=== PATIENT | female | born 1935 | race Caucasian/White ===

== ENCOUNTER 2018-07-30 12:47 | Emergency (ER) | payer MEDICARE, SELFPAY ==
[2018-07-30 13:08] VITALS: BP 184/105; PULSE 93; RESP 18; TEMP 36.9; O2SAT 96; BMI 24.9
--- NOTE | 2018-07-30 13:24 | ED_ITS ---
HPI - Dizziness General Chief Complaint: Dizziness Stated Complaint: HEAD ABARCA UPON STANDING, FELL DOWN, LIGHT HEADED Time Seen by Provider: 07/30/18 13:23 Source: patient Mode of arrival: ambulatory Limitations: no limitations History of Present Illness HPI Narrative: Patient is an 83-year-old female here for evaluation of an episode that occurred earlier today. She stated that she was at her baseline state health when she was walking on the hallway at the facility where she is living. She states she bent over to slide a piece of paper under someone's door him when she stood up she became very lightheaded. She denies any other associated symptoms at that time to include chest pain, vertigo, shortness of breath, ringing in her ears. She stated that she did fall and hit her right knee. She states that her knee does not hurt. She was ambulatory afterwards however did take her little while to get up. She did not hit her head. Does not on anticoagulation. She states that she has had vertigo in the past but did not feel like that this was vertigo. Has had an irregular heartbeat in the past and is on propranolol for this however she did not feel like she was having any palpitations or rapid heart rate at the time. Patient has never had a stroke before. She did ambulate here into the emergency department. She states that she has been becoming more ?dizzy ?over the past couple weeks. This is not a vertigo sensation but a lightheadedness sensation. She states she does have weakness in her lower extremities with the right greater than left however this is not new. She states she does have a history of neuropathy. Patient did ambulate into the emergency department. Related Data Home Medications Medication Instructions Recorded Confirmed cyclobenzaprine 5 mg PO #0 06/27/17 06/04/18 budesonide-formoterol [Symbicort] 1 inh INH BID #102 12/10/17 06/04/18 Previous Rx's Medication Instructions Recorded propranolol 40 mg PO BID #180 tab 08/07/17 albuterol sulfate [Proventil HFA] 1 - 2 puff INH SEE INSTRUCTIONS #1 08/13/17 inh metformin [Glucophage] 500 mg PO BID #180 tab 09/25/17 omeprazole 20 mg PO QDAY #90 cap 12/25/17 alprazolam 0.25 mg tablet 0.25 mg PO PRN #20 tab 02/04/18 Disabled Parking Permit See Label Instructions 05/06/18 [id number] .COMPLEX #1 [id number] albuterol sulfate HFA 90 2 puff INHALATION Q4-6H PRN #8 gram 07/08/18 mcg/actuation aerosol inhaler Allergies Allergy/AdvReac Type Severity Reaction Status Date / Time No Known Drug Allergies Allergy Verified 07/30/18 13:08 Review of Systems Constitutional Denies fatigue, Denies fever(s), Denies frequent falls, Denies headache(s), Denies lethargy and Denies malaise Eyes Denies blurry vision and Denies diplopia ENT Ears, Nose, Mouth, and Throat: Denies vertigo, Reports dizziness, Denies headache(s) and Reports disequilibrium Cardiovascular Denies chest pain, Denies syncope, Denies irregular heart rhythm, Denies palpitations, Denies dyspnea and Denies slow heart rate Respiratory Denies cough and Denies dyspnea Gastrointestinal Gastrointestinal: Denies abdominal pain, Denies nausea and Denies vomiting Genitourinary Denies dysuria Musculoskeletal Denies myalgias, Denies deformity, Reports arthralgias (Right knee), Denies joint swelling, Denies limited range of motion, Denies numbness and Denies tingling Integumentary/Breasts Denies lesions and Denies rash Neurologic Denies behavioral changes, Denies confusion, Denies vertigo, Reports dizziness, Denies syncope, Denies frequent falls, Denies headache(s), Denies focal weakness , Denies numbness, Denies radicular pain, Denies sensory deficit, Denies tingling, Denies paresthesias and Reports disequilibrium Psychiatric Denies anxiety, Denies behavioral changes and Denies confusion Endocrine Denies fatigue and Denies palpitations Hematologic/Lymphatic Denies easy bleeding and Denies easy bruising Allergic/Immunologic Denies urticaria PFSH Medical History Breast cancer (Chronic ~1981) COPD (chronic obstructive pulmonary disease) (Chronic) Cataract (Chronic) Chronic back pain (Chronic) Diabetes (Chronic) Diverticular disease (Chronic) GERD (gastroesophageal reflux disease) (Chronic) Hay fever (Chronic) Hyperglycemia (Chronic) Hyperlipidemia (Chronic) Hypertension (Chronic) Lumbar back pain (Chronic) Skin cancer (Chronic ~2011) Chicken pox (Resolved) Measles (Resolved) Mumps (Resolved) Surgical History Anesthesia (Resolved) History of mastectomy (Resolved ~09/1981) Status post hysterectomy Family History Mother Brain aneurysm Sister Age: 79 Cancer of breast Lung cancer Daughter Cancer of breast Father No problems noted. Social History Smoking Status: Never smoker Exam Initial Vital Signs Initial Vital Signs: Vital Signs Temperature 98.5 F 07/30/18 13:08 Pulse Rate 93 H 07/30/18 13:08 Respiratory Rate 18 07/30/18 13:08 Blood Pressure 184/105 H 07/30/18 13:08 Pulse Oximetry 96 07/30/18 13:08 Const General: cooperative, healthy appearing, comfortable, well developed, well groomed and No acute distress Orientation: alert, awake and oriented x3 HENMT Head: normal to inspection and normocephalic Resp Effort & Inspection: normal respiratory effort Auscultation: clear to auscultation bilaterally Cardio Rate: regular rate Rhythm: regular rhythm GI Inspection: non-distended Skin Lesions: no lesions Rashes: no rashes Neuro General: alert, awake and oriented x3 Cranial Nerves: CN's II-XI intact bilaterally Cognition: normal cognition Speech: speech normal Gait: normal gait Motor: muscle tone normal throughout Sensory Exam: no sensory deficits noted Extrem General: normal to inspection and capillary refill normal Other: Patient with a small bruise on the right anterior knee however full range of motion. Not tender to palpation. Psych Appearance: grossly normal and well kempt Course Orders Ordered: ED Orders 07/30/18 13:18 EKG-12 Lead Stat Vital Signs - 8 hr 07/30/18 13:08 Temperature 98.5 F Pulse Rate 93 H Respiratory Rate 18 Blood Pressure 184/105 H Pulse Oximetry 96 MDM - Dizziness ECG Data Attestation: I personally reviewed and interpreted this ECG as follows: Prior ECG tracings: available for review Interpretation: Sinus rhythm Ventricular rate 83 LVH Normal QRS sign normal QTC Nonspecific ST T wave changes Comparison EKG dated 12/31/2016 Sinus rhythm Occasional PVCs Rate is [address] T wave changes MDM Narrative Medical decision making narrative: Patient's symptoms today were caused after she stood up from a position where she was bent over placing something under the door. She is not on anticoagulation in did not hit her head. She was able to ambulate afterwards. Patient does state that she gets ?dizzy? when she changes position at home and has to sit on the edge of the bed at night prior to standing up going to the restroom. She is not on blood pressure medications. She is on propanolol for a ?irregular heartbeat? her symptoms today did not seem to be associated with this. I feel CVA is unlikely. Will hold on head CT. EKG is unchanged from prior EKG. Doubt ACS. Patient has never had a GI bleed before his no change in her bowel so I feel that this is unlikely an anemia issue. Doubt electrolyte issue. Informed the patient that I recommended she contact her primary care doctor to discuss further workup to include a possible echocardiogram and carotid Dopplers for further evaluation. She was given return precautions. She expressed understanding and agreement with plan. Discharge Plan Departure Patient Disposition: Home Clinical Impression: Lightheadedness Instructions: DI for Dizziness-Nonvertigo Activity Restrictions/Additional Instructions: Recommend you continue all of your medications. I would also recommend you contact her primary care doctor to discuss the indications for a echocardiogram and carotid Dopplers to further evaluate her heart. I would also recommend that you take care when you change positions to include going from laying to sitting or sitting to standing or bending over. Return to the emergency department for any new or worsening symptoms Prescriptions: No Action cyclobenzaprine 5 MG tablet 5 mg PO Qty: 0 RF: 0 propranolol 40 MG tablet 40 mg PO BID Qty: 180 RF: 4 albuterol sulfate [Proventil HFA] 90 MCG/PUFF HFA aerosol inhaler 1 - 2 puff INH SEE INSTRUCTIONS Qty: 1 RF: 11 metformin [Glucophage] 500 MG tablet 500 mg PO BID Qty: 180 RF: 3 budesonide-formoterol [Symbicort] 160 MCG/4.5 MCG HFA aerosol inhaler 1 inh INH BID Qty: 102 RF: 0 omeprazole 20 MG capsule,delayed release(DR/EC) 20 mg PO QDAY Qty: 90 RF: 3 alprazolam 0.25 mg tablet 0.25 mg PO PRN Qty: 20 RF: 1 Disabled Parking Permit See Label Instructions [id number] .COMPLEX Qty: 1 RF: 0 albuterol sulfate [Ventolin HFA] 90 mcg/actuation HFA aerosol inhaler 2 puff INHALATION Q4-6H PRN (Reason: shortness of breath or wheezing) Qty: 8 RF: 3
== END 2018-07-30 14:25 | disposition home or self-care (01) ==
PROVIDERS: Emergency Provider Emergency Medicine; Family Provider Family Medicine; PCP Family Medicine
DX: R42 Dizziness and giddiness (principal)
CPT/HCPCS: 93005; 99282; 99283

== ENCOUNTER → 2018-08-01 09:41 | Outpatient (CLI) | payer MEDICARE, SELFPAY ==
[2018-08-01 09:57] LABS: Add Manual Diff / Slide Review NO; Basophils Percent Auto 0.8 % (0-2); Eosinophils Percent Auto 2.5 % (2-4); Hematocrit 41.8 % (36-46); Hemoglobin 13.5 g/dL (12.0-16.0); Lymphocytes Percent Auto 25.6 % (25-40); Mean Corpuscular HGB Conc 32.4 % (30-36); Mean Corpuscular Hemoglobin 27.7 PG (26-34); Mean Corpuscular Volume 85.6 fL (80-100); Monocytes Percent Auto 7.8 % (3-14); Neutrophils Absolute Auto 5700 /uL (3000-5900); Neutrophils Percent Auto 63.3 % (50-75); Platelet Count 342 X10^3/uL (150-400); Red Blood Cell Count 4.88 X10^6/uL (4.0-5.2); Red Cell Distribution Width 16.3 % (11.6-14.8)
[2018-08-01 10:21] LABS: BUN Creatinine Ratio 21.4 (6-22); Blood Urea Nitrogen 15 mg/dL (7-17); Calcium 10.1 mg/dL (8.4-10.2); Carbon Dioxide 28 mmol/L (22-32); Chloride 100 mmol/L (98-107); Estimated Glomerular Filt Rate > 60.0 mL/min (>60); Glucose 152 mg/dL (80-110); HEMOLYSIS < 15 (0-50); Magnesium 1.5 mg/dL (1.6-2.3); Potassium 4.3 mmol/L (3.4-5.1); Sodium 142 mmol/L (137-145)
[2018-08-01 11:31] LABS: Thyroid Stimulating Hormone 2.42 uIU/mL (0.47-4.68)
== END ==
PROVIDERS: PCP Family Medicine; Visit Provider Family Medicine
DX: I10 Essential (primary) hypertension (principal); R42 Dizziness and giddiness
CPT/HCPCS: 36415; 80048; 83735; 84443; 85025

== ENCOUNTER → 2018-08-13 14:38 | Outpatient (CLI) | payer MEDICARE, SELFPAY ==
--- NOTE | 2018-08-13 14:42 | DI.US.S_ITS ---
PROCEDURE: US CAROTID DOPPLER BI INDICATIONS: lightheaded. GLF, ER f/u TECHNIQUE: Color and pulse Doppler interrogation was performed of both carotid systems, with image documentation and velocity measurements. COMPARISON: None. FINDINGS: Stenosis calculations are based on SRU (Society of Radiologists in Ultrasound) criteria. The flow velocities and the arterial waveforms are normal within both carotid arterial systems. Atherosclerotic plaque is seen on both sides. The estimated degree of internal carotid artery stenosis is less than 50%. Antegrade flow is confirmed within both vertebral arteries. IMPRESSION: No hemodynamically significant stenosis is seen. Atherosclerotic plaque is noted bilaterally. Dictated by: Darian Doyle M.D. on 08/13/2018 at 14:47 Approved by: Darian Doyle M.D. on 08/13/2018 at 14:48
== END ==
PROVIDERS: Family Provider Family Medicine; PCP Family Medicine; Visit Provider Family Medicine
DX: I65.23 Occlusion and stenosis of bilateral carotid arteries (principal); R42 Dizziness and giddiness
CPT/HCPCS: 93880

== ENCOUNTER → 2018-08-15 14:58 | Outpatient (CLI) | payer MEDICARE, SELFPAY ==
--- NOTE | 2018-08-15 14:59 | DI.ECHO.S_ITS ---
[facility]---------+ [facility] +---------+ : : [address] : : : : [id number] : : : : Phone: [phone] Echocardiogram Report + + :Name: INDER ASH Study Date: 08/15/2018 Height: 65 in : :[facility] Exam Location: [facility] Weight: 145 lb : : Gender: Female BSA: 1.7 m2 : :: 1935 Age: 83 yrs BP: 190/96 mmHg: :Reason For Study: LIGHTHEADED : : Performed By: Alexys Hanks : :Referring: HERBERT THURMAN : + + Interpretation Summary The left ventricle is normal in size. Left ventricular systolic function is mildly reduced. Left ventricular ejection fraction is estimated to be 45%. There is mild global hypokinesis of the left ventricle. Diastolic parameters suggest a relaxation abnormality of the left ventricle, consistent with probable normal filling pressures. The right ventricle is normal in size and function. Pulmonary artery pressures cannot be estimated because of the lack of a measurable TR jet velocity. The left atrium is severely dilated. Right atrial size is normal. The interatrial septum bows toward right atrium consistent with elevated left atrial pressure. The atrial septum is aneurysmal. There is no significant valvular heart disease. The aortic root is normal size. Incidental finding of a liver cyst measuring approximately 4.8 cm x 2.2 cm is noted. Procedure: A two-dimensional transthoracic echocardiogram with color flow and Doppler was performed. The study quality was technically adequate. There is no prior echocardiogram noted for this patient. The patient was in normal sinus rhythm during the exam. Left Ventricle: The left ventricle is normal in size. There is normal left ventricular wall thickness. Left ventricular systolic function is mildly reduced. Left ventricular ejection fraction is estimated to be 45%. Septal motion is consistent with conduction abnormality. There is mild global hypokinesis of the left ventricle. Diastolic parameters suggest a relaxation abnormality of the left ventricle, consistent with probable normal filling pressures. Right Ventricle: The right ventricle is normal in size and function. Atria: The left atrium is severely dilated. Right atrial size is normal. The interatrial septum bows toward right atrium consistent with elevated left atrial pressure. The atrial septum is aneurysmal. There is no Doppler evidence for an atrial septal defect. Mitral Valve: The mitral valve is normal in structure and function. There is trace mitral regurgitation. Aortic Valve: The aortic valve is trileaflet. The aortic valve opens well. No aortic regurgitation is present. Tricuspid Valve: The tricuspid valve is normal in structure and function. There is trace tricuspid regurgitation. Pulmonary artery pressures cannot be estimated because of the lack of a measurable TR jet velocity. Pulmonic Valve: The pulmonic valve is normal in structure and function. There is trace pulmonic regurgitation. There is no significant valvular heart disease. Great Vessels: The aortic root is normal size. The dimensions of the ascending aorta are normal. The pulmonary artery is normal size. The IVC is of normal diameter and collapses greater than 50% with a sniff. This suggests a low right atrial pressure of 3 mm Hg. Pericardium/ Pleura There is no pericardial effusion. There is no pleural effusion. Incidental finding of a liver cyst measuring approximately 4.8 cm x 2.2 cm is noted. MMode/2D Measurements & Calculations LVIDd: 5.5 cm Ao root diam: 3.0 cm LVIDs: 4.2 cm Aortic Jxn: 2.4 cm FS: 24.5 % asc Aorta Diam: 3.3 cm EPSS: 1.6 cm IVSd: 0.92 cm LVPWd: 1.0 cm LV gordillo. diameter/BSA (cm/m^2): 3.2 LV sys. diameter/BSA (cm/m^2): 2.4 LA dimension: 4.5 cm RA long axis: 4.8 cm LA A2 area: 22.3 cm2 RA area: 13.1 cm2 LA A4 area: 24.7 cm2 RA vol: 30.6 ml LA length (vol): 5.1 cm RA : 17.7 ml/m2 LA vol: 91.0 ml IVC diam: 1.0 cm LA vol index: 52.7 ml/m2 Doppler Measurements & Calculations Ao V2 max: 131.4 cm/sec LVOT Max Job: 62.1 cm/sec Ao V2 mean: 84.4 cm/sec LV V1 max P.5 mmHg Ao max P.9 mmHg LV V1 VTI: 13.7 cm Ao mean P.2 mmHg sev ratio: 0.60 Ao V2 VTI: 22.9 cm MV E max job: 37.5 cm/sec PA V2 max: 75.4 cm/sec MV A max job: 81.6 cm/sec PA V2 mean: 51.9 cm/sec MV E/A: 0.46 PA mean P.2 mmHg Med Peak E' Job: 3.0 cm/sec PA pr(Accel): 36.6 mmHg E/E' med: 12.5 PA Accel Time: 0.09 sec Lat Peak E' Job: 3.9 cm/sec E/E' lat: 9.6 E/e' average: 11.1 MV dec time: 0.16 sec Pulm Samson Nice Job: 26.7 cm/sec Reading Physician:BLANE
== END ==
PROVIDERS: Family Provider Family Medicine; PCP Family Medicine; Visit Provider Family Medicine
DX: R42 Dizziness and giddiness (principal); I10 Essential (primary) hypertension; K76.89 Other specified diseases of liver
CPT/HCPCS: 93306

== ENCOUNTER → 2018-09-16 11:57 | Outpatient (CLI) | payer MEDICARE, SELFPAY ==
[2018-09-16 12:52] LABS: Alanine Aminotransferase 22 IU/L (9-52); Albumin 4.3 g/dL (3.5-5.0); Albumin Globulin Ratio 1.7 (1.0-2.8); Alkaline Phosphatase 58 U/L (38-126); Aspartate Aminotransferase 15 IU/L (14-36); Bilirubin Total 0.5 mg/dL (0.2-1.3); Bilirubin Unconjugated 0.3 mg/dL (0.0-1.1); Globulin 2.6 g/dL (1.7-4.1); HEMOLYSIS < 15 (0-50); Total Protein 6.9 g/dL (6.3-8.2)
== END ==
PROVIDERS: Family Provider Family Medicine; PCP Family Medicine; Visit Provider Family Medicine
DX: E11.9 Type 2 diabetes mellitus without complications (principal)
CPT/HCPCS: 36415; 80076

== ENCOUNTER → 2018-11-19 15:17 | Outpatient (CLI) | payer MEDICARE, SELFPAY ==
--- NOTE | 2018-11-19 15:22 | DI.RAD.S_ITS ---
PROCEDURE: XR CHEST 2V INDICATIONS: Suspected pneumonia TECHNIQUE: 2 views of the chest were acquired. COMPARISON: [facility], , CHEST 1 VIEW, 12/15/2017, 20:39. FINDINGS: Surgical changes and devices: None. Lungs and pleura: No acute consolidation. Scattered subsegmental atelectasis and/or scarring. No pleural effusions or pneumothorax. Mediastinum: Mediastinal contours are normal. Heart size is normal. Hiatal hernia is noted. Bones and chest wall: No suspicious bony abnormalities. Right shoulder degeneration and loose body as before. Soft tissues appear unremarkable. IMPRESSION: No definite focal consolidation. If there is persistent clinical diagnostic uncertainty, continued surveillance with short interval chest radiographs after treatment is recommended. Dictated by: Tim Rodriguez M.D. on 11/19/2018 at 15:53 Approved by: Tim Rodriguez M.D. on 11/19/2018 at 15:59
== END ==
PROVIDERS: PCP Family Medicine; Visit Provider Family Medicine
DX: R06.02 Shortness of breath (principal); R05 Cough
CPT/HCPCS: 71046

== ENCOUNTER → 2018-12-02 11:58 | Outpatient (CLI) | payer MEDICARE, SELFPAY ==
--- NOTE | 2018-12-02 12:01 | DI.RAD.S_ITS ---
PROCEDURE: XR CHEST 2V INDICATIONS: cough TECHNIQUE: 2 views of the chest were acquired. COMPARISON: [facility], CR, XR CHEST 2V, 11/19/2018, 15:25. FINDINGS: Surgical changes and devices: None. Lungs and pleura: Chronic right midlung scarring. Diffusely coarse interstitial markings, slightly increased compared to the prior study. No pleural effusions or pneumothorax. Mediastinum: Mediastinal contours are normal. Heart size is normal. There is small hiatal hernia. Bones and chest wall: No suspicious bony abnormalities. Soft tissues appear unremarkable. IMPRESSION: 1. No evidence of focal pneumonia. 2. Slight increase in interstitial markings compared to prior study. This is nonspecific and can be seen in a viral or interstitial pneumonitis or emphysematous change. Dictated by: Lila Nobles M.D. on 12/02/2018 at 13:20 Approved by: Lila Nobles M.D. on 12/02/2018 at 13:22
== END ==
PROVIDERS: Family Provider Family Medicine; PCP Family Medicine; Visit Provider Physician Assistant
DX: R05 Cough (principal); K44.9 Diaphragmatic hernia without obstruction or gangrene
CPT/HCPCS: 71046

== ENCOUNTER → 2018-12-17 08:04 | Outpatient (CLI) | payer MEDICARE, SELFPAY ==
--- NOTE | 2018-12-17 | DI.MG.S_ITS ---
UNILATERAL LEFT DIGITAL SCREENING MAMMOGRAM 3D/2D WITH CAD POST LUMPECTOMY POST MASTECTOMY: 12/17/2018 CLINICAL: Routine screening. Personal history of bilateral breast cancer. Family history of breast cancer. Comparison is made to exams dated: 12/06/2017 mammogram, 07/02/2017 mammogram, and 01/03/2017 mammogram - [facility]. The tissue of left breast is heterogeneously dense. This may lower the sensitivity of mammography. Current study was also evaluated with a Computer Aided Detection (CAD) system. There are benign post operative findings in the left breast. There also are benign calcifications in the left breast. No significant masses, calcifications, or other findings are seen in the breast. There has been no significant interval change. IMPRESSION: There is no mammographic evidence of malignancy. A 1 year screening mammogram is recommended. This exam was interpreted at Station ID: [id number]. NOTE: For mammograms, a report in lay terms will be sent to the patient. Approximately 15% of breast malignancies will not be visualized mammographically. In the management of a palpable breast mass, a negative mammogram must not discourage biopsy of a clinically suspicious lesion. Electronically Signed By: Yumi renteria/denisa:12/17/2018 16:25:02 copy to: Pancho Cadena letter sent: Normal Exam ACR BI-RADS Category 2: Benign Finding(s) 3342F
[2018-12-17 09:53] LABS: Add Manual Diff / Slide Review NO; Basophils Absolute Auto 100 /uL (0-100); Basophils Percent Auto 0.8 % (0-2); Eosinophils Absolute Auto 100 /uL (0-450); Eosinophils Percent Auto 1.2 % (2-4); Hematocrit 40.6 % (36-46); Hemoglobin 13.1 g/dL (12.0-16.0); Lymphocytes Absolute Auto 1600 /uL (1100-4500); Lymphocytes Percent Auto 21.8 % (25-40); Mean Corpuscular HGB Conc 32.2 % (30-36); Mean Corpuscular Hemoglobin 27.8 PG (26-34); Mean Corpuscular Volume 86.3 fL (80-100); Monocytes Absolute Auto 600 /uL (0-900); Monocytes Percent Auto 7.7 % (3-14); Neutrophils Absolute Auto 5100 /uL (1500-7000); Neutrophils Percent Auto 68.5 % (50-75); Platelet Count 289 X10^3/uL (150-400); Red Blood Cell Count 4.71 X10^6/uL (4.0-5.2); Red Cell Distribution Width 16.8 % (11.6-14.8); White Blood Cell Count 7.4 X10^3/uL (4.5-11.0)
[2018-12-17 10:12] LABS: Hemoglobin A1C% w Est Avg Glu 6.2 % (4.0-6.0)
[2018-12-17 10:13] LABS: Alanine Aminotransferase 18 IU/L (9-52); Albumin 4.1 g/dL (3.5-5.0); Albumin Globulin Ratio 1.5 (1.0-2.8); Alkaline Phosphatase 53 U/L (38-126); Aspartate Aminotransferase 14 IU/L (14-36); BUN Creatinine Ratio 18.6 (6-22); Bilirubin Total 0.4 mg/dL (0.2-1.3); Blood Urea Nitrogen 13 mg/dL (7-17); Calcium 10.3 mg/dL (8.4-10.2); Carbon Dioxide 27 mmol/L (22-32); Chloride 103 mmol/L (98-107); Cholesterol 231 mg/dL (140-199); Estimated Glomerular Filt Rate > 60.0 mL/min (>60); Globulin 2.8 g/dL (1.7-4.1); Glucose 142 mg/dL (80-110); HDL Cholesterol 65 mg/dL (40-60); HEMOLYSIS < 15 (0-50); LDL Cholesterol Calculated 114 mg/dL (<100); Potassium 4.5 mmol/L (3.4-5.1); Sodium 139 mmol/L (137-145); Total Protein 6.9 g/dL (6.3-8.2); Triglycerides 262 mg/dL (35-150)
[2018-12-17 10:53] LABS: Microalbumi Creatinin Ratio Ur 33.4 ug/mg CR (<30); Microalbumin Urine Random 9.7 mg/dL (0-1.6)
[2018-12-17 11:03] LABS: Vitamin D 25 Hydroxy (D3) 26.4 ng/mL (30.0-100.0)
[2018-12-17 11:18] LABS: Thyroid Stimulating Hormone 2.37 uIU/mL (0.47-4.68)
== END ==
PROVIDERS: PCP Family Medicine; Visit Provider Family Medicine
DX: Z12.31 Encounter for screening mammogram for malignant neoplasm of breast (principal); Z85.3 Personal history of malignant neoplasm of breast; Z80.3 Family history of malignant neoplasm of breast; J44.9 Chronic obstructive pulmonary disease, unspecified; I10 Essential (primary) hypertension; E11.9 Type 2 diabetes mellitus without complications; M81.0 Age-related osteoporosis without current pathological fracture
CPT/HCPCS: 36415; 77063; 77067; 80053; 80061; 82043; 82306; 82570; 83036; 84443; 85025

== ENCOUNTER → 2019-03-25 11:41 | Outpatient (CLI) | payer MEDICARE, SELFPAY ==
[2019-03-25 12:38] LABS: Hemoglobin A1C% w Est Avg Glu 6.2 % (4.0-6.0)
[2019-03-25 12:42] LABS: BUN Creatinine Ratio 18.6 (6-22); Blood Urea Nitrogen 13 mg/dL (7-17); Calcium 10.3 mg/dL (8.4-10.2); Carbon Dioxide 28 mmol/L (22-32); Chloride 104 mmol/L (98-107); Estimated Glomerular Filt Rate > 60.0 mL/min (>60); Glucose 178 mg/dL (80-110); HEMOLYSIS < 15 (0-50); Potassium 4.2 mmol/L (3.4-5.1); Sodium 142 mmol/L (137-145)
== END ==
PROVIDERS: PCP Family Medicine; Visit Provider Family Medicine
DX: E11.9 Type 2 diabetes mellitus without complications (principal)
CPT/HCPCS: 36415; 80048; 83036

== ENCOUNTER → 2019-03-27 18:02 | Outpatient (CLI) | payer MEDICARE, SELFPAY ==
--- NOTE | 2019-03-27 18:04 | DI.MRI.S_ITS ---
PROCEDURE: MR LUMBAR SPINE WO CON INDICATIONS: Pain TECHNIQUE: Noncontrast sagittal T1 spin echo and T2 fast echo, sagittal STIR, axial T1 and T2 fast spin echo through the lumbar spine. In cases with scoliosis, additional coronal T2 fast spin echo may be performed. COMPARISON: [facility], , L-SPINE WITHOUT CONTRAST, 07/02/2017, 13:13. FINDINGS: Image quality: Excellent. Alignment and Curvature: Again noted is grade 1 anterolisthesis of L3 on L4 and L4 and L5, unchanged from previous study. Bone Marrow: Marrow is of normal overall signal. No acute vertebral body compression fractures. Spinal Cord: Conus medullaris terminates at the L1 level. Visualized cord demonstrates normal signal and size. Paraspinous Soft Tissues: No paravertebral masses. L1-L2: Bilateral facet arthrosis is seen. No significant canal stenosis or neuroforaminal narrowing. L2-L3: Decrease in intervertebral disc space and degenerative endplate changes are seen. Broad-based disc bulge and bilateral facet arthrosis is seen with hypertrophy of ligamentum flavum. There is mild central canal stenosis, no significant neuroforaminal narrowing. L3-L4: Decreased intervertebral disc space and degenerative endplate changes are again seen. A broad-based disc bulge and bilateral facet arthrosis is seen with hypertrophy of ligamentum flavum. Moderate central canal stenosis and mild to moderate bilateral neural foramina narrowing is seen. Bulging disc likely contacting bilateral exiting L3 nerve roots. L4-L5: Broad-based disc bulge and bilateral facet arthrosis is seen with hypertrophy of ligamentum flavum. There is moderate to severe central canal stenosis and moderate bilateral neural foramina narrowing. There is compression of bilateral L4 and L5 nerve roots. L5-S1: Decreased intervertebral disc space and degenerative endplate changes are seen. Broad-based disc bulge and bilateral facet arthrosis is noted causing mild to moderate central canal stenosis and right worse than left bilateral neuroforaminal narrowing. There is likely compression of right L5 and S1 nerve roots. IMPRESSION: 1. Grade 1 anterolisthesis of L3 on L4 and L4 on L5 not significantly changed from previous study. No marrow edema. No acute compression fracture. 2. Degenerative disc bulge and bilateral facet arthrosis throughout lumbar spine causing [id number] central canal stenosis and bilateral neuroforaminal narrowing more prominent at L3-4 and L4-5 levels as described above. Finding is progressed since 2017 study. Dictated by: Harjit Lombardi M.D. on 03/30/2019 at 10:39 Approved by: Harjit Lombardi M.D. on 03/30/2019 at 10:44
== END ==
PROVIDERS: PCP Family Medicine; Visit Provider Family Medicine
DX: M47.26 Other spondylosis with radiculopathy, lumbar region (principal); M51.26 Other intervertebral disc displacement, lumbar region
CPT/HCPCS: 72148

== ENCOUNTER → 2019-05-07 08:31 | Outpatient (CLI) | payer MEDICARE, SELFPAY ==
[2019-05-07 09:29] LABS: Add Manual Diff / Slide Review NO; Basophils Absolute Auto 100 /uL (0-100); Basophils Percent Auto 0.7 % (0-2); Eosinophils Absolute Auto 200 /uL (0-450); Eosinophils Percent Auto 2.2 % (2-4); Hematocrit 40.2 % (36-46); Hemoglobin 12.8 g/dL (12.0-16.0); Lymphocytes Absolute Auto 2600 /uL (1100-4500); Lymphocytes Percent Auto 28.9 % (25-40); Mean Corpuscular HGB Conc 31.9 % (30-36); Mean Corpuscular Hemoglobin 27.1 PG (26-34); Monocytes Absolute Auto 700 /uL (0-900); Neutrophils Absolute Auto 5300 /uL (1500-7000); Neutrophils Percent Auto 60.2 % (50-75); Platelet Count 306 X10^3/uL (150-400); Red Blood Cell Count 4.73 X10^6/uL (4.0-5.2); Red Cell Distribution Width 15.6 % (11.6-14.8); White Blood Cell Count 8.8 X10^3/uL (4.5-11.0)
[2019-05-07 09:49] LABS: Hemoglobin A1C% w Est Avg Glu 6.1 % (4.0-6.0)
[2019-05-07 10:00] LABS: Blood Urea Nitrogen 21 mg/dL (7-17); Calcium 10.6 mg/dL (8.4-10.2); Carbon Dioxide 28 mmol/L (22-32); Chloride 104 mmol/L (98-107); Estimated Glomerular Filt Rate > 60.0 mL/min (>60); Glucose 118 mg/dL (80-110); HEMOLYSIS < 15 (0-50); Potassium 4.1 mmol/L (3.4-5.1); Sodium 140 mmol/L (137-145)
== END ==
PROVIDERS: PCP Family Medicine; Visit Provider Family Medicine
DX: Z01.818 Encounter for other preprocedural examination (principal); R73.9 Hyperglycemia, unspecified
CPT/HCPCS: 36415; 80048; 83036; 85025

== ENCOUNTER → 2019-05-07 10:58 | Outpatient (CLI) | payer MEDICARE, SELFPAY | PROVIDERS: PCP Family Medicine; Visit Provider Hospitalist | DX: Z01.818 Encounter for other preprocedural examination (principal); R73.9 Hyperglycemia, unspecified | CPT/HCPCS: 36415; 80048; 83036; 85025; 93005 ==

== ENCOUNTER 2019-06-17 06:06 | Inpatient (IN) | payer MEDICARE, SELFPAY ==
[2019-06-12 10:50] VITALS: BMI 24.5
[2019-06-17] VITALS (25 sets, daily range): BP systolic 119–192; BP diastolic 65–110; PULSE 76–90; RESP 9–18; TEMP 36–36.9; O2SAT 94–100; BMI 23.1
--- NOTE | 2019-06-17 | DI.RAD.S_ITS ---
PROCEDURE: XR LUMBAR SPINE 2-3V INDICATIONS: L3-4 L4-5 --TLIF TECHNIQUE: 2 views of the lumbar spine were acquired. COMPARISON: None. FINDINGS: Bones: 5 [id number] vertebrae are present. Postsurgical changes compatible with L3-L4 and L4-L5 TLIF. Orthopedic hardware is intact and properly positioned. No vertebral body compression fractures. No suspicious bony lesions. Soft tissues: Overlying bowel gas pattern is normal. No suspicious soft tissue calcifications. IMPRESSION: Expected postsurgical change for L3-L4 and L4-L5 TLIF. Dictated by: Kaley Anders MD, PhD on 06/17/2019 at 10:52 Approved by: Kaley Anders MD, PhD on 06/17/2019 at 10:53
[2019-06-17] MEDS: LACTATED RINGERS 1,000 ML 42 ML IV ×2 (07:29→09:51)
--- NOTE | 2019-06-17 07:46 | PM.PREOP ---
Pre-operative Note Interval Note History & Physical reviewed/Exam performed by Physician: Yes Changes to H&P: No
[2019-06-17] MEDS: CEFAZOLIN 2 GM/100 ML FROZ.PIGGY IV ×3 (07:54→23:22)
--- NOTE | 2019-06-17 08:28 | SUR.OPER ---
Prone on spine table, head in foam head support, padded chest and pelvic supports, gel pad at knees, lower legs supported by pillows; nipples, genitalia and toes free of pressure, arms secured on foam padded arm boards at <90 degrees abduction. Tape over blanket at thigh secured to table.
[2019-06-17] MEDS: BUPIVACAINE 0.25% W/ EPI 30 ML VIAL INJ (08:40)
[2019-06-17] MEDS: BUPIVACAINE LIPOSOME 266 MG/20 ML VIAL INJ (08:40)
--- NOTE | 2019-06-17 11:16 | PM.OP.1 ---
Operative Date/Time/Diagnoses Date of procedure: 06/17/19 Time of procedure: 08:16 Pre-op diagnosis: 1. L3-4, L4-5 spondylolisthesis 2. L3-4, L4-5 spinal stenosis 3. L3-4, L4-5 spondylosis with radiculopathy Post-op diagnosis: same Procedure & Clinicians Procedure: 1. L3-4, L4-5 Postero-lateral and posterior interbody fusion 2. L3-4, L4-5 interbody cage placement. 3. L3-4, L4-5 decompressive laminectomy with bilateral facetecomies 4. L3-4, L4-5 Posterior segmental instrumentation 5. Utilization of microsurgical technique and operating microscope Same procedure as scheduled: Yes Indications: Patient has been having chronic back pain and worsening lumbar radiculopathy. Patient failed multiple conservative management with worsening pain weakness and numbness in her lower extremity. Patient has been having difficulty performing activity of daily living. After discussing risks benefits of treatment options, patient elected proceed with surgery. Surgeon: Crissy Holt Typewriter Mechanic: Bee Mckeon Click Yes if Unassisted: No Anesthesia Type: General Operative Notes Closure Type: primary Specimen(s): none sent Prosthetic devices, grafts, tissues, transplants, or devices: Globus revolve screws, Rise cages Applied: catheter Estimated Blood Loss (mL): 75 Blood products transfused: none Procedure in detail: Patient was seen in the preoperative area. Risks and benefits of the surgery was discussed with the patient. Informed consent was obtained from the patient and placed in the chart. Surgical site was marked. Patient was taken to the operative room. General anesthesia was administered. Prophylactic antibiotic was given to the patient less than 30 min before the incision was made. Patient was placed into a prone position on the Noah table. Patient's back was then prepped and draped in the sterile fashion. Time-out was performed at this time. Using AP and lateral C-arm imaging the interval between L3-4, L4-5 was identified and marked on patient's back. A 2 inch incision 2 in from midline was made on the right side first. The fascia was incised in line with skin incision. Globus MARS retractors was placed inside the incision and docked onto the L3 and L4 lamina. Using microsurgical technique and operating microscope, a L3 and L4 laminectomy and L3-4, L4-5 facetectomy was performed using a Kerrison rongeur. The disc space at L3-4, L4-5 was identified. And a total diskectomy was performed at L3-4, L4-5 level. The endplates were decorticated using a rasp and shaver. The patient was found have severe central and neuroforaminal stenosis at both levels. The stenosis was fully decompressed after the laminectomy and facetectomy was completed. The total diskectomy and decortication was performed at L3-4, L4-5 level in order to to accomplish a L3-4, L4-5 fusion. The local bone from the laminectomy and facetectomy was saved for local bone grafting. After the total diskectomy and decortication was completed, Bio4 bone graft material was combined with local bone that was harvested earlier. The bone grafting material was placed into the L3-4, L4-5 interbody space along with two cages, one expandable cage at each level. The cages were expanded to their maximum height using the torque limiting screwdriver. At this time a mirror image incision was made on the left side. The fascia was incised in line with the skin incision. Globus MARS retractor was inserted and docked onto the L3-4, L4-5 posterolateral gutter. Using the power drill, posterior-lateral decortication was performed at L3-4, L4-5 level until bleeding cortical bone was identified. The remaining bone grafting material was placed into the L3-4, L4-5 posterior lateral gutter he order to accomplish posterolateral fusion at the L3-4, L4-5 levels. Using the double C-arm technique, pedicle screws were placed into the L3, L4, L5 pedicles bilaterally. This was done by placing the Jamshidi needle into the pedicles, then placing the guidewires over the Jamshidi needle, and finally placing the cannulated screws over the guidewires bilaterally. After the pedicle screws were placed, 2 titanium rods was locked into the heads of the pedicle screws using locking caps and torque limiting screwdriver. Total 6 pedicles screws were placed. After all the hardware was placed, and confirmed with AP and lateral C-arm imaging, the wound was then irrigated with sterile normal saline and packed with Ray-Navi gauze for 3 min to accomplish hemostasis. After the gauze was removed the deep fascia was closed with #1 Vicryl suture. The subcutaneous layer was closed with 2-0 Vicryl. The skin was closed with skin maxine. Patient tolerated the procedure well. There were no complications. Complications: none Post-operative Condition: stable Disposition: PACU [facility]care[facility]
[2019-06-17] MEDS: HYDROMORPHONE 2 MG INJ 0.5 MG IV ×3 (11:52→12:38)
--- NOTE | 2019-06-17 12:51 | SUR.PHASEI ---
Patient arrived in PACU somnolent, but arouses to voice. Dressing CDI. STACK's x 4. Medicated for c/o 5/10 pain.
--- NOTE | 2019-06-17 12:53 | SUR.PHASEI ---
Report Given to SIVAN Eddy.
[2019-06-17] MEDS: SODIUM CHLORIDE 0.9% 1,000 ML 100 ML IV (14:50)
[2019-06-17] MEDS: ALPRAZolam 0.25 MG TABLET PO (14:52)
[2019-06-17] MEDS: OXYCODONE IR 5 MG TABLET 10 MG PO (16:47)
--- NOTE | 2019-06-17 17:35 | PC.NURSE ---
Assumed care of pt at 1500. Pt sleeping in bed during bedside hand-off. Dsg c/d/i. 2L NC sats 92-94%. I.S. at bedside, enc to use 10x/hr while awake. CMS+. Reports baseline neuropathy; can wiggles toes, denies additional numbness. Feet cool to touch, pt reports my feet are always cool. Foot scd's on. IVF infusing per orders. Student nurse participating in pt care including assessments and medication administration, all care completed by student nurse has been under the supervision of this RN.
[2019-06-17] MEDS: PROPRANOLOL 40 MG TABLET PO (21:03)
[2019-06-17] MEDS: METFORMIN HCL 500 MG TABLET PO (21:03)
[2019-06-17] MEDS: DOCUSATE 100 MG CAPSULE PO (21:03)
[2019-06-17] MEDS: BUDESONIDE FORMOTEROL 2 EACH PO (21:04)
[2019-06-17] MEDS: SENNOSIDES 8.6 MG TABLET 17.2 MG PO (21:04)
[2019-06-18] VITALS (10 sets, daily range): BP systolic 105–146; BP diastolic 57–76; PULSE 74–92; RESP 16–20; TEMP 35.6–37.3; O2SAT 90–99
[2019-06-18] MEDS: SODIUM CHLORIDE 0.9% 1,000 ML 100 ML IV (01:00)
[2019-06-18 05:56] LABS: Hematocrit 32.9 % (36-46); Hemoglobin 10.5 g/dL (12.0-16.0)
[2019-06-18] MEDS: OXYCODONE IR 5 MG TABLET 10 MG PO ×2 (06:24→09:37)
--- NOTE | 2019-06-18 09:05 | PT.IIE ---
Current Diagnoses Spondylolisthesis, lumbar region (06/17/19) Spinal stenosis, lumbar region with neurogenic claudication (06/17/19) Surgery Performed Operation Date: 06/17/19 07:45 Actual Procedures p L3-4 , L4-5 TLIF w/ posterior instrumentation - Crissy Holt MD Surgical History (Last Updated 03/03/18 @ 21:46 by Cherelle Barbosa) Anesthesia (Resolved) History of mastectomy (Resolved ~09/1981) Status post hysterectomy Medical History (Last Updated 06/12/19 @ 11:29 by Loren Baker RN) Breast cancer (Chronic ~1981) Cataract (Chronic) Chicken pox (Resolved) Chronic back pain (Chronic) COPD (chronic obstructive pulmonary disease) (Chronic) Diabetes (Chronic) Diastolic dysfunction (Acute) Diverticular disease (Chronic) Edema (Acute) GERD (gastroesophageal reflux disease) (Chronic) Hay fever (Chronic) Hyperglycemia (Chronic) Hyperlipidemia (Chronic) Hypertension (Chronic) Lumbar back pain (Chronic) Measles (Resolved) Mumps (Resolved) Neuropathy (Acute) Skin cancer (Chronic ~2011) Physical Therapy Inpatient Evaluation/Re-Eval M1 PT/OT-IP Prior Functional Status Start: 06/18/19 11:30 Freq: NEEDED Status: Active Protocol: Document 06/18/19 09:05 AB (Rec: 06/18/19 11:44 AB [id number]) Medical Review Prior Functional Status Medical History Reviewed Yes Communication able to make needs known Mobility and Gait pt stated that she is independent with all mobilities and ambulation without AD Social History Household Members none Living Arrangements Apartment/Condo Number of Floors (Floors) One Floor Number of Stairs To Enter/Railing? pt lives on the 2nd floor apartment but has access to an elevator Home Environment High Toilet,Tub/Shower, Elevator Home Equipment Four Wheel Walker,Grab Bars In Shower Employment Status Retired Additional Social History Comment stated that she has a day bed and uses side bed frame to assist her to get up M2 PT-IP Current Condition Start: 06/18/19 11:30 Freq: NEEDED Status: Active Protocol: Document 06/18/19 09:05 AB (Rec: 06/18/19 11:44 AB [email or web address]) Physical Therapy Current Condition Current Condition Evaluation Date 06/18/19 Treatment Diagnosis L3-4, L4-5 fusion/lami; difficulty in walking Onset Date 06/17/19 Precautions Lumbar Precautions Log Roll,No Twisting,Limit Bending,Lifting Restriction of 10 lbs,Gait Belt above Incisional Area M3 PT-IP Subjective Start: 06/18/19 11:30 Freq: NEEDED Status: Active Protocol: Document 06/18/19 09:05 AB (Rec: 06/18/19 11:44 AB [email or web address]) Subjective Physical Therapy Visit Type Type Initial Evaluation Visit Start Time 09:05 Visit Stop Time 09:50 Total Visit Minutes 45 Number of HOSPITAL CNA Visits 0 Physical Therapy Visit Comments Patient Comments pt agreeable to do PT Therapy Pain Assessment Pain When Pain Assessed At Rest Pain Present Pain Present Pain Reported Location Bilateral Back Intensity 5 Scale Used increases to 9/10 with movement Pain Management Techniques Re-positioning,Timing of Activity with Medications M4 PT-IP Mobility and Gait Start: 06/18/19 11:30 Freq: NEEDED Status: Active Protocol: Document 06/18/19 09:05 AB (Rec: 06/18/19 11:44 AB [email or web address]) PT-Bed Mobility Assessment Rolling Type of Rolling Log Rolling Level of Assist Maximal Assistance,1 Person Assistance Supine to Sit Supine to Sit Maximum Assistance,1 Person Assistance,2 Person Assistance ,Bedrails Scooting Scooting to Edge of Bed Dependent PT-Transfer Assessment Sit to and From Stand Sit to and from Stand Maximum Assistance,2 Person Assistance,Use of Upper Extremities Equipment Transfer Assistive Device Gait Belt,Front Wheeled Walker Orthotic/Prosthetic Devices or Brace: No Transfers Transfer Destination Chair Transfer Technique Stand Step Pivot Transfer Ability Level of Assist Maximum Assistance,2 Person Assistance,Use of Upper Extremities Comments Mobility Comments pt completed supine to sit max A x 1-2 and max cues. pt stated that she has side of bed frame to assist her to get up but pt was trying to pull self up and not doing a log roll and pt educated on importance of back precautions . pt required increase time to complete all tasks and c/o increase back pain. pt was able to sit on EOB min A and cues. required total A to scoot to EOB. Completed sit to stand from EOB max A x 2 and max cues for quads activation. pt completed step pivot transfer max Ax 2 and max cues. required max A for controlled descent to the chair. positioned pt on the chair and set up for breakfast . call light within reach. Left pt with student nurse in room. Gait Assessment Comments Gait Comments unable at this time PT-Balance Assessment Sitting Balance and Reactions Static Sitting Balance Ability Fair Dynamic Sitting Balance Ability Fair Standing Balance and Reactions Static Standing Balance Ability Poor Dynamic Standing Balance Ability Poor Device Used FWW M5 PT-IP Objective Assessments Start: 06/18/19 11:30 Freq: NEEDED Status: Active Protocol: Document 06/18/19 09:05 AB (Rec: 06/18/19 11:44 AB [email or web address]) Orientation Orientation/Cognition Level of Alertness Alert Orientation Name,Place,Situation Language Function Ability Hard of Hearing Safety Awareness Decreased Safety Awareness Gross Range of Motion Lower Extremity ROM Assessment Within Functional Limits Strength Lower Extremity Strength Assessment Bilaterally Impaired Hip 3-/5 Knee 3/5 Sensation Assessment Sensation Gross Sensation WNL Muscle Tone Muscle Tone WNL Yes M6 PT-IP Treatment Start: 06/18/19 11:30 Freq: NEEDED Status: Active Protocol: Document 06/18/19 09:05 AB (Rec: 06/18/19 11:44 AB [email or web address]) Physical Therapy Treatment Exercises Exercises Heel Slides Education Education Provided Precautions,Weight Bearing Status,Post-Op Packet,Safety M7 PT-IP Assessment and Plan Start: 06/18/19 11:30 Freq: NEEDED Status: Active Protocol: Document 06/18/19 09:05 AB (Rec: 06/18/19 11:44 AB [email or web address]) PT Summary Assessment and Plan Potential Rehabilitation Potential Good Status of Condition at Evaluation Evolving Summary Impairments Pain,ROM,Strength,Balance, Coordination,Sensation,Tone, Cognition,Bed Mobility, Transfers,Gait,Activity Tolerance Assessment Summary pt requiring max A x 2 with mobility and unable to tolerate much activity with c/ o increase pain with movement. pt lives alone and will need 24/7 assist at this time. pt will require SNF rehab to improve strength and mobiltiy. Goals Bed Mobility Goal Standby Assistance Transfer Goal Standby Assistance,Front Wheeled Walker Gait Goal Standby Assistance,Front Wheel Walker Gait Distance 150 Days to Meet Goals 10 Frequency of Treatment Frequency Of Treatment Twice a Day Treatment Plan Physical Therapy Treatment Plan Bed Mobility Training,Transfer Training,Gait Training, Therapeutic Exercise,Balance Retraining,Post Op Education, Discharge Planning,Hot or Cold Pack,Neuromuscular Re-ed, Coordination Retraining,Manual Therapy Recommendations To Nursing Amount of Assist Needed 2 Person Assist Discharge Recommendations PT Discharge Recommendations SNF Rehab Equipment Needed for Home Before FWW if pt goes home Discharge
--- NOTE | 2019-06-18 09:15 | PM.PNPO.1 ---
Subjective Subjective Date Patient Seen: 06/18/19 Time Patient Seen: 09:15 Interval history: Hospital day 2, postop day 1 following L3-4, L4-5 laminectomy, TLIF, cage, posterior screw fixation by Dr. Holt. Patient has remained stable postoperatively. She has not been out of bed yet. No PT yet. She does have Lynn in place. Taking oxycodone 10 mg for pain. States she still has decreased sensation to her left leg. Patient does live alone but has 2 daughters locally will help her. She is anticipating going home post hospitalization. Exam Vital Signs (past 8 hours): - 06/18/19 06:10 06/18/19 08:00 06/18/19 08:20 Temperature 98.0 F 98.2 F Pulse Rate 75 77 77 Respiratory Rate 16 18 Blood Pressure 141/72 H 127/67 Pulse Oximetry 98 90 L 92 Fraction of Inspired Oxygen 21 Oxygen Delivery Method Room Air Oxygen Flow Rate 0 Narrative Exam Narrative: Patient is alert and responsive in no acute distress lying in bed. Back. Dressing to lumbar area is dry without drainage or inflammation. Legs. No calf pain or swelling. Pulses symmetrical. Good sensation to touch to right leg but decreased sensation left leg. Good strength on foot dorsiflexion plantar flexion bilateral. Objective Labs Result Diagrams: 06/18/19 05:27 Labs: Laboratory Results - last 24 hr 06/18/19 05:27 Hgb 10.5 L Hct 32.9 L Assessment & Plan Post-op Postoperative Procedures: Procedures Operation Date: 06/17/19 07:45 Actual Procedures Side Surgeon p L3-4 , L4-5 TLIF w/ posterior instrumentation Crissy Holt MD Plan: Patient will work with PT today. Will try to DC Lnyn catheter today if she is up and around more. Anticipate discharge home when she is stable and cleared by PT. Anticipate 1-2 days more in Hospital.
--- NOTE | 2019-06-18 09:21 | CM.DANOTE ---
Addendum entered by Rayne Medellin LPN 06/18/19 11:16: Nilsa: [facility]: accepts pt for admission when stable for same. Will update pt now. PASRR: needed prior to d/c. Addendum entered by Rayne Medellin LPN 06/18/19 10:19: Met with pt as planned and introduced self and role. Pt is found sitting up in front of breakfast tray, tremors in hands noted as she eats and she says I don't know why I am shaking, I never do this. I don't do well with pain medicine. Pt says her plan is now for snf rehab. The therapist told me this morning that I will need it. She clarifies that her one daughter Mago was going to check on her at home but that she works multimedia assistant and also was not going to be there at night. Her other daughter Daiana is currently on crutches. SNF choice list: discussed: decision: [facility]: referral: to Nilsa/is reviewing. Pt says she has never had a snf stay but she has visited people who were in [facility]. Pt will likely be ready for SNF level care by Wednesday 06/20. INPT admission status: confirmed by UR SIVAN Hartman: 06/17 Thus far no therapy notes are available in EMR.. Will check in tomorrow and follow prn. Will provide [facility] brochure to pt once February has given final acceptance. Original Note: Discharge Planning/Care Management DCP: assessment: case received, EMR reviewed. Pt is an 84 year old female who admitted yesterday for a planned spinal surgery. Payer: Medicare [facility] PCP: Dr. Traylor Surgeon: Dr. Holt Pt has identified her plan post hospital, at time of the pre-op assessment: see below: as home setting with her daughter to stay with her. PT and OT will see her for first time today. P: Discuss in Team Rounds and then check in with pt and follow for d/c issues and options. CM Discharge Assessment Start: 06/18/19 09:19 Freq: Status: Active Protocol: Document 06/18/19 09:19 ITV (Rec: 06/18/19 09:20 ITV [id number]) Discharge Planning Assessment Advance Directives? Yes Advance Directives on File No History Provided By Medical Record Prior Living Arrangements Apartment/Condo Household Members none Review Status In Process Pre-Anesthesia Assessment Start: 06/12/19 10:50 Freq: Status: Complete Protocol: Document 06/12/19 10:50 CAB (Rec: 06/12/19 11:32 CAB [id number]) Pre-Anesthesia Assessment Patient Information Reviewed Via Phone Assessment Assessment Completed With Patient Diagnostic Results BMP/CMP,CBC,EKG Comment Labs/EKG @ 05/07/19 Primary Care Provider Raphael Traylor Medical Clearance Received Yes Seen Specialist in Last 12 Months Yes Specialist Seen Orthopedist Comment PCP pre-op clearance Primary Language Dutch Clinical Practice Consultant Required No Height 163.83 cm Weight 65.771 kg Body Mass Index (BMI) 24.5 Hearing Ability Normal Visual Assist Glasses Dentition Type Teeth, Natural Present Barriers to Learning None Hx Anesthesia Reactions No Hx Family Anesthesia Reaction No Hx Malignant Hyperthermia No Hx Blood Transfusions Yes: s/p diverticulitis approx 2002 Hx Blood Transfusion Reaction No Anesthesia Review Requested No alcohol intake former Alcohol Intake Frequency Other: Last drink over 13 years ago for health reasons Smoking Status Former smoker how long ago did patient quit smoking Quit 35 years ago Substance Use Type does not use Pain Present Pain Reported Musculoskeletal Symptoms Abnormal Gait,Back Pain, Difficulty Walking,Muscle Weakness,Numbness,Radiating Pain into Limb History of Falling (Recent or History of Yes ) Patient is completely paralyzed or No completely immobile Mental Status Oriented to own ability Is patient on oxygen? No Does patient have BRIGGS/SOB Yes: Hx COPD Hx Sleep Apnea No Comment Hx COPD Currently Taking a Beta [place] Yes: Propranolol Can You Climb a Flight of Stairs Without No SOB Hx Chest Pain No Hx SOB Yes Hx Syncope or Dizziness No Anti-Coagulant Therapy No Has a Occupational Therapy Specialist No Cardiac Testing Yes: Echo @ 08/15/18 EF 45% , Carotid US 08/13/18-negative Hx Pacemaker/ICD No Pacemaker Rep Required? No Cardiac Clearance Received Not Applicable Diet Type At Home Regular dysphagia No Urinary Catheter Present No Hx Urinary Self Catheterization No Diabetes Yes: Pt does not check blood sugars at home HgbA1C 6.1 Date 05/07/19 Patient No Lactating No Hx Drug Resistant Organism No Presence of External or Internal Medical No Devices Have you traveled outside the [facility] in the last 30 days? Marital Status Lives With none Prior Living Arrangements Apartment/Condo Support System Child/Children Does the Patient Have Assistance After Yes Surgery Patient Discharge Plan Description Return Home Comment Pt advised 1-3 day length of stay per surgeon, daughter will stay w/pt @ dc Feels Safe in Current Environment Yes Been Physically Hurt or Threatened By a No Person in Current Environment Do you have thoughts of harming yourself None or others? Are you currently considering suicide? No Do you have a plan to hurt yourself or No Plan others? Do You Have Any Spiritual Beliefs That No May Affect Your HC Choices? Do You Have Any Cultural Practices That No May Affect Your HC Choices? Comment Muslim Who Can We Speak to About Patient's Care Family, friends Identifying Code for Release of Patient Declines to issue Information Health Care Proxy/Next of Kin Mago (daughter) Daiana ( daughter) Health Care Proxy Phone Number Mago: [phone] Daiana: [phone] Emergency Contact Name Mago (daughter) Daiana ( daughter) Emergency Contact Phone Number Mago: [phone] Daiana: [phone] Advance Directives? Yes Advance Directives on File No Requested Patient Bring Advanced Yes Directives DOS PAC Instructions Durable medical equipment, Medications to take/avoid, Nasal antibiotic,No ETOH/ petroleum product on skin DOS, NPO,Post-op transportation,Pre -surgical wash,Sensory aids, Sturdy shoes/comfortable clothes,Do not bring valuables and remove jewelry
[2019-06-18] MEDS: DOCUSATE 100 MG CAPSULE PO ×2 (09:37→21:40)
[2019-06-18] MEDS: PROPRANOLOL 40 MG TABLET PO ×2 (09:37→22:05)
[2019-06-18] MEDS: METFORMIN HCL 500 MG TABLET PO ×2 (09:37→21:40)
[2019-06-18] MEDS: PANTOPRAZOLE 20 MG TABLET PO (09:37)
[2019-06-18] MEDS: ACETAMINOPHEN 325 MG TABLET 650 MG PO ×2 (09:37→23:59)
[2019-06-18] MEDS: BUDESONIDE FORMOTEROL 2 EACH PO (09:38)
--- NOTE | 2019-06-18 09:43 | PC.NURSE ---
Day shift: Pt OOB FWW with PT and RN student to chair in room. Very slow moving and painful for Pt. Will give pain meds at this time. Pt did not eat any breakfast. Leaving IV fluid running due to low urine output overnight. BO Ramirez made aware. BO Ramirez also made aware that Pt slow moving and having pain. Will continue to monitor. Call light in reach. Chair alarm in place.
--- NOTE | 2019-06-18 10:39 | OT.IP.EVAL ---
Current Diagnoses Spondylolisthesis, lumbar region (06/17/19) Spinal stenosis, lumbar region with neurogenic claudication (06/17/19) Surgery Performed Operation Date: 06/17/19 07:45 Actual Procedures p L3-4 , L4-5 TLIF w/ posterior instrumentation - Crissy Holt MD Past Medical History (Last Updated 06/12/19 @ 11:29 by Loren Baker RN) Breast cancer (Chronic ~1981) Cataract (Chronic) Chicken pox (Resolved) Chronic back pain (Chronic) COPD (chronic obstructive pulmonary disease) (Chronic) Diabetes (Chronic) Diastolic dysfunction (Acute) Diverticular disease (Chronic) Edema (Acute) GERD (gastroesophageal reflux disease) (Chronic) Hay fever (Chronic) Hyperglycemia (Chronic) Hyperlipidemia (Chronic) Hypertension (Chronic) Lumbar back pain (Chronic) Measles (Resolved) Mumps (Resolved) Neuropathy (Acute) Skin cancer (Chronic ~2011) Surgical History (Last Updated 03/03/18 @ 21:46 by Cherelle Barbosa) Anesthesia (Resolved) History of mastectomy (Resolved ~09/1981) Status post hysterectomy Occupational Therapy Inpatient Evaluation/Re-Eval to assist her to get up M1 PT/OT-IP Prior Functional Status Start: 06/18/19 12:16 Freq: NEEDED Status: Active Protocol: Document 06/18/19 10:39 [facility]3] (Rec: 06/18/19 12:36 [facility]3] [id number]) Medical Review Prior Functional Status Medical History Reviewed Yes Communication able to make needs known Mobility and Gait pt stated that she is independent with all mobilities and ambulation without AD Activities of Daily Living and IADL's Pt completely independent with ADl's, IADL's , paid her bills, took her own medications, and drove. Social History Household Members none Living Arrangements Apartment/Condo Number of Floors (Floors) One Floor Number of Stairs To Enter/Railing? pt lives on the 2nd floor apartment but has access to an elevator Home Environment High Toilet,Tub/Shower, Elevator Home Equipment Four Wheel Walker,Lift Recliner,Grab Bars In Shower Employment Status Retired Additional Social History Comment stated that she has a day bed and uses side bed frame to assist her to get up M2 OT-IP Current Condition Start: 06/18/19 12:16 Freq: Status: Active Protocol: Document 06/18/19 10:39 [facility]3] (Rec: 06/18/19 12:36 [facility]3] [id number]) Occupational Therapy Current Condition Current Condition Evaluation Date 06/18/19 Treatment Diagnosis L3-4, L4-5 laminectomy TLIF Diagnosis Onset Date 06/17/19 Post Operative Precautions Abdominal Surgery Precautions Log Roll,Lifting Restrictions, Gait Belt above Incisional Area Weight Bearing Status Weight Bearing Status Weight Bear as Tolerated M3 OT- IP Subjective and Pain Start: 06/18/19 12:16 Freq: Status: Active Protocol: Document 06/18/19 10:39 [facility]3] (Rec: 06/18/19 12:36 [facility]3] [id number]) OT- Subjective Occupational Therapy Visit Type Type Initial Evaluation Visit Start Time 10:39 Visit Stop Time 11:13 Total Visit Minutes 34 Occupational Therapy Visit Comments Patient Comments Pt realizes not feeling well or thinking well due to pain medication. Pt states, I do not want to take the Oxycodone anymore, I am even sensitive to coffee. Nursing aware. Patient/Caregiver Goals Pt wants to go home , but realizes will have to go to skilled rehab prior to going home. OT Pain Assessment Pain When Pain Assessed At Rest Pain Present Pain Present Denied Pain M4 OT- IP ADL's Start: 06/18/19 12:16 Freq: Status: Active Protocol: Document 06/18/19 10:39 [facility]3] (Rec: 06/18/19 12:36 [facility]3] [id number]) OT [id number] Comments OT Self-Feeding Comments Not at meal time. OT ADL-Grooming General Evaluation Grooming Ability Standby Assistance Areas Needing Assistance Retrieving/Set-up of Grooming Items Comments OT Grooming Comments Set-up for grooming needs. Pt needing cues to find her bag which was on her lap. Pt educated best to sip into a cup from tooth brushing needs. Pt states usually heavily lean onto the counter while brushing her teeth. OT ADL-Dressing General Eval Lower Body Dressing Ability Maximum Assistance Areas Needing Assistance Socks Comments OT Dressing Comments Educated pt on use of aeronautics teacher and sock aid to help increase independence for dressing needs. OT ADL-Toileting Comments OT Toileting Comments Lynn in. Educated pt on may have to stand to wipe to best follow precautions for hygiene needs. M5 OT- IP IADL's Start: 06/18/19 12:16 Freq: Status: Active Protocol: Document 06/18/19 10:39 [facility]3] (Rec: 06/18/19 12:36 [facility]3] [id number]) OT-Instrumental Activities of Daily Living Home Safety Awareness Home Safety Comments At this time, pt is not thinking or remembering well due to having Oxycodone. Prior pt was independent with all Adl and IADL needs. M6 OT- IP Functional Cognition Start: 06/18/19 12:16 Freq: Status: Active Protocol: Document 06/18/19 10:39 [facility]3] (Rec: 06/18/19 12:36 [facility]3] [id number]) Cognitive Factors Limiting Selfcare Function Cognitive Ability Level of Alertness Alert,Confusional State Patient Orientation Name,Place,Situation Attention Span Ability Capable of Focused Attention, Capable of Sustained Attention Ability to Follow Commands Able to Follow One Step Commands with Increased Time, Able to Follow One Step Commands with Repetition Memory Description Immediate Impaired,Short Term Impaired Safety Awareness Decreased Recall of Precautions,Decreased Ability to Apply Precautions, Underestimates Need for Assistance Problem Solving Ability Unable to Identify Errors, Needs Assist to Identify Solutions Cognitive Comments Cognitive Assessment Comments Pt not able to think well due to affects of pain medication, not able to recall any back precautions and even after multiple repetition, feeling groogy, and states, I just can not think well today. OT- Vision and Hearing OT- Hearing Assessment OT- Hearing Assessment WFL OT- Vision Assessment Visual Acuity Glasses All The Time M7 OT- IP Mobility and Balance Start: 06/18/19 12:16 Freq: Status: Active Protocol: Document 06/18/19 10:39 [facility]3] (Rec: 06/18/19 12:36 [facility]3] [id number]) OT-Transfer Assessment Sit to and From Stand Sit to and from Stand Total Assistance Comments Mobility Comments At this time unable to stand pt with one person assist. Per PT eval pt required MAX A X 2 to stand and for stand pivot transfer only at this time. OT- Balance Assessment Sitting Balance and Reactions Static Sitting Balance Ability Normal Dynamic Sitting Balance Ability Good Standing Balance and Reactions Static Standing Balance Ability Poor M8 OT- IP Objective Assessments Start: 06/18/19 12:16 Freq: Status: Active Protocol: Document 06/18/19 10:39 [facility]3] (Rec: 06/18/19 12:36 [facility]3] [id number]) OT Gross Range of Motion Upper Extremity Range of Motion ROM Impairments GRossly WFL for ADl needs. 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 M9 OT- IP Assessment and Plan Start: 06/18/19 12:16 Freq: Status: Active Protocol: Document 06/18/19 10:39 [facility]3] (Rec: 06/18/19 12:36 [facility]3] [id number]) OT Summary Assessment and Plan Potential Rehabilitation Potential Good Analytic Complexity at Evaluation Low Summary OT Impairments Pain,Strength,Balance, Functional Cognition, Functional Mobility,Grooming, Dressing,Toileting,Bathing, Toilet Transfers,Shower Transfers Progress Towards Goals Slow Progress due to Pain,Slow Progress due to Cognition Assessment Summary Pt low complexity and main barrier is now needing two person assist to stand and transfer per PT eval , and will need extensive assist for al ADl needs. Pt lives alone and would benefit from skilled rehab prior to going home. Goals Grooming Goal Standby Assistance Dressing Goal Minimal Assistance Toileting Goal Minimal Assistance Bathing Goal Moderate Assistance Toilet Transfer Goal Minimal Assistance Shower Transfer Goal Moderate Assistance Patient/Caregiver Education Goal Demonstrate Post-Op Precautions Days to Meet Goals 10 Frequency of Treatment Frequency Of Treatment Once a Day Treatment Plan OT Treatment Plan ADL Training,Functional Cognition Training,Functional Mobility,Patient/Family Education,Discharge Planning Other Treatment Recommendations and Next Back precaution education. Treatment Focus Transfer to [facility] x2. Discharge Recommendations OT Discharge Recommendations SNF Rehab Home Equipment Needs defer to skilled rehab
--- NOTE | 2019-06-18 11:06 | PC.NURSE ---
Day shift: Pt reports that she feels funny after taking the 10mg of oxycodone. Encouraged I.S. use 10x per hour and well as deep breaths and cough. Pt OOB to chair with PT and tolerating well. This typewriter ribbon winder suggested that next pain med time she take 5mg of the oxycodone. She may agreeable to this. Next pain meds can be given at approx 1230 today. Will continue to monitor. Call light in reach and chair alarm is on.
--- NOTE | 2019-06-18 13:28 | PC.NURSE ---
Day shift: Pt back in bed after being in chair for lunch. Tolerated the move well. Pt was asked if she would want her Zanax and she said no. Pt in bed on 1L NC sleeping. Call light in reach and bed alarm is on.
--- NOTE | 2019-06-18 14:20 | PT.IPTN ---
Current Diagnoses Spondylolisthesis, lumbar region (06/17/19) Spinal stenosis, lumbar region with neurogenic claudication (06/17/19) Surgery Performed Operation Date: 06/17/19 07:45 Actual Procedures p L3-4 , L4-5 TLIF w/ posterior instrumentation - Crissy Holt MD Physical Therapy Treatment Note M2 PT-IP Current Condition Start: 06/18/19 11:30 Freq: NEEDED Status: Active Protocol: Document 06/18/19 09:05 AB (Rec: 06/18/19 11:44 AB [id number]) Physical Therapy Current Condition Current Condition Evaluation Date 06/18/19 Treatment Diagnosis L3-4, L4-5 fusion/lami; difficulty in walking Onset Date 06/17/19 Precautions Lumbar Precautions Log Roll,No Twisting,Limit Bending,Lifting Restriction of 10 lbs,Gait Belt above Incisional Area M3 PT-IP Subjective Start: 06/18/19 11:30 Freq: NEEDED Status: Active Protocol: Document 06/18/19 14:20 AB (Rec: 06/18/19 14:52 AB [id number]) Subjective Physical Therapy Visit Type Type Treatment Note Visit Start Time 14:20 Visit Stop Time 14:41 Total Visit Minutes 21 Number of PAINT LABORATORY TECHNICIAN Visits 0 Physical Therapy Visit Comments Patient Comments pt agreeable to do PT Therapy Pain Assessment Pain When Pain Assessed During Mobility Location Bilateral Back Scale Used pain scale not stated Pain Behaviors Guarding Pain Management Techniques Re-positioning,Timing of Activity with Medications M4 PT-IP Mobility and Gait Start: 06/18/19 11:30 Freq: NEEDED Status: Active Protocol: Document 06/18/19 14:20 AB (Rec: 06/18/19 14:52 AB [id number]) PT-Bed Mobility Assessment Supine to Sit Supine to Sit Maximum Assistance,1 Person Assistance,2 Person Assistance Scooting Scooting to Edge of Bed Maximum Assistance PT-Transfer Assessment Sit to and From Stand Sit to and from Stand Maximum Assistance,2 Person Assistance,Use of Upper Extremities Equipment Transfer Assistive Device Gait Belt,Front Wheeled Walker Orthotic/Prosthetic Devices or Brace: No Transfers Transfer Destination Chair Transfer Technique Stand Step Pivot Transfer Ability Level of Assist Maximum Assistance,2 Person Assistance,Use of Upper Extremities Comments Mobility Comments pt required max A x 2 for sit to stand and max A to maintain standing balance using FWW for support. cues provided to activated quad muscles Gait Assessment Gait Gait Assistance Required: Maximum Assistance,1 Person Assist,2 Person Assist Distance (Feet) 5 Able to Maintain Weight Bearing Status Yes During Gait Assistive Devices Assistive Device Gait Belt,Front Wheeled Walker Orthotic/Prosthetic Devices or Brace: No Gait Deviations General Gait Pattern Antalgic,Decreased Stride Length,Decreased Feet Clearance Factors Limiting Gait Function Factors Limiting Gait Function Decreased Activity Tolerance, Decreased Strength,Limited Range of Motion,Pain,Poor Balance,Poor Safety Awareness Comments Gait Comments ambulated using FWW max A x 1- 2 , cues and with chair follow . pt presents with unsteady gait, slow wagner M5 PT-IP Objective Assessments Start: 06/18/19 11:30 Freq: NEEDED Status: Active Protocol: Document 06/18/19 09:05 AB (Rec: 06/18/19 11:44 AB [id number]) Orientation Orientation/Cognition Level of Alertness Alert Orientation Name,Place,Situation Language Function Ability Hard of Hearing Safety Awareness Decreased Safety Awareness Gross Range of Motion Lower Extremity ROM Assessment Within Functional Limits Strength Lower Extremity Strength Assessment Bilaterally Impaired Hip 3-/5 Knee 3/5 Sensation Assessment Sensation Gross Sensation WNL Muscle Tone Muscle Tone WNL Yes M6 PT-IP Treatment Start: 06/18/19 11:30 Freq: NEEDED Status: Active Protocol: Document 06/18/19 14:20 AB (Rec: 06/18/19 14:52 AB [id number]) Physical Therapy Treatment Education Education Provided Precautions,Safety M7 PT-IP Assessment and Plan Start: 06/18/19 11:30 Freq: NEEDED Status: Active Protocol: Document 06/18/19 14:20 AB (Rec: 06/18/19 14:52 [id number]) PT Summary Assessment and Plan Potential Rehabilitation Potential Good Summary Impairments Pain,ROM,Strength,Balance, Coordination,Sensation,Tone, Cognition,Bed Mobility, Transfers,Gait,Activity Tolerance Progress Towards Goals Slow Progress due to Pain,Slow Progress due to Activity Tolerance Assessment Summary pt continues to require 2 person max A with mobility and max cues provided. pt progressing slowly and was able to ambulate ~ 5 ft using FWW max A x 1-2 and cues. pt will require SNF rehab to improve strength and mobility. Goals Bed Mobility Goal Standby Assistance Transfer Goal Standby Assistance,Front Wheeled Walker Gait Goal Standby Assistance,Front Wheel Walker Gait Distance 150 Days to Meet Goals 10 Frequency of Treatment Frequency Of Treatment Twice a Day Treatment Plan Physical Therapy Treatment Plan Bed Mobility Training,Transfer Training,Gait Training, Therapeutic Exercise,Balance Retraining,Post Op Education, Discharge Planning,Hot or Cold Pack,Neuromuscular Re-ed, Coordination Retraining,Manual Therapy Recommendations To Nursing Amount of Assist Needed 2 Person Assist Discharge Recommendations PT Discharge Recommendations SNF Rehab Equipment Needed for Home Before FWW if pt goes home Discharge
--- NOTE | 2019-06-18 14:58 | OT.IP.TRT ---
Current Diagnoses Spondylolisthesis, lumbar region (06/17/19) Spinal stenosis, lumbar region with neurogenic claudication (06/17/19) Surgery Performed Operation Date: 06/17/19 07:45 Actual Procedures p L3-4 , L4-5 TLIF w/ posterior instrumentation - Crissy Holt MD Occupational Therapy Treatment Note M2 OT-IP Current Condition Start: 06/18/19 12:16 Freq: Status: Active Protocol: Document 06/18/19 10:39 [facility] (Rec: 06/18/19 12:36 [facility] [id number]) Occupational Therapy Current Condition Current Condition Evaluation Date 06/18/19 Treatment Diagnosis L3-4, L4-5 laminectomy TLIF Diagnosis Onset Date 06/17/19 Post Operative Precautions Abdominal Surgery Precautions Log Roll,Lifting Restrictions, Gait Belt above Incisional Area Weight Bearing Status Weight Bearing Status Weight Bear as Tolerated M3 OT- IP Subjective and Pain Start: 06/18/19 12:16 Freq: Status: Active Protocol: Document 06/18/19 14:45 [facility] (Rec: 06/18/19 14:58 [facility] [id number]) OT- Subjective Occupational Therapy Visit Type Type Treatment Note Visit Start Time 14:23 Visit Stop Time 14:40 Total Visit Minutes 17 Occupational Therapy Visit Comments Patient Comments Pt agreeable to get up. Pt seen for second time with PT to assess mobility as unable to do on OT eval. OT Pain Assessment Pain When Pain Assessed At Rest Pain Present Pain Present Denied Pain M4 OT- IP ADL's Start: 06/18/19 12:16 Freq: Status: Active Protocol: Document 06/18/19 10:39 [facility] (Rec: 06/18/19 12:36 [facility] [id number]) OT [id number] Comments OT Self-Feeding Comments Not at meal time. OT ADL-Grooming General Evaluation Grooming Ability Standby Assistance Areas Needing Assistance Retrieving/Set-up of Grooming Items Comments OT Grooming Comments Set-up for grooming needs. Pt needing cues to find her bag which was on her lap. OT ADL-Dressing General Eval Lower Body Dressing Ability Maximum Assistance Areas Needing Assistance Socks Comments OT Dressing Comments Educated pt on use of court interpreter and sock aid to help increase independence for dressing needs. OT ADL-Toileting Comments OT Toileting Comments Lynn in. M5 OT- IP IADL's Start: 06/18/19 12:16 Freq: Status: Active Protocol: Document 06/18/19 10:39 [facility] (Rec: 06/18/19 12:36 [facility] [id number]) OT-Instrumental Activities of Daily Living Home Safety Awareness Home Safety Comments At this time, pt is not thinking well due to having Oxycodone. Prior pt was independent with all Adl and IADL needs. M6 OT- IP Functional Cognition Start: 06/18/19 12:16 Freq: Status: Active Protocol: Document 06/18/19 14:45 [facility] (Rec: 06/18/19 14:58 [facility] [id number]) Cognitive Factors Limiting Selfcare Function Cognitive Ability Level of Alertness Alert,Confusional State Patient Orientation Name,Place,Situation Attention Span Ability Capable of Focused Attention, Capable of Sustained Attention Ability to Follow Commands Able to Follow One Step Commands with Increased Time, Able to Follow One Step Commands with Repetition Memory Description Immediate Impaired,Short Term Impaired Safety Awareness Decreased Recall of Precautions,Decreased Ability to Apply Precautions, Underestimates Need for Assistance Problem Solving Ability Unable to Identify Errors, Needs Assist to Identify Solutions Cognitive Comments Cognitive Assessment Comments Pt still not able to incorporate back precautions. Pt trying to lift her trunk upright as she would if at home even after education from therapist that she needs to be doing log rolling now. Pt is impulsive and decreased safety awareness as having poor transitions from sit to stand. M7 OT- IP Mobility and Balance Start: 06/18/19 12:16 Freq: Status: Active Protocol: Document 06/18/19 14:45 [facility] (Rec: 06/18/19 14:58 [facility] [id number]) OT- Bed Mobility Assessment Rolling Type of Rolling Roll to Right Supine to Sit Supine to Sit Assist Maximum Assistance,1 Person Assistance,2 Person Assistance Scooting Scooting to Edge of Bed Maximum Assistance,1 Person Assistance OT-Transfer Assessment Sit to and From Stand Sit to and from Stand Maximum Assistance,2 Person Assistance Transfers Transfer Ability Maximum Assistance,2 Person Assistance Technique Transfer Destination Bed,Chair Transfer Technique Stand Step Pivot Devices Transfer Assistive Devices Gait Belt,Front Wheeled Walker Comments Mobility Comments Pt needing step by step instructions for log rolling and assist to help get hips over to the left by means of bed pad and [place] assist to cue pt to reach over with her left arm to the bed rail and MAX A 1-2 to get upright. Sit to stand MAXA x 2, pt not able to coordinate or has the strength to straighten her legs and needing MAX A X2. M8 OT- IP Objective Assessments Start: 06/18/19 12:16 Freq: Status: Active Protocol: Document 06/18/19 10:39 [facility] (Rec: 06/18/19 12:36 [facility] [id number]) OT Gross Range of Motion Upper Extremity Range of Motion ROM Impairments GRossly WFL for ADl needs. 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 M9 OT- IP Assessment and Plan Start: 06/18/19 12:16 Freq: Status: Active Protocol: Document 06/18/19 14:45 [facility] (Rec: 06/18/19 14:58 [facility] [id number]) OT Summary Assessment and Plan Potential Rehabilitation Potential Good Analytic Complexity at Evaluation Low Summary OT Impairments Pain,Strength,Balance, Functional Cognition, Functional Mobility,Grooming, Dressing,Toileting,Bathing, Toilet Transfers,Shower Transfers Progress Towards Goals Slow Progress due to Pain,Slow Progress due to Cognition Assessment Summary Pt needing extensive assist for all ADL and functional mobility needs and would benefit from skilled rehab prior to going home. Pt seen a second time today to assess mobility needs with PT, otherwise OT to see pt once/ day. Goals Grooming Goal Standby Assistance Dressing Goal Minimal Assistance Toileting Goal Minimal Assistance Bathing Goal Moderate Assistance Toilet Transfer Goal Minimal Assistance Shower Transfer Goal Moderate Assistance Patient/Caregiver Education Goal Demonstrate Post-Op Precautions Days to Meet Goals 9 Frequency of Treatment Frequency Of Treatment Twice a Day Treatment Plan OT Treatment Plan ADL Training,Functional Cognition Training,Functional Mobility,Patient/Family Education,Discharge Planning Discharge Recommendations OT Discharge Recommendations SNF Rehab Home Equipment Needs defer to skilled rehab
[2019-06-18] MEDS: SENNOSIDES 8.6 MG TABLET 17.2 MG PO (21:40)
[2019-06-19 03:50] VITALS: BP 122/56; PULSE 76; RESP 19; TEMP 36.6; O2SAT 94
[2019-06-19 07:30] VITALS: BP 149/81; PULSE 84; RESP 16; TEMP 36.3; O2SAT 94
[2019-06-19] MEDS: ACETAMINOPHEN 325 MG TABLET 650 MG PO ×3 (08:14→20:58)
[2019-06-19] MEDS: METFORMIN HCL 500 MG TABLET PO ×2 (08:14→20:58)
[2019-06-19] MEDS: PANTOPRAZOLE 20 MG TABLET PO (08:14)
[2019-06-19] MEDS: DOCUSATE 100 MG CAPSULE PO ×2 (08:14→20:58)
--- NOTE | 2019-06-19 08:26 | PM.PNPO.1 ---
Subjective Subjective Date Patient Seen: 06/19/19 Time Patient Seen: 08:27 Interval history: POD 2 s/p L3-[address] Holt. Patient has been very slow to mobilize requiring 2 person max assist. She still has catheter in place. Pain controlled with Acetaminophen. She notes she was very weak prior to surgery. Exam Vital Signs (past 8 hours): - 06/19/19 03:50 Temperature 97.9 F Pulse Rate 76 Respiratory Rate 19 Blood Pressure 122/56 L Pulse Oximetry 94 Fraction of Inspired Oxygen 21 Oxygen Delivery Method Room Air Oxygen Flow Rate 0 Narrative Exam Narrative: Patient sitting in bedside chair in no acute distress. She is alert oriented x3. Calves are soft, compressible dressing at [facility]. Pulses are symmetrical. She is able to actively dorsiflex and plantar flex. Objective Labs Result Diagrams: 06/18/19 05:27 Assessment & Plan Post-op Postoperative Procedures: Procedures Operation Date: 06/17/19 07:45 Actual Procedures Side Surgeon p L3-4 , L4-5 TLIF w/ posterior instrumentation Crissy Holt MD Patient will continue to mobilize with physical therapy today. No excessive bending, lifting, or twisting. If patient mobilizing in hallway we are able to remove Lynn catheter. Continue current pain control. Patient may require custodial facility if she is not able to mobilize with 1 assist.
[2019-06-19] MEDS: PROPRANOLOL 40 MG TABLET PO ×2 (09:09→20:57)
[2019-06-19] MEDS: BUDESONIDE FORMOTEROL 2 EACH PO ×2 (09:10→20:58)
--- NOTE | 2019-06-19 09:28 | PT.IPTN ---
Current Diagnoses Spondylolisthesis, lumbar region (06/17/19) Spinal stenosis, lumbar region with neurogenic claudication (06/17/19) Surgery Performed Operation Date: 06/17/19 07:45 Actual Procedures p L3-4 , L4-5 TLIF w/ posterior instrumentation - Crissy Holt MD Physical Therapy Treatment Note M2 PT-IP Current Condition Start: 06/18/19 11:30 Freq: NEEDED Status: Active Protocol: Document 06/18/19 09:05 AB (Rec: 06/18/19 11:44 AB [email or web address]) Physical Therapy Current Condition Current Condition Evaluation Date 06/18/19 Treatment Diagnosis L3-4, L4-5 fusion/lami; difficulty in walking Onset Date 06/17/19 Precautions Lumbar Precautions Log Roll,No Twisting,Limit Bending,Lifting Restriction of 10 lbs,Gait Belt above Incisional Area M3 PT-IP Subjective Start: 06/18/19 11:30 Freq: NEEDED Status: Active Protocol: Document 06/19/19 09:28 AB (Rec: 06/19/19 10:44 AB [id number]) Subjective Physical Therapy Visit Type Type Treatment Note Visit Start Time 09:28 Visit Stop Time 09:52 Total Visit Minutes 24 Number of CAN RUNNER Visits 0 Physical Therapy Visit Comments Patient Comments pt agreeable to do PT Therapy Pain Assessment Pain When Pain Assessed At Rest Pain Present Pain Present Pain Reported Location Bilateral Back Scale Used pain scale not stated; stated not too bad of a pain but c/o weakness Pain Management Techniques Re-positioning,Timing of Activity with Medications M4 PT-IP Mobility and Gait Start: 06/18/19 11:30 Freq: NEEDED Status: Active Protocol: Document 06/19/19 09:28 AB (Rec: 06/19/19 10:44 AB [id number]) PT-Transfer Assessment Sit to and From Stand Sit to and from Stand Maximum Assistance,2 Person Assistance,Use of Upper Extremities Equipment Transfer Assistive Device Gait Belt,Front Wheeled Walker Orthotic/Prosthetic Devices or Brace: No Comments Mobility Comments pt required 3 attempts with sit to stand requiring max A x 2 and max cues. Gait Assessment Gait Gait Assistance Required: Maximum Assistance,1 Person Assist Distance (Feet) 10 Able to Maintain Weight Bearing Status Yes During Gait Assistive Devices Assistive Device Gait Belt,Front Wheeled Walker Orthotic/Prosthetic Devices or Brace: No Gait Deviations General Gait Pattern Antalgic,Decreased Stride Length,Decreased Feet Clearance,Step-to Gait Factors Limiting Gait Function Factors Limiting Gait Function Decreased Activity Tolerance, Decreased Sensation,Decreased Strength,Difficulty Following Directions,Limited Range of Motion,Pain,Poor Balance,Poor Safety Awareness Comments Gait Comments pt requires assist to stabilize R knee with slight buckling noted and max cues to activate quads. M5 PT-IP Objective Assessments Start: 06/18/19 11:30 Freq: NEEDED Status: Active Protocol: Document 06/18/19 09:05 AB (Rec: 06/18/19 11:44 [email or web address]) Orientation Orientation/Cognition Level of Alertness Alert Orientation Name,Place,Situation Language Function Ability Hard of Hearing Safety Awareness Decreased Safety Awareness Gross Range of Motion Lower Extremity ROM Assessment Within Functional Limits Strength Lower Extremity Strength Assessment Bilaterally Impaired Hip 3-/5 Knee 3/5 Sensation Assessment Sensation Gross Sensation WNL Muscle Tone Muscle Tone WNL Yes M6 PT-IP Treatment Start: 06/18/19 11:30 Freq: NEEDED Status: Active Protocol: Document 06/19/19 09:28 AB (Rec: 06/19/19 10:44 [id number]) Physical Therapy Treatment Exercises Exercises Gluteal Sets,Quad Sets Education Education Provided Precautions,Safety Other Treatments Other Treatment Performed also completed seated hip flexion M7 PT-IP Assessment and Plan Start: 06/18/19 11:30 Freq: NEEDED Status: Active Protocol: Document 06/19/19 09:28 AB (Rec: 06/19/19 10:44 [id number]) PT Summary Assessment and Plan Potential Rehabilitation Potential Good Summary Impairments Pain,ROM,Strength,Balance, Coordination,Sensation,Tone, Cognition,Bed Mobility, Transfers,Gait,Activity Tolerance Progress Towards Goals Slow Progress due to Activity Tolerance Assessment Summary pt continues to require max A x 2 for sit to stand and max A for ambulation. pt unable to tolerate much activity and c/ o weakness on BLE as well as numbness. pt will require SNF rehab to improve strength and mobility. Goals Bed Mobility Goal Standby Assistance Transfer Goal Standby Assistance,Front Wheeled Walker Gait Goal Standby Assistance,Front Wheel Walker Gait Distance 150 Days to Meet Goals 10 Frequency of Treatment Frequency Of Treatment Twice a Day Treatment Plan Physical Therapy Treatment Plan Bed Mobility Training,Transfer Training,Gait Training, Therapeutic Exercise,Balance Retraining,Post Op Education, Discharge Planning,Hot or Cold Pack,Neuromuscular Re-ed, Coordination Retraining,Manual Therapy Recommendations To Nursing Amount of Assist Needed 2 Person Assist Discharge Recommendations PT Discharge Recommendations SNF Rehab Equipment Needed for Home Before FWW if pt goes home Discharge
[2019-06-19 12:10] VITALS: BP 129/63; PULSE 77; RESP 16; TEMP 36.7; O2SAT 95
[2019-06-19] MEDS: ALPRAZolam 0.25 MG TABLET PO (13:02)
--- NOTE | 2019-06-19 13:08 | PC.NURSE ---
Assumed care of Pt, 1230, Pt up to chair for meal. Reports that pain is getting a bit out of hand but incredibly reluctant to have anything above APAP. Discussed multitude of alternatives, as Oxycodone was Too much when taken overnight.
--- NOTE | 2019-06-19 16:00 | PT.IPTN ---
Current Diagnoses Spondylolisthesis, lumbar region (06/17/19) Spinal stenosis, lumbar region with neurogenic claudication (06/17/19) Surgery Performed Operation Date: 06/17/19 07:45 Actual Procedures p L3-4 , L4-5 TLIF w/ posterior instrumentation - Crissy Holt MD Physical Therapy Treatment Note M2 PT-IP Current Condition Start: 06/18/19 11:30 Freq: NEEDED Status: Active Protocol: Document 06/18/19 09:05 AB (Rec: 06/18/19 11:44 AB [id number]) Physical Therapy Current Condition Current Condition Evaluation Date 06/18/19 Treatment Diagnosis L3-4, L4-5 fusion/lami; difficulty in walking Onset Date 06/17/19 Precautions Lumbar Precautions Log Roll,No Twisting,Limit Bending,Lifting Restriction of 10 lbs,Gait Belt above Incisional Area M3 PT-IP Subjective Start: 06/18/19 11:30 Freq: NEEDED Status: Active Protocol: Document 06/19/19 16:00 AB (Rec: 06/19/19 16:33 AB [id number]) Subjective Physical Therapy Visit Type Type Treatment Note Visit Start Time 16:00 Visit Stop Time 16:21 Total Visit Minutes 21 Number of MEDICAL CLAIMS REPRESENTATIVE Visits 0 Physical Therapy Visit Comments Patient Comments I am so tired Therapy Pain Assessment Pain When Pain Assessed During Mobility Pain Present Pain Present Pain Reported Location Left Posterior Back Intensity 4 Scale Used Numeric (1 - 10) Pain Management Techniques Timing of Activity with Medications M4 PT-IP Mobility and Gait Start: 06/18/19 11:30 Freq: NEEDED Status: Active Protocol: Document 06/19/19 16:00 AB (Rec: 06/19/19 16:33 AB [id number]) PT-Bed Mobility Assessment Rolling Type of Rolling Log Rolling Level of Assist Maximal Assistance,1 Person Assistance Supine to Sit Supine to Sit Maximum Assistance,1 Person Assistance,2 Person Assistance ,Bedrails Scooting Scooting to Edge of Bed Maximum Assistance PT-Transfer Assessment Sit to and From Stand Sit to and from Stand Maximum Assistance,2 Person Assistance,Use of Upper Extremities Equipment Transfer Assistive Device Gait Belt,Front Wheeled Walker Orthotic/Prosthetic Devices or Brace: No Transfers Transfer Destination Chair Transfer Technique Stand Step Pivot Transfer Ability Level of Assist Maximum Assistance,2 Person Assistance,Use of Upper Extremities Comments Mobility Comments pt completed supine to sit log roll max A x 1-2 and max cues . pt used bed rails to assist . pt completed sit <>stand x 2 reps and cues requiring max A x 2. pt transferred to chair using FWW stand step transfer requiring max A x 2 and max cues. pt required assist to stabilize R knee. pt completed sit to stand from chair max A x 2 and max cues. unable to ambulate this afternoon and requested to sit back down after a few seconds of standing. positioned pt on the chair. pt agreed to do LE exercises and completed. left pt with OT. M5 PT-IP Objective Assessments Start: 06/18/19 11:30 Freq: NEEDED Status: Active Protocol: Document 06/18/19 09:05 AB (Rec: 06/18/19 11:44 AB [id number]) Orientation Orientation/Cognition Level of Alertness Alert Orientation Name,Place,Situation Language Function Ability Hard of Hearing Safety Awareness Decreased Safety Awareness Gross Range of Motion Lower Extremity ROM Assessment Within Functional Limits Strength Lower Extremity Strength Assessment Bilaterally Impaired Hip 3-/5 Knee 3/5 Sensation Assessment Sensation Gross Sensation WNL Muscle Tone Muscle Tone WNL Yes M6 PT-IP Treatment Start: 06/18/19 11:30 Freq: NEEDED Status: Active Protocol: Document 06/19/19 16:00 AB (Rec: 06/19/19 16:33 AB [id number]) Physical Therapy Treatment Exercises Exercises Ankle Pumps,Gluteal Sets, Seated Knee Flexion/Extension Education Education Provided Precautions,Safety Other Treatments Other Treatment Performed completed seated knee flexion with 5 sec hold M7 PT-IP Assessment and Plan Start: 06/18/19 11:30 Freq: NEEDED Status: Active Protocol: Document 06/19/19 16:00 AB (Rec: 06/19/19 16:33 AB [id number]) PT Summary Assessment and Plan Potential Rehabilitation Potential Good Summary Impairments Pain,ROM,Strength,Balance, Coordination,Sensation,Tone, Cognition,Bed Mobility, Transfers,Gait,Activity Tolerance Progress Towards Goals Slow Progress due to Pain,Slow Progress due to Medical Issues,Slow Progress due to Activity Tolerance Assessment Summary pt continues to require max a x 2 and max cues with sit to stand. pt unable to tolerate much activity and was not able to ambulate this afternoon. pt will benefit from SNF rehab . Goals Bed Mobility Goal Standby Assistance Transfer Goal Standby Assistance,Front Wheeled Walker Gait Goal Standby Assistance,Front Wheel Walker Gait Distance 150 Days to Meet Goals 10 Frequency of Treatment Frequency Of Treatment Twice a Day Treatment Plan Physical Therapy Treatment Plan Bed Mobility Training,Transfer Training,Gait Training, Therapeutic Exercise,Balance Retraining,Post Op Education, Discharge Planning,Hot or Cold Pack,Neuromuscular Re-ed, Coordination Retraining,Manual Therapy Recommendations To Nursing Amount of Assist Needed 2 Person Assist Discharge Recommendations PT Discharge Recommendations SNF Rehab
[2019-06-19 16:51] VITALS: BP 134/66; PULSE 79; RESP 18; TEMP 36.7; O2SAT 95
--- NOTE | 2019-06-19 17:08 | OT.IP.TRT ---
Current Diagnoses Spondylolisthesis, lumbar region (06/17/19) Spinal stenosis, lumbar region with neurogenic claudication (06/17/19) Surgery Performed Operation Date: 06/17/19 07:45 Actual Procedures p L3-4 , L4-5 TLIF w/ posterior instrumentation - Crissy Holt MD Occupational Therapy Treatment Note M2 OT-IP Current Condition Start: 06/18/19 12:16 Freq: Status: Active Protocol: Document 06/18/19 10:39 [facility] (Rec: 06/18/19 12:36 [facility] [email or web address]) Occupational Therapy Current Condition Current Condition Evaluation Date 06/18/19 Treatment Diagnosis L3-4, L4-5 laminectomy TLIF Diagnosis Onset Date 06/17/19 Post Operative Precautions Abdominal Surgery Precautions Log Roll,Lifting Restrictions, Gait Belt above Incisional Area Weight Bearing Status Weight Bearing Status Weight Bear as Tolerated M3 OT- IP Subjective and Pain Start: 06/18/19 12:16 Freq: Status: Active Protocol: Document 06/19/19 16:51 [facility] (Rec: 06/19/19 17:08 [facility] [email or web address]) OT- Subjective Occupational Therapy Visit Type Type Treatment Note Visit Start Time 15:10 Visit Stop Time 15:25 Total Visit Minutes 15 Occupational Therapy Visit Comments Patient Comments Attempted to see pt an hour earlier however pt asleep and not wanting to get up. Attempted to see pt again, encouraged her to get up, and agreed to get to recliner. OT Pain Assessment Pain When Pain Assessed At Rest Pain Present Pain Present Denied Pain M4 OT- IP ADL's Start: 06/18/19 12:16 Freq: Status: Active Protocol: Document 06/19/19 16:51 [facility] (Rec: 06/19/19 17:08 [facility] [id number]) OT ADL-Grooming General Evaluation Grooming Ability Standby Assistance Areas Needing Assistance Retrieving/Set-up of Grooming Items M5 OT- IP IADL's Start: 06/18/19 12:16 Freq: Status: Active Protocol: Document 06/18/19 10:39 [facility] (Rec: 06/18/19 12:36 [facility] [email or web address]) OT-Instrumental Activities of Daily Living Home Safety Awareness Home Safety Comments At this time, pt is not thinking well due to having Oxycodone. Prior pt was independent with all Adl and IADL needs. M6 OT- IP Functional Cognition Start: 06/18/19 12:16 Freq: Status: Active Protocol: Document 06/19/19 16:51 [facility] (Rec: 06/19/19 17:08 [facility] [email or web address]) Cognitive Factors Limiting Selfcare Function Cognitive Ability Level of Alertness Alert,Drowsy Patient Orientation Name,Place,Situation Attention Span Ability Capable of Focused Attention, Capable of Sustained Attention Ability to Follow Commands Able to Follow One Step Commands Memory Description Short Term Impaired Safety Awareness Decreased Ability to Apply Precautions,Underestimates Need for Assistance Problem Solving Ability Unable to Identify Errors, Needs Assist to Identify Solutions Cognitive Comments Cognitive Assessment Comments Pt not able to recall any back precautions. Pt very tired and sleepy. M7 OT- IP Mobility and Balance Start: 06/18/19 12:16 Freq: Status: Active Protocol: Document 06/19/19 16:51 [facility] (Rec: 06/19/19 17:08 [facility] [email or web address]) OT- Bed Mobility Assessment Rolling Type of Rolling Roll to Right Supine to Sit Supine to Sit Assist Maximum Assistance,1 Person Assistance OT-Transfer Assessment Sit to and From Stand Sit to and from Stand Maximum Assistance,2 Person Assistance Transfers Transfer Ability Maximum Assistance,2 Person Assistance Technique Transfer Destination Bed,Chair Transfer Technique Stand Step Pivot Devices Transfer Assistive Devices Gait Belt,Front Wheeled Walker Comments Mobility Comments Pt continued to need multiple cues for log rolling and how to get up. M8 OT- IP Objective Assessments Start: 06/18/19 12:16 Freq: Status: Active Protocol: Document 06/18/19 10:39 [facility] (Rec: 06/18/19 12:36 [facility] [email or web address]) OT Gross Range of Motion Upper Extremity Range of Motion ROM Impairments GRossly WFL for ADl needs. 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 M9 OT- IP Assessment and Plan Start: 06/18/19 12:16 Freq: Status: Active Protocol: Document 06/19/19 16:51 [facility] (Rec: 06/19/19 17:08 [facility] [email or web address]) OT Summary Assessment and Plan Potential Rehabilitation Potential Good Analytic Complexity at Evaluation Low Summary OT Impairments Pain,Strength,Balance, Functional Cognition, Functional Mobility,Grooming, Dressing,Toileting,Bathing, Toilet Transfers,Shower Transfers Progress Towards Goals Slow Progress due to Activity Tolerance,Slow Progress due to Cognition Assessment Summary Pt cooperative however decreased activity tolerance, strength, and memory for back precautions and will need skilled rehab prior to going home. Goals Grooming Goal Standby Assistance Dressing Goal Minimal Assistance Toileting Goal Minimal Assistance Bathing Goal Moderate Assistance Toilet Transfer Goal Minimal Assistance Shower Transfer Goal Moderate Assistance Patient/Caregiver Education Goal Demonstrate Post-Op Precautions Days to Meet Goals 8 Frequency of Treatment Frequency Of Treatment Once a Day Treatment Plan OT Treatment Plan ADL Training,Functional Cognition Training,Functional Mobility,Patient/Family Education,Discharge Planning Discharge Recommendations OT Discharge Recommendations SNF Rehab Home Equipment Needs defer to skilled rehab
[2019-06-19 20:06] VITALS: BP 148/77; PULSE 84; RESP 18; TEMP 37.6; O2SAT 96
[2019-06-19] MEDS: SENNOSIDES 8.6 MG TABLET 17.2 MG PO (20:57)
[2019-06-19] MEDS: CYCLOBENZAPRINE 5 MG TABLET PO (20:57)
[2019-06-20 00:13] VITALS: BP 131/67; PULSE 89; RESP 18; TEMP 37; O2SAT 93
[2019-06-20 03:28] VITALS: BP 156/74; PULSE 84; RESP 18; TEMP 36.7; O2SAT 95
[2019-06-20] MEDS: ACETAMINOPHEN 325 MG TABLET 650 MG PO ×2 (05:02→09:00)
[2019-06-20] MEDS: HYDROCODONE/ACET 5/325 TABLET 1 TAB PO ×2 (07:48→13:15)
[2019-06-20 08:00] VITALS: BP 149/78; PULSE 89; RESP 19; TEMP 36.6; O2SAT 95
[2019-06-20] MEDS: DOCUSATE 100 MG CAPSULE PO (08:49)
[2019-06-20] MEDS: METFORMIN HCL 500 MG TABLET PO (08:51)
[2019-06-20] MEDS: PANTOPRAZOLE 20 MG TABLET PO (08:51)
[2019-06-20] MEDS: PROPRANOLOL 40 MG TABLET PO (08:52)
--- NOTE | 2019-06-20 09:24 | CM.DPC ---
DCP Cont: Called [facility], and spoke to Nikolai, who is admissions this weekend. Clarified that they can accept patient when she is ready for discharge. Will attempt to meet with patient later today regarding plan. P: DCP to continue to follow. Patient can go to [facility] when stable. Will consult with physical therapy team during rounds, regarding plan. Harriett Pritchett RN/Manager Employment
--- NOTE | 2019-06-20 10:29 | P.DS_ITS ---
History of Present Illness History of Present Illness Date Patient Seen: 06/20/19 Time Patient Seen: 10:29 Chief complaint: [id number] Narrative: Patient has been having chronic back pain and worsening lumbar radiculopathy. Patient failed multiple conservative management with worsening pain weakness and numbness in her lower extremity. Patient has been having difficulty performing activity of daily living. After discussing risks benefits of treatment options, patient elected proceed with surgery. post op day 3 s/p L3-[address] Holt. No events overnight. Patient's pain is well controlled with tylenol and norco. Patient is mobilizing with PT with 2 assist. Urinary catheter discontinued. Patient has no complaints. Pt denies fever, chills, nausea, vomiting, chest pain, shortness of breath, calf pain. Discharge Providers Provider Date of admission: 06/17/19 06:06 Discharge Date: 06/20/19 Primary care physician: Raphael Traylor MD Consults: 06/17/19 13:30 Consult to Occupational Therapy Evaluate & Treat Comment: Physician Instructions: Evaluate and treat Consult to Physical Therapy Evaluate & Treat Comment: Physician Instructions: Evaluate and Treat Discharge provider: Shaun Torres PA-C Summary Hospital Course Discharge Diagnosis: s/p L3-5 TLIF DCIS of breast COPD Osteopenia Osteoporsis Axiety Essential hypertension Type 2 diabetes mellitus without complication lumbar spinal stenosis Hospital Course: Patient was admitted for a L3-[address] Holt. Hospital course was unremarkable. Patient had trouble progressing with PT secondary to pain and was a 2 assist. Post op day 3 patient was ready for discharge to SNF ([facility]). Patient given prescription of norco. Patient eating without difficulty or assistance prior to discharge. Patient ambulating with 2 assist prior to discharge. Patient has outpatient PT scheduled. Dressing was CDI. Exam Vital Signs (past 8 hours): - 06/20/19 03:28 06/20/19 08:00 Temperature 98.0 F 97.8 F Pulse Rate 84 89 Respiratory Rate 18 19 Blood Pressure 156/74 H 149/78 H Pulse Oximetry 95 95 Fraction of Inspired Oxygen 21 Oxygen Delivery Method Room Air Oxygen Flow Rate 0 Narrative Exam Narrative: 84 year old female sitting comfortably in bed, in no apparent distress. A&Ox3. Dressing CDI. Patient able to actively plantar flex/dorsiflex. Sensation grossly intact to light touch in lower extremities bilaterally. Dorsalis pedis 2+ bilaterally. Capillary refill <2 seconds LE b/l. Objective Labs Result Diagrams: 06/18/19 05:27 Discharge Plan Discharge Plan Patient Disposition: SNF Transfer to: [facility] Consult as needed: Dental, Hearing, Mental health, Podiatry and Vision Discharge Med Rec/Prescriptions Prescriptions: New hydrocodone-acetaminophen [[place]] 5-325 mg tablet 1 tab PO Q4H PRN (Reason: pain) Qty: 40 RF: 0 Continued cyclobenzaprine 5 MG tablet 5 mg PO DAILY PRN (Reason: Muscle Spasm) Qty: 0 RF: 0 Disabled Parking Permit See Rx Instructions .Route .COMPLEX Qty: 1 RF: 0 albuterol sulfate [Ventolin HFA] 90 mcg/actuation HFA aerosol inhaler 2 puff INHALATION Q4-6H PRN (Reason: shortness of breath or wheezing) Qty: 8 RF: 3 metformin [Glucophage] 500 mg tablet 500 mg PO BID Qty: 180 RF: 3 omeprazole 20 mg capsule,delayed release(DR/EC) 20 mg PO DAILY Qty: 90 RF: 2 propranolol 40 mg tablet 40 mg PO BID Qty: 180 RF: 4 alprazolam 0.25 mg tablet 0.25 mg PO PRN Qty: 20 RF: 1 budesonide-formoterol [Symbicort] 160-4.5 mcg/actuation HFA aerosol inhaler See Rx Instructions .ROUTE .COMPLEX Qty: 10.2 RF: 3 Follow up/Referrals: Raphael Traylor MD [Primary Care Provider] - Crissy Holt MD [Physician] - Discharge Health Status Brief summary of current health status: Hx of Lumbar spinal stenosis, DMII, COPD, HTN. Post op day 3 TLIF. Pain well controlled with hydrocodone. Mobilizing with PT. Needs 1 assist. Provider Discharge Instructions Diet: Carb-consistent/Diabetic Activity: No excessive bending, lifting, or twisting Cold/Heat Therapy: cold/heat therapy as needed Skin/Wound/Dressing Care Report to your healthcare provider any signs of infection, such as:: chills, fever and increased pain Dressing: Coversite dressing prior to discharge [facility] Reason for rehabilitation: Post-operative therapy Rehab type: Physical therapy and Occupational therapy Visit Report/Discharge Packet Instructions: DI for Transforaminal Lumbar Interbody Fusion Discharge Data Primary Care Provider: Raphael Traylor Discharges patient from system. Discharge Date/Time: 06/20/19 13:44
--- NOTE | 2019-06-20 11:04 | CM.DPC ---
Addendum entered by Harriett Pritchett R.N. 06/20/19 11:17: Daughter, Mago, called back, and she was updated on plan. She is here now visiting her mother. Original Note: DCP Cont: Already confirmed with Nikolai at [facility] that they could accept patient today. Spoke to orthopedic PA, Martha. Let him know that they could accept her today. He went ahead and did discharge orders. Confirmed this with patient, and she signed IMM. Printed out med list, and had them signed, PASSR completed. Called Nikolai at [facility] and confirmed pick up attendant time of 1:30. Left message for daughter, Mago, to call. Patient stated that she would text her daughter with update. Faxed all information to [facility]. Updated nurse Rosie of pick up attendant time, and she is aware, as well as patient. P: Patient will be discharged to [facility] today. Harriett Pritchett RN/Game Master
[2019-06-20 12:00] VITALS: BP 146/76; PULSE 85; RESP 17; TEMP 36.4; O2SAT 96
--- NOTE | 2019-06-20 12:21 | PT.IPTN ---
Current Diagnoses Spondylolisthesis, lumbar region (06/17/19) Spinal stenosis, lumbar region with neurogenic claudication (06/17/19) Surgery Performed Operation Date: 06/17/19 07:45 Actual Procedures p L3-4 , L4-5 TLIF w/ posterior instrumentation - Crissy Holt MD Physical Therapy Treatment Note M2 PT-IP Current Condition Start: 06/18/19 11:30 Freq: NEEDED Status: Active Protocol: Document 06/18/19 09:05 AB (Rec: 06/18/19 11:44 AB [id number]) Physical Therapy Current Condition Current Condition Evaluation Date 06/18/19 Treatment Diagnosis L3-4, L4-5 fusion/lami; difficulty in walking Onset Date 06/17/19 Precautions Lumbar Precautions Log Roll,No Twisting,Limit Bending,Lifting Restriction of 10 lbs,Gait Belt above Incisional Area M3 PT-IP Subjective Start: 06/18/19 11:30 Freq: NEEDED Status: Active Protocol: Document 06/20/19 12:10 AW (Rec: 06/20/19 12:21 AW [id number]) Subjective Physical Therapy Visit Type Type Treatment Note Visit Start Time 11:33 Visit Stop Time 11:52 Total Visit Minutes 19 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 Physical Therapy Visit Comments Patient Comments Pt motivated to move with PT Therapy Pain Assessment Pain When Pain Assessed During Mobility Pain Present Pain Present Pain Reported Location right triceps Description Pulling,With Movement Pain Behaviors Facial Grimacing,Wincing Pain Management Techniques Modification of Treatment,Re- positioning,Timing of Activity with Medications M4 PT-IP Mobility and Gait Start: 06/18/19 11:30 Freq: NEEDED Status: Active Protocol: Document 06/20/19 12:10 AW (Rec: 06/20/19 12:21 AW [id number]) PT-Transfer Assessment Sit to and From Stand Sit to and from Stand Moderate Assistance,1 Person Assistance,Use of Upper Extremities Equipment Transfer Assistive Device Gait Belt,Front Wheeled Walker Orthotic/Prosthetic Devices or Brace: No Transfers Transfer Destination Chair Transfer Technique pt ambulated with FWW Transfer Ability Level of Assist Moderate Assistance,1 Person Assistance,Use of Upper Extremities Comments Mobility Comments Pt was found sitting up in chair. Sit to stand transfer required mod A x 1 to complete . Stand to sit required min A for improved control of descent. Gait Assessment Gait Gait Assistance Required: Contact Guard Assist,Minimum Assistance,1 Person Assist Distance (Feet) 40 Able to Maintain Weight Bearing Status Yes During Gait Assistive Devices Assistive Device Gait Belt,Front Wheeled Walker Orthotic/Prosthetic Devices or Brace: No Gait Deviations General Gait Pattern Antalgic,Decreased Stride Length,Decreased Feet Clearance Factors Limiting Gait Function Factors Limiting Gait Function Decreased Activity Tolerance, Decreased Strength,Difficulty Following Directions,Poor Balance,Poor Safety Awareness Comments Gait Comments Pt reported no buckling of knees today. She stated she felt more confident on her feet. She remembered to straighten her knees when she came to standing without need for verbal cues M5 PT-IP Objective Assessments Start: 06/18/19 11:30 Freq: NEEDED Status: Active Protocol: Document 06/18/19 09:05 AB (Rec: 06/18/19 11:44 AB [id number]) Orientation Orientation/Cognition Level of Alertness Alert Orientation Name,Place,Situation Language Function Ability Hard of Hearing Safety Awareness Decreased Safety Awareness Gross Range of Motion Lower Extremity ROM Assessment Within Functional Limits Strength Lower Extremity Strength Assessment Bilaterally Impaired Hip 3-/5 Knee 3/5 Sensation Assessment Sensation Gross Sensation WNL Muscle Tone Muscle Tone WNL Yes M6 PT-IP Treatment Start: 06/18/19 11:30 Freq: NEEDED Status: Active Protocol: Document 06/20/19 12:10 AW (Rec: 06/20/19 12:21 AW [id number]) Physical Therapy Treatment Exercises Exercises Ankle Pumps,Heel Slides,Seated Knee Flexion/Extension Education Education Provided Precautions,Safety Other Treatments Other Treatment Performed + seated hip flexion M7 PT-IP Assessment and Plan Start: 06/18/19 11:30 Freq: NEEDED Status: Active Protocol: Document 06/20/19 12:10 AW (Rec: 06/20/19 12:21 AW [id number]) PT Summary Assessment and Plan Potential Rehabilitation Potential Good Summary Impairments Pain,ROM,Strength,Balance, Coordination,Sensation,Tone, Cognition,Bed Mobility, Transfers,Gait,Activity Tolerance Progress Towards Goals Slow Progress due to Pain,Slow Progress due to Activity Tolerance Assessment Summary Pt presents today with decreased need for assist and improved attention to spinal precautions. Transfers mod A x 1. Gait min A x 1 using FWW. She continues to be an excellent candidate for SNF rehab to improve independence with mobility before return to home. Goals Bed Mobility Goal Standby Assistance Transfer Goal Standby Assistance,Front Wheeled Walker Gait Goal Standby Assistance,Front Wheel Walker Gait Distance 150 Days to Meet Goals 9 Frequency of Treatment Frequency Of Treatment Twice a Day Treatment Plan Physical Therapy Treatment Plan Bed Mobility Training,Transfer Training,Gait Training, Therapeutic Exercise,Balance Retraining,Post Op Education, Discharge Planning,Hot or Cold Pack,Neuromuscular Re-ed, Coordination Retraining,Manual Therapy Recommendations To Nursing Amount of Assist Needed 1 Person Assist,2 Person Assist Discharge Recommendations PT Discharge Recommendations SNF Rehab Equipment Needed for Home Before FWW if pt goes home Discharge
--- NOTE | 2019-06-20 15:17 | OT.IP.TRT ---
Current Diagnoses Spondylolisthesis, lumbar region (06/17/19) Spinal stenosis, lumbar region with neurogenic claudication (06/17/19) Surgery Performed Operation Date: 06/17/19 07:45 Actual Procedures p L3-4 , L4-5 TLIF w/ posterior instrumentation - Crissy Holt MD Occupational Therapy Treatment Note M2 OT-IP Current Condition Start: 06/18/19 12:16 Freq: Status: Active Protocol: Document 06/18/19 10:39 CCC (Rec: 06/18/19 12:36 [facility] [id number]) Occupational Therapy Current Condition Current Condition Evaluation Date 06/18/19 Treatment Diagnosis L3-4, L4-5 laminectomy TLIF Diagnosis Onset Date 06/17/19 Post Operative Precautions Abdominal Surgery Precautions Log Roll,Lifting Restrictions, Gait Belt above Incisional Area Weight Bearing Status Weight Bearing Status Weight Bear as Tolerated M3 OT- IP Subjective and Pain Start: 06/18/19 12:16 Freq: Status: Active Protocol: Document 06/20/19 15:09 CGR (Rec: 06/20/19 15:16 CGR [id number]) OT- Subjective Occupational Therapy Visit Type Type Treatment Note Visit Start Time 10:47 Visit Stop Time 11:03 Total Visit Minutes 16 OT Pain Assessment Pain When Pain Assessed At Rest Pain Present Pain Present Denied Pain M4 OT- IP ADL's Start: 06/18/19 12:16 Freq: Status: Active Protocol: Document 06/20/19 15:09 CGR (Rec: 06/20/19 15:16 CGR [id number]) OT [id number] Comments OT Self-Feeding Comments Not meal time OT ADL-Grooming General Evaluation Grooming Ability Standby Assistance Areas Needing Assistance Face Washing Comments OT Grooming Comments standing at sink OT ADL-Oral Care General Eval Oral Care Ability Standby Assistance Comments Oral Care Comments standing at sink OT ADL-Dressing Comments OT Dressing Comments Not performed OT ADL-Toileting General Evaluation Toileting Ability Standby Assistance Comments OT Toileting Comments Pt needs cueing for pericare without bending. M5 OT- IP IADL's Start: 06/18/19 12:16 Freq: Status: Active Protocol: Document 06/18/19 10:39 CCC (Rec: 06/18/19 12:36 [facility] [id number]) OT-Instrumental Activities of Daily Living Home Safety Awareness Home Safety Comments At this time, pt is not thinkng well due to having Oxycodone. Prior pt was independent with all Adl and IADL needs. M6 OT- IP Functional Cognition Start: 06/18/19 12:16 Freq: Status: Active Protocol: Document 06/19/19 16:51 [facility] (Rec: 06/19/19 17:08 [facility] [id number]) Cognitive Factors Limiting Selfcare Function Cognitive Ability Level of Alertness Alert,Drowsy Patient Orientation Name,Place,Situation Attention Span Ability Capable of Focused Attention, Capable of Sustained Attention Ability to Follow Commands Able to Follow One Step Commands Memory Description Short Term Impaired Safety Awareness Decreased Ability to Apply Precautions,Underestimates Need for Assistance Problem Solving Ability Unable to Identify Errors, Needs Assist to Identify Solutions Cognitive Comments Cognitive Assessment Comments Pt not able to recall any back precautions. Pt very tired and sleepy. M7 OT- IP Mobility and Balance Start: 06/18/19 12:16 Freq: Status: Active Protocol: Document 06/20/19 15:09 CGR (Rec: 06/20/19 15:16 CGR [id number]) OT-Transfer Assessment Sit to and From Stand Sit to and from Stand Contact Guard Assistance Transfers Transfer Ability Contact Guard Assistance Technique Transfer Destination Chair,Toilet Transfer Technique Stand Step Pivot Devices Transfer Assistive Devices Gait Belt,Front Wheeled Walker Comments Mobility Comments Pt with noted increase in abilities on this date from last therapy session. OT- Gait Assessment Gait Gait Assistance Required: Contact Guard Assist Assistive Devices Assistive Device Gait Belt,Front Wheeled Walker OT- Balance Assessment Sitting Balance and Reactions Static Sitting Balance Ability Good Dynamic Sitting Balance Ability Fair Standing Balance and Reactions Static Standing Balance Ability Good Dynamic Standing Balance Ability Fair M8 OT- IP Objective Assessments Start: 06/18/19 12:16 Freq: Status: Active Protocol: Document 06/18/19 10:39 [facility] (Rec: 06/18/19 12:36 [facility] [id number]) OT Gross Range of Motion Upper Extremity Range of Motion ROM Impairments GRossly WFL for ADl needs. 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 M9 OT- IP Assessment and Plan Start: 06/18/19 12:16 Freq: Status: Active Protocol: Document 06/20/19 15:09 CGR (Rec: 06/20/19 15:16 CGR [id number]) OT Summary Assessment and Plan Potential Rehabilitation Potential Good Analytic Complexity at Evaluation Low Summary OT Impairments Pain,Strength,Balance, Functional Cognition, Functional Mobility,Grooming, Dressing,Toileting,Bathing, Toilet Transfers,Shower Transfers Progress Towards Goals Slow Progress due to Activity Tolerance,Slow Progress due to Cognition Assessment Summary Pt with noted increase in mobility on this date. Pt will still benefit from OT services to address back precautions and safety. Recommendation is still SNF for discharge. Goals Grooming Goal Standby Assistance Dressing Goal Minimal Assistance Toileting Goal Minimal Assistance Bathing Goal Moderate Assistance Toilet Transfer Goal Minimal Assistance Shower Transfer Goal Moderate Assistance Patient/Caregiver Education Goal Demonstrate Post-Op Precautions Days to Meet Goals 8 Frequency of Treatment Frequency Of Treatment Once a Day Treatment Plan OT Treatment Plan ADL Training,Functional Cognition Training,Functional Mobility,Patient/Family Education,Discharge Planning Other Treatment Recommendations and Next Back precaution education. LB Treatment Focus dressing Discharge Recommendations OT Discharge Recommendations SNF Rehab Home Equipment Needs defer to skilled rehab
== END 2019-06-20 13:44 | DRG 455 ==
PROVIDERS: Admitting Provider Orthopaedic Surgery Orthopaedic Surgery of the Spine; PCP Family Medicine; Visit Provider Orthopaedic Surgery Orthopaedic Surgery of the Spine
PROC: 0SG10AJ Fusion of 2 or more Lumbar Vertebral Joints with Interbody Fusion Device, Posterior Approach, Anterior Column, Open Approach (ICD-10-PCS; principal; 2019-06-17 07:45)
DX: M48.062 Spinal stenosis, lumbar region with neurogenic claudication (principal); M70.72 Other bursitis of hip, left hip; G57.02 Lesion of sciatic nerve, left lower limb; M47.26 Other spondylosis with radiculopathy, lumbar region; M43.16 Spondylolisthesis, lumbar region; J44.9 Chronic obstructive pulmonary disease, unspecified; E11.9 Type 2 diabetes mellitus without complications; M53.3 Sacrococcygeal disorders, not elsewhere classified; Z87.891 Personal history of nicotine dependence; Z79.84 Long term (current) use of oral hypoglycemic drugs
CPT/HCPCS: 36415; 72100; 76000; 82962; 85014; 85018; 94760; 94762; 97110; 97116; 97162; 97165; 97530; 97535; C1776; C9290; J0330; J0690; J1170; J2405; J2704; J3010

== ENCOUNTER → 2019-08-03 07:23 | Outpatient (CLI) | payer MEDICARE, SELFPAY ==
[2019-06-17 13:33] VITALS: BMI 23.1
[2019-08-03 08:46] LABS: BUN Creatinine Ratio 18.6 (6-22); Blood Urea Nitrogen 13 mg/dL (7-17); Calcium 10.1 mg/dL (8.4-10.2); Carbon Dioxide 30 mmol/L (22-32); Chloride 105 mmol/L (98-107); Estimated Glomerular Filt Rate > 60.0 mL/min (>60); Glucose 132 mg/dL (80-110); HEMOLYSIS < 15 (0-50); Potassium 3.7 mmol/L (3.4-5.1); Sodium 143 mmol/L (137-145)
== END ==
PROVIDERS: PCP Family Medicine; Visit Provider Family Medicine
DX: E11.9 Type 2 diabetes mellitus without complications (principal)
CPT/HCPCS: 36415; 80048; 83036

== ENCOUNTER → 2019-10-06 08:48 | Outpatient (CLI) | payer MEDICARE, SELFPAY ==
[2019-06-17 13:33] VITALS: BMI 23.1
[2019-10-06 10:24] LABS: Hemoglobin A1C% w Est Avg Glu 6.4 % (4.0-6.0)
[2019-10-06 11:17] LABS: Blood Urea Nitrogen 14 mg/dL (7-17); Calcium 10.7 mg/dL (8.4-10.2); Carbon Dioxide 28 mmol/L (22-32); Chloride 103 mmol/L (98-107); Cholesterol 228 mg/dL (140-199); Estimated Glomerular Filt Rate > 60.0 mL/min (>60); Glucose 122 mg/dL (80-110); HDL Cholesterol 62 mg/dL (40-60); HEMOLYSIS < 15 (0-50); LDL Cholesterol Calculated 119 mg/dL (<100); Potassium 4.9 mmol/L (3.4-5.1); Sodium 140 mmol/L (137-145); Triglycerides 234 mg/dL (35-150)
== END ==
PROVIDERS: PCP Family Medicine; Visit Provider Family Medicine
DX: E11.9 Type 2 diabetes mellitus without complications (principal); I10 Essential (primary) hypertension
CPT/HCPCS: 36415; 80048; 80061; 83036

== ENCOUNTER → 2019-10-07 12:34 | Outpatient (CLI) | payer MEDICARE, SELFPAY ==
[2019-06-17 13:33] VITALS: BMI 23.1
--- NOTE | 2019-10-07 | DI.CT.S_ITS ---
PROCEDURE: CT LUMBAR SPINE WO CON INDICATIONS: Spinal stenosis lumbar region TECHNIQUE: Noncontrast 3 mm thick sections acquired from the T12 level to the sacrum. Sagittal and coronal reformats were constructed. For radiation dose reduction, the following was used: automated exposure control. COMPARISON: [facility], MR, MR LUMBAR SPINE WO CON, 03/27/2019, 18:24. FINDINGS: Image quality: Excellent. Bones: Interval since the prior exam, there has been posterior fusion from L3-L5. It is noted that the left pedicular screw at the level of L3 courses along the superior endplate of the vertebral body. There is trace anterolisthesis of L3 on L4, L4 on L5. There are no visualized acute fractures or dislocations. No osseous lesions. L1-L2: No disc bulge, spinal stenosis or foraminal narrowing. No interval change. L2-3: Mild disc bulge with mild spinal stenosis. No foraminal narrowing. No interval change. L3-4: Postsurgical changes are present with significant artifact at this level. Previous spinal stenosis has improved. Foramina are partially obscured secondary to artifact. However, there is felt to be mild to moderate bilateral foraminal narrowing, right greater than left relatively unchanged. L4-5: Postsurgical changes are present. There is been marked improvement of previous spinal stenosis. Foramina are obscured secondary to metallic streak artifact. However, there is felt to be at least mild to moderate bilateral foraminal narrowing. Facet hypertrophy is present. L5-S1. Mild disc bulge without spinal stenosis. Mild bilateral foraminal narrowing with facet hypertrophy. Soft tissues: Hepatic cysts are present. Nonobstructing renal calcifications are present. Large hiatal hernia is present. Visualized aorta is normal in caliber. IMPRESSION: 1. Posterior fusion from L3-L5 as above. 2. Interval improvement of previous multilevel spinal stenosis. 3. Multilevel foraminal narrowing appearing relatively stable compared to prior exam secondary to facet arthropathy. Dictated by: Mihaela Mckinnon M.D. on 10/07/2019 at 17:52 Approved by: Mihaela Mckinnon M.D. on 10/07/2019 at 17:57
== END ==
PROVIDERS: PCP Family Medicine; Visit Provider Orthopaedic Surgery Orthopaedic Surgery of the Spine
DX: M48.062 Spinal stenosis, lumbar region with neurogenic claudication (principal); M47.816 Spondylosis without myelopathy or radiculopathy, lumbar region; M47.817 Spondylosis without myelopathy or radiculopathy, lumbosacral region; K44.9 Diaphragmatic hernia without obstruction or gangrene; K76.89 Other specified diseases of liver; N20.0 Calculus of kidney; Z98.1 Arthrodesis status
CPT/HCPCS: 72131

== ENCOUNTER → 2020-02-03 12:57 | Outpatient (CLI) | payer MEDICARE, SELFPAY ==
[2019-06-17 13:33] VITALS: BMI 23.1
[2020-02-03 15:06] LABS: Hemoglobin A1C% w Est Avg Glu 6.6 % (4.0-6.0)
[2020-02-03 15:09] LABS: BUN Creatinine Ratio 24.3 (6-22); Blood Urea Nitrogen 17 mg/dL (7-17); Calcium 10.3 mg/dL (8.4-10.2); Carbon Dioxide 27 mmol/L (22-32); Chloride 105 mmol/L (98-107); Estimated Glomerular Filt Rate > 60.0 mL/min (>60); Glucose 103 mg/dL (80-110); HEMOLYSIS < 15 (0-50); Potassium 3.8 mmol/L (3.4-5.1); Sodium 141 mmol/L (137-145)
== END ==
PROVIDERS: PCP Family Medicine; Referring Provider Family Medicine; Visit Provider Family Medicine
DX: E11.9 Type 2 diabetes mellitus without complications (principal)
CPT/HCPCS: 36415; 80048; 83036

== ENCOUNTER 2020-02-11 15:03 | Emergency (ER) | payer MEDICARE, SELFPAY ==
[2019-06-17 13:33] VITALS: BMI 23.1
[2020-02-11 15:10] VITALS: BP 196/91; PULSE 92; RESP 16; TEMP 36.9; O2SAT 97; BMI 23.5
--- NOTE | 2020-02-11 15:28 | DI.CT.S_ITS ---
PROCEDURE: CT HEAD/BRAIN WO CON INDICATIONS: FAll, R sided head injury TECHNIQUE: Noncontrast 4.5 mm thick angled axial sections acquired from the foramen magnum to the vertex, with coronal and sagittal reformats. For radiation dose reduction, the following was used: automated exposure control, adjustment of mA and/or kV according to patient size. COMPARISON: [facility], CT, HEAD WITHOUT CONTRAST, 11/01/2016, 15:56. FINDINGS: Image quality: Excellent. CSF spaces: Basal cisterns are patent. No extra-axial fluid collections. The ventricles are symmetric in size and shape. Brain: No intracranial bleeds or masses. There is cerebral volume loss for age, with resultant ventricular and sulcal prominence. There are moderate periventricular and deep white matter chronic small vessel ischemic changes. There is intracranial internal carotid artery atherosclerosis. Skull and face: Calvarium and visualized facial bones appear intact, without suspicious lesions. Sinuses: Visualized sinuses and mastoids are clear. IMPRESSION: 1. Age related volume loss and moderate small vessel ischemic change. 2. No evidence acute stroke, hemorrhage, or mass. 3. No evidence of significant intracranial sequelae of acute trauma. Dictated by: Yvon Deleon M.D. on 02/11/2020 at 16:37 Approved by: Yvon Deleon M.D. on 02/11/2020 at 16:38
--- NOTE | 2020-02-11 15:28 | DI.RAD.S_ITS ---
PROCEDURE: XR HIP W PEL IF DONE RT 2V INDICATIONS: R hip pain post fall TECHNIQUE: AP pelvis with lateral view(s) of the right hip(s). COMPARISON: None. FINDINGS: Bones: No fractures or dislocations. Pelvic ring appears intact. No suspicious bony lesions. Soft tissues: The visualized bowel gas pattern is normal. No suspicious soft tissue calcifications. IMPRESSION: Lumbosacral spine fixation devices are better seen but a dedicated lumbosacral spine plain film study from today. 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 Dictated by: Minor Stroud M.D. on 02/11/2020 at 17:02 Approved by: Minor Stroud M.D. on 02/11/2020 at 17:03
--- NOTE | 2020-02-11 15:30 | ED.LOWEXIN ---
HPI - Extremity Injury (Lower) <Aziza SoniSTEF - Last Filed: 02/11/20 19:03> General Chief Complaint: Extremity Injury, Lower Stated Complaint: GLF, Right side pain multiple complaints Time Seen by Provider: 02/11/20 15:05 Source: patient Mode of arrival: Ambulatory History of Present Illness HPI Narrative: 84yo female with history of hypertension in lumbar back surgery, presents emergency department after a ground level fall. She states she is often dizzy upon initially standing up and usually holds on to a piece of furniture for a few seconds while she studies her gait. She states she stood up today and grabbed onto a chair that was unstable and fell. Patient reports she fell into her right hip and hit the right side of her head on the ground, she experienced a small cut on the right side of her head from her glasses. She was able to get up from the fall on her own and was able to ambulate after the fall. Patient reports right-sided hip and lower back pain that is a dull aching 2/10 and is slightly worse with walking. Patient does report that she has baseline bilateral leg numbness with walking post surgery and this is her norm, she denies any worsening of this or new symptoms such as loss of bowel or bladder control or saddle paresthesias. She denies any loss of consciousness, vomiting, head pain, vision changes, neck pain, shoulder pain, forearm pain, shortness of breath, chest pain, nausea, vomiting, diarrhea, wrist pain, hand pain, knee pain, ankle pain, or foot pain. Daughter is at bedside and states that patient is asking if he more questions which may be related to difficulty hearing people due to the all people wearing masks. Patient confirms it is very difficult to hear due to everyone wearing masks. Patient later reported that she is supposed to use a walker when ambulating however, she does not use a walker in her house and just holds on to the furniture to steady her balance. Related Data Home Medications Medication Instructions Recorded Confirmed albuterol sulfate 90 mcg/actuation 1 inhalation INHALATION ONCE 02/05/20 02/05/20 aerosol inhaler Previous Rx's Medication Instructions Recorded Disabled Parking Permit See Rx Instructions .ROUTE 05/06/18 .COMPLEX #1 unit alprazolam 0.25 mg tablet 0.25 mg PO ONCE PRN #20 tab 10/07/19 budesonide-formoterol HFA 160 2 puff INHALATION BID #10.2 gram 10/07/19 mcg-4.5 mcg/actuation aerosol inhaler metformin 500 mg tablet 500 mg PO BID #180 tab 10/07/19 omeprazole 20 mg capsule,delayed 20 mg PO DAILY #90 cap 10/07/19 release propranolol 40 mg tablet 40 mg PO BID #180 tab 10/07/19 hydrochlorothiazide 25 mg tablet 12.5 mg PO QAM #60 tab 02/05/20 Allergies Allergy/AdvReac Type Severity Reaction Status Date / Time No Known Drug Allergies Allergy Verified 02/05/20 11:34 Review of Systems <STEF Freed - Last Filed: 02/11/20 19:03> Review of Systems Narrative: REVIEW OF SYSTEMS: GENERAL: Denies fever or chills. HENT: Reports laceration to right side of head, see HPI. EYES: No double vision or vision loss. CARDIOVASCULAR: No chest pain or syncope. RESPIRATORY: No shortness of breath or cough. GASTROINTESTINAL: No nausea, vomiting, diarrhea, or constipation. GENITOURINARY: No flank pain or dysuria. MUSCULOSKELETAL: Complains of right hip pain, see HPI. INTEGUMENTARY: No rash, lesions, or pruritus. NEURO: No numbness, tingling. PSYCH: No behavior or mood changes. Patient History <STEF Freed - Last Filed: 02/11/20 19:03> Medical History Breast cancer (Chronic ~1981) Cataract (Chronic) Chicken pox (Resolved) Chronic back pain (Chronic) COPD (chronic obstructive pulmonary disease) (Chronic) Diabetes (Chronic) Diastolic dysfunction (Acute) Diverticular disease (Chronic) Edema (Acute) GERD (gastroesophageal reflux disease) (Chronic) Hay fever (Chronic) Hyperglycemia (Chronic) Hyperlipidemia (Chronic) Hypertension (Chronic) Lumbar back pain (Chronic) Measles (Resolved) Mumps (Resolved) Neuropathy (Acute) Skin cancer (Chronic ~2011) Surgical History Anesthesia (Resolved) History of mastectomy (Resolved ~09/1981) Status post hysterectomy Family History Mother Brain aneurysm Sister Age: 81 Cancer of breast Lung cancer Daughter Cancer of breast Father No problems noted. Social History household members: none Smoking Status: Former smoker alcohol intake: former Smoking Status: Former smoker Substance Use Type: does not use Exam <STEF Freed - Last Filed: 02/11/20 19:03> Initial Vital Signs Initial Vital Signs: Vital Signs Temperature 98.4 F 02/11/20 15:10 Pulse Rate 92 H 02/11/20 15:10 Respiratory Rate 16 02/11/20 15:10 Blood Pressure 196/91 H 02/11/20 15:10 Pulse Oximetry 97 02/11/20 15:10 PHYSICAL EXAMINATION: GENERAL: Well groomed, alert, and cooperative. Answers questions promptly and appropriately. Vital signs noted. HENT: Normocephalic, very superficial laceration noted to lateral aspect of right eyebrow. Facial features symmetrical, no tenderness to palpation of face or head. EYES: PERRLA, EOMIs, symmetrical, sclera white, no periorbital swelling. NECK: No midline tender, full range of motion without pain. CARDIOVASCULAR: S1 and S2 sounds normal. Regular rate and rhythm, no murmurs, clicks, or bruits. No pedal edema. RESPIRATORY: Normal respiratory rate, trachea midline, airway patent. No stridor, nasal flaring or accessory muscle use. Lungs are clear in all lynn. MUSCULOSKELETAL: Tenderness to right posterior hip/towards lumbar. Patient able to raise right and left leg off the bed without pain or difficulty. Normal gait and coordination. Equal tone and mass bilaterally. No spinal tenderness or deformities. EXTREMITIES: CMS intact. 2+ nonpitting edema which patient reports is her norm. SKIN: Warm, dry, soft, appropriate color for ethnicity. No rashes. No other wounds other than noted above to visualized skin. NEURO: Alert and Oriented X 3. No sensory deficits. PSYCH: Appropriate affect and mood. <Wesley Candelaria DO - Last Filed: 02/12/20 07:06> Initial Vital Signs Initial Vital Signs: Vital Signs Temperature 98.4 F 02/11/20 15:10 Pulse Rate 92 H 02/11/20 15:10 Respiratory Rate 16 02/11/20 15:10 Blood Pressure 196/91 H 02/11/20 15:10 Pulse Oximetry 97 02/11/20 15:10 Scores <STEF Freed - Last Filed: 02/11/20 19:03> GCS Penn coma scale eye opening: Spontaneous [place] coma scale verbal response: Orientated [place] coma scale motor response: Obey commands [place] coma scale total score: 15 Course <STEF Freed - Last Filed: 02/11/20 19:03> Course Course Narrative: Patient continues to deny pain while sitting in the room. Reports pain is present with certain position changes. Orders Ordered: ED Orders 02/11/20 15:28 CT head/brain wo con Stat XR hip w pel if done RT 2V Stat EKG-12 Lead Stat 02/11/20 15:31 XR lumbar spine 2-3V Stat 02/11/20 15:37 Complete Blood Count AUTO DIFF Stat Comprehensive Metabolic Panel Stat Troponin & CK Cardiac Panel Stat Vital Signs Vital signs: Vital Signs - 8 hr 02/11/20 15:10 02/11/20 16:45 02/11/20 17:41 Temperature 98.4 F Pulse Rate 92 H 88 78 Respiratory Rate 16 16 18 Blood Pressure 196/91 H Blood Pressure [Left Arm] 185/84 H 175/84 H Pulse Oximetry 97 98 96 <Wesley Candelaria DO - Last Filed: 02/12/20 07:06> Orders Ordered: ED Orders 02/11/20 15:28 CT head/brain wo con Stat XR hip w pel if done RT 2V Stat EKG-12 Lead Stat 02/11/20 15:31 XR lumbar spine 2-3V Stat 02/11/20 15:37 Complete Blood Count AUTO DIFF Stat Comprehensive Metabolic Panel Stat Troponin & CK Cardiac Panel Stat Vital Signs Vital signs: Vital Signs - 8 hr 02/11/20 15:10 02/11/20 16:45 02/11/20 17:41 Temperature 98.4 F Pulse Rate 92 H 88 78 Respiratory Rate 16 16 18 Blood Pressure 196/91 H Blood Pressure [Left Arm] 185/84 H 175/84 H Pulse Oximetry 97 98 96 MDM - Extremity Injury (Lower) <STEF Freed - Last Filed: 02/11/20 19:03> Medical Records Attestation: I reviewed the patient's medical records. Lab Data Attestation: I reviewed the patient's lab results. Result diagrams: 02/11/20 15:37 02/11/20 15:37 Labs: Lab Results 02/11/20 02/11/20 Range/Units 15:37 15:37 WBC 8.2 (4.5-11.0) X10^3/uL RBC 4.57 (4.0-5.2) X10^6/uL Hgb 11.6 L (12.0-16.0) g/dL Hct 35.6 L (36-46) % MCV 77.9 L (80-100) fL MCH 25.4 L (26-34) PG MCHC 32.6 (30-36) % RDW 16.6 H (11.6-14.8) % Plt Count 310 (150-400) X10^3/uL Neut % (Auto) 70.5 (50-75) % Lymph % (Auto) 19.7 L (25-40) % [place] % (Auto) 8.0 (3-14) % Eos % (Auto) 1.2 L (2-4) % Baso % (Auto) 0.6 (0-2) % Neut # (Auto) 5800 (8630-1581) /uL Lymph # (Auto) 1600 (1465-5865) /uL [place] # (Auto) 700 (0-900) /uL Eos # (Auto) 100 (0-450) /uL Baso # (Auto) 0 (0-100) /uL Sodium 137 (137-145) mmol/L Potassium 3.6 (3.4-5.1) mmol/L Chloride 101 (98-107) mmol/L Carbon Dioxide 24 (22-32) mmol/L BUN 21 H (7-17) mg/dL Creatinine 0.79 (0.52-1.04) mg/dL Estimated GFR > 60.0 (>60) mL/min BUN/Creatinine Ratio 26.6 H (6-22) Glucose 165 H (80-110) mg/dL Calcium 10.3 H (8.4-10.2) mg/dL Total Bilirubin 0.5 (0.2-1.3) mg/dL AST 20 (14-36) IU/L ALT 13 (<35) IU/L Alkaline Phosphatase 66 (38-126) U/L Total Creatine Kinase 66 (30-135) U/L CK-MB (CK-2) TNP CK-MB (CK-2) Rel Index TNP Troponin I < 0.012 (0.01-0.034) ng/mL Total Protein 7.6 (6.3-8.2) g/dL Albumin 4.3 (3.5-5.0) g/dL Globulin 3.3 (1.7-4.1) g/dL Albumin/Globulin Ratio 1.3 (1.0-2.8) Imaging Data Lumbar X-ray: Radiologist's Impression: [address] [address] XRay Report Signed Patient: Jessica Harmon TMR#: [id number] : 1935cct:[id number] Age/Sex: 84 / FDate of Service: 02/11/20 Loc: ED Accession Number: [id number] Procedure: XR lumbar spine 2-3V Ordering Provider: Aziza Soni PROCEDURE: XR LUMBAR SPINE 2-3V INDICATIONS: R low back pain post fall TECHNIQUE: 3 views of the lumbar spine were acquired. COMPARISON: [facility], , XR LUMBAR SPINE 2-3V, 06/17/2019, 8:23. FINDINGS: Bones: 5 [id number] vertebrae are present. There is normal bony alignment maintained by a transverse pedicle screws and vertical fixation rods crossing from L3-L5, with interbody cage disc prostheses devices previously placed centrally within the disc space, without malalignment. No vertebral body compression fractures. No suspicious bony lesions. Soft tissues: Overlying bowel gas pattern is normal. No suspicious soft tissue calcifications. IMPRESSION: Maintenance of postoperative changes, no compression fracture found. No evidence of device loosening or disruption. Dictated by: Minor Stroud M.D. on 02/11/2020 at 17:01 Approved by: Minor Stroud M.D. on 02/11/2020 at 17:02 Hip Xray: Radiologist's Impression: [address] [address] XRay Report Signed Patient: Jessica Harmon TMR#: [id number] : 7Acct:[id number] Age/Sex: 84 / FDate of Service: 02/11/20 Loc: ED Accession Number: [id number] Procedure: XR hip w pel if done RT 2V Ordering Provider: Aziza Soni PROCEDURE: XR HIP W PEL IF DONE RT 2V INDICATIONS: R hip pain post fall TECHNIQUE: AP pelvis with lateral view(s) of the right hip(s). COMPARISON: None. FINDINGS: Bones: No fractures or dislocations. Pelvic ring appears intact. No suspicious bony lesions. Soft tissues: The visualized bowel gas pattern is normal. No suspicious soft tissue calcifications. IMPRESSION: Lumbosacral spine fixation devices are better seen but a dedicated lumbosacral spine plain film study from today. 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 Dictated by: Minor Stroud M.D. on 02/11/2020 at 17:02 Approved by: Minor Stroud M.D. on 02/11/2020 at 17:[address]: Radiologist's Impression: [place] [address] CT Scan Report Signed Patient: Jessica Harmon TMR#: [id number] : 7Acct:[id number] Age/Sex: 84 / FDate of Service: 02/11/20 Loc: ED Accession Number: [id number] Procedure: CT head/brain wo con Ordering Provider: Aziza Soni PROCEDURE: CT HEAD/BRAIN WO CON INDICATIONS: FAll, R sided head injury TECHNIQUE: Noncontrast 4.5 mm thick angled axial sections acquired from the foramen magnum to the vertex, with coronal and sagittal reformats. For radiation dose reduction, the following was used: automated exposure control, adjustment of mA and/or kV according to patient size. COMPARISON: [facility], CT, HEAD WITHOUT CONTRAST, 11/01/2016, 15:56. FINDINGS: Image quality: Excellent. CSF spaces: Basal cisterns are patent. No extra-axial fluid collections. The ventricles are symmetric in size and shape. Brain: No intracranial bleeds or masses. There is cerebral volume loss for age, with resultant ventricular and sulcal prominence. There are moderate periventricular and deep white matter chronic small vessel ischemic changes. There is intracranial internal carotid artery atherosclerosis. Skull and face: Calvarium and visualized facial bones appear intact, without suspicious lesions. Sinuses: Visualized sinuses and mastoids are clear. IMPRESSION: 1. Age related volume loss and moderate small vessel ischemic change. 2. No evidence acute stroke, hemorrhage, or mass. 3. No evidence of significant intracranial sequelae of acute trauma. Dictated by: Yvon Deleon M.D. on 02/11/2020 at 16:37 Approved by: Yvon Deleon M.D. on 02/11/2020 at 16:38 ECG Data Interpretation: Sinus rhythm, rate 77, OR interval 195, QTC 376. No ST elevation or ST depression. T-wave inversion noted in V6 which is consistent with past EKG from 2019. No ectopy. EKG viewed by Dr. Candelaria per protocol. MDM Narrative Medical decision making narrative: 84-year-old female presents emergency department for a ground level fall with right hip/back pain. I suspect patient's pain is most likely caused by a muscle strain given location of the pain, pain is worse with certain movements and better with sitting. Lumbar and have x-rays are negative and patient was able to bear weight on leg immediately after injury. Like internal external rotation or shortening of leg no excessive bruising. Initially, patient stated that she felt dizzy and grabbed onto a chair for she follow. She explains that this has been ongoing for years, dizziness today was not in particularly worse or different than previous times. She is supposed to use her walker when ambulating but has not been using it around her house and has been grabbing onto furniture. Patient states this feeling usually happens when she stands up immediately and then resolves. When she stood up and grab that she did that she was stable and tipped which caused her to fall. I suspect her dizziness is most likely related to positional changes as well as patient stated she was given a water pill over the last few weeks for lower leg edema which may contribute to fluid volume shift as well. No concerns for ACS as there are no acute changes on EKG, troponin negative, no other concerning symptoms such as chest pain. No concerns for infection as white is within normal limits, non tachycardia, afebrile and no complains of other symptoms such as dysuria. There was a small amount of bacteria noted in urine so a urine was sent for culture. Patient is asymptomatic says she could not treated at this time, opted to wait for culture after discussion with patient. Patient was agreeable to this plan as well. Return precautions given for new or worsening symptoms. Patient agreed to plan of care verbalized understanding. She was encouraged to follow up with primary care provider. <Wesley Bari, DO - Last Filed: 02/12/20 07:06> Lab Data Labs: Lab Results 02/11/20 02/11/20 Range/Units 15:37 15:37 WBC 8.2 (4.5-11.0) X10^3/uL RBC 4.57 (4.0-5.2) X10^6/uL Hgb 11.6 L (12.0-16.0) g/dL Hct 35.6 L (36-46) % MCV 77.9 L (80-100) fL MCH 25.4 L (26-34) PG MCHC 32.6 (30-36) % RDW 16.6 H (11.6-14.8) % Plt Count 310 (150-400) X10^3/uL Neut % (Auto) 70.5 (50-75) % Lymph % (Auto) 19.7 L (25-40) % [place] % (Auto) 8.0 (3-14) % Eos % (Auto) 1.2 L (2-4) % Baso % (Auto) 0.6 (0-2) % Neut # (Auto) 5800 (6680-9878) /uL Lymph # (Auto) 1600 (4925-4089) /uL [place] # (Auto) 700 (0-900) /uL Eos # (Auto) 100 (0-450) /uL Baso # (Auto) 0 (0-100) /uL Sodium 137 (137-145) mmol/L Potassium 3.6 (3.4-5.1) mmol/L Chloride 101 (98-107) mmol/L Carbon Dioxide 24 (22-32) mmol/L BUN 21 H (7-17) mg/dL Creatinine 0.79 (0.52-1.04) mg/dL Estimated GFR > 60.0 (>60) mL/min BUN/Creatinine Ratio 26.6 H (6-22) Glucose 165 H (80-110) mg/dL Calcium 10.3 H (8.4-10.2) mg/dL Total Bilirubin 0.5 (0.2-1.3) mg/dL AST 20 (14-36) IU/L ALT 13 (<35) IU/L Alkaline Phosphatase 66 (38-126) U/L Total Creatine Kinase 66 (30-135) U/L CK-MB (CK-2) TNP CK-MB (CK-2) Rel Index TNP Troponin I < 0.012 (0.01-0.034) ng/mL Total Protein 7.6 (6.3-8.2) g/dL Albumin 4.3 (3.5-5.0) g/dL Globulin 3.3 (1.7-4.1) g/dL Albumin/Globulin Ratio 1.3 (1.0-2.8) Discharge Plan Departure Patient Disposition: Home Clinical Impression: Hip strain Qualifiers: Encounter type: initial encounter Laterality: right Qualified Code(s): S76.011A - Strain of muscle, fascia and tendon of right hip, initial encounter Discharge Date/Time: 02/11/20 17:47 Instructions: DI for Low Back Pain, DI for Hip Pain Activity Restrictions/Additional Instructions: Thank you for entrusting me with your care today. As discussed, your images are negative for any fractures. Your x-ray did show a small amount of hip joint arthritis. Your laboratory work and EKG is non-remarkable. There was a small amount of bacteria noted in your urine but since you are not having any symptoms, we will culture your urine and call you in 2 days if there is any significant bacterial growth. I suspect her symptoms are most likely caused by a muscle strain. Rest, use massage, heat, ice, and Tylenol as needed for pain. Please change positions from lying to sitting and sitting to standing slowly unusual walker to steady year gait. Follow-up with your primary care provider in 1-2 weeks for further evaluation. Return emergency department for any new or worsening symptoms such as chest pain, shortness of breath, dizziness, syncope, or any other concerns. Prescriptions: No Action Disabled Parking Permit See Rx Instructions .Route .COMPLEX Qty: 1 RF: 0 budesonide-formoterol 160-4.5 mcg/actuation HFA aerosol inhaler 2 puff INHALATION BID Qty: 10.2 RF: 5 albuterol sulfate [Ventolin HFA] 90 mcg/actuation HFA aerosol inhaler 1 inhalation INHALATION ONCE RF: 0 hydrochlorothiazide 25 mg tablet 12.5 mg PO QAM Qty: 60 RF: 5 alprazolam 0.25 mg tablet 0.25 mg PO ONCE PRN (Reason: anxiety) Qty: 20 RF: 1 metformin [Glucophage] 500 mg tablet 500 mg PO BID Qty: 180 RF: 3 omeprazole 20 mg capsule,delayed release(DR/EC) 20 mg PO DAILY Qty: 90 RF: 3 propranolol 40 mg tablet 40 mg PO BID Qty: 180 RF: 4 Referrals: Raphael Traylor MD [Primary Care Provider] - <Wesley Candelaria DO - Last Filed: 02/12/20 07:06> Cosign ED Attending [facility] Attestation: Dr Candelaria Co-Sign Statement: I was available for consultation during this patient's emergency department visit. This chart is signed by myself for administrative purposes only. I did not have direct contact with this patient during this visit. They were seen independently by the APC.
[2020-02-11 15:44] LABS: Add Manual Diff / Slide Review NO; Basophils Absolute Auto 0 /uL (0-100); Basophils Percent Auto 0.6 % (0-2); Eosinophils Absolute Auto 100 /uL (0-450); Eosinophils Percent Auto 1.2 % (2-4); Hematocrit 35.6 % (36-46); Hemoglobin 11.6 g/dL (12.0-16.0); Lymphocytes Absolute Auto 1600 /uL (1100-4500); Lymphocytes Percent Auto 19.7 % (25-40); Mean Corpuscular HGB Conc 32.6 % (30-36); Mean Corpuscular Hemoglobin 25.4 PG (26-34); Mean Corpuscular Volume 77.9 fL (80-100); Monocytes Absolute Auto 700 /uL (0-900); Neutrophils Absolute Auto 5800 /uL (1500-7000); Neutrophils Percent Auto 70.5 % (50-75); Platelet Count 310 X10^3/uL (150-400); Red Blood Cell Count 4.57 X10^6/uL (4.0-5.2); Red Cell Distribution Width 16.6 % (11.6-14.8); White Blood Cell Count 8.2 X10^3/uL (4.5-11.0)
[2020-02-11 16:00] LABS: Alanine Aminotransferase 13 IU/L (<35); Albumin 4.3 g/dL (3.5-5.0); Albumin Globulin Ratio 1.3 (1.0-2.8); Alkaline Phosphatase 66 U/L (38-126); Aspartate Aminotransferase 20 IU/L (14-36); BUN Creatinine Ratio 26.6 (6-22); Bilirubin Total 0.5 mg/dL (0.2-1.3); Blood Urea Nitrogen 21 mg/dL (7-17); Calcium 10.3 mg/dL (8.4-10.2); Carbon Dioxide 24 mmol/L (22-32); Chloride 101 mmol/L (98-107); Creatine Kinase 66 U/L (30-135); Estimated Glomerular Filt Rate > 60.0 mL/min (>60); Globulin 3.3 g/dL (1.7-4.1); Glucose 165 mg/dL (80-110); HEMOLYSIS < 15 (0-50); Potassium 3.6 mmol/L (3.4-5.1); Sodium 137 mmol/L (137-145); Total Protein 7.6 g/dL (6.3-8.2)
[2020-02-11 16:24] LABS: Troponin I < 0.012 ng/mL (0.01-0.034)
[2020-02-11 16:45] VITALS: BP 185/84; PULSE 88; RESP 16; O2SAT 98
[2020-02-11 17:41] VITALS: BP 175/84; PULSE 78; RESP 18; O2SAT 96
== END 2020-02-11 17:47 | disposition home or self-care (01) ==
PROVIDERS: Emergency Provider Nurse Practitioner; PCP Family Medicine
DX: S76.011A Strain of muscle, fascia and tendon of right hip, initial encounter (principal); M54.5 Low back pain; S01.81XA Laceration without foreign body of other part of head, initial encounter; I10 Essential (primary) hypertension; W18.30XA Fall on same level, unspecified, initial encounter
CPT/HCPCS: 36415; 70450; 72100; 73502; 80053; 82550; 84484; 85025; 93005; 93010; 99284

== ENCOUNTER → 2020-06-04 10:29 | Outpatient (CLI) | payer MEDICARE, SELFPAY ==
[2019-06-17 13:33] VITALS: BMI 23.1
[2020-06-04 12:19] LABS: Hemoglobin A1C% w Est Avg Glu 6.6 % (4.0-6.0)
[2020-06-04 12:28] LABS: BUN Creatinine Ratio 23.5 (6-22); Blood Urea Nitrogen 16 mg/dL (7-17); Calcium 9.9 mg/dL (8.4-10.2); Carbon Dioxide 29 mmol/L (22-32); Chloride 104 mmol/L (98-107); Estimated Glomerular Filt Rate > 60.0 mL/min (>60); Glucose 116 mg/dL (80-110); HEMOLYSIS < 15 (0-50); Potassium 3.8 mmol/L (3.4-5.1); Sodium 140 mmol/L (137-145)
== END ==
PROVIDERS: PCP Family Medicine; Referring Provider Family Medicine; Visit Provider Family Medicine
DX: E11.9 Type 2 diabetes mellitus without complications (principal)
CPT/HCPCS: 36415; 80048; 83036

== ENCOUNTER → 2020-07-26 10:04 | Outpatient (CLI) | payer MEDICARE, SELFPAY ==
[2019-06-17 13:33] VITALS: BMI 23.1
--- NOTE | 2020-07-26 10:08 | DI.MG.S_ITS ---
UNILATERAL LEFT DIGITAL SCREENING MAMMOGRAM 3D/2D WITH CAD POST MASTECTOMY: 07/26/2020 CLINICAL: Breast cancer. Family history of breast cancer. Comparison is made to exams dated: 12/17/2018 mammogram, 12/06/2017 mammogram, and 07/02/2017 mammogram - [facility]. There are scattered fibroglandular elements in left breast. Current study was also evaluated with a Computer Aided Detection (CAD) system. There are benign calcifications in the left breast. There also are benign vascular calcifications in the left breast. Additionally, there are benign post operative findings in the left breast. There are mole markers on the left breast. No significant masses, calcifications, or other findings are seen in the breast. There has been no significant interval change. IMPRESSION: BENIGN There is no mammographic evidence of malignancy. A 1 year screening mammogram is recommended. This exam was interpreted at Station ID: [id number]. NOTE: For mammograms, a report in lay terms will be sent to the patient. Approximately 15% of breast malignancies will not be visualized mammographically. In the management of a palpable breast mass, a negative mammogram must not discourage biopsy of a clinically suspicious lesion. Electronically Signed By: Arnaldo galvan/denisa:07/26/2020 11:55:31 copy to: Pancho Cadena letter sent: Normal Exam ACR BI-RADS Category 2: Benign Finding(s) 3342F
== END ==
PROVIDERS: PCP Family Medicine; Referring Provider Family Medicine; Visit Provider Family Medicine
DX: Z12.31 Encounter for screening mammogram for malignant neoplasm of breast (principal); Z80.3 Family history of malignant neoplasm of breast
CPT/HCPCS: 77063; 77067

== ENCOUNTER → 2020-10-17 09:11 | Outpatient (CLI) | payer MEDICARE, SELFPAY ==
[2019-06-17 13:33] VITALS: BMI 23.1
[2020-10-17 10:19] LABS: Add Manual Diff / Slide Review NO; Basophils Absolute Auto 100 /uL (0-100); Basophils Percent Auto 0.8 % (0-2); Eosinophils Absolute Auto 100 /uL (0-450); Eosinophils Percent Auto 0.8 % (2-4); Hematocrit 35.7 % (36-46); Hemoglobin 11.3 g/dL (12.0-16.0); Lymphocytes Absolute Auto 1600 /uL (1100-4500); Lymphocytes Percent Auto 17.9 % (25-40); Mean Corpuscular HGB Conc 31.7 % (30-36); Mean Corpuscular Hemoglobin 24.7 PG (26-34); Mean Corpuscular Volume 78.1 fL (80-100); Monocytes Absolute Auto 600 /uL (0-900); Monocytes Percent Auto 6.7 % (3-14); Neutrophils Absolute Auto 6600 /uL (1500-7000); Neutrophils Percent Auto 73.8 % (50-75); Platelet Count 301 X10^3/uL (150-400); Red Blood Cell Count 4.58 X10^6/uL (4.0-5.2); Red Cell Distribution Width 16.7 % (11.6-14.8)
[2020-10-17 10:41] LABS: Alanine Aminotransferase 11 IU/L (<35); Albumin 4.1 g/dL (3.5-5.0); Albumin Globulin Ratio 1.4 (1.0-2.8); Alkaline Phosphatase 63 U/L (38-126); Aspartate Aminotransferase 19 IU/L (14-36); BUN Creatinine Ratio 22.7 (6-22); Bilirubin Total 0.4 mg/dL (0.2-1.3); Blood Urea Nitrogen 17 mg/dL (7-17); Calcium 9.9 mg/dL (8.4-10.2); Carbon Dioxide 29 mmol/L (22-32); Chloride 106 mmol/L (98-107); Cholesterol 228 mg/dL (140-199); Estimated Glomerular Filt Rate > 60.0 mL/min (>60); Globulin 2.9 g/dL (1.7-4.1); Glucose 136 mg/dL (80-110); HDL Cholesterol 75 mg/dL (40-60); HEMOLYSIS < 15 (0-50); LDL Cholesterol Calculated 118 mg/dL (<100); Potassium 4.2 mmol/L (3.4-5.1); Sodium 139 mmol/L (137-145); Triglycerides 175 mg/dL (35-150)
[2020-10-17 10:49] LABS: Hemoglobin A1C% w Est Avg Glu 6.5 % (4.0-6.0)
[2020-10-17 11:19] LABS: Thyroid Stimulating Hormone 2.48 uIU/mL (0.47-4.68)
== END ==
PROVIDERS: PCP Family Medicine; Referring Provider Family Medicine; Visit Provider Family Medicine
DX: E78.5 Hyperlipidemia, unspecified (principal); E11.9 Type 2 diabetes mellitus without complications; I10 Essential (primary) hypertension; D64.9 Anemia, unspecified
CPT/HCPCS: 36415; 80053; 80061; 83036; 84443; 85025

== ENCOUNTER → 2021-02-20 09:08 | Outpatient (CLI) | payer MEDICARE, SELFPAY ==
[2019-06-17 13:33] VITALS: BMI 23.1
[2021-02-20 10:06] LABS: Hemoglobin A1C% w Est Avg Glu 6.3 % (4.0-6.0)
[2021-02-20 10:48] LABS: Creatinine Urine Random 98.2 mg/dL
[2021-02-20 10:50] LABS: Cholesterol 225 mg/dL (140-199); HDL Cholesterol 68 mg/dL (40-60); LDL Cholesterol Calculated 113 mg/dL (<100); Triglycerides 220 mg/dL (35-150)
[2021-02-20 10:51] LABS: Microalbumi Creatinin Ratio Ur 122.1 ug/mg CR (<30)
== END ==
PROVIDERS: PCP Family Medicine; Referring Provider Family Medicine; Visit Provider Family Medicine
DX: E11.9 Type 2 diabetes mellitus without complications (principal); E78.5 Hyperlipidemia, unspecified; I10 Essential (primary) hypertension
CPT/HCPCS: 36415; 80061; 82043; 82570; 83036

== ENCOUNTER → 2021-03-17 13:21 | Outpatient (CLI) | payer MEDICARE, SELFPAY ==
[2019-06-17 13:33] VITALS: BMI 23.1
== END ==
PROVIDERS: PCP Family Medicine; Visit Provider Physician Assistant
DX: R30.0 Dysuria (principal)
CPT/HCPCS: 87077; 87086; 87186

== ENCOUNTER → 2021-03-29 11:16 | Outpatient (CLI) | payer MEDICARE, SELFPAY ==
[2019-06-17 13:33] VITALS: BMI 23.1
== END ==
PROVIDERS: PCP Family Medicine; Referring Provider Physician Assistant; Visit Provider Physician Assistant
DX: N39.0 Urinary tract infection, site not specified (principal)
CPT/HCPCS: 87077; 87086; 87186

== ENCOUNTER → 2021-06-19 09:14 | Outpatient (CLI) | payer MEDICARE, SELFPAY ==
[2019-06-17 13:33] VITALS: BMI 23.1
[2021-06-19 09:55] LABS: Add Manual Diff / Slide Review NO; Basophils Absolute Auto 100 /uL (0-100); Basophils Percent Auto 0.8 % (0-2); Eosinophils Absolute Auto 100 /uL (0-450); Eosinophils Percent Auto 1.3 % (2-4); Hematocrit 39.1 % (36-46); Hemoglobin 12.7 g/dL (12.0-16.0); Lymphocytes Absolute Auto 2100 /uL (1100-4500); Lymphocytes Percent Auto 25.5 % (25-40); Mean Corpuscular HGB Conc 32.6 % (30-36); Mean Corpuscular Hemoglobin 28.7 PG (26-34); Mean Corpuscular Volume 87.9 fL (80-100); Monocytes Absolute Auto 500 /uL (0-900); Monocytes Percent Auto 6.6 % (3-14); Neutrophils Absolute Auto 5300 /uL (1500-7000); Neutrophils Percent Auto 65.8 % (50-75); Platelet Count 323 X10^3/uL (150-400); Red Blood Cell Count 4.44 X10^6/uL (4.0-5.2); Red Cell Distribution Width 15.6 % (11.6-14.8); White Blood Cell Count 8.1 X10^3/uL (4.5-11.0)
[2021-06-19 10:01] LABS: Hemoglobin A1C% w Est Avg Glu 6.4 % (4.0-6.0)
[2021-06-19 10:22] LABS: Alanine Aminotransferase 13 IU/L (<35); Albumin Globulin Ratio 1.5 (1.0-2.8); Alkaline Phosphatase 64 U/L (38-126); Aspartate Aminotransferase 17 IU/L (14-36); Bilirubin Total 0.3 mg/dL (0.2-1.3); Blood Urea Nitrogen 20 mg/dL (7-17); Calcium 10.6 mg/dL (8.4-10.2); Carbon Dioxide 29 mmol/L (22-32); Chloride 104 mmol/L (98-107); Estimated Glomerular Filt Rate > 60.0 mL/min (>60); Globulin 2.6 g/dL (1.7-4.1); Glucose 129 mg/dL (80-110); HEMOLYSIS < 15 (0-50); Potassium 3.9 mmol/L (3.4-5.1); Sodium 141 mmol/L (137-145); Total Protein 6.6 g/dL (6.3-8.2)
[2021-06-19 11:19] LABS: Microalbumin Urine Random 3.1 mg/dL (0-1.6)
[2021-06-19 11:20] LABS: Creatinine Urine Random 183.3 mg/dL; Microalbumi Creatinin Ratio Ur 16.9 ug/mg CR (<30)
== END ==
PROVIDERS: PCP Family Medicine; Referring Provider Family Medicine; Visit Provider Family Medicine
DX: E11.9 Type 2 diabetes mellitus without complications (principal); I10 Essential (primary) hypertension; R73.9 Hyperglycemia, unspecified
CPT/HCPCS: 36415; 80053; 82043; 82570; 83036; 85025

== ENCOUNTER → 2021-08-29 11:28 | Outpatient (CLI) | payer MEDICARE, SELFPAY ==
[2019-06-17 13:33] VITALS: BMI 23.1
[2021-08-29 12:34] LABS: Bilirubin Urine UA NEGATIVE (NEGATIVE); Color Urine UA YELLOW; Glucose Urine UA NEGATIVE (Negative); Ketones Urine UA TRACE (NEGATIVE); Leukocyte Esterase Urine UA 1+ (NEGATIVE); Nitrite Urine UA NEGATIVE (Negative); Occult Blood Urine UA 2+ (Negative); Protein Urine UA TRACE (Negative); Specific Gravity Urine UA 1.025 (1.000-1.035); Urobilinogen Urine UA 0.2 E.U./dL (0.2)
[2021-08-29 12:38] LABS: Appearance Urine UA Slightly Cloudy
[2021-08-29 12:43] LABS: RBC Urine 1-5/HPF (0-5/HPF); Squamous Epithelial Cell Urine 1-5 /HPF (0-5/HPF); WBC Urine 30-100/HPF (0-5/HPF)
[2021-08-29 12:44] LABS: Bacteria Urine Occasional (0-1); Culture Indicated Urine Specimen Cultured; Mucus Urine 1+ (Negative)
== END ==
PROVIDERS: PCP Family Medicine; Referring Provider Family Medicine; Visit Provider Family Medicine
DX: R30.0 Dysuria (principal)
CPT/HCPCS: 81001; 87077; 87086; 87186

== ENCOUNTER → 2021-08-30 10:19 | Outpatient (CLI) | payer MEDICARE, SELFPAY ==
[2019-06-17 13:33] VITALS: BMI 23.1
--- NOTE | 2021-08-30 | DI.MG.S_ITS ---
UNILATERAL LEFT DIGITAL SCREENING MAMMOGRAM 3D/2D WITH CAD: 08/30/2021 CLINICAL: Routine screening. Personal history of right breast cancer. Family history of breast cancer. Comparison is made to exams dated: 07/26/2020 mammogram, 12/17/2018 mammogram, and 12/06/2017 mammogram - [facility]. There are scattered fibroglandular elements in left breast. Current study was also evaluated with a Computer Aided Detection (CAD) system. There are benign calcifications in the left breast. There also are benign vascular calcifications in the left breast. Additionally, there are benign post operative findings in the left breast. There are mole markers on the left breast. No significant masses, calcifications, or other findings are seen in the breast. There has been no significant interval change. IMPRESSION: BENIGN There is no mammographic evidence of malignancy. A 1 year screening mammogram is recommended. This exam was interpreted at Station ID: [id number]. NOTE: For mammograms, a report in lay terms will be sent to the patient. Approximately 15% of breast malignancies will not be visualized mammographically. In the management of a palpable breast mass, a negative mammogram must not discourage biopsy of a clinically suspicious lesion. Electronically Signed By: Jarret Ceballos M.D., jr/denisa:08/30/2021 12:46:52 copy to: WALLY ACHARYA letter sent: Normal Exam ACR BI-RADS Category 2: Benign Finding(s) 3342F
== END ==
PROVIDERS: PCP Family Medicine; Referring Provider Family Medicine; Visit Provider Family Medicine
DX: Z12.31 Encounter for screening mammogram for malignant neoplasm of breast (principal); Z85.3 Personal history of malignant neoplasm of breast; Z80.3 Family history of malignant neoplasm of breast
CPT/HCPCS: 77063; 77067

== ENCOUNTER 2021-08-31 17:35 | Emergency (ER) | payer MEDICARE, SELFPAY ==
[2019-06-17 13:33] VITALS: BMI 23.1
[2021-08-31 17:39] VITALS: BP 174/81; PULSE 94; RESP 17; TEMP 38.1; O2SAT 100; BMI 22.6
--- NOTE | 2021-08-31 17:47 | DI.RAD.S_ITS ---
PROCEDURE: XR CHEST 1V INDICATIONS: SOB TECHNIQUE: One view of the chest was acquired. COMPARISON: None. FINDINGS: Surgical changes and devices: None. Lungs and pleura: Small airspace opacity overlying the left hemidiaphragm may be atelectasis versus small focus of consolidation. Otherwise clear lungs. No pleural effusions or pneumothorax. Mediastinum: Mediastinal contours appear normal. Heart size is normal. Bones and chest wall: No suspicious bony lesions. Overlying soft tissues appear unremarkable. IMPRESSION: Small airspace opacity overlying the left hemidiaphragm may represent atelectasis or consolidation. Correlate for any evidence of infection. Dictated by: Jarret Ceballos M.D. on 08/31/2021 at 18:25 Approved by: Jarret Ceballos M.D. on 08/31/2021 at 18:28
[2021-08-31] MEDS: diphenhydrAMINE 50 MG/ML VIAL 25 MG IV (17:53)
[2021-08-31] MEDS: FAMOTIDINE 20 MG/2 ML VIAL IV (17:53)
[2021-08-31] MEDS: methylPREDNISolone 125 MG/2 ML VIAL IV (17:53)
[2021-08-31 17:56] LABS: Add Manual Diff / Slide Review NO; Basophils Absolute Auto 0 /uL (0-100); Basophils Percent Auto 0.4 % (0-2); Eosinophils Absolute Auto 400 /uL (0-450); Eosinophils Percent Auto 4.7 % (2-4); Hematocrit 38.7 % (36-46); Hemoglobin 12.9 g/dL (12.0-16.0); Lymphocytes Absolute Auto 800 /uL (1100-4500); Mean Corpuscular HGB Conc 33.3 % (30-36); Mean Corpuscular Hemoglobin 29.3 PG (26-34); Mean Corpuscular Volume 87.9 fL (80-100); Monocytes Absolute Auto 1000 /uL (0-900); Monocytes Percent Auto 13.2 % (3-14); Neutrophils Absolute Auto 5500 /uL (1500-7000); Neutrophils Percent Auto 71.7 % (50-75); Platelet Count 248 X10^3/uL (150-400); Red Cell Distribution Width 15.3 % (11.6-14.8); White Blood Cell Count 7.6 X10^3/uL (4.5-11.0)
[2021-08-31 18:00] VITALS: BP 125/70; PULSE 89; RESP 18; O2SAT 95
[2021-08-31 18:01] LABS: Alanine Aminotransferase 14 IU/L (<35); Albumin 4.3 g/dL (3.5-5.0); Albumin Globulin Ratio 1.4 (1.0-2.8); Alkaline Phosphatase 56 U/L (38-126); Aspartate Aminotransferase 19 IU/L (14-36); BUN Creatinine Ratio 19.2 (6-22); Bilirubin Total 0.5 mg/dL (0.2-1.3); Blood Urea Nitrogen 25 mg/dL (7-17); Calcium 11.2 mg/dL (8.4-10.2); Carbon Dioxide 29 mmol/L (22-32); Chloride 101 mmol/L (98-107); Glucose 93 mg/dL (80-110); HEMOLYSIS < 15 (0-50); Potassium 4.3 mmol/L (3.4-5.1); Sodium 135 mmol/L (137-145); Total Protein 7.3 g/dL (6.3-8.2)
[2021-08-31 18:30] VITALS: BP 138/67; PULSE 84; RESP 16; O2SAT 95
--- NOTE | 2021-08-31 18:40 | ED_ITS ---
HPI - Allergic Reaction General Chief complaint: Allergic Reaction Stated complaint: Allergic reaction Time Seen by Provider: 08/31/21 17:44 Source: patient Mode of arrival: EMS History of Present Illness HPI narrative: Patient is an 86-year-old female who is here for evaluation of a potential allergic reaction. She recently started Bactrim as an antibiotic for treatment of a urinary tract infection. She has taken this medication for just over 1 day. Last evening started noticing a rash. No urticaria. She noticed it last evening. This morning woke up and the rash continued. She took a Benadryl. Has been sleepy all day. This afternoon started having some shortness of breath so she contacted EMS. Since arrival here she thinks that the shortness of breath has improved. Denies any chest pain. No nausea vomiting. No problems swallowing. No other new exposures except for the antibiotic. Related Data Home Medications Medication Instructions Recorded Confirmed Lacto.acidophilus-Bif.animalis PO 06/21/21 06/21/21 [Daily Probiotic] multivitamin with [id number]-RC-[id number] tab PO 06/21/21 06/21/21 400 mcg-120 mg tablet (One Daily Women 50 Plus) Previous Rx's Medication Instructions Recorded Disabled Parking Permit See Rx Instructions .ROUTE 05/06/18 .COMPLEX #1 unit cholecalciferol (vitamin D3) 25 25 mcg PO DAILY #90 cap 03/08/20 mcg (1,000 unit) capsule (Vitamin D3) alprazolam 0.25 mg tablet 0.25 mg PO ONCE PRN #20 tab 07/27/20 propranolol 40 mg tablet 40 mg PO BID #180 tab 11/08/20 albuterol sulfate 90 mcg/actuation 2 puff INHALATION Q4-6H PRN #8 gram 06/21/21 aerosol inhaler (Ventolin HFA) budesonide-formoterol HFA 160 2 puff INHALATION BID #10.2 gram 06/21/21 mcg-4.5 mcg/actuation aerosol inhaler metformin 500 mg tablet 500 mg PO BID #180 tab 06/27/21 omeprazole 20 mg capsule,delayed 20 mg PO DAILY #90 cap 06/27/21 release lisinopril 20 1 tab PO DAILY #90 tab 07/18/21 mg-hydrochlorothiazide 25 mg tablet nitrofurantoin 100 mg PO Q12H 5 Days #10 cap 08/31/21 monohydrate/macrocrystals 100 mg capsule (Macrobid) Allergies Allergy/AdvReac Type Severity Reaction Status Date / Time sulfamethoxazole Allergy Severe Hives, Verified 08/31/21 16:54 [From Bactrim] shortness of breath trimethoprim [From Bactrim] Allergy Severe Hives, Verified 08/31/21 16:54 shortness of breath Review of Systems ENT Ears, Nose, Mouth, and Throat: Denies lip swelling and Denies throat swelling Respiratory Respiratory: Denies wheezing Gastrointestinal Gastrointestinal: Reports as per HPI, Reports system reviewed and no additional complaints, except as documented, Denies nausea and Denies vomiting Genitourinary Genitourinary: Reports system reviewed and no additional complaints, except as documented Musculoskeletal Musculoskeletal: Reports system reviewed and no additional complaints, except as documented Integumentary/Breasts Skin/Breast: Reports rash Neurologic Neurologic: Reports system reviewed and no additional complaints, except as documented Hematologic/Lymphatic On Anticoagulants: No Allergic/Immunologic Allergic/Immunologic: Reports as per HPI, Reports urticaria, Denies lip swelling, Denies throat swelling and Denies wheezing Patient History Medical History Breast cancer (~1981) Cataract Chicken pox Chronic back pain COPD (chronic obstructive pulmonary disease) Diabetes Diastolic dysfunction Diverticular disease Edema GERD (gastroesophageal reflux disease) Hay fever Hyperglycemia Hyperlipidemia Hypertension Lumbar back pain Measles Mumps Neuropathy Skin cancer (~2011) Surgical History Anesthesia History of mastectomy (~09/1981) Status post hysterectomy Family History Mother Brain aneurysm Sister Age: 82 Cancer of breast Lung cancer Daughter Cancer of breast Father No problems noted. Social History household members: none Smoking Status: Former smoker alcohol intake: former Smoking Status: Former smoker Substance Use Type: does not use Exam Initial Vital Signs Initial Vital Signs: Vital Signs Temperature 100.5 F H 08/31/21 17:39 Pulse Rate 94 H 08/31/21 17:39 Respiratory Rate 17 08/31/21 17:39 Blood Pressure 174/81 H 08/31/21 17:39 Pulse Oximetry 100 08/31/21 17:39 Const General: cooperative, comfortable and well developed [facility] Head: normal to inspection Mouth: oropharynx normal and moist mucous membranes Throat: posterior oropharynx normal Eyes General: appearance normal, both eyes and all related structures Resp Effort & Inspection: normal respiratory effort, not labored, no respiratory distress and not tachypneic Auscultation: clear to auscultation bilaterally Cardio Rate: regular rate Rhythm: regular rhythm GI Inspection: normal to inspection Skin Rashes: rashes noted Neuro General: patient alert, patient awake, patient oriented x3 and moves all extremities Speech: speech normal Extrem General: normal to inspection and capillary refill normal Psych Appearance: grossly normal and well kempt Course Orders Ordered: ED Orders 08/31/21 17:40 Complete Blood Count AUTO DIFF Stat Comprehensive Metabolic Panel Stat 08/31/21 17:47 Chest [XR chest 1V] Stat Discontinued Medications Diphenhydramine HCl (Diphenhydramine 50 Mg/Ml Vial) 25 mg IV NOW ONE Stop: 08/31/21 17:48 Last Admin: 08/31/21 17:53 Dose: 25 mg Documented by: BETH Famotidine (Famotidine 20 Mg/2 Ml Vial) 20 mg IV NOW ARIANA Last Admin: 08/31/21 17:53 Dose: 20 mg Documented by: BETH Methylprednisolone (Methylprednisolone 125 Mg/2 Ml Vial) 125 mg IV NOW ONE Stop: 08/31/21 17:47 Last Admin: 08/31/21 17:53 Dose: 125 mg Documented by: BETH Nitrofurantoin Macrocrystals (Nitrofurantoin Er 100 Mg Capsule) 100 mg PO NOW ONE Stop: 08/31/21 19:30 Last Admin: 08/31/21 19:33 Dose: 100 mg Documented by: OLMAN Vital Signs Vital signs: Vital Signs - 8 hr 08/31/21 17:39 08/31/21 18:00 08/31/21 18:30 Temperature 100.5 F H Pulse Rate 94 H 89 84 Respiratory Rate 17 18 16 Blood Pressure 174/81 H 125/70 138/67 Pulse Oximetry 100 95 95 08/31/21 19:00 08/31/21 19:30 Temperature Pulse Rate 79 79 Respiratory Rate 20 16 Blood Pressure 126/60 182/70 H Pulse Oximetry 97 98 MDM - Allergic Reaction Lab Data Attestation: I reviewed the patient's lab results. Result diagrams: 08/31/21 17:40 08/31/21 17:40 Labs: Lab Results 08/31/21 08/31/21 Range/Units 17:40 17:40 WBC 7.6 (4.5-11.0) X10^3/uL RBC 4.40 (4.0-5.2) X10^6/uL Hgb 12.9 (12.0-16.0) g/dL Hct 38.7 (36-46) % MCV 87.9 (80-100) fL MCH 29.3 (26-34) PG MCHC 33.3 (30-36) % RDW 15.3 H (11.6-14.8) % Plt Count 248 (150-400) X10^3/uL Neut % (Auto) 71.7 (50-75) % Lymph % (Auto) 10.0 L (25-40) % Pitkin % (Auto) 13.2 (3-14) % Eos % (Auto) 4.7 H (2-4) % Baso % (Auto) 0.4 (0-2) % Neut # (Auto) 5500 (2157-2925) /uL Lymph # (Auto) 800 L (5367-9146) /uL Pitkin # (Auto) 1000 H (0-900) /uL Eos # (Auto) 400 (0-450) /uL Baso # (Auto) 0 (0-100) /uL Sodium 135 L (137-145) mmol/L Potassium 4.3 (3.4-5.1) mmol/L Chloride 101 (98-107) mmol/L Carbon Dioxide 29 (22-32) mmol/L BUN 25 H (7-17) mg/dL Creatinine 1.30 H (0.52-1.04) mg/dL Estimated GFR 39.0 L (>60) mL/min BUN/Creatinine Ratio 19.2 (6-22) Glucose 93 (80-110) mg/dL Calcium 11.2 H (8.4-10.2) mg/dL Total Bilirubin 0.5 (0.2-1.3) mg/dL AST 19 (14-36) IU/L ALT 14 (<35) IU/L Alkaline Phosphatase 56 (38-126) U/L Total Protein 7.3 (6.3-8.2) g/dL Albumin 4.3 (3.5-5.0) g/dL Globulin 3.0 (1.7-4.1) g/dL Albumin/Globulin Ratio 1.4 (1.0-2.8) Imaging Data Chest x-ray: Radiologist's Impression: [address] [address] XRay Report Signed Patient: Jessica Harmon MR#: [id number] : 1935 Acct:[id number] Age/Sex: 86 / F Date of Service: 08/31/21 Loc: ED Accession Number: [id number] ?? Procedure: XR chest 1V Ordering Provider: Quinton Hopper D.O. PROCEDURE:? XR CHEST 1V ? INDICATIONS:? SOB ? TECHNIQUE:? One view of the chest was acquired.? ? COMPARISON:? None. ? FINDINGS:? ? Surgical changes and devices:? None.? ? Lungs and pleura:? Small airspace opacity overlying the left hemidiaphragm may be atelectasis versus small focus of consolidation.? Otherwise clear lungs.? No pleural effusions or pneumothorax.? ? Mediastinum:? Mediastinal contours appear normal.? Heart size is normal.? ? Bones and chest wall:? No suspicious bony lesions.? Overlying soft tissues appear unremarkable.? ? IMPRESSION:? Small airspace opacity overlying the left hemidiaphragm may represent atelectasis or consolidation.? Correlate for any evidence of infection. ? ? Dictated by: Jarret Ceballos M.D. on 08/31/2021 at 18:25 ? ? Approved by: Jarret Ceballos M.D. on 08/31/2021 at 18:28? MDM Narrative Medical decision making narrative: Patient has no respiratory distress. Was given Solu-Medrol and Benadryl prior to my evaluation. Had minimal if any improvement of the rash. The reaction most likely caused by the new antibiotic. Review of the patient's medical record shows that she has a [id number] colony-forming unit growth of Klebsiella. It is pansensitive. Patient stated that she thought that a new antibiotic was called in to [facility] however when she called them they stated that it was not ready yet. I contacted [facility] and they have no new antibiotic for her. We will start her on Macrobid. She was given care instructions and return precautions. She was instructed to stop taking the old antibiotic. She expressed understanding and agreement. Discharge Plan Departure Patient Disposition: Home Clinical Impression: Allergic reaction caused by a drug Instructions: DI for Adverse Drug Reaction -- Allergic Activity Restrictions/Additional Instructions: To the antibiotic that you seem to be having a reaction to is called Bactrim. The other potential name for this is trimethoprim/sulfa or TMP/SMX. I do recommend that you stop taking this medication. We will start you on a new medicine called Macrobid. A prescription for this was transmitted to [facility]. 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 You can continue to take the Benadryl especially if you are having itching. Benadryl can make you very drowsy. Another option is to take a medicine called Zyrtec. You can purchase this [id number]. Contact your primary doctor for a follow-up. Return to the emergency department for any new or worsening symptoms. Prescriptions: New nitrofurantoin monohyd/m-cryst [Macrobid] 100 mg capsule 100 mg PO Q12H 5 Days Qty: 10 0RF Rx Instructions: must administer with a meal/food No Action Disabled Parking Permit See Rx Instructions .Route .COMPLEX Qty: 1 0RF Rx Instructions: I find this patient to be medically disabled and qualify for disabled parking as indicated and signed on the accompanying disabled parking application for individuals. alprazolam 0.25 mg tablet 0.25 mg PO ONCE PRN (Reason: anxiety) Qty: 20 1RF propranolol 40 mg tablet 40 mg PO BID Qty: 180 3RF omeprazole 20 mg capsule,delayed release(DR/EC) 20 mg PO DAILY Qty: 90 1RF metformin 500 mg tablet 500 mg PO BID Qty: 180 1RF lisinopril-hydrochlorothiazide 20-25 mg tablet 1 tab PO DAILY Qty: 90 1RF cholecalciferol (vitamin D3) [Vitamin D3] 25 mcg (1,000 unit) capsule 25 mcg PO DAILY Qty: 90 3RF One Daily Women 50 Plus 400-120 mcg-mg tablet PO 0RF Lacto.acidophilus-Bif.animalis [Daily Probiotic] PO 0RF albuterol sulfate [Ventolin HFA] 90 mcg/actuation HFA aerosol inhaler 2 puff INHALATION Q4-6H PRN (Reason: shortness of breath or wheezing) Qty: 8 5RF budesonide-formoterol 160-4.5 mcg/actuation HFA aerosol inhaler 2 puff INHALATION BID Qty: 10.2 2RF Referrals: Spencer Orantes, [Primary Care Provider] -
[2021-08-31 19:00] VITALS: BP 126/60; PULSE 79; RESP 20; O2SAT 97
[2021-08-31 19:30] VITALS: BP 182/70; PULSE 79; RESP 16; O2SAT 98
[2021-08-31] MEDS: NITROFURANTOIN ER 100 MG CAPSULE PO (19:33)
== END 2021-08-31 19:51 | disposition home or self-care (01) ==
PROVIDERS: Emergency Medicine; Emergency Provider Emergency Medicine; PCP Family Medicine
DX: R21 Rash and other nonspecific skin eruption (principal); R06.02 Shortness of breath; T36.8X5A Adverse effect of other systemic antibiotics, initial encounter
CPT/HCPCS: 36415; 71045; 80053; 85025; 96374; 96375; 99284; J1200; J2930

== ENCOUNTER → 2021-09-11 14:47 | Outpatient (CLI) | payer MEDICARE, SELFPAY ==
[2019-06-17 13:33] VITALS: BMI 23.1
[2021-09-11 15:43] LABS: Appearance Urine UA CLOUDY; Bilirubin Urine UA NEGATIVE (NEGATIVE); Color Urine UA YELLOW; Glucose Urine UA TRACE g/dL (Negative); Ketones Urine UA TRACE (NEGATIVE); Leukocyte Esterase Urine UA 1+ (NEGATIVE); Nitrite Urine UA NEGATIVE (Negative); Occult Blood Urine UA 3+ (Negative); Protein Urine UA 2+ (Negative); Specific Gravity Urine UA >=1.030 (1.000-1.035); Urobilinogen Urine UA 0.2 E.U./dL (0.2)
[2021-09-11 16:00] LABS: RBC Urine 1-5/HPF (0-5/HPF); WBC Urine 5-10/HPF (0-5/HPF)
[2021-09-11 16:01] LABS: Amorphous Sediment Urine 1+; Bacteria Urine Few (2-10)
== END ==
PROVIDERS: PCP Family Medicine; Referring Provider Family Medicine; Visit Provider Family Medicine
DX: N30.01 Acute cystitis with hematuria (principal)
CPT/HCPCS: 81001; 87077; 87086; 87186

== ENCOUNTER → 2021-10-04 11:47 | Outpatient (CLI) | payer MEDICARE, SELFPAY ==
[2019-06-17 13:33] VITALS: BMI 23.1
[2021-10-04 13:14] LABS: Appearance Urine UA CLEAR; Bilirubin Urine UA NEGATIVE (NEGATIVE); Color Urine UA YELLOW; Glucose Urine UA NEGATIVE (Negative); Ketones Urine UA TRACE (NEGATIVE); Leukocyte Esterase Urine UA NEGATIVE (NEGATIVE); Nitrite Urine UA NEGATIVE (Negative); Occult Blood Urine UA NEGATIVE (Negative); Protein Urine UA NEGATIVE (Negative); Specific Gravity Urine UA 1.025 (1.000-1.035); Urobilinogen Urine UA 0.2 E.U./dL (0.2)
[2021-10-04 13:34] LABS: Bacteria Urine None Seen; Culture Indicated Urine Cult Not Indicated; RBC Urine None Seen (0-5/HPF); Squamous Epithelial Cell Urine 1-5 /HPF (0-5/HPF); WBC Urine None Seen (0-5/HPF)
== END ==
PROVIDERS: PCP Family Medicine; Referring Provider Family Medicine; Visit Provider Family Medicine
DX: N30.01 Acute cystitis with hematuria (principal)
CPT/HCPCS: 81001

== ENCOUNTER → 2021-10-12 11:32 | Outpatient (CLI) | payer MEDICARE, SELFPAY ==
[2019-06-17 13:33] VITALS: BMI 23.1
[2021-10-12 13:27] LABS: Add Manual Diff / Slide Review NO; Basophils Absolute Auto 100 /uL (0-100); Basophils Percent Auto 0.9 % (0-2); Eosinophils Absolute Auto 200 /uL (0-450); Eosinophils Percent Auto 2.3 % (2-4); Hematocrit 39.5 % (36-46); Hemoglobin 12.9 g/dL (12.0-16.0); Lymphocytes Absolute Auto 1900 /uL (1100-4500); Lymphocytes Percent Auto 27.8 % (25-40); Mean Corpuscular HGB Conc 32.7 % (30-36); Mean Corpuscular Hemoglobin 29.1 PG (26-34); Monocytes Absolute Auto 600 /uL (0-900); Monocytes Percent Auto 8.9 % (3-14); Neutrophils Absolute Auto 4100 /uL (1500-7000); Neutrophils Percent Auto 60.1 % (50-75); Platelet Count 300 X10^3/uL (150-400); Red Blood Cell Count 4.43 X10^6/uL (4.0-5.2); Red Cell Distribution Width 14.6 % (11.6-14.8); White Blood Cell Count 6.8 X10^3/uL (4.5-11.0)
[2021-10-12 13:34] LABS: Hemoglobin A1C% w Est Avg Glu 6.5 % (4.0-6.0)
[2021-10-12 14:10] LABS: Alanine Aminotransferase 12 IU/L (<35); Albumin 4.2 g/dL (3.5-5.0); Albumin Globulin Ratio 1.4 (1.0-2.8); Alkaline Phosphatase 58 U/L (38-126); Aspartate Aminotransferase 19 IU/L (14-36); BUN Creatinine Ratio 25.6 (6-22); Bilirubin Total 0.6 mg/dL (0.2-1.3); Blood Urea Nitrogen 21 mg/dL (7-17); Calcium 10.9 mg/dL (8.4-10.2); Carbon Dioxide 34 mmol/L (22-32); Chloride 100 mmol/L (98-107); Cholesterol 260 mg/dL (140-199); Estimated Glomerular Filt Rate > 60.0 mL/min (>60); Globulin 2.9 g/dL (1.7-4.1); Glucose 127 mg/dL (80-110); HDL Cholesterol 62 mg/dL (40-60); HEMOLYSIS < 15 (0-50); LDL Cholesterol Calculated 140 mg/dL (<100); Sodium 141 mmol/L (137-145); Total Protein 7.1 g/dL (6.3-8.2); Triglycerides 288 mg/dL (35-150)
== END ==
PROVIDERS: PCP Family Medicine; Referring Provider Family Medicine; Visit Provider Family Medicine
DX: E11.9 Type 2 diabetes mellitus without complications (principal); E78.5 Hyperlipidemia, unspecified; I10 Essential (primary) hypertension
CPT/HCPCS: 36415; 80053; 80061; 83036; 85025

== ENCOUNTER → 2022-01-23 08:01 | Outpatient (CLI) | payer MEDICARE, SELFPAY ==
[2019-06-17 13:33] VITALS: BMI 23.1
[2022-01-23 09:47] LABS: Hemoglobin A1C% w Est Avg Glu 6.5 % (4.0-6.0)
[2022-01-23 10:46] LABS: Alanine Aminotransferase 13 IU/L (<35); Albumin 4.2 g/dL (3.5-5.0); Albumin Globulin Ratio 1.4 (1.0-2.8); Alkaline Phosphatase 49 U/L (38-126); Aspartate Aminotransferase 22 IU/L (14-36); BUN Creatinine Ratio 27.6 (6-22); Bilirubin Total 0.5 mg/dL (0.2-1.3); Blood Urea Nitrogen 24 mg/dL (7-17); Calcium 10.2 mg/dL (8.4-10.2); Carbon Dioxide 29 mmol/L (22-32); Chloride 102 mmol/L (98-107); Cholesterol 253 mg/dL (140-199); Estimated Glomerular Filt Rate > 60 mL/min (>60); Globulin 3.1 g/dL (1.7-4.1); Glucose 123 mg/dL (80-110); HDL Cholesterol 59 mg/dL (40-60); HEMOLYSIS < 15 (0-50); LDL Cholesterol Calculated 126 mg/dL (<100); Potassium 3.8 mmol/L (3.4-5.1); Sodium 140 mmol/L (137-145); Total Protein 7.3 g/dL (6.3-8.2); Triglycerides 341 mg/dL (35-150)
== END ==
PROVIDERS: PCP Family Medicine; Referring Provider Family Medicine; Visit Provider Family Medicine
DX: E11.9 Type 2 diabetes mellitus without complications (principal); F41.9 Anxiety disorder, unspecified; I10 Essential (primary) hypertension; N39.0 Urinary tract infection, site not specified
CPT/HCPCS: 36415; 80053; 80061; 83036

== ENCOUNTER → 2022-06-19 10:33 | Outpatient (CLI) | payer MEDICARE, SELFPAY ==
[2019-06-17 13:33] VITALS: BMI 23.1
[2022-06-19 11:48] LABS: Hemoglobin A1C% w Est Avg Glu 6.2 % (4.0-6.0)
[2022-06-19 12:02] LABS: Alanine Aminotransferase 11 IU/L (<35); Albumin Globulin Ratio 1.3 (1.0-2.8); Alkaline Phosphatase 53 U/L (38-126); Aspartate Aminotransferase 19 IU/L (14-36); BUN Creatinine Ratio 19.6 (6-22); Bilirubin Total 0.5 mg/dL (0.2-1.3); Blood Urea Nitrogen 18 mg/dL (7-17); Calcium 10.1 mg/dL (8.4-10.2); Carbon Dioxide 30 mmol/L (22-32); Chloride 100 mmol/L (98-107); Estimated Glomerular Filt Rate > 60 mL/min (>60); Globulin 3.2 g/dL (1.7-4.1); Glucose 123 mg/dL (80-110); HEMOLYSIS < 15 (0-50); Potassium 3.8 mmol/L (3.4-5.1); Sodium 139 mmol/L (137-145); Total Protein 7.2 g/dL (6.3-8.2)
== END ==
PROVIDERS: PCP Family Medicine; Referring Provider Family Medicine; Visit Provider Family Medicine
DX: E11.9 Type 2 diabetes mellitus without complications (principal); F41.9 Anxiety disorder, unspecified; I10 Essential (primary) hypertension; K21.9 Gastro-esophageal reflux disease without esophagitis
CPT/HCPCS: 36415; 80053; 83036

== ENCOUNTER → 2022-09-13 13:53 | Outpatient (CLI) | payer MEDICARE, SELFPAY ==
[2019-06-17 13:33] VITALS: BMI 23.1
--- NOTE | 2022-09-13 13:55 | DI.MG.S_ITS ---
UNILATERAL LEFT DIGITAL SCREENING MAMMOGRAM 3D/2D WITH CAD: 09/13/2022 CLINICAL: Routine screening. Personal history of right breast cancer. Family history of breast cancer. Comparison is made to exams dated: 08/30/2021 mammogram, 07/26/2020 mammogram, and 12/17/2018 mammogram - [facility]. There are scattered areas of fibroglandular density in the left breast (category b / 25%-50% glandular tissue). Current study was also evaluated with a Computer Aided Detection (CAD) system. There are benign calcifications in the left breast. There also are benign vascular calcifications in the left breast. Additionally, there are benign post operative findings in the left breast. There are mole markers on the left breast. No significant masses, calcifications, or other findings are seen in the breast. There has been no significant interval change. IMPRESSION: BENIGN There is no mammographic evidence of malignancy. A 1 year screening mammogram is recommended. This exam was interpreted at Station ID: [id number]. NOTE: For mammograms, a report in lay terms will be sent to the patient. Approximately 15% of breast malignancies will not be visualized mammographically. In the management of a palpable breast mass, a negative mammogram must not discourage biopsy of a clinically suspicious lesion. Electronically Signed By: Jarret Ceballos M.D., jr/denisa:09/13/2022 14:47:33 copy to: WALLY ACHARYA letter sent: Normal Exam ACR BI-RADS Category 2: Benign Finding(s) [id number]
== END ==
PROVIDERS: PCP Family Medicine; Referring Provider Family Medicine; Visit Provider Family Medicine
DX: Z12.31 Encounter for screening mammogram for malignant neoplasm of breast (principal); Z85.3 Personal history of malignant neoplasm of breast; Z80.3 Family history of malignant neoplasm of breast
CPT/HCPCS: 77063; 77067

== ENCOUNTER → 2022-11-13 09:09 | Outpatient (CLI) | payer MEDICARE, SELFPAY ==
[2019-06-17 13:33] VITALS: BMI 23.1
[2022-11-13 10:18] LABS: Add Manual Diff / Slide Review NO; Basophils Absolute Auto 100 /uL (0-100); Basophils Percent Auto 0.7 % (0-2); Eosinophils Absolute Auto 200 /uL (0-450); Eosinophils Percent Auto 2.1 % (2-4); Hematocrit 38.5 % (36-46); Hemoglobin 12.5 g/dL (12.0-16.0); Lymphocytes Absolute Auto 2200 /uL (1100-4500); Lymphocytes Percent Auto 26.5 % (25-40); Mean Corpuscular HGB Conc 32.4 % (30-36); Mean Corpuscular Hemoglobin 29.4 PG (26-34); Mean Corpuscular Volume 90.8 fL (80-100); Monocytes Absolute Auto 600 /uL (0-900); Monocytes Percent Auto 7.4 % (3-14); Neutrophils Absolute Auto 5300 /uL (1500-7000); Neutrophils Percent Auto 63.3 % (50-75); Platelet Count 308 X10^3/uL (150-400); Red Blood Cell Count 4.24 X10^6/uL (4.0-5.2); White Blood Cell Count 8.4 X10^3/uL (4.5-11.0)
[2022-11-13 10:24] LABS: Hemoglobin A1C% w Est Avg Glu 6.3 % (4.0-6.0)
[2022-11-13 10:30] LABS: Alanine Aminotransferase 17 IU/L (<35); Albumin 4.1 g/dL (3.5-5.0); Albumin Globulin Ratio 1.3 (1.0-2.8); Alkaline Phosphatase 61 U/L (38-126); Aspartate Aminotransferase 20 IU/L (14-36); BUN Creatinine Ratio 26.1 (6-22); Bilirubin Total 0.5 mg/dL (0.2-1.3); Blood Urea Nitrogen 24 mg/dL (7-17); Calcium 10.1 mg/dL (8.4-10.2); Carbon Dioxide 32 mmol/L (22-32); Chloride 100 mmol/L (98-107); Cholesterol 237 mg/dL (140-199); Estimated Glomerular Filt Rate > 60 mL/min (>60); Globulin 3.2 g/dL (1.7-4.1); Glucose 120 mg/dL (80-110); HDL Cholesterol 56 mg/dL (40-60); HEMOLYSIS < 15 (0-50); LDL Cholesterol Calculated 102 mg/dL (<100); Potassium 4.2 mmol/L (3.4-5.1); Sodium 139 mmol/L (137-145); Total Protein 7.3 g/dL (6.3-8.2); Triglycerides 394 mg/dL (35-150)
[2022-11-13 10:57] LABS: Free T4, Direct Thyroxine 1.31 ng/dL (0.78-2.19)
[2022-11-13 11:11] LABS: Thyroid Stimulating Hormone 2.16 uIU/mL (0.47-4.68)
== END ==
PROVIDERS: PCP Family Medicine; Referring Provider Family Medicine; Visit Provider Family Medicine
DX: E11.9 Type 2 diabetes mellitus without complications (principal); I10 Essential (primary) hypertension; Z13.9 Encounter for screening, unspecified
CPT/HCPCS: 36415; 80053; 80061; 83036; 84439; 84443; 85025

== ENCOUNTER 2023-01-01 18:49 | Inpatient (IN) | payer MEDICARE, SELFPAY ==
[2019-06-17 13:33] VITALS: BMI 23.1
[2023-01-01] VITALS (14 sets, daily range): BP systolic 144–214; BP diastolic 71–102; PULSE 81–109; RESP 17–31; TEMP 36.4–36.6; O2SAT 92–97; BMI 22.3
--- NOTE | 2023-01-01 19:08 | DI.RAD.S_ITS ---
PROCEDURE: XR CHEST 1V INDICATIONS: suspected sepsis TECHNIQUE: One view of the chest was acquired. COMPARISON: [facility], CR, XR CHEST 1V, 08/31/2021, 17:47. FINDINGS: Surgical changes and devices: None. Lungs and pleura: There lower lobe infiltrates. Possible small left pleural effusion. Mild pleural thickening along the right minor fissure. No pleural effusions or pneumothorax. Mediastinum: Mediastinal contours appear normal. Heart size is normal. Bones and chest wall: Question right humeral head fracture. Calcific densities are seen in right shoulder, possibly intra-articular bodies. Suspect left rotator cuff tendinopathy. No suspicious bony lesions. Overlying soft tissues appear unremarkable. IMPRESSION: 1. Bilateral lower lobe infiltrate suspicious for pneumonia. Dictated by: Ryan Long M.D. on 01/01/2023 at 20:10 Approved by: Ryan Long M.D. on 01/01/2023 at 20:13
[2023-01-01 19:34] LABS: Add Manual Diff / Slide Review NO; Basophils Absolute Auto 100 /uL (0-100); Basophils Percent Auto 1.1 % (0-2); Eosinophils Absolute Auto 0 /uL (0-450); Eosinophils Percent Auto 0.6 % (2-4); Hematocrit 36.9 % (36-46); Hemoglobin 12.3 g/dL (12.0-16.0); Lymphocytes Absolute Auto 1100 /uL (1100-4500); Lymphocytes Percent Auto 13.5 % (25-40); Mean Corpuscular HGB Conc 33.4 % (30-36); Mean Corpuscular Hemoglobin 29.6 PG (26-34); Mean Corpuscular Volume 88.6 fL (80-100); Monocytes Absolute Auto 1100 /uL (0-900); Monocytes Percent Auto 13.5 % (3-14); Neutrophils Absolute Auto 5700 /uL (1500-7000); Neutrophils Percent Auto 71.3 % (50-75); Platelet Count 307 X10^3/uL (150-400); Red Blood Cell Count 4.17 X10^6/uL (4.0-5.2); Red Cell Distribution Width 14.3 % (11.6-14.8)
[2023-01-01] MEDS: ALBUTEROL/IPRATROPIUM 3 ML AMPUL INH ×3 (19:35→23:29)
[2023-01-01 19:38] LABS: Prothrombin Time 11.9 SECONDS (10.1-12.7)
[2023-01-01] MEDS: SODIUM CHLORIDE 0.9% 1,000 ML 1000 ML IV (19:38)
[2023-01-01 19:41] LABS: PTT Partial Thromboplastin Tim 29 SECONDS (26-36)
[2023-01-01 19:42] LABS: Creatine Kinase 84 U/L (30-135)
[2023-01-01 19:43] LABS: Alanine Aminotransferase 19 IU/L (<35); Albumin 4.2 g/dL (3.5-5.0); Albumin Globulin Ratio 1.2 (1.0-2.8); Alkaline Phosphatase 71 U/L (38-126); Aspartate Aminotransferase 25 IU/L (14-36); BUN Creatinine Ratio 25.8 (6-22); Bilirubin Total 0.7 mg/dL (0.2-1.3); Blood Urea Nitrogen 23 mg/dL (7-17); Calcium 9.9 mg/dL (8.4-10.2); Carbon Dioxide 27 mmol/L (22-32); Chloride 97 mmol/L (98-107); Estimated Glomerular Filt Rate > 60 mL/min (>60); Globulin 3.5 g/dL (1.7-4.1); Glucose 209 mg/dL (80-110); HEMOLYSIS 16 (0-50); Lipase 81 U/L (23-300); Potassium 3.6 mmol/L (3.4-5.1); Sodium 134 mmol/L (137-145); Total Protein 7.7 g/dL (6.3-8.2)
--- NOTE | 2023-01-01 19:49 | ED_ITS ---
HPI - General Adult General Chief complaint: Shortness of Breath/Dyspnea Stated complaint: SOB/cold symtoms, worsening Time Seen by Provider: 01/01/23 19:45 Source: patient Mode of arrival: Wheelchair Limitations: no limitations History of Present Illness HPI narrative: Patient is an 87-year-old female. History of COPD. Not on home oxygen who is here for evaluation of a couple days of a nonproductive cough, shortness of breath, wheezing, feeling cold. She denies chest pain. No lower extremity swelling. No abdominal pain. She did receive a nebulizer treatment in the ER prior to my evaluation. Related Data Home Medications Medication Instructions Recorded Confirmed multivitamin with [id number] See Rx Instructions .Route .COMPLEX 06/21/21 01/02/23 400 mcg-120 mg tablet (One Daily Women 50 Plus) fluticasone 250 mcg-salmeterol 50 0.5 inh inhalation BID 01/02/23 01/02/23 mcg/dose blistr powdr for inhalation Previous Rx's Medication Instructions Recorded Disabled Parking Permit See Rx Instructions .Route 05/06/18 .COMPLEX #1 unit albuterol sulfate 90 mcg/actuation 2 puff inhalation Q4-6H PRN 06/21/22 aerosol inhaler (Ventolin HFA) shortness of breath or wheezing #8 grams alprazolam 0.25 mg tablet 0.25 mg PO ONCE PRN anxiety #20 06/21/22 tabs metformin 500 mg tablet 500 mg PO BID #180 tabs 06/21/22 lisinopril 20 See Rx Instructions .Route 07/09/22 mg-hydrochlorothiazide 25 mg tablet .COMPLEX #90 tabs propranolol 40 mg tablet 40 mg PO BID #180 tabs 11/08/22 omeprazole 20 mg capsule,delayed See Rx Instructions .Route 12/17/22 release .COMPLEX #90 caps Allergies Allergy/AdvReac Type Severity Reaction Status Date / Time sulfamethoxazole Allergy Severe Hives, Verified 01/01/23 18:53 [From Bactrim] shortness of breath trimethoprim [From Bactrim] Allergy Severe Hives, Verified 01/01/23 18:53 shortness of breath Review of Systems Constitutional Constitutional: Reports system reviewed and no additional complaints, except as documented Cardiovascular Cardiovascular: Reports system reviewed and no additional complaints, except as documented Respiratory Respiratory: Reports system reviewed and no additional complaints, except as documented Gastrointestinal Gastrointestinal: Reports system reviewed and no additional complaints, except as documented Integumentary/Breasts Skin/Breast: Reports system reviewed and no additional complaints, except as documented Neurologic Neurologic: Reports system reviewed and no additional complaints, except as documented Hematologic/Lymphatic On Anticoagulants: No Patient History Medical History Breast cancer (~1981) Cataract Chicken pox Chronic back pain COPD (chronic obstructive pulmonary disease) Diabetes Diastolic dysfunction Diverticular disease Edema GERD (gastroesophageal reflux disease) Hay fever High blood triglycerides Hyperglycemia Hyperglyceridemia Hyperlipidemia Hypertension Lumbar back pain Measles Mumps Neuropathy Skin cancer (~2011) Surgical History Anesthesia History of mastectomy (~09/1981) Status post hysterectomy Family History Mother Brain aneurysm Sister Age: 84 Cancer of breast Lung cancer Daughter Cancer of breast Father No problems noted. Social History household members: none Smoking Status: Former smoker alcohol intake: former Smoking Status: Former smoker Substance Use Type: does not use Exam Initial Vital Signs Initial Vital Signs: Vital Signs Temperature 97.6 F 01/01/23 18:54 Pulse Rate 103 H 01/01/23 18:54 Respiratory Rate 26 H 01/01/23 18:54 Blood Pressure 189/94 H 01/01/23 18:54 Pulse Oximetry 94 01/01/23 18:54 Oxygen Delivery Method Room Air 01/01/23 18:54 Const General: cooperative, comfortable and No ill appearing [facility] Head: normal to inspection and normocephalic Resp Effort & Inspection: normal respiratory effort, not labored, no respiratory distress and tachypneic Auscultation: wheezes Cardio Rate: regular rate Skin General: no rashes or lesions noted Neuro General: patient alert, patient awake, patient oriented x3 and moves all extremities Extrem General: No edema Psych Appearance: grossly normal and well kempt Course Orders Ordered: ED Orders 01/01/23 19:08 XR chest 1V Stat EKG-12 Lead Stat RT Consult Eval and Treat NOW 01/01/23 19:20 Complete Blood Count AUTO DIFF Stat Comprehensive Metabolic Panel Stat Lactate (Lactic Acid) Stat Lipase Stat NT-proBNP (BNP-Adult 18+) Stat PTT Partial Thromboplastin Ye Stat Procalcitonin Stat Prothrombin Time INR Stat Troponin & CK Cardiac Panel Stat 01/01/23 19:30 Respiratory Panel (Film Array) Stat 01/01/23 20:05 Blood Culture Stat Acetaminophen (Acetaminophen 325 Mg Tablet) 650 mg PO Q6H PRN PRN Reason: Fever/Mild Pain (1-3) Albuterol (Albuterol 2.5 Mg/3 Ml Neb (Adult)) 2.5 mg INH [id number] PRN PRN Reason: Shortness Of Breath Albuterol/Ipratropium (Albuterol/Ipratropium 3 Ml Ampul) 3 ml INH [id number] ARIANA Last Admin: 01/01/23 23:29 Dose: 3 ml Documented By: BOYD Budesonide (Budesonide 0.5 Mg/2 Ml Neb) 0.5 mg INH RTBID ARIANA Dextrose (Dextrose 50 % In Water 25 Gm/50 Ml Syringe) 25 gm IV PRN PRN PRN Reason: Hypoglycemia Enoxaparin Sodium (Enoxaparin 40 Mg/0.4 Ml Syringe) 40 mg SUBCUT DAILY [facility] Ceftriaxone Sodium 1,000 mg/ (Sodium Chloride) 100 mls @ 200 mls/hr IV Q24H ARIANA Azithromycin 500 mg/ Dextrose 250 mls @ 250 mls/hr IV Q24H [facility] Insulin Human Lispro (Insulin Lispro 100 Unit/Ml 3ml Vial) 0 unit SUBCUT ACHS ARIANA; Protocol Methylprednisolone (Methylprednisolone 125 Mg/2 Ml Vial) 60 mg IV Q12H ARIANA Naloxone HCl (Naloxone 0.4 Mg/Ml Vial) 0.2 mg IV Q2MIN PRN PRN Reason: Opiate Reversal Ondansetron HCl (Ondansetron 4 Mg/2 Ml Inj) 4 mg IV Q8HR PRN PRN Reason: Nausea And Vomiting Discontinued Medications Albuterol (Albuterol 2.5 Mg/3 Ml Neb (Adult)) 2.5 mg INH [id number] ARIANA Albuterol/Ipratropium (Albuterol/Ipratropium 3 Ml Ampul) 3 ml INH NOW ONE Stop: 01/01/23 19:29 Last Admin: 01/01/23 19:35 Dose: 3 ml Documented By: BOYD Albuterol/Ipratropium (Albuterol/Ipratropium 3 Ml Ampul) 3 ml INH NOW ONE Stop: 01/01/23 21:18 Last Admin: 01/01/23 21:21 Dose: 3 ml Documented By: BOYD Sodium Chloride (Normal Saline 0.9%) 1,000 mls @ 1,000 mls/hr IV BOLUS ONE Stop: 01/01/23 20:07 Last Infusion: 01/01/23 21:20 Dose: 0 mls/hr Documented By: Admin: 01/01/23 19:38 Dose: 1,000 mls/hr Documented By: AT Ceftriaxone Sodium 1,000 mg/ (Sodium Chloride) 100 mls @ 200 mls/hr IV NOW ONE Stop: 01/01/23 19:46 Last Infusion: 01/01/23 20:40 Dose: 0 mls/hr Documented By: Admin: 01/01/23 20:23 Dose: 200 mls/hr Documented By: JOSÉ Azithromycin 500 mg/ Dextrose 250 mls @ 250 mls/hr IV NOW ONE Stop: 01/01/23 19:49 Last Infusion: 01/01/23 22:31 Dose: 0 mls/hr Documented By: Admin: 01/01/23 21:13 Dose: 250 mls/hr Documented By: JOSÉ Methylprednisolone (Methylprednisolone 125 Mg/2 Ml Vial) 125 mg IV NOW ONE Stop: 01/01/23 20:46 Last Admin: 01/01/23 21:01 Dose: 125 mg Documented By: JOSÉ Ondansetron HCl (Ondansetron 4 Mg Odt) 4 mg SL NOW PRN PRN Reason: Nausea And Vomiting Ondansetron HCl (Ondansetron 4 Mg/2 Ml Inj) 4 mg IV NOW PRN PRN Reason: Nausea And Vomiting Vital Signs Vital signs: Vital Signs - 8 hr 01/01/23 18:54 01/01/23 19:22 01/01/23 19:35 Temperature 97.6 F Pulse Rate 103 H 93 H 91 H Respiratory Rate 26 H 28 H 18 Blood Pressure 189/94 H 183/87 H Pulse Oximetry 94 94 94 Oxygen Delivery Method Room Air Room Air Room Air Oxygen Flow Rate 0 Fraction of Inspired Oxygen 21 01/01/23 19:30 01/01/23 19:30 01/01/23 20:00 Temperature Pulse Rate 87 Respiratory Rate 24 Blood Pressure 171/82 H 177/80 H Pulse Oximetry 94 Oxygen Delivery Method Oxygen Flow Rate Fraction of Inspired Oxygen 01/01/23 20:00 01/01/23 20:30 01/01/23 20:30 Temperature Pulse Rate 81 83 Respiratory Rate 21 24 Blood Pressure 182/81 H Pulse Oximetry 94 96 Oxygen Delivery Method Room Air Oxygen Flow Rate Fraction of Inspired Oxygen Medical Decision Making Lab Data Lab results reviewed: Yes I reviewed the patient's lab results. 01/01/23 19:20 01/01/23 19:20 Labs: Lab Results 01/01/23 01/01/23 01/01/23 Range/Units 19:20 19:20 19:20 WBC 8.0 (4.5-11.0) X10^3/uL RBC 4.17 (4.0-5.2) X10^6/uL Hgb 12.3 (12.0-16.0) g/dL Hct 36.9 (36-46) % MCV 88.6 (80-100) fL MCH 29.6 (26-34) PG MCHC 33.4 (30-36) % RDW 14.3 (11.6-14.8) % Plt Count 307 (150-400) X10^3/uL Neut % (Auto) 71.3 (50-75) % Lymph % (Auto) 13.5 L (25-40) % Carson % (Auto) 13.5 (3-14) % Eos % (Auto) 0.6 L (2-4) % Baso % (Auto) 1.1 (0-2) % Neut # (Auto) 5700 (1482-0472) /uL Lymph # (Auto) 1100 (9111-7411) /uL Carson # (Auto) 1100 H (0-900) /uL Eos # (Auto) 0 (0-450) /uL Baso # (Auto) 100 (0-100) /uL PT 11.9 (10.1-12.7) SECONDS INR 1.0 (0.9-1.3) APTT 29 (26-36) SECONDS Sodium 134 L (137-145) mmol/L Potassium 3.6 (3.4-5.1) mmol/L Chloride 97 L (98-107) mmol/L Carbon Dioxide 27 (22-32) mmol/L BUN 23 H (7-17) mg/dL Creatinine 0.89 (0.52-1.04) mg/dL Estimated GFR > 60 (>60) mL/min BUN/Creatinine Ratio 25.8 H (6-22) Glucose 209 H (80-110) mg/dL Lactate (0.7-2.1) mmol/L Calcium 9.9 (8.4-10.2) mg/dL Total Bilirubin 0.7 (0.2-1.3) mg/dL AST 25 (14-36) IU/L ALT 19 (<35) IU/L Alkaline Phosphatase 71 (38-126) U/L Total Creatine Kinase (30-135) U/L CK-MB (CK-2) CK-MB (CK-2) Rel Index Troponin I (0.01-0.034) ng/mL NT-Pro-B Natriuret Pep (<450) pg/mL Total Protein 7.7 (6.3-8.2) g/dL Albumin 4.2 (3.5-5.0) g/dL Globulin 3.5 (1.7-4.1) g/dL Albumin/Globulin Ratio 1.2 (1.0-2.8) Lipase 81 (23-300) U/L Procalcitonin 0.09 (<0.5) ng/mL Chlamy pneumoniae PCR (Not Detect) Adenovirus (PCR) (Not Detect) B. pertussis DNA (PCR) (Not Detecte) B.parapertussis DNA PCR (Not Detecte) Coronavirus OC43 (PCR) (Not Detect) Coronavirus HKU1 (PCR) (Not Detect) Coronavirus 229E (PCR) (Not Detect) SARS-CoV-2 (PCR) (Not Detecte) Coronavirus NL63 (PCR) (Not Detect) Human Metapneumovir PCR (Not Detect) Influenza Type A (PCR) (Not Detect) Influenza Type B (PCR) (Not Detect) M. pneumoniae (PCR) (Not Detect) Parainfluenza 1 (PCR) (Not Detect) Parainfluenza 2 (PCR) (Not Detect) Parainfluenza 3 (PCR) (Not Detect) Parainfluenza 4 (PCR) (Not Detect) RSV (PCR) (Not Detect) Entero/Rhino (PCR) (Not Detect) 01/01/23 01/01/23 01/01/23 Range/Units 19:20 19:20 19:30 WBC (4.5-11.0) X10^3/uL RBC (4.0-5.2) X10^6/uL Hgb (12.0-16.0) g/dL Hct (36-46) % MCV (80-100) fL MCH (26-34) PG MCHC (30-36) % RDW (11.6-14.8) % Plt Count (150-400) X10^3/uL Neut % (Auto) (50-75) % Lymph % (Auto) (25-40) % Carson % (Auto) (3-14) % Eos % (Auto) (2-4) % Baso % (Auto) (0-2) % Neut # (Auto) (5979-6629) /uL Lymph # (Auto) (4987-4501) /uL Carson # (Auto) (0-900) /uL Eos # (Auto) (0-450) /uL Baso # (Auto) (0-100) /uL PT (10.1-12.7) SECONDS INR (0.9-1.3) APTT (26-36) SECONDS Sodium (137-145) mmol/L Potassium (3.4-5.1) mmol/L Chloride (98-107) mmol/L Carbon Dioxide (22-32) mmol/L BUN (7-17) mg/dL Creatinine (0.52-1.04) mg/dL Estimated GFR (>60) mL/min BUN/Creatinine Ratio (6-22) Glucose (80-110) mg/dL Lactate 3.0 H (0.7-2.1) mmol/L Calcium (8.4-10.2) mg/dL Total Bilirubin (0.2-1.3) mg/dL AST (14-36) IU/L ALT (<35) IU/L Alkaline Phosphatase (38-126) U/L Total Creatine Kinase 84 (30-135) U/L CK-MB (CK-2) TNP CK-MB (CK-2) Rel Index TNP Troponin I 0.013 (0.01-0.034) ng/mL NT-Pro-B Natriuret Pep 1790 H (<450) pg/mL Total Protein (6.3-8.2) g/dL Albumin (3.5-5.0) g/dL Globulin (1.7-4.1) g/dL Albumin/Globulin Ratio (1.0-2.8) Lipase (23-300) U/L Procalcitonin (<0.5) ng/mL Chlamy pneumoniae PCR Not detected (Not Detect) Adenovirus (PCR) Not detected (Not Detect) B. pertussis DNA (PCR) Not detected (Not Detecte) B.parapertussis DNA PCR Not detected (Not Detecte) Coronavirus OC43 (PCR) Not detected (Not Detect) Coronavirus HKU1 (PCR) Not detected (Not Detect) Coronavirus 229E (PCR) Not detected (Not Detect) SARS-CoV-2 (PCR) Not detected (Not Detecte) Coronavirus NL63 (PCR) Not detected (Not Detect) Human Metapneumovir PCR Not detected (Not Detect) Influenza Type A (PCR) Not detected (Not Detect) Influenza Type B (PCR) Not detected (Not Detect) M. pneumoniae (PCR) Not detected (Not Detect) Parainfluenza 1 (PCR) Not detected (Not Detect) Parainfluenza 2 (PCR) Not detected (Not Detect) Parainfluenza 3 (PCR) Detected H (Not Detect) Parainfluenza 4 (PCR) Not detected (Not Detect) RSV (PCR) Not detected (Not Detect) Entero/Rhino (PCR) Not detected (Not Detect) Imaging Data Chest x-ray: Radiologist's Impression: PROCEDURE:? XR CHEST 1V ? INDICATIONS:? suspected sepsis ? TECHNIQUE:? One view of the chest was acquired.? ? COMPARISON:? [facility], , XR CHEST 1V, 08/31/2021, 17:47. ? FINDINGS:? ? Surgical changes and devices:? None.? ? Lungs and pleura:? There lower lobe infiltrates.? Possible small left pleural effusion.? Mild pleural thickening along the right minor fissure.? No pleural effusions or pneumothorax.? ? Mediastinum:? Mediastinal contours appear normal.? Heart size is normal.? ? Bones and chest wall:? Question right humeral head fracture.? Calcific densities are seen in right shoulder, possibly intra-articular bodies.? Suspect left rotator cuff tendinopathy.? No suspicious bony lesions.? Overlying soft tissues appear unremarkable.? ? IMPRESSION:? ? 1. Bilateral lower lobe infiltrate suspicious for pneumonia. ECG Data Attestation: I personally reviewed and interpreted this ECG as follows: Interpretation: Sinus rhythm Ventricular rate 82 Normal axis Normal QRS Normal QTC No ST T wave changes MDM Narrative Medical decision making narrative: Patient did receive a nebulizer treatment prior to my evaluation. She was still wheezing but she states that she does feel somewhat better. She is no lower extremity swelling. No chest pain. Has a of a nonproductive cough. Her lactate was elevated. Normal white blood cell count. Not hypotensive. Chest x-ray shows bilateral lower lobe pneumonia. She was given antibiotics. Her viral panel then was positive for parainfluenza virus. This potentially could be causing her findings on the chest x-ray however given her underlying lung comorbidities we will continue with the antibiotics. She was also given steroids. Discussed the case with Dr. Barajas. Given her presentation and comorbidities and labs patient does require admission to the hospital for further evaluation and treatment. Patient expressed understanding and agreement. Dr. Barajas will admit. Discharge Plan Departure Patient Disposition: Admitted As Inpatient Clinical Impression: COPD exacerbation, Bilateral pneumonia, Infection due to parainfluenza virus 3 Admit Date/Time: 01/01/23 20:52 Admit Provider: Alonso Barajas
[2023-01-01 20:01] LABS: Procalcitonin 0.09 ng/mL (<0.5)
[2023-01-01 20:15] LABS: NT-proBNP (BNP-Adult 18+) 1790 pg/mL (<450); Troponin I 0.013 ng/mL (0.01-0.034)
[2023-01-01] MEDS: cefTRIAXone 1,000 MG in SODIUM CHLORIDE 0.9% 100 ML 200 MG IV (20:23)
[2023-01-01] MEDS: methylPREDNISolone 125 MG/2 ML VIAL IV (21:01)
[2023-01-01 21:07] LABS: Adenovirus Not Detected (Not Detect); B. parapertussis Not Detected (Not Detecte); Bordetella pertussis Not Detected (Not Detecte); Chlamydophila pneumoniae Not Detected (Not Detect); Coronavirus 229E Not Detected (Not Detect); Coronavirus HKU1 Not Detected (Not Detect); Coronavirus NL 63 Not Detected (Not Detect); Coronavirus OC43 Not Detected (Not Detect); Human Metapneumovirus Not Detected (Not Detect); Human Rhinovirus/Enterovirus Not Detected (Not Detect); Influenza A Not Detected (Not Detect); Influenza B Not Detected (Not Detect); Mycoplasma pneumoniae Not Detected (Not Detect); Parainfluenza Virus 1 Not Detected (Not Detect); Parainfluenza Virus 2 Not Detected (Not Detect); Parainfluenza Virus 3 Detected (Not Detect); Parainfluenza Virus 4 Not Detected (Not Detect); Respiratory Syncytial Virus Not Detected (Not Detect); SARS- CoV-2 Not Detected (Not Detecte)
[2023-01-01] MEDS: AZITHROMYCIN 500 MG in DEXTROSE 5% IN WATER 250 ML 250 MG IV (21:13)
[2023-01-01 21:27] LABS: Reflexed Lactate in 2 Hours Y
[2023-01-01 22:02] LABS: Appearance Urine UA CLEAR; Bilirubin Urine UA NEGATIVE (NEGATIVE); Color Urine UA YELLOW; Glucose Urine UA NEGATIVE (Negative); Ketones Urine UA NEGATIVE (NEGATIVE); Leukocyte Esterase Urine UA 1+ (NEGATIVE); Nitrite Urine UA NEGATIVE (Negative); Occult Blood Urine UA NEGATIVE (Negative); Protein Urine UA NEGATIVE (Negative); Specific Gravity Urine UA 1.025 (1.000-1.035); Urobilinogen Urine UA 0.2 E.U./dL (0.2)
[2023-01-01 22:05] LABS: pH Urine UA 5.5 (4.5-8.0)
[2023-01-01 22:05] LABS: Lactate 2HR (Lactic Acid Rflx) 4.3 mmol/L (0.7-2.1)
[2023-01-01 22:39] LABS: Bacteria Urine Few (2-10); RBC Urine None Seen (0-5/HPF); Squamous Epithelial Cell Urine 1-5 /HPF (0-5/HPF); WBC Urine 1-5/HPF (0-5/HPF)
[2023-01-01 22:41] LABS: Culture Indicated Urine Specimen Cultured
[2023-01-02] VITALS (10 sets, daily range): BP systolic 134–158; BP diastolic 70–84; PULSE 76–94; RESP 16–19; TEMP 36.2–36.5; O2SAT 92–96
[2023-01-02 02:32] LABS: Blood Urea Nitrogen 20 mg/dL (7-17); Calcium 9.2 mg/dL (8.4-10.2); Carbon Dioxide 26 mmol/L (22-32); Chloride 99 mmol/L (98-107); Estimated Glomerular Filt Rate > 60 mL/min (>60); Glucose 184 mg/dL (80-110); HEMOLYSIS < 15 (0-50); Potassium 3.8 mmol/L (3.4-5.1); Sodium 134 mmol/L (137-145)
[2023-01-02 02:33] LABS: Lactate (Lactic Acid) 2.3 mmol/L (0.7-2.1)
[2023-01-02] MEDS: methylPREDNISolone 125 MG/2 ML VIAL 60 MG IV ×2 (02:41→12:39)
[2023-01-02 02:57] LABS: Add Manual Diff / Slide Review NO; Basophils Absolute Auto 0 /uL (0-100); Basophils Percent Auto 0.5 % (0-2); Eosinophils Absolute Auto 0 /uL (0-450); Hematocrit 33.6 % (36-46); Hemoglobin 11.4 g/dL (12.0-16.0); Lymphocytes Absolute Auto 800 /uL (1100-4500); Lymphocytes Percent Auto 11.8 % (25-40); Mean Corpuscular HGB Conc 33.9 % (30-36); Mean Corpuscular Hemoglobin 29.9 PG (26-34); Monocytes Absolute Auto 100 /uL (0-900); Monocytes Percent Auto 1.7 % (3-14); Neutrophils Absolute Auto 5700 /uL (1500-7000); Platelet Count 293 X10^3/uL (150-400); Red Blood Cell Count 3.82 X10^6/uL (4.0-5.2); Red Cell Distribution Width 14.4 % (11.6-14.8); White Blood Cell Count 6.6 X10^3/uL (4.5-11.0)
[2023-01-02 04:18] LABS: Reflexed Lactate in 2 Hours Y
[2023-01-02 04:41] LABS: Lactate 2HR (Lactic Acid Rflx) 1.6 mmol/L (0.7-2.1)
--- NOTE | 2023-01-02 05:59 | PM.HP.1 ---
History of Present Illness History of Present Illness Date Patient Seen: 01/01/23 Time Patient Seen: 22:00 Chief complaint: SOB/cold symtoms, worsening Narrative: Ms. Harmon is a 87W with PMH COPD not on oxygen, DM, HTN, anxiety who presents to the hospital with shortness of breath. She has noted that for a few days she has noted a cough with minimal sputum production, shortness of breath, and feeling wheezing. She is using her albuterol inhalers. She has no known sick contacts. No fevers/chills. No chest pain. In the ED workup was done, vitals notable for afebrile, heart rate 100s, respiratory rate 20s, blood pressure 180s/90s. Sats 92-94% on room air. Labs reviewed by me and notable for WBC 8.0, hgb 12.3, plts 307. INR 1.0. Creatinine 0.89. Procal 0.09. Lactate 3.0->4.3->2.3->1.8. BNP 1790. Respiratory panel positive for parainfluenza. Chest xray reviewed by me and notable for bilateral consolidation. She was ordered for steroids, nebs, and antibiotics and admitted for further treatment. [facility] Medical History Breast cancer (~1981) Cataract Chicken pox Chronic back pain COPD (chronic obstructive pulmonary disease) Diabetes Diastolic dysfunction Diverticular disease Edema GERD (gastroesophageal reflux disease) Hay fever High blood triglycerides Hyperglycemia Hyperglyceridemia Hyperlipidemia Hypertension Lumbar back pain Measles Mumps Neuropathy Skin cancer (~2011) Surgical History Anesthesia History of mastectomy (~09/1981) Status post hysterectomy Family History Mother Brain aneurysm Sister Age: 84 Cancer of breast Lung cancer Daughter Cancer of breast Father No problems noted. Social History household members: none Smoking Status: Former smoker alcohol intake: former Meds Home Medications and Allergies Home Medications Medication Instructions Recorded Confirmed Type Disabled Parking Permit See Rx Instructions .Route 05/06/18 01/02/23 Rx .COMPLEX #1 unit multivitamin with [id number] See Rx Instructions .Route .COMPLEX 06/21/21 01/02/23 History 400 mcg-120 mg tablet (One Daily Women 50 Plus) albuterol sulfate 90 mcg/actuation 2 puff inhalation Q4-6H PRN 06/21/22 01/02/23 Rx aerosol inhaler (Ventolin HFA) shortness of breath or wheezing #8 grams alprazolam 0.25 mg tablet 0.25 mg PO ONCE PRN anxiety #20 06/21/22 01/02/23 Rx tabs metformin 500 mg tablet 500 mg PO BID #180 tabs 06/21/22 01/02/23 Rx lisinopril 20 See Rx Instructions .Route 07/09/22 01/02/23 Rx mg-hydrochlorothiazide 25 mg tablet .COMPLEX #90 tabs propranolol 40 mg tablet 40 mg PO BID #180 tabs 11/08/22 01/02/23 Rx omeprazole 20 mg capsule,delayed See Rx Instructions .Route 12/17/22 01/02/23 Rx release .COMPLEX #90 caps fluticasone 250 mcg-salmeterol 50 0.5 inh inhalation BID 01/02/23 01/02/23 History mcg/dose blistr powdr for inhalation Allergies Allergy/AdvReac Type Severity Reaction Status Date / Time sulfamethoxazole Allergy Severe Hives, Verified 01/01/23 18:53 [From Bactrim] shortness of breath trimethoprim [From Bactrim] Allergy Severe Hives, Verified 01/01/23 18:53 shortness of breath Review of Systems Review of Systems Narrative: 14 systems reviewed and negative aside from what is noted in HPI Exam Vital Signs (past 8 hours): - 01/01/23 22:00 01/01/23 22:00 01/01/23 22:20 Temperature 97.9 F Pulse Rate 91 H 87 Respiratory Rate 21 17 Blood Pressure 155/76 H 144/78 H Pulse Oximetry 93 97 Oxygen Delivery Method Room Air Oxygen Flow Rate 0 Fraction of Inspired Oxygen 01/01/23 22:42 01/01/23 23:29 01/02/23 02:37 Temperature Pulse Rate 91 H 76 Respiratory Rate 18 18 Blood Pressure 134/74 Pulse Oximetry 96 92 Oxygen Delivery Method Room Air Room Air Oxygen Flow Rate 0 0 Fraction of Inspired Oxygen 01/02/23 04:31 Temperature 97.2 F L Pulse Rate 94 H Respiratory Rate 19 Blood Pressure 152/76 H Pulse Oximetry 93 Oxygen Delivery Method Oxygen Flow Rate 0 Fraction of Inspired Oxygen Fraction of Inspired Oxygen 21 SaO2/FiO2 Ratio 457 Oxygen Delivery Method Room Air Oxygen Flow Rate 0 Narrative Exam Narrative: GEN: in mild respiratory distress HEENT: moist mucous membranes, PERRL NECK: trachea midline, no jVD PULM: wheezes bilaterally, poor air movement, increased work of breathing CV: regular rate and rhythm, no murmurs ABD: soft, nontender, nondistended, no organomegaly EXT: warm and well perfused with no edema NEURO: awake, alert, oriented, with no focal deficits Objective Labs 01/02/23 02:14 01/02/23 02:14 Labs: Laboratory Results - last 24 hr 01/01/23 01/01/23 01/01/23 19:20 19:20 19:20 WBC 8.0 RBC 4.17 Hgb 12.3 Hct 36.9 MCV 88.6 MCH 29.6 MCHC 33.4 RDW 14.3 Plt Count 307 Neut % (Auto) 71.3 Lymph % (Auto) 13.5 L [place] % (Auto) 13.5 Eos % (Auto) 0.6 L Baso % (Auto) 1.1 Neut # (Auto) 5700 Lymph # (Auto) 1100 [place] # (Auto) 1100 H Eos # (Auto) 0 Baso # (Auto) 100 PT 11.9 INR 1.0 APTT 29 Sodium 134 L Potassium 3.6 Chloride 97 L Carbon Dioxide 27 BUN 23 H Creatinine 0.89 Estimated GFR > 60 BUN/Creatinine Ratio 25.8 H Glucose 209 H Lactate Calcium 9.9 Total Bilirubin 0.7 AST 25 ALT 19 Alkaline Phosphatase 71 Total Creatine Kinase CK-MB (CK-2) CK-MB (CK-2) Rel Index Troponin I NT-Pro-B Natriuret Pep Total Protein 7.7 Albumin 4.2 Globulin 3.5 Albumin/Globulin Ratio 1.2 Lipase 81 Procalcitonin 0.09 Urine Color Urine Appearance Urine pH Ur Specific [place] Urine Protein Urine Glucose (UA) Urine Ketones Urine Occult Blood Urine Nitrate Urine Bilirubin Urine Urobilinogen Ur Leukocyte Esterase Urine RBC Urine WBC Ur Squamous Epith Cells Urine Bacteria Urine Yeast Ur Culture Indicated? Chlamy pneumoniae PCR Adenovirus (PCR) B. pertussis DNA (PCR) B.parapertussis DNA PCR Coronavirus OC43 (PCR) Coronavirus HKU1 (PCR) Coronavirus 229E (PCR) SARS-CoV-2 (PCR) Coronavirus NL63 (PCR) Human Metapneumovir PCR Influenza Type A (PCR) Influenza Type B (PCR) M. pneumoniae (PCR) Parainfluenza 1 (PCR) Parainfluenza 2 (PCR) Parainfluenza 3 (PCR) Parainfluenza 4 (PCR) RSV (PCR) Entero/Rhino (PCR) 01/01/23 01/01/23 01/01/23 19:20 19:20 19:30 WBC RBC Hgb Hct MCV MCH MCHC RDW Plt Count Neut % (Auto) Lymph % (Auto) [place] % (Auto) Eos % (Auto) Baso % (Auto) Neut # (Auto) Lymph # (Auto) [place] # (Auto) Eos # (Auto) Baso # (Auto) PT INR APTT Sodium Potassium Chloride Carbon Dioxide BUN Creatinine Estimated GFR BUN/Creatinine Ratio Glucose Lactate 3.0 H Calcium Total Bilirubin AST ALT Alkaline Phosphatase Total Creatine Kinase 84 CK-MB (CK-2) TNP CK-MB (CK-2) Rel Index TNP Troponin I 0.013 NT-Pro-B Natriuret Pep 1790 H Total Protein Albumin Globulin Albumin/Globulin Ratio Lipase Procalcitonin Urine Color Urine Appearance Urine pH Ur Specific [place] Urine Protein Urine Glucose (UA) Urine Ketones Urine Occult Blood Urine Nitrate Urine Bilirubin Urine Urobilinogen Ur Leukocyte Esterase Urine RBC Urine WBC Ur Squamous Epith Cells Urine Bacteria Urine Yeast Ur Culture Indicated? Chlamy pneumoniae PCR Not detected Adenovirus (PCR) Not detected B. pertussis DNA (PCR) Not detected B.parapertussis DNA PCR Not detected Coronavirus OC43 (PCR) Not detected Coronavirus HKU1 (PCR) Not detected Coronavirus 229E (PCR) Not detected SARS-CoV-2 (PCR) Not detected Coronavirus NL63 (PCR) Not detected Human Metapneumovir PCR Not detected Influenza Type A (PCR) Not detected Influenza Type B (PCR) Not detected M. pneumoniae (PCR) Not detected Parainfluenza 1 (PCR) Not detected Parainfluenza 2 (PCR) Not detected Parainfluenza 3 (PCR) Detected H Parainfluenza 4 (PCR) Not detected RSV (PCR) Not detected Entero/Rhino (PCR) Not detected 01/01/23 01/01/23 01/02/23 21:00 21:45 02:14 WBC 6.6 RBC 3.82 L Hgb 11.4 L Hct 33.6 L MCV 88.0 MCH 29.9 MCHC 33.9 RDW 14.4 Plt Count 293 Neut % (Auto) 86.0 H Lymph % (Auto) 11.8 L [place] % (Auto) 1.7 L Eos % (Auto) 0.0 L Baso % (Auto) 0.5 Neut # (Auto) 5700 Lymph # (Auto) 800 L [place] # (Auto) 100 Eos # (Auto) 0 Baso # (Auto) 0 PT INR APTT Sodium Potassium Chloride Carbon Dioxide BUN Creatinine Estimated GFR BUN/Creatinine Ratio Glucose Lactate 4.3 H* Calcium Total Bilirubin AST ALT Alkaline Phosphatase Total Creatine Kinase CK-MB (CK-2) CK-MB (CK-2) Rel Index Troponin I NT-Pro-B Natriuret Pep Total Protein Albumin Globulin Albumin/Globulin Ratio Lipase Procalcitonin Urine Color Yellow Urine Appearance Clear Urine pH 5.5 Ur Specific [place] 1.025 Urine Protein Negative Urine Glucose (UA) Negative Urine Ketones Negative Urine Occult Blood Negative Urine Nitrate Negative Urine Bilirubin Negative Urine Urobilinogen 0.2 Ur Leukocyte Esterase 1+ H Urine RBC None seen Urine WBC 1-5/hpf Ur Squamous Epith Cells 1-5 /hpf Urine Bacteria Few (2-10) H Urine Yeast 10-30/hpf H Ur Culture Indicated? Specimen cultured Chlamy pneumoniae PCR Adenovirus (PCR) B. pertussis DNA (PCR) B.parapertussis DNA PCR Coronavirus OC43 (PCR) Coronavirus HKU1 (PCR) Coronavirus 229E (PCR) SARS-CoV-2 (PCR) Coronavirus NL63 (PCR) Human Metapneumovir PCR Influenza Type A (PCR) Influenza Type B (PCR) M. pneumoniae (PCR) Parainfluenza 1 (PCR) Parainfluenza 2 (PCR) Parainfluenza 3 (PCR) Parainfluenza 4 (PCR) RSV (PCR) Entero/Rhino (PCR) 01/02/23 01/02/23 01/02/23 02:14 02:14 04:26 WBC RBC Hgb Hct MCV MCH MCHC RDW Plt Count Neut % (Auto) Lymph % (Auto) [place] % (Auto) Eos % (Auto) Baso % (Auto) Neut # (Auto) Lymph # (Auto) [place] # (Auto) Eos # (Auto) Baso # (Auto) PT INR APTT Sodium 134 L Potassium 3.8 Chloride 99 Carbon Dioxide 26 BUN 20 H Creatinine 0.77 Estimated GFR > 60 BUN/Creatinine Ratio 26.0 H Glucose 184 H Lactate 2.3 H 1.6 Calcium 9.2 Total Bilirubin AST ALT Alkaline Phosphatase Total Creatine Kinase CK-MB (CK-2) CK-MB (CK-2) Rel Index Troponin I NT-Pro-B Natriuret Pep Total Protein Albumin Globulin Albumin/Globulin Ratio Lipase Procalcitonin Urine Color Urine Appearance Urine pH Ur Specific [place] Urine Protein Urine Glucose (UA) Urine Ketones Urine Occult Blood Urine Nitrate Urine Bilirubin Urine Urobilinogen Ur Leukocyte Esterase Urine RBC Urine WBC Ur Squamous Epith Cells Urine Bacteria Urine Yeast Ur Culture Indicated? Chlamy pneumoniae PCR Adenovirus (PCR) B. pertussis DNA (PCR) B.parapertussis DNA PCR Coronavirus OC43 (PCR) Coronavirus HKU1 (PCR) Coronavirus 229E (PCR) SARS-CoV-2 (PCR) Coronavirus NL63 (PCR) Human Metapneumovir PCR Influenza Type A (PCR) Influenza Type B (PCR) M. pneumoniae (PCR) Parainfluenza 1 (PCR) Parainfluenza 2 (PCR) Parainfluenza 3 (PCR) Parainfluenza 4 (PCR) RSV (PCR) Entero/Rhino (PCR) Assessment & Plan Assessment & Plan narrative: 1. Acute COPD exacerbation from viral pneumonia and possible superimposed bacterial pneumonia -she presents with respiratory distress, with wheezing consistent with COPD exacerbation -chest xray consistent with pneumonia given infiltrates -may be viral as has parainfluenza positive, but given severity of presentation will cover with antibiotics for bacterial pneumonia -procal of 0.09 indicates against bacterial infection, if she improves may be able to stop antibiotics and treat for viral pneumonia with COPD -for now continue with steroids, nebs, ceftriaxone and azithromycin -follow up cultures 2. Type 2 Diabetes -not on insulin -hold oral medications -placed on insulin sliding scale 3. Hypertension -hold blood pressure medications for now -likely can restart within 24 hours if respiratory and infectious symptoms improved 4. Anxiety -hold benzos for now given respiratory distress I have discussed plan and obtained history from patient and her daughter. I have discussed plan of care with ED physician and bedside nurse. I have reviewed labs, chest xray, and previous medical notes. CODE: Full Proxy: Mago Bai, daughter [facility] Meds 'Current medications' to include all prescriptions, [id number] products, herbals, cannabis/cannabidiol products, and vitamin/mineral/dietary (nutritional) supplements. I have utilized all available resources to obtain, update, or review the patient?s current medications. [If Yes, STOP here]: Yes
--- NOTE | 2023-01-02 06:10 | PC.WOUNDPHOT ---
approx 0.25 x 0.25 cm tender, reddened indentation on the interior aspect of the R 4th toe. Small amount of serosanguinous exudate present. Pt states that this wound developed about 1 month ago, after surgery on the 3rd toe something has been rubbing Pt's PCP is aware and monitoring.
[2023-01-02] MEDS: ALBUTEROL/IPRATROPIUM 3 ML AMPUL INH ×5 (07:47→22:56)
[2023-01-02] MEDS: BUDESONIDE 0.5 MG/2 ML NEB INH ×2 (07:47→19:22)
[2023-01-02] MEDS: ENOXAPARIN 40 MG/0.4 ML SYRINGE SUBCUT (08:54)
[2023-01-02] MEDS: SODIUM CHLORIDE 0.9% 1,000 ML 100 ML IV (08:55)
[2023-01-02] MEDS: INSULIN LISPRO 100 UNIT/ML 3ML VIAL SUBCUT ×4 (08:56→21:52)
--- NOTE | 2023-01-02 10:57 | CM.DANOTE ---
DCP: Case received, EMR reviewed and met with patient. Introduced self and role. Was able to obtain information regarding patient's baseline activity status prior to hospitalization, as well as her current living situation. DCP assessment completed with information currently available. Patient is an 87 year old female who admitted yesterday evening to the care of the hospitalist team. PCP: Dr. Orantes. Payer: confirmed: Medicare/[employer]. Patient came to the hospital via private vehicle secondary to a non-productive cough, and some shortness of breath. Patient had received a neb treatment in the ER. Patient was diagnosed with bilaeral pneumonia secondary to parainfluenza virus. Patient has history of COPD, is not on oxygen atbaseline. Met with patient in her room. She is pleasant, alert and oriented, and resides in [place] alone. At her baseline, she is independent, drives, uses a cane as needed. Has a daughter, Mago, in the area, and other family members in [place]. P: DCP to continue to follow. Patient should be able to go home when medically stable. Harriett Pritchett RN/Delivery Rep Discharge Planning/Care Management Advanced directive, confirm from FAMILY Start: 01/01/23 22:59 Freq: Q24H Status: Active Protocol: Document 01/01/23 22:42 CT (Rec: 01/02/23 00:21 CT [id number]) Advance Directive, confirm on record Time 23:30 Person contacted Patient Copy received No CM Discharge Assessment Start: 01/02/23 10:56 Freq: Status: Active Protocol: Document 01/02/23 10:56 (Rec: 01/02/23 10:57 [id number]) Discharge Planning Assessment Assigned Primary Care Provider Harriett Pritchett RN/Delivery Rep Advance Directives? Yes Advance Directives on File No History Provided By Patient,Family Member,Medical Record Prior Living Arrangements Apartment/Condo Household Members none Type of transporation used prior to Drives own vehicle admit Independent with ADL's Yes Is patient alert and oriented? Yes Caregiver for Another No DME Already Rented / Owned Cane Barriers to Discharge No Discharge Plan Home Transportation Arrangement Family Referrals Initiated None needed Whiteboard Updated in Patient Room with Yes name and ext. # of Primary Care Provider Review Status In Process Next Review Type Continued Stay Review
--- NOTE | 2023-01-02 15:31 | P.PN_ITS ---
Subjective Subjective Interval history: Patient feeling better but still SOB with exertion. Exam Vital Signs (past 8 hours): - 01/02/23 07:59 01/02/23 08:00 01/02/23 12:00 Temperature 97.7 F Pulse Rate 88 83 Respiratory Rate 18 16 Blood Pressure 158/84 H 143/70 H Pulse Oximetry 94 93 96 Oxygen Delivery Method Room Air Oxygen Flow Rate 0 0 Fraction of Inspired Oxygen 21 SaO2/FiO2 Ratio 457 Oxygen Delivery Method Room Air Oxygen Flow Rate 0 Narrative Exam Narrative: GEN: NAD HEENT: moist mucous membranes, PERRL NECK: trachea midline, no jVD PULM: improved wheezes bilaterally, poor air movement CV: regular rate and rhythm, no murmurs ABD: soft, nontender, nondistended, no organomegaly EXT: warm and well perfused with no edema NEURO: awake, alert, oriented, with no focal deficits Objective Labs 01/02/23 02:14 01/02/23 02:14 Labs: Laboratory Results - last 24 hr 01/01/23 01/01/23 01/01/23 19:20 19:20 19:20 WBC 8.0 RBC 4.17 Hgb 12.3 Hct 36.9 MCV 88.6 MCH 29.6 MCHC 33.4 RDW 14.3 Plt Count 307 Neut % (Auto) 71.3 Lymph % (Auto) 13.5 L [place] % (Auto) 13.5 Eos % (Auto) 0.6 L Baso % (Auto) 1.1 Neut # (Auto) 5700 Lymph # (Auto) 1100 [place] # (Auto) 1100 H Eos # (Auto) 0 Baso # (Auto) 100 PT 11.9 INR 1.0 APTT 29 Sodium 134 L Potassium 3.6 Chloride 97 L Carbon Dioxide 27 BUN 23 H Creatinine 0.89 Estimated GFR > 60 BUN/Creatinine Ratio 25.8 H Glucose 209 H Lactate Calcium 9.9 Total Bilirubin 0.7 AST 25 ALT 19 Alkaline Phosphatase 71 Total Creatine Kinase CK-MB (CK-2) CK-MB (CK-2) Rel Index Troponin I NT-Pro-B Natriuret Pep Total Protein 7.7 Albumin 4.2 Globulin 3.5 Albumin/Globulin Ratio 1.2 Lipase 81 Procalcitonin 0.09 Urine Color Urine Appearance Urine pH Ur Specific [place] Urine Protein Urine Glucose (UA) Urine Ketones Urine Occult Blood Urine Nitrate Urine Bilirubin Urine Urobilinogen Ur Leukocyte Esterase Urine RBC Urine WBC Ur Squamous Epith Cells Urine Bacteria Urine Yeast Ur Culture Indicated? Chlamy pneumoniae PCR Adenovirus (PCR) B. pertussis DNA (PCR) B.parapertussis DNA PCR Coronavirus OC43 (PCR) Coronavirus HKU1 (PCR) Coronavirus 229E (PCR) SARS-CoV-2 (PCR) Coronavirus NL63 (PCR) Human Metapneumovir PCR Influenza Type A (PCR) Influenza Type B (PCR) M. pneumoniae (PCR) Parainfluenza 1 (PCR) Parainfluenza 2 (PCR) Parainfluenza 3 (PCR) Parainfluenza 4 (PCR) RSV (PCR) Entero/Rhino (PCR) 01/01/23 01/01/23 01/01/23 19:20 19:20 19:30 WBC RBC Hgb Hct MCV MCH MCHC RDW Plt Count Neut % (Auto) Lymph % (Auto) [place] % (Auto) Eos % (Auto) Baso % (Auto) Neut # (Auto) Lymph # (Auto) [place] # (Auto) Eos # (Auto) Baso # (Auto) PT INR APTT Sodium Potassium Chloride Carbon Dioxide BUN Creatinine Estimated GFR BUN/Creatinine Ratio Glucose Lactate 3.0 H Calcium Total Bilirubin AST ALT Alkaline Phosphatase Total Creatine Kinase 84 CK-MB (CK-2) TNP CK-MB (CK-2) Rel Index TNP Troponin I 0.013 NT-Pro-B Natriuret Pep 1790 H Total Protein Albumin Globulin Albumin/Globulin Ratio Lipase Procalcitonin Urine Color Urine Appearance Urine pH Ur Specific [place] Urine Protein Urine Glucose (UA) Urine Ketones Urine Occult Blood Urine Nitrate Urine Bilirubin Urine Urobilinogen Ur Leukocyte Esterase Urine RBC Urine WBC Ur Squamous Epith Cells Urine Bacteria Urine Yeast Ur Culture Indicated? Chlamy pneumoniae PCR Not detected Adenovirus (PCR) Not detected B. pertussis DNA (PCR) Not detected B.parapertussis DNA PCR Not detected Coronavirus OC43 (PCR) Not detected Coronavirus HKU1 (PCR) Not detected Coronavirus 229E (PCR) Not detected SARS-CoV-2 (PCR) Not detected Coronavirus NL63 (PCR) Not detected Human Metapneumovir PCR Not detected Influenza Type A (PCR) Not detected Influenza Type B (PCR) Not detected M. pneumoniae (PCR) Not detected Parainfluenza 1 (PCR) Not detected Parainfluenza 2 (PCR) Not detected Parainfluenza 3 (PCR) Detected H Parainfluenza 4 (PCR) Not detected RSV (PCR) Not detected Entero/Rhino (PCR) Not detected 01/01/23 01/01/23 01/02/23 21:00 21:45 02:14 WBC 6.6 RBC 3.82 L Hgb 11.4 L Hct 33.6 L MCV 88.0 MCH 29.9 MCHC 33.9 RDW 14.4 Plt Count 293 Neut % (Auto) 86.0 H Lymph % (Auto) 11.8 L [place] % (Auto) 1.7 L Eos % (Auto) 0.0 L Baso % (Auto) 0.5 Neut # (Auto) 5700 Lymph # (Auto) 800 L [place] # (Auto) 100 Eos # (Auto) 0 Baso # (Auto) 0 PT INR APTT Sodium Potassium Chloride Carbon Dioxide BUN Creatinine Estimated GFR BUN/Creatinine Ratio Glucose Lactate 4.3 H* Calcium Total Bilirubin AST ALT Alkaline Phosphatase Total Creatine Kinase CK-MB (CK-2) CK-MB (CK-2) Rel Index Troponin I NT-Pro-B Natriuret Pep Total Protein Albumin Globulin Albumin/Globulin Ratio Lipase Procalcitonin Urine Color Yellow Urine Appearance Clear Urine pH 5.5 Ur Specific [place] 1.025 Urine Protein Negative Urine Glucose (UA) Negative Urine Ketones Negative Urine Occult Blood Negative Urine Nitrate Negative Urine Bilirubin Negative Urine Urobilinogen 0.2 Ur Leukocyte Esterase 1+ H Urine RBC None seen Urine WBC 1-5/hpf Ur Squamous Epith Cells 1-5 /hpf Urine Bacteria Few (2-10) H Urine Yeast 10-30/hpf H Ur Culture Indicated? Specimen cultured Chlamy pneumoniae PCR Adenovirus (PCR) B. pertussis DNA (PCR) B.parapertussis DNA PCR Coronavirus OC43 (PCR) Coronavirus HKU1 (PCR) Coronavirus 229E (PCR) SARS-CoV-2 (PCR) Coronavirus NL63 (PCR) Human Metapneumovir PCR Influenza Type A (PCR) Influenza Type B (PCR) M. pneumoniae (PCR) Parainfluenza 1 (PCR) Parainfluenza 2 (PCR) Parainfluenza 3 (PCR) Parainfluenza 4 (PCR) RSV (PCR) Entero/Rhino (PCR) 0401/02/23 01/02/23 02:14 02:14 04:26 WBC RBC Hgb Hct MCV MCH MCHC RDW Plt Count Neut % (Auto) Lymph % (Auto) [place] % (Auto) Eos % (Auto) Baso % (Auto) Neut # (Auto) Lymph # (Auto) [place] # (Auto) Eos # (Auto) Baso # (Auto) PT INR APTT Sodium 134 L Potassium 3.8 Chloride 99 Carbon Dioxide 26 BUN 20 H Creatinine 0.77 Estimated GFR > 60 BUN/Creatinine Ratio 26.0 H Glucose 184 H Lactate 2.3 H 1.6 Calcium 9.2 Total Bilirubin AST ALT Alkaline Phosphatase Total Creatine Kinase CK-MB (CK-2) CK-MB (CK-2) Rel Index Troponin I NT-Pro-B Natriuret Pep Total Protein Albumin Globulin Albumin/Globulin Ratio Lipase Procalcitonin Urine Color Urine Appearance Urine pH Ur Specific [place] Urine Protein Urine Glucose (UA) Urine Ketones Urine Occult Blood Urine Nitrate Urine Bilirubin Urine Urobilinogen Ur Leukocyte Esterase Urine RBC Urine WBC Ur Squamous Epith Cells Urine Bacteria Urine Yeast Ur Culture Indicated? Chlamy pneumoniae PCR Adenovirus (PCR) B. pertussis DNA (PCR) B.parapertussis DNA PCR Coronavirus OC43 (PCR) Coronavirus HKU1 (PCR) Coronavirus 229E (PCR) SARS-CoV-2 (PCR) Coronavirus NL63 (PCR) Human Metapneumovir PCR Influenza Type A (PCR) Influenza Type B (PCR) M. pneumoniae (PCR) Parainfluenza 1 (PCR) Parainfluenza 2 (PCR) Parainfluenza 3 (PCR) Parainfluenza 4 (PCR) RSV (PCR) Entero/Rhino (PCR) [facility] Medical History Breast cancer (~1981) Cataract Chicken pox Chronic back pain COPD (chronic obstructive pulmonary disease) Diabetes Diastolic dysfunction Diverticular disease Edema GERD (gastroesophageal reflux disease) Hay fever High blood triglycerides Hyperglycemia Hyperglyceridemia Hyperlipidemia Hypertension Lumbar back pain Measles Mumps Neuropathy Skin cancer (~2011) Surgical History Anesthesia History of mastectomy (~09/1981) Status post hysterectomy Family History Mother Brain aneurysm Sister Age: 84 Cancer of breast Lung cancer Daughter Cancer of breast Father No problems noted. Social History household members: none Smoking Status: Former smoker alcohol intake: former Assessment & Plan Assessment & Plan narrative: 1. Acute COPD exacerbation from viral pneumonia and possible superimposed bacterial pneumonia, improving -she presented with respiratory distress, with wheezing consistent with COPD exacerbation -wheezing and resp distress improving -chest xray consistent with pneumonia given infiltrates -may be viral as has parainfluenza positive, but given severity of presentation will cover with antibiotics for bacterial pneumonia -procal of 0.09 indicates against bacterial infection, if she improves may be able to stop antibiotics and treat for viral pneumonia with COPD -for now continue with steroids, nebs, ceftriaxone and azithromycin -follow up cultures 2. Type 2 Diabetes -not on insulin -hold oral medications -placed on insulin sliding scale 3. Hypertension -continue home propranolol and lisinopril, holding HCTZ due to mild low sodium 4. Anxiety -home xanax PRN CODE: Full Proxy: Mago Bai, daughter Dispo: Home on 01/03.
[2023-01-02] MEDS: cefTRIAXone 1,000 MG in SODIUM CHLORIDE 0.9% 100 ML 200 MG IV (20:16)
[2023-01-02] MEDS: AZITHROMYCIN 500 MG in DEXTROSE 5% IN WATER 250 ML 250 MG IV (21:38)
[2023-01-03] VITALS (9 sets, daily range): BP systolic 142–181; BP diastolic 77–99; PULSE 87–106; RESP 14–20; TEMP 36.1–36.6; O2SAT 92–97
[2023-01-03] MEDS: methylPREDNISolone 125 MG/2 ML VIAL 60 MG IV (01:33)
[2023-01-03] MEDS: PANTOPRAZOLE DR 20 MG TABLET PO (06:35)
[2023-01-03] MEDS: ALBUTEROL/IPRATROPIUM 3 ML AMPUL INH ×2 (08:18→11:06)
[2023-01-03] MEDS: BUDESONIDE 0.5 MG/2 ML NEB INH (08:18)
[2023-01-03] MEDS: INSULIN LISPRO 100 UNIT/ML 3ML VIAL SUBCUT (08:42)
[2023-01-03] MEDS: PROPRANOLOL 10 MG TABLET 40 MG PO (08:48)
[2023-01-03] MEDS: lisinopriL 20 MG TABLET PO (08:48)
[2023-01-03] MEDS: ENOXAPARIN 40 MG/0.4 ML SYRINGE SUBCUT (08:49)
[2023-01-03] MEDS: ALPRAZolam 0.25 MG TABLET PO (08:58)
--- NOTE | 2023-01-03 10:19 | P.DS_ITS ---
History of Present Illness History of Present Illness Date Patient Seen: 01/01/23 Time Patient Seen: 22:00 Chief complaint: SOB/cold symtoms, worsening Narrative: Ms. Harmon is a 87W with PMH COPD not on oxygen, DM, HTN, anxiety who presents to the hospital with shortness of breath. She has noted that for a few days she has noted a cough with minimal sputum production, shortness of breath, and feeling wheezing. She is using her albuterol inhalers. She has no known sick contacts. No fevers/chills. No chest pain. In the ED workup was done, vitals notable for afebrile, heart rate 100s, respiratory rate 20s, blood pressure 180s/90s. Sats 92-94% on room air. Labs reviewed by me and notable for WBC 8.0, hgb 12.3, plts 307. INR 1.0. Creatinine 0.89. Procal 0.09. Lactate 3.0->4.3->2.3->1.8. BNP 1790. Respiratory panel positive for parainfluenza. Chest xray reviewed by me and notable for bilateral consolidation. She was ordered for steroids, nebs, and antibiotics and admitted for further treatment. Discharge Providers Provider Date of admission: 01/01/23 20:52 Discharge Date: 01/03/23 Primary care physician: Spencer Orantes DO Consults: 01/03/23 08:11 Consult to Physical Therapy Evaluate & Treat Comment: Physician Instructions: Evaluate and Treat Discharge provider: Qasim Odonnell DO Summary Hospital Course Discharge Diagnosis: 1. Acute COPD exacerbation from viral pneumonia and possible superimposed bacterial pneumonia, improving -she presented with respiratory distress, with wheezing consistent with COPD exacerbation -wheezing and resp distress improving -chest xray consistent with pneumonia given infiltrates -may be viral as has parainfluenza positive, but given severity of presentation will cover with antibiotics for bacterial pneumonia -procal of 0.09 indicates against bacterial infection, if she improves may be able to stop antibiotics and treat for viral pneumonia with COPD -for now continue with steroids, nebs, ceftriaxone and azithromycin -blood and urine cultures negative 2. Type 2 Diabetes -not on insulin -hold oral medications -placed on insulin sliding scale 3. Hypertension -continue home propranolol and lisinopril, holding HCTZ due to mild low sodium 4. Anxiety -home xanax PRN Hospital Course: Admitted for worsening dyspnea from parainfluenza. CXR showed bilateral lower lobe infiltrates so started on abx for CAP. Also had wheezing on exam so steroids given. Improved and able to dc home on po abx and prednisone. Exam Vital Signs (past 8 hours): - 01/03/23 03:35 01/03/23 03:47 01/03/23 08:18 Temperature 97.7 F Pulse Rate 106 H 91 H Respiratory Rate 18 16 Blood Pressure 181/99 H 150/85 H Pulse Oximetry 97 94 Oxygen Delivery Method Room Air Oxygen Flow Rate 0 01/03/23 08:48 01/03/23 08:15 Temperature 97.0 F L Pulse Rate 102 H 102 H Respiratory Rate 16 Blood Pressure 178/89 H 178/89 H Pulse Oximetry 94 Oxygen Delivery Method Oxygen Flow Rate 0 Fraction of Inspired Oxygen 21 SaO2/FiO2 Ratio 457 Oxygen Delivery Method Room Air Oxygen Flow Rate 0 Narrative Exam Narrative: GEN: NAD HEENT: moist mucous membranes, PERRL NECK: trachea midline, no jVD PULM: clear bilaterally CV: regular rate and rhythm, no murmurs ABD: soft, nontender, nondistended, no organomegaly EXT: warm and well perfused with no edema NEURO: awake, alert, oriented, with no focal deficits Objective Labs 01/02/23 02:14 01/02/23 02:14 [facility] Medical History Breast cancer (~1981) Cataract Chicken pox Chronic back pain COPD (chronic obstructive pulmonary disease) Diabetes Diastolic dysfunction Diverticular disease Edema GERD (gastroesophageal reflux disease) Hay fever High blood triglycerides Hyperglycemia Hyperglyceridemia Hyperlipidemia Hypertension Lumbar back pain Measles Mumps Neuropathy Skin cancer (~2011) Surgical History Anesthesia History of mastectomy (~09/1981) Status post hysterectomy Family History Mother Brain aneurysm Sister Age: 84 Cancer of breast Lung cancer Daughter Cancer of breast Father No problems noted. Social History household members: none Smoking Status: Former smoker alcohol intake: former Discharge Plan Discharge Plan Patient Disposition: Home Provider Discharge Comment: You were admitted for worsening breathing from the virus parainfluenza. You also may have a pneumonia on your chest xray so you will be on antibiotics and some steroids for the next few days at home. Discharge orders & Medications Prescriptions: New azithromycin 500 mg tablet 500 mg PO DAILY 1 Days Qty: 1 0RF Rx Instructions: take on 01/04 amoxicillin-pot clavulanate 875-125 mg tablet 1 tab PO BID 3 Days Qty: 6 0RF Rx Instructions: start on 01/04 prednisone 20 mg tablet 40 mg PO DAILY 3 Days Qty: 6 0RF Rx Instructions: start on 01/04 Continued Disabled Parking Permit See Rx Instructions .Route .COMPLEX Qty: 1 0RF Rx Instructions: I find this patient to be medically disabled and qualify for disabled parking as indicated and signed on the accompanying disabled parking application for individuals. lisinopril-hydrochlorothiazide 20-25 mg tablet See Rx Instructions .ROUTE .COMPLEX Qty: 90 3RF Dose Instruction: TAKE ONE TABLET BY MOUTH ONE TIME DAILY Rx Instructions: TAKE ONE TABLET BY MOUTH ONE TIME DAILY propranolol 40 mg tablet 40 mg PO BID Qty: 180 3RF omeprazole 20 mg capsule,delayed release(DR/EC) See Rx Instructions .ROUTE .COMPLEX Qty: 90 0RF Dose Instruction: TAKE ONE CAPSULE BY MOUTH ONE TIME DAILY Rx Instructions: TAKE ONE CAPSULE BY MOUTH ONE TIME DAILY alprazolam 0.25 mg tablet 0.25 mg PO ONCE PRN (Reason: anxiety) Qty: 20 1RF albuterol sulfate [Ventolin HFA] 90 mcg/actuation HFA aerosol inhaler 2 puff INHALATION Q4-6H PRN (Reason: shortness of breath or wheezing) Qty: 8 5RF metformin 500 mg tablet 500 mg PO BID Qty: 180 3RF One Daily Women 50 Plus 400-120 mcg-mg tablet See Rx Instructions .ROUTE .COMPLEX Rx Instructions: One daily fluticasone propion-salmeterol 250-50 mcg/dose blister with device 0.5 inh inhalation BID Follow up/Referrals: Spencer Orantes, [Primary Care Provider] - 2 Weeks Visit Report/Discharge Packet Stand Alone Forms: Patient Portal/API, Stroke Signs & Symptoms Discharge Data Primary Care Provider: Spencer Orantes
--- NOTE | 2023-01-03 10:54 | CM.DPC ---
DCP Discharge Home Per MD, pt has made progress and medically stable to d/c home and no identified barriers to discharge. Per PT, pt was able to ambulate the halls and somewhat SOB after a few laps but safe to d/c home and manage her home environment. Pt has supportive local Dtr. Plan: Patient to d/c home via family POV today and no further SW needs at this time. GYPSY Guerrero
--- NOTE | 2023-01-03 11:17 | PT.IIE ---
Current Diagnoses Pneumonia, unspecified organism (01/01/23) Surgical History (Last Reviewed 01/02/23 @ 05:59 by Alonso Barajas MD) Anesthesia History of mastectomy (~09/1981) Status post hysterectomy Medical History (Last Reviewed 01/02/23 @ 05:59 by Alonso Barajas MD) Breast cancer (~1981) Cataract Chicken pox Chronic back pain COPD (chronic obstructive pulmonary disease) Diabetes Diastolic dysfunction Diverticular disease Edema GERD (gastroesophageal reflux disease) Hay fever High blood triglycerides Hyperglycemia Hyperglyceridemia Hyperlipidemia Hypertension Lumbar back pain Measles Mumps Neuropathy Skin cancer (~2011) Physical Therapy Inpatient Evaluation/Re-Eval M1 PT/OT-IP Prior Functional Status Start: 01/03/23 11:08 Freq: NEEDED Status: Active Protocol: Document 01/03/23 11:09 ES (Rec: 01/03/23 11:17 ES [id number]) Medical Review Prior Functional Status Medical History Reviewed Yes Communication WFL Mobility and Gait Independent with 4WW/FWW; was walking several laps in the halls of her apartment up until she became sick. Activities of Daily Living and IADL's Independent Social History Household Members none Living Arrangements Apartment/Condo Number of Floors (Floors) One Floor Number of Stairs To Enter/Railing? 0 (has elevator) Home Equipment Front Wheel Walker,Four Wheel Walker Additional Social History Comment Adult children live in the area M2 PT-IP Current Condition Start: 01/03/23 11:08 Freq: NEEDED Status: Active Protocol: Document 01/03/23 11:09 ES (Rec: 01/03/23 11:17 ES [id number]) Physical Therapy Current Condition Current Condition Evaluation Date 01/03/23 Treatment Diagnosis COPD exacerbation, pneumonia Onset Date 01/01/23 M3 PT-IP Subjective Start: 01/03/23 11:08 Freq: NEEDED Status: Active Protocol: Document 01/03/23 11:09 ES (Rec: 01/03/23 11:17 ES [id number]) Subjective Physical Therapy Visit Type Type Initial Evaluation Visit Start Time 09:25 Visit Stop Time 09:41 Total Visit Minutes 16 Physical Therapy Visit Comments Patient Comments Patient reported she has been experiencing shaking from taking the steroid medication that is affecting her ability to hold her hands steady to eat, and that she feels high . Otherwise feeling better and agreeable to work with PT. Patient Goals To return home, to feel better . Therapy Pain Assessment Pain Present Pain Present Denied Pain M4 PT-IP Mobility and Gait Start: 01/03/23 11:08 Freq: NEEDED Status: Active Protocol: Document 01/03/23 11:09 ES (Rec: 01/03/23 11:17 ES [id number]) PT-Bed Mobility Assessment Supine to Sit Supine to Sit Independent Sit to Supine Sit to Supine Independent Scooting Scooting to Edge of Bed Independent Scooting Up and Down in Bed Independent PT-Transfer Assessment Sit to and From Stand Sit to and from Stand Independent,Use of Upper Extremities Equipment Transfer Assistive Device Gait Belt,Front Wheeled Walker Transfers Transfer Destination Bed,Chair Transfer Technique Stand Step Pivot Transfer Ability Level of Assist Independent,Use of Upper Extremities Comments Mobility Comments Cued for keeping walker in front of her prior to sitting to reduce fall risk. Gait Assessment Gait Gait Assistance Required: Independent Distance (Feet) 80 Assistive Devices Assistive Device Gait Belt,Front Wheeled Walker Gait Deviations General Gait Pattern Decreased Stride Length,Flexed Trunk Comments Gait Comments Patient reported some shortness of breath after ambulation, requiring seated rest break after 80 ft. Stair Climbing Assessment Comments Stair Climbing Comments No stairs at baseline. PT-Balance Assessment Sitting Balance and Reactions Static Sitting Balance Ability Good Dynamic Sitting Balance Ability Good Standing Balance and Reactions Static Standing Balance Ability Good Dynamic Standing Balance Ability Good Device Used FWW M5 PT-IP Objective Assessments Start: 01/03/23 11:08 Freq: NEEDED Status: Active Protocol: Document 01/03/23 11:09 ES (Rec: 01/03/23 11:17 ES [id number]) Orientation Orientation/Cognition Level of Alertness Alert Orientation Name,Age,Birthday,Month,Date, Year,Day of Week,Place, Situation Language Function Ability No Deficits Noted Safety Awareness Understands Safety Issues Memory Description No Deficits Noted Gross Range of Motion Upper Extremity ROM Assessment Within Functional Limits Lower Extremity ROM Assessment Within Functional Limits Strength Upper Extremity Strength Assessment Within Functional Limits Lower Extremity Strength Assessment Within Functional Limits Coordination Assessment Gross Coordination Gross Coordination WNL Muscle Tone Muscle Tone WNL Yes M6 PT-IP Treatment Start: 01/03/23 11:08 Freq: NEEDED Status: Active Protocol: Document 01/03/23 11:09 ES (Rec: 01/03/23 11:17 ES [id number]) Physical Therapy Treatment Education Education Provided Safety M7 PT-IP Assessment and Plan Start: 01/03/23 11:08 Freq: NEEDED Status: Active Protocol: Document 01/03/23 11:09 ES (Rec: 01/03/23 11:17 ES [id number]) PT Summary Assessment and Plan Potential Rehabilitation Potential Good Status of Condition at Evaluation Stable Summary Impairments Activity Tolerance Assessment Summary Patient is a 87 year old female who presents with impaired functional mobility due to the above impairments. Patient was able to participate in bed mobility, transfers, and gait for household distances with her own FWW at independent level, though her ambulation distance was less than her baseline. She was able to manage shortness of breath with seated rest break, and demonstrated good understanding of energy conservation and need for slow increase in activity as she feels better at home. No concerns for her to return home independently at this time. Frequency of Treatment Frequency Of Treatment Discharge Recommendations To Nursing Amount of Assist Needed Independent Discharge Recommendations PT Discharge Recommendations Home Transportation Needs at Discharge Private Vehicle
[2023-01-03] MEDS: AZITHROMYCIN 250 MG TABLET 500 MG PO (11:56)
[2023-01-03] MEDS: cefTRIAXone 1,000 MG in SODIUM CHLORIDE 0.9% 100 ML 200 MG IV (11:57)
--- NOTE | 2023-01-03 14:41 | PC.NURSE ---
Pt is A&OX4, VSS, afebrile on RA.Initially SBP elevated in 170's, she is given scheduled antihypertensive medications and SBP significantly improved. She also was given PRN Xanax. per request for anxiety and shaking, observed as a side effect from steroids. She reports feeling much better and more like herself upon reassessment after Xanax. BG is 180-190, she is covered with SSI, but prefers to take metformin when she discharges home this afternoon. She verbalizes understanding of discharge plan, to return to ER if SOB symptoms worsening,medications, activity and follow up with her primary care doctor in 2 weeks. She is escorted via w/ch with all personal belongings to private vehicle with daughter and daughter's spouse to private vehicle for discharge home this afternoon at approximately 1330.
== END 2023-01-03 13:37 | disposition home or self-care (01) | DRG 194 ==
LOC: ED 20:46 → AC 20:52
PROVIDERS: Admitting Provider Internal Medicine; Emergency Provider Emergency Medicine; PCP Family Medicine; Referring Provider Emergency Medicine; Visit Provider Internal Medicine
DX: J18.9 Pneumonia, unspecified organism (principal); J44.1 Chronic obstructive pulmonary disease with (acute) exacerbation; E11.9 Type 2 diabetes mellitus without complications; I10 Essential (primary) hypertension; F41.9 Anxiety disorder, unspecified; R06.03 Acute respiratory distress; K21.9 Gastro-esophageal reflux disease without esophagitis; B34.8 Other viral infections of unspecified site; Z87.891 Personal history of nicotine dependence; Z79.84 Long term (current) use of oral hypoglycemic drugs; Z20.822 Contact with and (suspected) exposure to COVID-19
CPT/HCPCS: 36415; 71045; 80048; 80053; 81001; 82550; 82962; 83605; 83690; 83880; 84145; 84484; 85025; 85610; 85730; 87040; 87086; 87633; 93005; 93010; 94640; 94760; 96365; 96367; 96375; 97161; 99285; J0696; J1650; J1815; J2930

== ENCOUNTER → 2023-01-25 08:21 | Outpatient (CLI) | payer MEDICARE, SELFPAY ==
[2023-01-01 22:45] VITALS: BMI 22.3
--- NOTE | 2023-01-25 08:24 | DI.RAD.S_ITS ---
PROCEDURE: XR CHEST 2V INDICATIONS: Eval pneumonia TECHNIQUE: 2 views of the chest were acquired. COMPARISON: [facility], CR, XR CHEST 1V, 01/01/2023, 19:18. [facility], CR, XR CHEST 1V, 08/31/2021, 17:47. FINDINGS: Surgical changes and devices: Spine fixation hardware. Clips in the upper abdomen. Lungs and pleura: Apparent hazy opacity at the right lower lobe. No silhouetting appreciated. Minimal hazy opacity at the left lower lobe. No pleural effusions or pneumothorax. Mediastinum: Mediastinal contours are unchanged. Asymmetric elevation of the right hemidiaphragm. Heart size is normal. Bones and chest wall: No suspicious bony abnormalities. Small ossicles adjacent to the right glenohumeral joint. Soft tissues appear unremarkable. IMPRESSION: Possible opacity at the right lower lobe. However, this could be artifactual due to changes of in the overlying breast tissue. Minimal hazy opacity at the left lung base. Favor atelectasis. If clinically indicated CT of the chest could be considered for further evaluation. Dictated by: Arnaldo Walker M.D. on 01/25/2023 at 9:40 Approved by: Arnaldo Walker M.D. on 01/25/2023 at 9:43
[2023-01-25 09:25] LABS: Add Manual Diff / Slide Review NO; Basophils Absolute Auto 100 /uL (0-100); Basophils Percent Auto 0.7 % (0-2); Eosinophils Absolute Auto 400 /uL (0-450); Eosinophils Percent Auto 4.4 % (2-4); Hematocrit 36.8 % (36-46); Hemoglobin 12.3 g/dL (12.0-16.0); Lymphocytes Absolute Auto 1700 /uL (1100-4500); Lymphocytes Percent Auto 20.7 % (25-40); Mean Corpuscular HGB Conc 33.3 % (30-36); Mean Corpuscular Hemoglobin 29.9 PG (26-34); Mean Corpuscular Volume 89.8 fL (80-100); Monocytes Absolute Auto 500 /uL (0-900); Monocytes Percent Auto 6.5 % (3-14); Neutrophils Absolute Auto 5600 /uL (1500-7000); Neutrophils Percent Auto 67.7 % (50-75); Platelet Count 280 X10^3/uL (150-400); Red Cell Distribution Width 14.4 % (11.6-14.8); White Blood Cell Count 8.3 X10^3/uL (4.5-11.0)
[2023-01-25 09:31] LABS: Alanine Aminotransferase 17 IU/L (<35); Albumin 3.9 g/dL (3.5-5.0); Albumin Globulin Ratio 1.3 (1.0-2.8); Alkaline Phosphatase 58 U/L (38-126); Aspartate Aminotransferase 18 IU/L (14-36); BUN Creatinine Ratio 21.6 (6-22); Bilirubin Total 0.3 mg/dL (0.2-1.3); Blood Urea Nitrogen 19 mg/dL (7-17); Calcium 9.9 mg/dL (8.4-10.2); Carbon Dioxide 31 mmol/L (22-32); Chloride 100 mmol/L (98-107); Estimated Glomerular Filt Rate > 60 mL/min (>60); Globulin 2.9 g/dL (1.7-4.1); Glucose 132 mg/dL (80-110); HEMOLYSIS < 15 (0-50); Potassium 4.1 mmol/L (3.4-5.1); Sodium 138 mmol/L (137-145); Total Protein 6.8 g/dL (6.3-8.2)
[2023-01-25 10:18] LABS: Thyroid Stimulating Hormone 2.55 uIU/mL (0.47-4.68)
[2023-01-25 10:22] LABS: Creatinine Urine Random 339.5 mg/dL
[2023-01-25 10:27] LABS: Microalbumin Urine Random 4.1 mg/dL (0-1.6)
[2023-01-26 02:32] LABS: x Labcorp Estim. Avg Glu (eAG) 146 mg/dL (.); x Labcorp Hemoglobin A1c 6.7 % (4.8-5.6)
== END ==
PROVIDERS: Family Medicine; PCP Family Medicine; Referring Provider Family Medicine; Visit Provider Family Medicine
DX: J18.9 Pneumonia, unspecified organism (principal); E78.1 Pure hyperglyceridemia; R91.8 Other nonspecific abnormal finding of lung field
CPT/HCPCS: 36415; 71046; 80053; 82043; 82570; 83036; 84443; 85025

== ENCOUNTER 2023-04-01 07:44 | Emergency (ER) | payer MEDICARE, SELFPAY ==
[2023-01-01 22:45] VITALS: BMI 22.3
[2023-04-01] VITALS (10 sets, daily range): BP systolic 150–186; BP diastolic 70–85; PULSE 71–81; RESP 16–18; TEMP 36.2–36.7; O2SAT 96–98; BMI 22.8
--- NOTE | 2023-04-01 07:56 | DI.RAD.S_ITS ---
PROCEDURE: XR CHEST 2V INDICATIONS: cough, congestion, h/o PNA 3 mo ago TECHNIQUE: 2 views of the chest were acquired. COMPARISON: [facility], CR, XR CHEST 2V, 01/25/2023, 8:30. FINDINGS: Surgical changes and devices: None. Lungs and pleura: Chronic emphysematous changes are seen. No focal infiltrate. No pleural effusions or pneumothorax. Mediastinum: Mediastinal contours are normal. Heart size is enlarged. Bones and chest wall: No suspicious bony abnormalities. Soft tissues appear unremarkable. IMPRESSION: Cardiomegaly and COPD. No acute cardiopulmonary pathology. Dictated by: Harjit Lombardi M.D. on 04/01/2023 at 8:21 Approved by: Harjit Lombardi M.D. on 04/01/2023 at 8:22
[2023-04-01 08:43] LABS: Influenza A - CEPHEID Flu A NEGATIVE (NEGATIVE); Influenza B - CEPHEID Flu B NEGATIVE (NEGATIVE); Respiratory Syncytial Virus Negative (Negative)
[2023-04-01 08:51] LABS: COVID-19 CEPHEID 4-PLEX PCR Negative (Negative)
--- NOTE | 2023-04-01 09:01 | ED.URI ---
HPI - URI/Sore Throat General Chief Complaint: Upper Respiratory Symptoms Stated Complaint: thinks poss Pneumonia T-2 Time Seen by Provider: 04/01/23 07:57 History of Present Illness HPI Narrative: Patient is a 88-year-old female history of COPD diabetes hypertension hyperlipidemia presenting today with cough and rattling in her lungs. She says she started having some difficulty breathing last night. She denies any orthopnea chest pain. She is worried because she had bilateral pneumonia in December and was admitted here and did not want to wait. She denies fever or chills. No significant peripheral edema. Related Data Home Medications Medication Instructions Recorded Confirmed multivitamin with [id number] See Rx Instructions .Route .COMPLEX 06/21/21 01/28/23 400 mcg-120 mg tablet (One Daily Women 50 Plus) Previous Rx's Medication Instructions Recorded albuterol sulfate 90 mcg/actuation 2 puff inhalation Q4-6H PRN 06/21/22 aerosol inhaler (Ventolin HFA) shortness of breath or wheezing #8 grams alprazolam 0.25 mg tablet 0.25 mg PO ONCE PRN anxiety #20 06/21/22 tabs metformin 500 mg tablet 500 mg PO BID #180 tabs 06/21/22 lisinopril 20 See Rx Instructions .Route 07/09/22 mg-hydrochlorothiazide 25 mg tablet .COMPLEX #90 tabs propranolol 40 mg tablet 40 mg PO BID #180 tabs 11/08/22 Mastectomy Bra #1 ea 02/05/23 fluticasone 250 mcg-salmeterol 50 0.5 inh inhalation BID #60 ea 02/08/23 mcg/dose blistr powdr for inhalation fluticasone furoate 100 1 inh inhalation DAILY #60 ea 02/11/23 mcg-vilanterol 25 mcg/dose inhalation powder (Breo Ellipta) Disabled Parking Permit #1 ea 03/07/23 omeprazole 20 mg capsule,delayed See Rx Instructions .Route 03/11/23 release .COMPLEX #90 caps azithromycin 250 mg tablet See Rx Instructions PO .COMPLEX #6 04/01/23 tabs prednisone 20 mg tablet 40 mg PO DAILY #10 tabs 04/01/23 Allergies Allergy/AdvReac Type Severity Reaction Status Date / Time sulfamethoxazole Allergy Severe Hives, Verified 01/28/23 11:49 [From Bactrim] shortness of breath trimethoprim [From Bactrim] Allergy Severe Hives, Verified 01/28/23 11:49 shortness of breath Review of Systems Review of Systems ROS Unobtainable: All systems reviewed & are unremarkable except as noted in HPI and below Patient History Medical History Breast cancer (~1981) Cataract Chicken pox Chronic back pain COPD (chronic obstructive pulmonary disease) Diabetes Diastolic dysfunction Diverticular disease Edema GERD (gastroesophageal reflux disease) Hay fever High blood triglycerides Hyperglycemia Hyperglyceridemia Hyperlipidemia Hypertension Lumbar back pain Measles Mumps Neuropathy Skin cancer (~2011) Surgical History Anesthesia History of mastectomy (~09/1981) Status post hysterectomy Family History Mother Brain aneurysm Sister Age: 84 Cancer of breast Lung cancer Daughter Cancer of breast Father No problems noted. Social History household members: none Smoking Status: Former smoker alcohol intake: former Smoking Status: Former smoker Substance Use Type: does not use Exam Initial Vital Signs Initial Vital Signs: Vital Signs Temperature 97.1 F L 04/01/23 07:51 Pulse Rate 81 04/01/23 07:51 Respiratory Rate 16 04/01/23 07:51 Blood Pressure 186/85 H 04/01/23 07:51 Pulse Oximetry 96 04/01/23 07:51 Oxygen Delivery Method Room Air 04/01/23 07:51 GENERAL: Alert pleasant 88-year-old female and in no acute distress. HEENT: Head atraumatic,EOMI, pupils reactive, face symmetric, moist mucous membranes CARDIOVASCULAR: Regular rate and rhythm without murmurs, rubs or gallops. RESPIRATORY: Breath sounds equal bilaterally, no wheezes rales or rhonchi. ABDOMEN: Soft, nontender. Normoactive bowel sounds all 4 quadrants. No guarding or rebound. EXTREMITIES: Normal range of motion, no clubbing or edema. Neurovascularly intact NEUROLOGICAL: Alert and oriented x4. SKIN: Warm, dry, no laceration, no petechiae, no rashes or lesions. Course Orders Ordered: Discontinued Medications Albuterol/Ipratropium (Albuterol/Ipratropium 3 Ml Ampul) 3 ml INH NOW ONE Stop: 04/01/23 09:02 Last Admin: 04/01/23 09:31 Dose: 3 ml Documented By: MARY Methylprednisolone (Methylprednisolone 125 Mg/2 Ml Vial) 125 mg IV NOW ONE Stop: 04/01/23 09:02 Last Admin: 04/01/23 09:28 Dose: 125 mg Documented By: BRIAN Vital Signs Vital signs: Vital Signs - 8 hr 04/01/23 07:51 04/01/23 08:26 04/01/23 08:27 Temperature 97.1 F L Pulse Rate 81 81 Respiratory Rate 16 Blood Pressure 186/85 H 175/79 H Pulse Oximetry 96 98 Oxygen Delivery Method Room Air 04/01/23 08:27 04/01/23 08:31 04/01/23 09:32 Temperature 98.0 F Pulse Rate 80 Respiratory Rate 16 Blood Pressure Pulse Oximetry 98 98 Oxygen Delivery Method Room Air 04/01/23 08:30 04/01/23 08:31 04/01/23 08:31 Temperature Pulse Rate 80 79 Respiratory Rate Blood Pressure 150/72 H Pulse Oximetry 97 97 Oxygen Delivery Method 04/01/23 09:00 04/01/23 09:00 04/01/23 09:30 Temperature Pulse Rate 79 Respiratory Rate Blood Pressure 163/78 H 171/74 H Pulse Oximetry 97 Oxygen Delivery Method 04/01/23 09:30 Temperature Pulse Rate 74 Respiratory Rate Blood Pressure Pulse Oximetry 97 Oxygen Delivery Method MDM - URI/Sore Throat Lab Data 04/01/23 09:08 04/01/23 09:08 Labs: Lab Results 04/01/23 04/01/23 04/01/23 Range/Units 08:00 09:08 09:08 WBC 10.1 (4.5-11.0) X10^3/uL RBC 4.12 (4.0-5.2) X10^6/uL Hgb 12.2 (12.0-16.0) g/dL Hct 36.8 (36-46) % MCV 89.3 (80-100) fL MCH 29.7 (26-34) PG MCHC 33.2 (30-36) % RDW 14.8 (11.6-14.8) % Plt Count 256 (150-400) X10^3/uL Neut % (Auto) 77.9 H (50-75) % Lymph % (Auto) 10.8 L (25-40) % [place] % (Auto) 9.6 (3-14) % Eos % (Auto) 1.0 L (2-4) % Baso % (Auto) 0.7 (0-2) % Neut # (Auto) 7900 H (5911-1585) /uL Lymph # (Auto) 1100 (8282-9515) /uL [place] # (Auto) 1000 H (0-900) /uL Eos # (Auto) 100 (0-450) /uL Baso # (Auto) 100 (0-100) /uL Sodium (137-145) mmol/L Potassium (3.4-5.1) mmol/L Chloride (98-107) mmol/L Carbon Dioxide (22-32) mmol/L BUN (7-17) mg/dL Creatinine (0.52-1.04) mg/dL Estimated GFR (>60) mL/min BUN/Creatinine Ratio (6-22) Glucose (80-110) mg/dL Calcium (8.4-10.2) mg/dL Total Bilirubin (0.2-1.3) mg/dL AST (14-36) IU/L ALT (<35) IU/L Alkaline Phosphatase (38-126) U/L Total Creatine Kinase (30-135) U/L Troponin I (0.01-0.034) ng/mL NT-Pro-B Natriuret Pep (<450) pg/mL Total Protein (6.3-8.2) g/dL Albumin (3.5-5.0) g/dL Globulin (1.7-4.1) g/dL Albumin/Globulin Ratio (1.0-2.8) Lipase (23-300) U/L Procalcitonin 0.06 (<0.5) ng/mL SARS-CoV-2 (PCR) Negative (Negative) Influenza A (RT-PCR) Flu a negative (NEGATIVE) Influenza B (RT-PCR) Flu b negative (NEGATIVE) RSV (PCR) Negative (Negative) 04/01/23 Range/Units 09:08 WBC (4.5-11.0) X10^3/uL RBC (4.0-5.2) X10^6/uL Hgb (12.0-16.0) g/dL Hct (36-46) % MCV (80-100) fL MCH (26-34) PG MCHC (30-36) % RDW (11.6-14.8) % Plt Count (150-400) X10^3/uL Neut % (Auto) (50-75) % Lymph % (Auto) (25-40) % [place] % (Auto) (3-14) % Eos % (Auto) (2-4) % Baso % (Auto) (0-2) % Neut # (Auto) (3442-0748) /uL Lymph # (Auto) (3068-2292) /uL [place] # (Auto) (0-900) /uL Eos # (Auto) (0-450) /uL Baso # (Auto) (0-100) /uL Sodium 137 (137-145) mmol/L Potassium 3.6 (3.4-5.1) mmol/L Chloride 99 (98-107) mmol/L Carbon Dioxide 30 (22-32) mmol/L BUN 17 (7-17) mg/dL Creatinine 0.92 (0.52-1.04) mg/dL Estimated GFR > 60 (>60) mL/min BUN/Creatinine Ratio 18.5 (6-22) Glucose 130 H (80-110) mg/dL Calcium 10.1 (8.4-10.2) mg/dL Total Bilirubin 0.6 (0.2-1.3) mg/dL AST 21 (14-36) IU/L ALT 18 (<35) IU/L Alkaline Phosphatase 57 (38-126) U/L Total Creatine Kinase 32 (30-135) U/L Troponin I 0.012 (0.01-0.034) ng/mL NT-Pro-B Natriuret Pep 1490 H (<450) pg/mL Total Protein 7.0 (6.3-8.2) g/dL Albumin 4.0 (3.5-5.0) g/dL Globulin 3.0 (1.7-4.1) g/dL Albumin/Globulin Ratio 1.3 (1.0-2.8) Lipase 78 (23-300) U/L Procalcitonin (<0.5) ng/mL SARS-CoV-2 (PCR) (Negative) Influenza A (RT-PCR) (NEGATIVE) Influenza B (RT-PCR) (NEGATIVE) RSV (PCR) (Negative) Imaging Data Chest x-ray: Radiologist's Impression: PROCEDURE:? XR CHEST 2V ? INDICATIONS:? cough, congestion, h/o PNA 3 mo ago ? TECHNIQUE:? 2 views of the chest were acquired.? ? COMPARISON:? [facility], CR, XR CHEST 2V, 01/25/2023, 8:30. ? FINDINGS:? ? Surgical changes and devices:? None.? ? Lungs and pleura:? Chronic emphysematous changes are seen.? No focal infiltrate.? No pleural effusions or pneumothorax.? ? Mediastinum:? Mediastinal contours are normal.? Heart size is enlarged.? ? Bones and chest wall:? No suspicious bony abnormalities.? Soft tissues appear unremarkable.? ? IMPRESSION:? Cardiomegaly and COPD.? No acute cardiopulmonary pathology. ? ? Dictated by: Harjit Lombardi M.D. on 04/01/2023 at 8:21 ? ? Approved by: Harjit Lombardi M.D. on 04/01/2023 at 8:22? ECG Data Interpretation: Sinus rhythm rate 73 SD interval 186 QRS [address] changes no T-wave inversions PVC noted MDM Narrative Medical decision making narrative: Patient 88-year-old female history of COPD, presenting today with concern for pneumonia. She had some increased upper respiratory symptoms worse over last night. She is no evidence of congestive heart fail no no evidence of a pneumonia. She however did feel significantly better after albuterol. Blood work is reviewed and overall reassuring no leukocytosis electrolyte abnormality or anemia. Troponin is negative. X-ray is also negative. She is not hypoxic does not require admission. But would benefit from steroids and antibiotics secondary to COPD exacerbation #65: Apprpriate Treatment for Patients with URI [] The patient was diagnosed with upper respiratory infection and was not prescribed or dispensed an antibiotic. [SATISFIES MIPS PERFORMANCE] x The patient has competing comorbid condition within the last 12 months. The comorbid condition was COPD (e.g., neutropenia, cystic fibrosis, chronic bronchitis, pulmonary edema, respiratory failure, rheumatoid lung disease). [MIPS PERFORMANCE EXCEPTION/EXCLUSION] [] The patient is already on antibiotics, or has taken them within the last 30 days. [MIPS PERFORMANCE EXCEPTION/EXCLUSION] [] The patient had a competing diagnosis of [] (e.g. acute otitis media, chronic sinusitis, cellulitis, UTI, etc.). [[facility] PERFORMANCE EXCEPTION/EXCLUSION] [] The patient was diagnosed with upper respiratory infection and was prescribed or dispensed an antibiotic. [DOES NOT SATISFY MIPS PERFORMANCE] Discharge Plan Departure Patient Disposition: Home Clinical Impression: COPD exacerbation Instructions: Chronic Obstructive Pulmonary Disease Activity Restrictions/Additional Instructions: *You have been diagnosed with COPD exacerbation *What to do: At this time increase fluid intake as tolerated will put you on a short course of steroid. *Continue to take medications as directed Prednisone 40 mg once a day for 5 days Azithromycin take as directed *Follow up with your primary care provider in 2-3 days or call [phone] *Return to ER if you should have increasing shortness of breath confusion weakness or any new, worsening or concerning symptoms Prescriptions: New azithromycin 250 mg tablet See Rx Instructions PO .COMPLEX Qty: 6 0RF Rx Instructions: For 250 mg dose pack: take 500 mg today (day 1), then 250 mg for 4 days (days 2-5) prednisone 20 mg tablet 40 mg PO DAILY Qty: 10 0RF No Action lisinopril-hydrochlorothiazide 20-25 mg tablet See Rx Instructions .ROUTE .COMPLEX Qty: 90 3RF Dose Instruction: TAKE ONE TABLET BY MOUTH ONE TIME DAILY Rx Instructions: TAKE ONE TABLET BY MOUTH ONE TIME DAILY propranolol 40 mg tablet 40 mg PO BID Qty: 180 3RF (DME) Mastectomy Bra See Rx Instructions .Route .MEDSUPPLY Qty: 1 12RF Rx Instructions: As directed fluticasone propion-salmeterol 250-50 mcg/dose blister with device 0.5 inh inhalation BID Qty: 60 2RF fluticasone furoate-vilanterol [Breo Ellipta] 100-25 mcg/dose blister with device 1 inh inhalation DAILY Qty: 60 2RF (DME) Disabled Parking Permit See Rx Instructions .Route .MEDSUPPLY Qty: 1 0RF Rx Instructions: I find this patient to be medically disabled and qualify for disabled parking as indicated and signed on the accompanying disabled parking application for individuals. omeprazole 20 mg capsule,delayed release(DR/EC) See Rx Instructions .ROUTE .COMPLEX Qty: 90 1RF Dose Instruction: TAKE ONE CAPSULE BY MOUTH ONE TIME DAILY Rx Instructions: TAKE ONE CAPSULE BY MOUTH ONE TIME DAILY alprazolam 0.25 mg tablet 0.25 mg PO ONCE PRN (Reason: anxiety) Qty: 20 1RF albuterol sulfate [Ventolin HFA] 90 mcg/actuation HFA aerosol inhaler 2 puff INHALATION Q4-6H PRN (Reason: shortness of breath or wheezing) Qty: 8 5RF metformin 500 mg tablet 500 mg PO BID Qty: 180 3RF One Daily Women 50 Plus 400-120 mcg-mg tablet See Rx Instructions .ROUTE .COMPLEX Rx Instructions: One daily Referrals: Spencer Orantes DO [Primary Care Provider] - Stand Alone Forms: Patient Portal/API
[2023-04-01 09:15] LABS: Add Manual Diff / Slide Review NO; Basophils Absolute Auto 100 /uL (0-100); Basophils Percent Auto 0.7 % (0-2); Eosinophils Absolute Auto 100 /uL (0-450); Hematocrit 36.8 % (36-46); Hemoglobin 12.2 g/dL (12.0-16.0); Lymphocytes Absolute Auto 1100 /uL (1100-4500); Lymphocytes Percent Auto 10.8 % (25-40); Mean Corpuscular HGB Conc 33.2 % (30-36); Mean Corpuscular Hemoglobin 29.7 PG (26-34); Mean Corpuscular Volume 89.3 fL (80-100); Monocytes Absolute Auto 1000 /uL (0-900); Monocytes Percent Auto 9.6 % (3-14); Neutrophils Absolute Auto 7900 /uL (1500-7000); Neutrophils Percent Auto 77.9 % (50-75); Platelet Count 256 X10^3/uL (150-400); Red Blood Cell Count 4.12 X10^6/uL (4.0-5.2); Red Cell Distribution Width 14.8 % (11.6-14.8); White Blood Cell Count 10.1 X10^3/uL (4.5-11.0)
[2023-04-01] MEDS: methylPREDNISolone 125 MG/2 ML VIAL IV (09:28)
[2023-04-01] MEDS: ALBUTEROL/IPRATROPIUM 3 ML AMPUL INH (09:31)
[2023-04-01 09:40] LABS: Alanine Aminotransferase 18 IU/L (<35); Albumin Globulin Ratio 1.3 (1.0-2.8); Alkaline Phosphatase 57 U/L (38-126); Aspartate Aminotransferase 21 IU/L (14-36); BUN Creatinine Ratio 18.5 (6-22); Bilirubin Total 0.6 mg/dL (0.2-1.3); Blood Urea Nitrogen 17 mg/dL (7-17); Calcium 10.1 mg/dL (8.4-10.2); Carbon Dioxide 30 mmol/L (22-32); Chloride 99 mmol/L (98-107); Creatine Kinase 32 U/L (30-135); Estimated Glomerular Filt Rate > 60 mL/min (>60); Glucose 130 mg/dL (80-110); HEMOLYSIS < 15 (0-50); Lipase 78 U/L (23-300); Potassium 3.6 mmol/L (3.4-5.1); Sodium 137 mmol/L (137-145)
[2023-04-01 09:51] LABS: NT-proBNP (BNP-Adult 18+) 1490 pg/mL (<450); Troponin I 0.012 ng/mL (0.01-0.034)
[2023-04-01 09:57] LABS: Procalcitonin 0.06 ng/mL (<0.5)
== END 2023-04-01 10:22 | disposition home or self-care (01) ==
PROVIDERS: Emergency Provider Emergency Medicine; PCP Family Medicine
DX: J44.1 Chronic obstructive pulmonary disease with (acute) exacerbation (principal); Z20.822 Contact with and (suspected) exposure to COVID-19
CPT/HCPCS: 0241U; 36415; 71046; 80053; 82550; 83690; 83880; 84145; 84484; 85025; 93005; 94640; 96374; 99284; J2930

== ENCOUNTER 2023-04-08 12:53 | Emergency (ER) | payer MEDICARE, SELFPAY ==
[2023-01-01 22:45] VITALS: BMI 22.3
[2023-04-08] VITALS (8 sets, daily range): BP systolic 123–197; BP diastolic 76–91; PULSE 67–85; RESP 15–31; TEMP 36.4; O2SAT 93–98; BMI 22.8
[2023-04-08 13:29] LABS: Add Manual Diff / Slide Review NO; Basophils Percent Auto 0.2 % (0-2); Eosinophils Percent Auto 0.4 % (2-4); Hematocrit 40.5 % (36-46); Hemoglobin 13.7 g/dL (12.0-16.0); Lymphocytes Percent Auto 20.5 % (25-40); Mean Corpuscular HGB Conc 33.8 % (30-36); Mean Corpuscular Hemoglobin 29.9 PG (26-34); Mean Corpuscular Volume 88.6 fL (80-100); Monocytes Percent Auto 9.1 % (3-14); Neutrophils Percent Auto 69.8 % (50-75); Platelet Count 390 X10^3/uL (150-400); Red Blood Cell Count 4.57 X10^6/uL (4.0-5.2); Red Cell Distribution Width 14.6 % (11.6-14.8); White Blood Cell Count 11.7 X10^3/uL (4.5-11.0)
[2023-04-08 13:30] LABS: Basophils Absolute Auto 0 /uL (0-100); Eosinophils Absolute Auto 0 /uL (0-450); Lymphocytes Absolute Auto 2400 /uL (1100-4500); Monocytes Absolute Auto 1100 /uL (0-900); Neutrophils Absolute Auto 8200 /uL (1500-7000)
[2023-04-08] MEDS: SODIUM CHLORIDE 0.9% 500 ML 1000 ML IV (13:37)
--- NOTE | 2023-04-08 13:41 | DI.RAD.S_ITS ---
PROCEDURE: XR CHEST 2V INDICATIONS: cough, SOB TECHNIQUE: 2 views of the chest were acquired. COMPARISON: [facility], CR, XR CHEST 2V, 04/01/2023, 8:00. [facility], CR, XR CHEST 2V, 01/25/2023, 8:30. FINDINGS: Surgical changes and devices: Lumbar spinal fusion hardware is incompletely imaged. A probable surgical clip projects over the upper abdomen. Lungs and pleura: Lungs are mildly hyperexpanded and clear. No pleural effusions or pneumothorax. Mediastinum: Cardiac silhouette is mildly enlarged. Bones and chest wall: No suspicious bony abnormalities. Soft tissues appear unremarkable. Suspected intra-articular osseous loose bodies adjacent to the glenohumeral joint. IMPRESSION: Stable mild cardiomegaly and COPD. No definite acute findings. Approved by: Torey Buckley M.D. on 04/08/2023 at 14:44
--- NOTE | 2023-04-08 13:41 | DI.CT.S_ITS ---
PROCEDURE: CT ANGIO HEAD AND NECK INDICATIONS: dizziness, unsteady TECHNIQUE: Pre-contrast 4.5 mm thick sections acquired from the foramen magnum to the vertex. After the administration of intravenous contrast, 1 mm thick sections acquired from the aortic arch through the [place] of [place]. Post-contrast 4.5 mm thick sections then re-acquired from the foramen magnum to the vertex. 3-dimensional zldojkf-azefdwohb-ljguytvnfh (MIP) and/or volume rendering reformats were acquired of the central intracranial vasculature and neck separately. For radiation dose reduction, the following was used: automated exposure control, adjustment of mA and/or kV according to patient size. COMPARISON: None. FINDINGS: Image quality: Excellent. BRAIN: CSF spaces: Ventricles are normal in size and shape. Basal cisterns are patent. No extra-axial fluid collections. Brain: No midline shift. No intracranial bleeds or masses. Person-white matter interface appears intact. Symmetric cerebral cortical volume loss. Prominent patchy hypodensity throughout subcortical and periventricular white matter. Skull and face: Calvarium and facial bones appear intact, without suspicious lesions. Orbits appear normal. Sinuses: Near complete opacification of the left maxillary sinus and partial opacification of left ethmoid air cells. Other sinuses and mastoid cavities are normally aerated. HEAD CT ANGIOGRAPHY: Anterior circulation: Intracranial internal carotid arteries are normal in size and flow. Heavy peripheral calcification. The flow within the paired anterior cerebral arteries is normal and symmetric. The flow within the middle cerebral arteries is normal and symmetric. The anterior communicating artery is seen. 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 Posterior circulation: Visualized portions of the vertebral arteries demonstrate normal caliber, and join to form a normal appearing basilar artery. Flow within the posterior cerebral arteries is normal and symmetric. No aneurysms are seen. NECK CT ANGIOGRAPHY: Carotid system: The great vessels demonstrate a conventional anatomy as they arise from the aortic arch. The origins of the common carotid arteries appear patent. The common carotid arteries demonstrate tortuous course is with a right coursing nearly to the left of midline. The bifurcations demonstrate mild calcification without significant luminal stenosis. Both proximal and mid internal carotid arteries demonstrate tortuous course. The internal carotid arteries demonstrate normal calibers and courses. Posterior circulation: The origins of the vertebral arteries both appear widely patent. The more superior extracranial portions of both vertebral arteries also demonstrate normal courses and calibers. They join to form a normal appearing basilar artery. Soft tissues: Visualized neck soft tissues demonstrate no suspicious abnormalities. The thyroid gland demonstrates nodularity bilaterally. Bones: Degenerative anterolisthesis in the cervical spine at C5-6 and disc degeneration at C6-7 resulting in cervical kyphosis. Degenerative change at the atlantodental interval. No suspicious bony lesions. Visualized cervical spine appears normally aligned. IMPRESSION: 1. No CT evidence of acute intracranial process. 2. No acute arterial occlusion or hemodynamically significant arterial stenosis in the head or neck. 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 4. Tortuous common and internal carotid arteries with mild calcific atherosclerosis. 5. Left maxillary and ethmoid sinusitis. Any quantitative measurements of stenosis were performed using NASCET criteria. Dictated by: Lila Nobles M.D. on 04/08/2023 at 14:43 Approved by: Lila Nobles M.D. on 04/08/2023 at 14:55
[2023-04-08 13:42] LABS: Alanine Aminotransferase 18 IU/L (<35); Albumin 4.2 g/dL (3.5-5.0); Albumin Globulin Ratio 1.4 (1.0-2.8); Alkaline Phosphatase 62 U/L (38-126); Aspartate Aminotransferase 20 IU/L (14-36); BUN Creatinine Ratio 30.2 (6-22); Bilirubin Total 0.6 mg/dL (0.2-1.3); Blood Urea Nitrogen 29 mg/dL (7-17); Calcium 10.6 mg/dL (8.4-10.2); Carbon Dioxide 30 mmol/L (22-32); Chloride 88 mmol/L (98-107); Creatine Kinase 20 U/L (30-135); Estimated Glomerular Filt Rate 58 mL/min (>60); Globulin 3.1 g/dL (1.7-4.1); Glucose 139 mg/dL (80-110); HEMOLYSIS < 15 (0-50); Magnesium 1.5 mg/dL (1.6-2.3); Potassium 3.9 mmol/L (3.4-5.1); Sodium 129 mmol/L (137-145); Total Protein 7.3 g/dL (6.3-8.2)
--- NOTE | 2023-04-08 13:43 | ED_ITS ---
HPI - Dizziness General Chief Complaint: Dizziness Stated Complaint: dizzy/light headed Time Seen by Provider: 04/08/23 13:00 Source: patient Mode of arrival: Ambulatory History of Present Illness HPI Narrative: 88-year-old female former smoker with history of COPD, diabetes, hypertension, hyperlipidemia presents with a chief complaint of at least a week of feeling dizzy and lightheaded. She states that she feels a bit unsteady when she walks and when she stands up or moves her head she becomes dizzy and states she feels like the the room is spinning. She denies any recent falls, traumas or head injury. She does not take blood thinners. She denies any headache or blurred vision. She denies runny nose or sore throat. She was seen and evaluated about 1 week ago for a cough and concern about possible pneumonia. She was diagnosed with COPD exacerbation and put on a Z-Nj and a prednisone prescription. She denies any numbness, tingling or weakness of her extremities. She denies any trouble with speech or facial weakness. She does state that she notes she has been turning the TV up louder than normal. She denies ear pain or drainage. Related Data Home Medications Medication Instructions Recorded Confirmed multivitamin with [id number] See Rx Instructions .Route .COMPLEX 06/21/21 01/28/23 400 mcg-120 mg tablet (One Daily Women 50 Plus) Previous Rx's Medication Instructions Recorded albuterol sulfate 90 mcg/actuation 2 puff inhalation Q4-6H PRN 06/21/22 aerosol inhaler (Ventolin HFA) shortness of breath or wheezing #8 grams alprazolam 0.25 mg tablet 0.25 mg PO ONCE PRN anxiety #20 06/21/22 tabs metformin 500 mg tablet 500 mg PO BID #180 tabs 06/21/22 lisinopril 20 See Rx Instructions .Route 07/09/22 mg-hydrochlorothiazide 25 mg tablet .COMPLEX #90 tabs propranolol 40 mg tablet 40 mg PO BID #180 tabs 11/08/22 Mastectomy Bra #1 ea 02/05/23 fluticasone 250 mcg-salmeterol 50 0.5 inh inhalation BID #60 ea 02/08/23 mcg/dose blistr powdr for inhalation fluticasone furoate 100 1 inh inhalation DAILY #60 ea 02/11/23 mcg-vilanterol 25 mcg/dose inhalation powder (Breo Ellipta) Disabled Parking Permit #1 ea 03/07/23 omeprazole 20 mg capsule,delayed See Rx Instructions .Route 03/11/23 release .COMPLEX #90 caps meclizine 25 mg tablet 25 mg PO BID-TID PRN dizziness #14 04/08/23 tabs Allergies Allergy/AdvReac Type Severity Reaction Status Date / Time sulfamethoxazole Allergy Severe Hives, Verified 04/08/23 13:06 [From Bactrim] shortness of breath trimethoprim [From Bactrim] Allergy Severe Hives, Verified 04/08/23 13:06 shortness of breath Review of Systems Review of Systems Narrative: GENERAL: Denies chills, fatigue, malaise, fever, sweats. HEENT: See HPI RESPIRATORY: See HPI CARDIOVASCULAR: Denies chest pain, palpitations, orthopnea, edema, GASTROINTESTINAL: Denies nausea, vomiting, abdominal pain, diarrhea, constipation, melena. : Denies dysuria, frequency, incontinence, hematuria, urinary retention. MUSCULOSKELETAL: denies weakness, joint pain, or bony pain SKIN: Denies rash, skin lesions, or other NEUROLOGIC: See HPI. PSYCHIATRIC: No concerning psychosocial issues. 12 point review of systems is negative except for those stated above Patient History Medical History Breast cancer (~1981) Cataract Chicken pox Chronic back pain COPD (chronic obstructive pulmonary disease) Diabetes Diastolic dysfunction Diverticular disease Edema GERD (gastroesophageal reflux disease) Hay fever High blood triglycerides Hyperglycemia Hyperglyceridemia Hyperlipidemia Hypertension Lumbar back pain Measles Mumps Neuropathy Skin cancer (~2011) Surgical History Anesthesia History of mastectomy (~09/1981) Status post hysterectomy Family History Mother Brain aneurysm Sister Age: 84 Cancer of breast Lung cancer Daughter Cancer of breast Father No problems noted. Social History household members: none Smoking Status: Former smoker alcohol intake: former Smoking Status: Former smoker alcohol intake frequency: other Substance Use Type: does not use Exam Narrative Exam Narrative: GENERAL: [88] year old patient appears stated age. Well-developed patient, in mild distress. HEAD: Atraumatic. Normocephalic. EYES: Pupils equal round and reactive. Extraocular motions intact. No scleral icterus. No injection or drainage. Lateral nystagmus with fast twitch to the left when head is turned to the left, ENT: Nose without bleeding, purulent drainage. Throat without erythema, tonsillar hypertrophy or exudate. Airway patent. NECK: Trachea midline. Non tender CARDIOVASCULAR: Regular rate and rhythm without murmurs, gallops, or rubs. RESPIRATORY: Frequent harsh cough, faint crackles noted at bases, decreased lung sounds with prolonged expiratory phase GASTROINTESTINAL: Abdomen soft, non-tender, nondistended. EXTREMITIES: No edema or joint tenderness. BACK: Nontender without deformity or crepitance. No flank tenderness. NEURO: AOx3. SKIN: No rash or erythema of visible areas NIH Stroke Scale 1a. LOC: Patient is alert and keenly responsive (0) 1b. LOC Questions: Patient answers both LOC questions accurately (0) 1c. LOC Commands: Patient performs both tasks correctly (0) 2. Best Gaze: Normal (0) 3. Visual: No visual loss (0) 4. Facial palsy: Normal symmetrical movements (0) 5. Motor arm: No drift (0) 6. Motor leg: No drift (0) 7. Limb ataxia: Absent (0) 8. Sensory: Normal (0) 9. Best language: No aphasia; normal (0) 10. Dysarthria: Normal (0) 11. Extinction and inattention: No abnormality (0) NIHSS: 0 Initial Vital Signs Initial Vital Signs: Vital Signs Temperature 97.5 F L 04/08/23 12:55 Pulse Rate 85 04/08/23 12:55 Respiratory Rate 20 04/08/23 12:55 Blood Pressure 123/88 04/08/23 12:55 Pulse Oximetry 97 04/08/23 12:55 Oxygen Delivery Method Room Air 04/08/23 12:55 Course Orders Ordered: ED Orders 04/08/23 13:15 Complete Blood Count AUTO DIFF Stat Comprehensive Metabolic Panel Stat Magnesium Stat Troponin & CK Cardiac Panel Stat 04/08/23 13:41 CT angio head and neck Stat XR chest 2V Stat 04/08/23 14:25 EKG-12 Lead Stat Discontinued Medications Sodium Chloride (Normal Saline 0.9%) 500 mls @ 1,000 mls/hr IV BOLUS ONE Stop: 04/08/23 13:45 Last Infusion: 04/08/23 15:04 Dose: 0 mls/hr Documented By: Infusion: 04/08/23 14:51 Dose: 999 mls/hr Documented By: Admin: 04/08/23 13:37 Dose: 1,000 mls/hr Documented By: ROBYN Lactated Ringer's (Lactated Ringers) 500 mls @ 1,000 mls/hr IV BOLUS ONE Stop: 04/08/23 14:20 Last Infusion: 04/08/23 15:28 Dose: 0 mls/hr Documented By: Infusion: 04/08/23 15:04 Dose: 1,000 mls/hr Documented By: Infusion: 04/08/23 14:51 Dose: 0 mls/hr Documented By: Admin: 04/08/23 14:50 Dose: 1,000 mls/hr Documented By: JOSÉ Meclizine HCl (Meclizine Hcl 12.5 Mg Tablet) 50 mg PO NOW ONE Stop: 04/08/23 13:42 Last Admin: 04/08/23 14:31 Dose: 50 mg Documented By: JOSÉ Vital Signs Vital signs: Vital Signs - 8 hr 04/08/23 12:55 04/08/23 13:12 04/08/23 13:30 Temperature 97.5 F L Pulse Rate 85 80 71 Respiratory Rate 20 21 18 Blood Pressure 123/88 Pulse Oximetry 97 96 93 Oxygen Delivery Method Room Air 04/08/23 14:12 04/08/23 14:12 04/08/23 14:29 Temperature Pulse Rate 78 Respiratory Rate 26 H Blood Pressure 197/91 H 178/77 H Pulse Oximetry Oxygen Delivery Method 04/08/23 14:29 04/08/23 14:30 04/08/23 15:00 Temperature Pulse Rate 70 70 Respiratory Rate 24 31 H Blood Pressure 170/76 H Pulse Oximetry 96 96 Oxygen Delivery Method 04/08/23 15:00 04/08/23 15:30 04/08/23 15:30 Temperature Pulse Rate 67 68 Respiratory Rate 15 18 Blood Pressure 175/79 H Pulse Oximetry 97 98 Oxygen Delivery Method Room Air MDM - Dizziness Lab Data 04/08/23 13:15 04/08/23 13:15 Labs: Lab Results 04/08/23 04/08/23 Range/Units 13:15 13:15 WBC 11.7 H (4.5-11.0) X10^3/uL RBC 4.57 (4.0-5.2) X10^6/uL Hgb 13.7 (12.0-16.0) g/dL Hct 40.5 (36-46) % MCV 88.6 (80-100) fL MCH 29.9 (26-34) PG MCHC 33.8 (30-36) % RDW 14.6 (11.6-14.8) % Plt Count 390 (150-400) X10^3/uL Neut % (Auto) 69.8 (50-75) % Lymph % (Auto) 20.5 L (25-40) % [place] % (Auto) 9.1 (3-14) % Eos % (Auto) 0.4 L (2-4) % Baso % (Auto) 0.2 (0-2) % Neut # (Auto) 8200 H (1098-0168) /uL Lymph # (Auto) 2400 (0441-4270) /uL [place] # (Auto) 1100 H (0-900) /uL Eos # (Auto) 0 (0-450) /uL Baso # (Auto) 0 (0-100) /uL Sodium 129 L (137-145) mmol/L Potassium 3.9 (3.4-5.1) mmol/L Chloride 88 L (98-107) mmol/L Carbon Dioxide 30 (22-32) mmol/L BUN 29 H (7-17) mg/dL Creatinine 0.96 (0.52-1.04) mg/dL Estimated GFR 58 L (>60) mL/min BUN/Creatinine Ratio 30.2 H (6-22) Glucose 139 H (80-110) mg/dL Calcium 10.6 H (8.4-10.2) mg/dL Magnesium 1.5 L (1.6-2.3) mg/dL Total Bilirubin 0.6 (0.2-1.3) mg/dL AST 20 (14-36) IU/L ALT 18 (<35) IU/L Alkaline Phosphatase 62 (38-126) U/L Total Creatine Kinase 20 L (30-135) U/L Troponin I < 0.012 (0.01-0.034) ng/mL Total Protein 7.3 (6.3-8.2) g/dL Albumin 4.2 (3.5-5.0) g/dL Globulin 3.1 (1.7-4.1) g/dL Albumin/Globulin Ratio 1.4 (1.0-2.8) Urine Dip Bedside Urine Glucose Negative Bedside Urine Bilirubin - Negative Bedside Urine Ketone - Negative Urine Specific [place] 1.010 Bedside Urine Occult Blood - Negative Bedside Urine pH 6.0 Bedside Urine Protein - Negative Bedside Urine Urobilinogen - Negative Bedside Urine Nitrite - Negative Bedside Urine Leukocytes - Negative Esterase Imaging Data CTA Head/Neck: Radiologist's Impression: IMPRESSION:? ? 1. No CT evidence of acute intracranial process. ? 2. No acute arterial occlusion or hemodynamically significant arterial stenosis in the head or neck. ? 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 ? 4. Tortuous common and internal carotid arteries with mild calcific ath erosclerosis. ? 5. Left maxillary and ethmoid sinusitis.? ? Any quantitative measurements of stenosis were performed using NASCET criteria.? ECG Data Interpretation: 1425] EKG is normal sinus rhythm rate [ 67] and free of any signs of ischemia or ectopy. No ST segmental elevation or depression. No T wave inversions MDM Narrative Medical decision making narrative: CC: 88-year-old female with dizziness and lightheadedness for least a week Complicating co-morbidities: Age, COPD Data collected from: Patient Medical records reviewed: Prior notes reviewed in our EMR Differential considered, but not limited to: Peripheral vertigo, dehydration, cardiac, anemia, electrolyte abnormality, stroke versus other Exam documented above, pertinent findings include: Lateral gaze nystagmus, reproducible, cranial nerves 2-12 intact, ambulates a straight line, NIH stroke scale 0, heart rate is regular, lungs diminished with crackles Lab Test results independently reviewed as above. Pertinent findings: Independently reviewed EKG as above Imaging studies independently reviewed: CTA of the head and neck demonstrate no evidence of acute process , chest x-ray without acute findings Scores Used: NIHSS 0 Treatments: Fluids and meclizine Re-evaluations: Patient feeling much better, able to ambulate to the restroom Discussion: Patient with dizziness for least the past week that seems to be worse upon standing and when turning her head. She does have a mild lateral gaze nystagmus and some fullness in her ears suggesting a peripheral source. Neurologic exam is otherwise very reassuring. She is got slightly dry mucous membranes and poor skin turgor and complains of increased lightheadedness upon standing raising the question of the possibility of dehydration. She feels much better after above-stated therapies. Labs are otherwise unremarkable, imaging of her head shows no sign of stroke. EKGs nonischemic, she has no other cardiac equivalents, troponin is undetectable. Cardiac ischemia seems extremely unlikely. She does have slight low sodium, she has received fluids and is feeling improvement. Disposition: see below, along with detailed discharge instructions that have been reviewed with patient as well as indications for ED re-evaluation and additional outpatient follow up Discharge Plan Departure Patient Disposition: Home Clinical Impression: Vertigo, Acute dehydration Instructions: DI for Vertigo Activity Restrictions/Additional Instructions: *You have been diagnosed with [vertigo. As we discussed your history and physical exam are reassuring and your dizziness seems likely related to some peripheral vertigo (possibly from some increased fluid in your ears which could also explain the decreased hearing) and also dehydration. I am happy that your feeling better after the fluids and medication we gave you.] *What to do: *Please continue to take your regular medications as directed. [ x] New medication prescriptions sent to your pharmacy: [[facility] ] [ ] New medication written as a paper prescription [ ] No new medications given *Please follow up with your primary care provider in 2-3 days, call for an appointment. Let them know you were seen in the Emergency Department and that we ask that you be seen in follow up. We will electronically transmit a record of today's note if your PCP is in our system *If you do not have a primary care provider please contact the [facility] Resource line at [phone]. They will ask some questions about your medical history and help get you set up with a doctor in the community. *Return to Emergency Department if you should have any new, worsening or concerning symptoms, such as [fever greater than 101 F, shaking chills, worsening pain, persistent vomiting or other bothersome symptoms] Prescriptions: New meclizine 25 mg tablet 25 mg PO BID-TID PRN (Reason: dizziness) Qty: 14 0RF No Action lisinopril-hydrochlorothiazide 20-25 mg tablet See Rx Instructions .ROUTE .COMPLEX Qty: 90 3RF Dose Instruction: TAKE ONE TABLET BY MOUTH ONE TIME DAILY Rx Instructions: TAKE ONE TABLET BY MOUTH ONE TIME DAILY propranolol 40 mg tablet 40 mg PO BID Qty: 180 3RF (DME) Mastectomy Bra See Rx Instructions .Route .MEDSUPPLY Qty: 1 12RF Rx Instructions: As directed fluticasone propion-salmeterol 250-50 mcg/dose blister with device 0.5 inh inhalation BID Qty: 60 2RF fluticasone furoate-vilanterol [Breo Ellipta] 100-25 mcg/dose blister with device 1 inh inhalation DAILY Qty: 60 2RF (DME) Disabled Parking Permit See Rx Instructions .Route .MEDSUPPLY Qty: 1 0RF Rx Instructions: I find this patient to be medically disabled and qualify for disabled parking as indicated and signed on the accompanying disabled parking application for individuals. omeprazole 20 mg capsule,delayed release(DR/EC) See Rx Instructions .ROUTE .COMPLEX Qty: 90 1RF Dose Instruction: TAKE ONE CAPSULE BY MOUTH ONE TIME DAILY Rx Instructions: TAKE ONE CAPSULE BY MOUTH ONE TIME DAILY alprazolam 0.25 mg tablet 0.25 mg PO ONCE PRN (Reason: anxiety) Qty: 20 1RF albuterol sulfate [Ventolin HFA] 90 mcg/actuation HFA aerosol inhaler 2 puff INHALATION Q4-6H PRN (Reason: shortness of breath or wheezing) Qty: 8 5RF metformin 500 mg tablet 500 mg PO BID Qty: 180 3RF One Daily Women 50 Plus 400-120 mcg-mg tablet See Rx Instructions .ROUTE .COMPLEX Rx Instructions: One daily Referrals: Spencer Orantes DO [Primary Care Provider] - Stand Alone Forms: Patient Portal/API
[2023-04-08 13:54] LABS: Troponin I < 0.012 ng/mL (0.01-0.034)
[2023-04-08] MEDS: MECLIZINE HCL 12.5 MG TABLET 50 MG PO (14:31)
[2023-04-08] MEDS: LACTATED RINGERS 500 ML 1000 ML IV (14:50)
--- NOTE | 2023-04-08 16:03 | PC.NURSE ---
Patient states she is feeling much better but is still a little dizzy and weak.
== END 2023-04-08 16:26 | disposition home or self-care (01) ==
PROVIDERS: Emergency Provider Emergency Medicine; PCP Family Medicine
DX: R42 Dizziness and giddiness (principal); E86.0 Dehydration
CPT/HCPCS: 36415; 70496; 70498; 71046; 80053; 81003; 82550; 83735; 84484; 85025; 93005; 93010; 96360; 99284; 99285; Q9967

== ENCOUNTER → 2023-05-23 10:36 | Outpatient (CLI) | payer MEDICARE, SELFPAY ==
[2023-01-01 22:45] VITALS: BMI 22.3
== END ==
PROVIDERS: PCP Family Medicine; Referring Provider Podiatrist; Visit Provider Surgery
DX: E11.621 Type 2 diabetes mellitus with foot ulcer (principal); E11.628 Type 2 diabetes mellitus with other skin complications; E11.51 Type 2 diabetes mellitus with diabetic peripheral angiopathy without gangrene; T87.81 Dehiscence of amputation stump; L97.512 Non-pressure chronic ulcer of other part of right foot with fat layer exposed; L97.516 Non-pressure chronic ulcer of other part of right foot with bone involvement without evidence of necrosis; R60.0 Localized edema
CPT/HCPCS: 11042; 73630; 87070; 87075; 87077; 87147; 87186; 87205; 99204; 99215

== ENCOUNTER → 2023-05-23 13:46 | Outpatient (CLI) | payer MEDICARE, SELFPAY ==
[2023-01-01 22:45] VITALS: BMI 22.3
--- NOTE | 2023-05-23 13:47 | DI.RAD.S_ITS ---
PROCEDURE: XR FOOT RT MIN 3V INDICATIONS: Non Healing wounds on Right foot TECHNIQUE: 3 views of the foot were acquired. COMPARISON: None. FINDINGS: Bones: No acute fractures. Postsurgical changes of arthrodesis of the right 1st tarsometatarsal joint. No evidence for hardware loosening or failure. Polyarticular degenerative changes of the right foot. There is medial dislocation of the right 5th toe at the 5th metatarsophalangeal joint. Apparent amputation of the right 4th toe at the level of the metatarsophalangeal joint. No acute fracture seen. No suspicious bony lesions. Mild polyarticular background degenerative changes of the right foot. Small plantar calcaneal enthesophyte. Soft tissues: No tibiotalar joint effusion. Achilles tendon appears normal. Scattered vascular calcifications. IMPRESSION: Right foot without acute osseous abnormalities. Age-indeterminate dislocation of the right 5th toe at the level of the metatarsophalangeal joint. Postsurgical changes of arthrodesis at the 1st tarsometatarsal joint without hardware complication. Background polyarticular degenerative changes of the right foot. Atherosclerotic vascular calcifications. Small plantar calcaneal enthesophyte. Dictated by: Aryan Thompson M.D. on 05/23/2023 at 15:11 Approved by: Aryan Thompson M.D. on 05/23/2023 at 15:14
== END ==
PROVIDERS: PCP Family Medicine; Referring Provider Surgery; Visit Provider Surgery
DX: S93.124A Dislocation of metatarsophalangeal joint of right lesser toe(s), initial encounter (principal); S81.801A Unspecified open wound, right lower leg, initial encounter; S91.301A Unspecified open wound, right foot, initial encounter; M77.31 Calcaneal spur, right foot
CPT/HCPCS: 73630

== ENCOUNTER → 2023-05-30 14:37 | Outpatient (CLI) | payer MEDICARE, SELFPAY ==
[2023-01-01 22:45] VITALS: BMI 22.3
== END ==
PROVIDERS: PCP Family Medicine; Referring Provider Podiatrist; Visit Provider Surgery
DX: E11.628 Type 2 diabetes mellitus with other skin complications (principal); T87.81 Dehiscence of amputation stump; S91.301A Unspecified open wound, right foot, initial encounter; T81.89XA Other complications of procedures, not elsewhere classified, initial encounter; E11.51 Type 2 diabetes mellitus with diabetic peripheral angiopathy without gangrene; E11.40 Type 2 diabetes mellitus with diabetic neuropathy, unspecified
CPT/HCPCS: 11042; 99213

== ENCOUNTER → 2023-05-31 16:37 | Outpatient (CLI) | payer MEDICARE, SELFPAY ==
[2023-01-01 22:45] VITALS: BMI 22.3
--- NOTE | 2023-05-31 16:38 | DI.US.S_ITS ---
PROCEDURE: US ARTERIAL DUPLEX LE RT INDICATIONS: Non healing wounds TECHNIQUE: Color and pulse Doppler interrogation was performed of the right lower extremity arterial system, with image documentation. COMPARISON: None. FINDINGS: Common femoral artery: 116 cm/sec, with triphasic flow. Deep femoral artery: Not visualized. Proximal superficial femoral artery: 75 cm/sec, with triphasic flow. Mid superficial femoral artery: 124 cm/sec, with triphasic flow. Distal superficial femoral artery: 62 cm/sec, with triphasic flow. Popliteal artery: 42 cm/sec, with biphasic flow. Posterior tibial artery: 27 cm/sec, with biphasic flow. Anterior tibial artery: 30 cm/sec, with biphasic flow. Person-scale imaging description: Moderate atherosclerotic plaque. IMPRESSION: No hemodynamically significant stenosis. Dictated by: Anirudh Aquino M.D. on 05/31/2023 at 19:42 Approved by: Anirudh Aquino M.D. on 05/31/2023 at 19:44
--- NOTE | 2023-05-31 16:38 | DI.MRI.S_ITS ---
PROCEDURE: MR FOOT RT WO/W CON INDICATIONS: Wound to right 5th met head TECHNIQUE: Noncontrast coronal T1 spin echo and STIR, sagittal T1 spin echo with fat saturation and STIR, axial T1 spin echo and T2 fast spin echo with fat saturation. After the administration of contrast, axial/sagittal/coronal T1 spin echo with fat saturation through the right foot. COMPARISON: None. FINDINGS: Image quality: Excellent. Bones: Susceptibility artifacts are noted in medial midfoot from prior 1st TMT joint fusion. Osteoarthritic changes are noted throughout midfoot and forefoot joints with joint space narrowing, subchondral sclerosis and marginal osteophyte formation. There is prior amputation of the 4th toe at the level of 4th MTP joint. Marrow edema throughout 5th metatarsal shaft with erosion/destruction of 5th metatarsal head and medial and dorsal dislocation at 5th MTP joint is seen. Marrow edema is also noted involving 5th proximal phalanx is also seen. After IV contrast infusion, there is heterogeneous contrast enhancement involving 5th metatarsal head and 5th proximal phalangeal shaft. No other area of abnormal intraosseous enhancement is seen. Soft tissues: Full-thickness ulceration involving lateral aspect of forefoot at the level of 5th MTP joint is seen with extensive soft tissue edema and swelling over dorsal and lateral aspect of midfoot and forefoot. Heterogeneous contrast enhancement is noted in this area. No discrete drainable peripherally enhancing fluid collection is noted. No enhancing soft tissue mass. Extensor and flexor tendons are grossly intact. Edema involving visualized plantar foot muscles is seen without intramuscular fluid collection or mass. IMPRESSION: 1. Full-thickness ulceration involving lateral aspect of forefoot at the level of 5th MTP joint with surrounding edema and contrast enhancement suggestive of extensive cellulitis. No discrete drainable abscess collection. 2. Suggestion of osteomyelitis involving 5th metatarsal shaft and 5th proximal phalanx with dorsal and medial dislocation at 5th MTP joint. Bony erosive changes are noted in 5th metatarsal head. No other fracture or dislocation. 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 Post fusion changes at 1st TMT joint. 3. Suggestion of myositis involving visualized plantar foot muscles. No discrete drainable intramuscular fluid collection. No enhancing soft tissue mass. Dictated by: Harjit Lombardi M.D. on 06/03/2023 at 9:15 Approved by: Harjit Lombardi M.D. on 06/03/2023 at 9:38
== END ==
PROVIDERS: PCP Family Medicine; Referring Provider Surgery; Visit Provider Surgery
DX: T81.31XA Disruption of external operation (surgical) wound, not elsewhere classified, initial encounter (principal); L97.519 Non-pressure chronic ulcer of other part of right foot with unspecified severity; S91.301A Unspecified open wound, right foot, initial encounter; M19.071 Primary osteoarthritis, right ankle and foot; Z89.421 Acquired absence of other right toe(s)
CPT/HCPCS: 73720; 93926; A9579

== ENCOUNTER → 2023-06-04 08:58 | Outpatient (CLI) | payer MEDICARE, SELFPAY ==
[2023-01-01 22:45] VITALS: BMI 22.3
== END ==
PROVIDERS: PCP Family Medicine; Referring Provider Podiatrist; Visit Provider Surgery
DX: E11.621 Type 2 diabetes mellitus with foot ulcer (principal); L97.516 Non-pressure chronic ulcer of other part of right foot with bone involvement without evidence of necrosis; T87.81 Dehiscence of amputation stump; E11.69 Type 2 diabetes mellitus with other specified complication; M86.171 Other acute osteomyelitis, right ankle and foot; B95.62 Methicillin resistant Staphylococcus aureus infection as the cause of diseases classified elsewhere; E11.40 Type 2 diabetes mellitus with diabetic neuropathy, unspecified; E11.51 Type 2 diabetes mellitus with diabetic peripheral angiopathy without gangrene; J44.9 Chronic obstructive pulmonary disease, unspecified; Z89.421 Acquired absence of other right toe(s)
CPT/HCPCS: 11042; 11044; 97605; 99214

== ENCOUNTER → 2023-06-11 09:41 | Outpatient (CLI) | payer MEDICARE, SELFPAY ==
[2023-01-01 22:45] VITALS: BMI 22.3
== END ==
PROVIDERS: PCP Family Medicine; Referring Provider Podiatrist; Visit Provider Surgery
DX: I73.9 Peripheral vascular disease, unspecified (principal); E11.42 Type 2 diabetes mellitus with diabetic polyneuropathy; T81.31XD Disruption of external operation (surgical) wound, not elsewhere classified, subsequent encounter; E11.621 Type 2 diabetes mellitus with foot ulcer; L97.414 Non-pressure chronic ulcer of right heel and midfoot with necrosis of bone; M86.171 Other acute osteomyelitis, right ankle and foot
CPT/HCPCS: 11042; 11044; 97605

== ENCOUNTER → 2023-06-18 08:58 | Outpatient (CLI) | payer MEDICARE, SELFPAY ==
[2023-01-01 22:45] VITALS: BMI 22.3
== END ==
PROVIDERS: PCP Family Medicine; Visit Provider Surgery
DX: E11.621 Type 2 diabetes mellitus with foot ulcer (principal); I25.10 Atherosclerotic heart disease of native coronary artery without angina pectoris; K44.9 Diaphragmatic hernia without obstruction or gangrene; Z98.82 Breast implant status; L97.514 Non-pressure chronic ulcer of other part of right foot with necrosis of bone; T87.89 Other complications of amputation stump; L97.512 Non-pressure chronic ulcer of other part of right foot with fat layer exposed; M86.171 Other acute osteomyelitis, right ankle and foot; E11.40 Type 2 diabetes mellitus with diabetic neuropathy, unspecified; Z87.891 Personal history of nicotine dependence
CPT/HCPCS: 11044; 71250; 97605

== ENCOUNTER → 2023-06-18 09:57 | Outpatient (CLI) | payer MEDICARE, SELFPAY ==
[2023-01-01 22:45] VITALS: BMI 22.3
--- NOTE | 2023-06-18 10:12 | DI.CT.S_ITS ---
PROCEDURE: CT CHEST WO CON INDICATIONS: CXR resulted cardiomegaly, evaluate for HBOT TECHNIQUE: Noncontrast 5 mm thick sections acquired from the pulmonary apices to the posterior costophrenic angles. 1 mm lung window, 5 mm thick coronal and sagittal and 7 mm axial MIP reformats were then acquired. For radiation dose reduction, the following was used: automated exposure control, adjustment of mA and/or kV according to patient size. COMPARISON: [facility], CT, CT LUMBAR SPINE WO CON, 10/07/2019, 12:45. FINDINGS: Image quality: Excellent. Lungs and pleura: Right lower lobe poorly defined opacity can be seen, as on series 3, image 169, measuring to 2.4 cm. There is a small amount of ground-glass opacity seen involving the lateral left upper lobe, as on series 3, image 107, measuring 8 mm. No pleural effusions or pneumothorax. Central and peripheral airways are patent and normal in caliber. Mediastinum: Heart size is mildly enlarged. No pericardial effusion. Moderate to prominent coronary artery calcification can be seen. No mediastinal adenopathy by size criteria. Thoracic aorta and central pulmonary arteries are normal in size. Esophagus is normal in caliber. There is moderate hiatal hernia. Bones and chest wall: No suspicious bony lesions. No vertebral body compression fractures. Mild dextroconvex scoliotic curvature is seen. Accentuated thoracic kyphosis is seen. Age-appropriate bony degenerative changes are seen. No axillary or supraclavicular adenopathy by size criteria. Thyroid gland demonstrates left-sided lesions that measure up to 12 mm. Postoperative change of the right breast can be seen, with a right breast implant. Calcifications can be seen within the left breast. Abdomen: Multiple low-density lesions can be seen within the liver. Some of these measure greater than 15 Hounsfield units. The visualized portions of the upper abdominal structures are otherwise unremarkable for imaging technique. IMPRESSION: There is mild cardiomegaly. Right lower lobe poorly defined opacity is seen, which has an appearance most consistent with infection. Differential diagnosis includes neoplasm, yet this is considered to be less likely. Please consider follow-up noncontrast chest CT in 4-6 weeks. There is a mild focus of poorly defined opacity within the left upper lobe laterally, which is most likely related to infection. Left-sided thyroid lesions measuring up to 12 mm. By published criteria specific follow-up is recommended. Low-density lesions are seen within the liver. Some of these measure greater than 15 Hounsfield units and cannot be defined as simple cysts. Additional findings: Right breast implant Moderate to prominent coronary artery calcification Moderate hiatal hernia Dictated by: Darian Doyle M.D. on 06/18/2023 at 12:13 Approved by: Darian Doyle M.D. on 06/18/2023 at 12:22
== END ==
PROVIDERS: PCP Family Medicine; Referring Provider Surgery; Visit Provider Surgery
DX: E11.621 Type 2 diabetes mellitus with foot ulcer (principal); I25.10 Atherosclerotic heart disease of native coronary artery without angina pectoris; K44.9 Diaphragmatic hernia without obstruction or gangrene; Z98.82 Breast implant status
CPT/HCPCS: 71250

== ENCOUNTER → 2023-06-25 09:24 | Outpatient (CLI) | payer MEDICARE, SELFPAY ==
[2023-01-01 22:45] VITALS: BMI 22.3
== END ==
PROVIDERS: PCP Family Medicine; Visit Provider Surgery
DX: E11.621 Type 2 diabetes mellitus with foot ulcer (principal); M86.171 Other acute osteomyelitis, right ankle and foot; L97.514 Non-pressure chronic ulcer of other part of right foot with necrosis of bone; R60.0 Localized edema; L53.9 Erythematous condition, unspecified; T87.81 Dehiscence of amputation stump; L97.512 Non-pressure chronic ulcer of other part of right foot with fat layer exposed
CPT/HCPCS: 11044; 97605; 99213

== ENCOUNTER → 2023-06-26 09:28 | Outpatient (CLI) | payer MEDICARE, SELFPAY ==
[2023-01-01 22:45] VITALS: BMI 22.3
== END ==
PROVIDERS: PCP Family Medicine; Visit Provider Surgery
DX: E11.621 Type 2 diabetes mellitus with foot ulcer (principal)
CPT/HCPCS: 99211; 99212

== ENCOUNTER → 2023-06-27 09:23 | Outpatient (CLI) | payer MEDICARE, SELFPAY ==
[2023-01-01 22:45] VITALS: BMI 22.3
== END ==
PROVIDERS: PCP Family Medicine; Visit Provider Surgery
DX: I73.9 Peripheral vascular disease, unspecified (principal); E11.42 Type 2 diabetes mellitus with diabetic polyneuropathy; T81.31XD Disruption of external operation (surgical) wound, not elsewhere classified, subsequent encounter; E11.621 Type 2 diabetes mellitus with foot ulcer; L97.414 Non-pressure chronic ulcer of right heel and midfoot with necrosis of bone; M86.171 Other acute osteomyelitis, right ankle and foot
CPT/HCPCS: 99183; G0277

== ENCOUNTER → 2023-07-01 09:18 | Outpatient (CLI) | payer MEDICARE, SELFPAY ==
[2023-01-01 22:45] VITALS: BMI 22.3
== END ==
PROVIDERS: PCP Family Medicine; Visit Provider Surgery
DX: I73.9 Peripheral vascular disease, unspecified (principal); E11.42 Type 2 diabetes mellitus with diabetic polyneuropathy; T81.31XD Disruption of external operation (surgical) wound, not elsewhere classified, subsequent encounter; E11.621 Type 2 diabetes mellitus with foot ulcer; L97.414 Non-pressure chronic ulcer of right heel and midfoot with necrosis of bone; M86.171 Other acute osteomyelitis, right ankle and foot
CPT/HCPCS: 99183; G0277

== ENCOUNTER → 2023-07-02 09:23 | Outpatient (CLI) | payer MEDICARE, SELFPAY ==
[2023-01-01 22:45] VITALS: BMI 22.3
== END ==
PROVIDERS: PCP Family Medicine; Referring Provider Podiatrist; Visit Provider Surgery
DX: I73.9 Peripheral vascular disease, unspecified (principal); E11.42 Type 2 diabetes mellitus with diabetic polyneuropathy; T81.31XD Disruption of external operation (surgical) wound, not elsewhere classified, subsequent encounter; E11.621 Type 2 diabetes mellitus with foot ulcer; L97.414 Non-pressure chronic ulcer of right heel and midfoot with necrosis of bone; M86.171 Other acute osteomyelitis, right ankle and foot
CPT/HCPCS: 99183; G0277

== ENCOUNTER → 2023-07-03 09:25 | Outpatient (CLI) | payer MEDICARE, SELFPAY ==
[2023-01-01 22:45] VITALS: BMI 22.3
== END ==
PROVIDERS: PCP Family Medicine; Referring Provider Podiatrist; Visit Provider Surgery
DX: E11.621 Type 2 diabetes mellitus with foot ulcer (principal); L97.514 Non-pressure chronic ulcer of other part of right foot with necrosis of bone; R60.0 Localized edema; M86.171 Other acute osteomyelitis, right ankle and foot; I73.9 Peripheral vascular disease, unspecified; E11.42 Type 2 diabetes mellitus with diabetic polyneuropathy; T81.31XD Disruption of external operation (surgical) wound, not elsewhere classified, subsequent encounter
CPT/HCPCS: 15275; 99183; 99214; G0277; Q4196

== ENCOUNTER → 2023-07-04 08:54 | Outpatient (CLI) | payer MEDICARE, SELFPAY ==
[2023-01-01 22:45] VITALS: BMI 22.3
== END ==
PROVIDERS: PCP Family Medicine; Referring Provider Family Medicine; Visit Provider Surgery
DX: I73.9 Peripheral vascular disease, unspecified (principal); E11.42 Type 2 diabetes mellitus with diabetic polyneuropathy; T81.31XD Disruption of external operation (surgical) wound, not elsewhere classified, subsequent encounter; E11.621 Type 2 diabetes mellitus with foot ulcer; L97.414 Non-pressure chronic ulcer of right heel and midfoot with necrosis of bone; M86.171 Other acute osteomyelitis, right ankle and foot
CPT/HCPCS: 99183; G0277

== ENCOUNTER → 2023-07-05 09:15 | Outpatient (CLI) | payer MEDICARE, SELFPAY ==
[2023-01-01 22:45] VITALS: BMI 22.3
== END ==
PROVIDERS: PCP Family Medicine; Referring Provider Podiatrist; Visit Provider Physician Assistant
DX: I73.9 Peripheral vascular disease, unspecified (principal); E11.42 Type 2 diabetes mellitus with diabetic polyneuropathy; T81.31XD Disruption of external operation (surgical) wound, not elsewhere classified, subsequent encounter; E11.621 Type 2 diabetes mellitus with foot ulcer; L97.414 Non-pressure chronic ulcer of right heel and midfoot with necrosis of bone; M86.171 Other acute osteomyelitis, right ankle and foot
CPT/HCPCS: 99183; G0277

== ENCOUNTER → 2023-07-08 08:46 | Outpatient (CLI) | payer MEDICARE, SELFPAY ==
[2023-01-01 22:45] VITALS: BMI 22.3
== END ==
PROVIDERS: PCP Family Medicine; Referring Provider Podiatrist; Visit Provider Surgery
DX: I73.9 Peripheral vascular disease, unspecified (principal); E11.42 Type 2 diabetes mellitus with diabetic polyneuropathy; T81.31XD Disruption of external operation (surgical) wound, not elsewhere classified, subsequent encounter; E11.621 Type 2 diabetes mellitus with foot ulcer; L97.414 Non-pressure chronic ulcer of right heel and midfoot with necrosis of bone; M86.171 Other acute osteomyelitis, right ankle and foot
CPT/HCPCS: 99183; G0277

== ENCOUNTER → 2023-07-09 08:36 | Outpatient (CLI) | payer MEDICARE, SELFPAY ==
[2023-01-01 22:45] VITALS: BMI 22.3
== END ==
PROVIDERS: PCP Family Medicine; Referring Provider Podiatrist; Visit Provider Surgery
DX: E11.621 Type 2 diabetes mellitus with foot ulcer (principal); L97.514 Non-pressure chronic ulcer of other part of right foot with necrosis of bone; R60.0 Localized edema; L53.9 Erythematous condition, unspecified; M86.171 Other acute osteomyelitis, right ankle and foot; R21 Rash and other nonspecific skin eruption; I73.9 Peripheral vascular disease, unspecified; E11.42 Type 2 diabetes mellitus with diabetic polyneuropathy; T81.31XD Disruption of external operation (surgical) wound, not elsewhere classified, subsequent encounter; L97.414 Non-pressure chronic ulcer of right heel and midfoot with necrosis of bone
CPT/HCPCS: 15275; 99183; G0277; Q4196

== ENCOUNTER → 2023-07-10 08:49 | Outpatient (CLI) | payer MEDICARE, SELFPAY ==
[2023-01-01 22:45] VITALS: BMI 22.3
== END ==
PROVIDERS: PCP Family Medicine; Referring Provider Podiatrist; Visit Provider Surgery
DX: I73.9 Peripheral vascular disease, unspecified (principal); E11.42 Type 2 diabetes mellitus with diabetic polyneuropathy; T81.31XD Disruption of external operation (surgical) wound, not elsewhere classified, subsequent encounter; E11.621 Type 2 diabetes mellitus with foot ulcer; L97.414 Non-pressure chronic ulcer of right heel and midfoot with necrosis of bone; M86.171 Other acute osteomyelitis, right ankle and foot
CPT/HCPCS: 99183; G0277

== ENCOUNTER → 2023-07-11 08:48 | Outpatient (CLI) | payer MEDICARE, SELFPAY ==
[2023-01-01 22:45] VITALS: BMI 22.3
== END ==
PROVIDERS: PCP Family Medicine; Referring Provider Podiatrist; Visit Provider Surgery
DX: I73.9 Peripheral vascular disease, unspecified (principal); E11.42 Type 2 diabetes mellitus with diabetic polyneuropathy; T81.31XD Disruption of external operation (surgical) wound, not elsewhere classified, subsequent encounter; E11.621 Type 2 diabetes mellitus with foot ulcer; L97.414 Non-pressure chronic ulcer of right heel and midfoot with necrosis of bone; M86.171 Other acute osteomyelitis, right ankle and foot
CPT/HCPCS: 99183; G0277

== ENCOUNTER → 2023-07-15 09:25 | Outpatient (CLI) | payer MEDICARE, SELFPAY ==
[2023-01-01 22:45] VITALS: BMI 22.3
== END ==
PROVIDERS: PCP Family Medicine; Referring Provider Podiatrist; Visit Provider Surgery
DX: I73.9 Peripheral vascular disease, unspecified (principal); E11.42 Type 2 diabetes mellitus with diabetic polyneuropathy; T81.31XD Disruption of external operation (surgical) wound, not elsewhere classified, subsequent encounter; E11.621 Type 2 diabetes mellitus with foot ulcer; L97.414 Non-pressure chronic ulcer of right heel and midfoot with necrosis of bone; M86.171 Other acute osteomyelitis, right ankle and foot
CPT/HCPCS: 99183; G0277

== ENCOUNTER → 2023-07-16 08:36 | Outpatient (CLI) | payer MEDICARE, SELFPAY ==
[2023-01-01 22:45] VITALS: BMI 22.3
== END ==
PROVIDERS: PCP Family Medicine; Referring Provider Podiatrist; Visit Provider Surgery
DX: E11.621 Type 2 diabetes mellitus with foot ulcer (principal); L97.512 Non-pressure chronic ulcer of other part of right foot with fat layer exposed; R21 Rash and other nonspecific skin eruption; R60.0 Localized edema; E11.69 Type 2 diabetes mellitus with other specified complication; M86.171 Other acute osteomyelitis, right ankle and foot; E11.40 Type 2 diabetes mellitus with diabetic neuropathy, unspecified; E11.51 Type 2 diabetes mellitus with diabetic peripheral angiopathy without gangrene; I10 Essential (primary) hypertension; E78.5 Hyperlipidemia, unspecified; J44.9 Chronic obstructive pulmonary disease, unspecified; Z89.421 Acquired absence of other right toe(s); Z87.891 Personal history of nicotine dependence
CPT/HCPCS: 15275; 87070; 87075; 87147; 87205; 99183; G0277; Q4196

== ENCOUNTER → 2023-07-17 09:23 | Outpatient (CLI) | payer MEDICARE, SELFPAY ==
[2023-01-01 22:45] VITALS: BMI 22.3
== END ==
PROVIDERS: PCP Family Medicine; Referring Provider Podiatrist; Visit Provider Surgery
DX: I73.9 Peripheral vascular disease, unspecified (principal); E11.42 Type 2 diabetes mellitus with diabetic polyneuropathy; T81.31XD Disruption of external operation (surgical) wound, not elsewhere classified, subsequent encounter; E11.621 Type 2 diabetes mellitus with foot ulcer; L97.414 Non-pressure chronic ulcer of right heel and midfoot with necrosis of bone; M86.171 Other acute osteomyelitis, right ankle and foot
CPT/HCPCS: 99183; G0277

== ENCOUNTER → 2023-07-18 09:00 | Outpatient (CLI) | payer MEDICARE, SELFPAY ==
[2023-01-01 22:45] VITALS: BMI 22.3
== END ==
PROVIDERS: PCP Family Medicine; Referring Provider Podiatrist; Visit Provider Surgery
DX: I73.9 Peripheral vascular disease, unspecified (principal); E11.42 Type 2 diabetes mellitus with diabetic polyneuropathy; T81.31XD Disruption of external operation (surgical) wound, not elsewhere classified, subsequent encounter; E11.621 Type 2 diabetes mellitus with foot ulcer; L97.414 Non-pressure chronic ulcer of right heel and midfoot with necrosis of bone; M86.171 Other acute osteomyelitis, right ankle and foot
CPT/HCPCS: 99183; G0277

== ENCOUNTER → 2023-07-19 08:36 | Outpatient (CLI) | payer MEDICARE, SELFPAY ==
[2023-01-01 22:45] VITALS: BMI 22.3
== END ==
PROVIDERS: PCP Family Medicine; Referring Provider Podiatrist; Visit Provider Physician Assistant
DX: E11.621 Type 2 diabetes mellitus with foot ulcer (principal); L97.414 Non-pressure chronic ulcer of right heel and midfoot with necrosis of bone; I73.9 Peripheral vascular disease, unspecified; E11.42 Type 2 diabetes mellitus with diabetic polyneuropathy; T81.31XD Disruption of external operation (surgical) wound, not elsewhere classified, subsequent encounter; M86.171 Other acute osteomyelitis, right ankle and foot
CPT/HCPCS: 99183; G0277

== ENCOUNTER → 2023-07-22 09:02 | Outpatient (CLI) | payer MEDICARE, SELFPAY ==
[2023-01-01 22:45] VITALS: BMI 22.3
== END ==
PROVIDERS: PCP Family Medicine; Referring Provider Podiatrist; Visit Provider Surgery
DX: E11.621 Type 2 diabetes mellitus with foot ulcer (principal); L97.414 Non-pressure chronic ulcer of right heel and midfoot with necrosis of bone; I73.9 Peripheral vascular disease, unspecified; E11.42 Type 2 diabetes mellitus with diabetic polyneuropathy; T81.31XD Disruption of external operation (surgical) wound, not elsewhere classified, subsequent encounter; M86.171 Other acute osteomyelitis, right ankle and foot
CPT/HCPCS: 99183; G0277

== ENCOUNTER → 2023-07-23 08:49 | Outpatient (CLI) | payer MEDICARE, SELFPAY ==
[2023-01-01 22:45] VITALS: BMI 22.3
== END ==
PROVIDERS: PCP Family Medicine; Referring Provider Podiatrist; Visit Provider Surgery
DX: E11.621 Type 2 diabetes mellitus with foot ulcer (principal); L97.512 Non-pressure chronic ulcer of other part of right foot with fat layer exposed; Z89.421 Acquired absence of other right toe(s); I10 Essential (primary) hypertension; E78.5 Hyperlipidemia, unspecified; J44.9 Chronic obstructive pulmonary disease, unspecified; R60.0 Localized edema; L53.9 Erythematous condition, unspecified
CPT/HCPCS: 15275; 99183; G0277; Q4160

== ENCOUNTER → 2023-07-24 09:05 | Outpatient (CLI) | payer MEDICARE, SELFPAY ==
[2023-01-01 22:45] VITALS: BMI 22.3
== END ==
PROVIDERS: PCP Family Medicine; Referring Provider Podiatrist; Visit Provider Surgery
DX: I73.9 Peripheral vascular disease, unspecified (principal); E11.42 Type 2 diabetes mellitus with diabetic polyneuropathy; T81.31XD Disruption of external operation (surgical) wound, not elsewhere classified, subsequent encounter; E11.621 Type 2 diabetes mellitus with foot ulcer; L97.414 Non-pressure chronic ulcer of right heel and midfoot with necrosis of bone; M86.171 Other acute osteomyelitis, right ankle and foot
CPT/HCPCS: 99183; G0277

== ENCOUNTER → 2023-07-26 10:02 | Outpatient (CLI) | payer MEDICARE, SELFPAY ==
[2023-01-01 22:45] VITALS: BMI 22.3
== END ==
PROVIDERS: PCP Family Medicine; Referring Provider Podiatrist; Visit Provider Surgery
DX: I73.9 Peripheral vascular disease, unspecified (principal); E11.42 Type 2 diabetes mellitus with diabetic polyneuropathy; T81.31XD Disruption of external operation (surgical) wound, not elsewhere classified, subsequent encounter; E11.621 Type 2 diabetes mellitus with foot ulcer; L97.414 Non-pressure chronic ulcer of right heel and midfoot with necrosis of bone; M86.171 Other acute osteomyelitis, right ankle and foot
CPT/HCPCS: 99183; G0277

== ENCOUNTER → 2023-07-29 08:48 | Outpatient (CLI) | payer MEDICARE, SELFPAY ==
[2023-01-01 22:45] VITALS: BMI 22.3
== END ==
PROVIDERS: PCP Family Medicine; Referring Provider Podiatrist; Visit Provider Surgery
DX: I73.9 Peripheral vascular disease, unspecified (principal); E11.42 Type 2 diabetes mellitus with diabetic polyneuropathy; T81.31XD Disruption of external operation (surgical) wound, not elsewhere classified, subsequent encounter; E11.621 Type 2 diabetes mellitus with foot ulcer; L97.414 Non-pressure chronic ulcer of right heel and midfoot with necrosis of bone; M86.171 Other acute osteomyelitis, right ankle and foot
CPT/HCPCS: 99183; G0277

== ENCOUNTER → 2023-07-30 10:41 | Outpatient (CLI) | payer MEDICARE, SELFPAY ==
[2023-01-01 22:45] VITALS: BMI 22.3
== END ==
PROVIDERS: PCP Family Medicine; Referring Provider Podiatrist; Visit Provider Surgery
DX: I73.9 Peripheral vascular disease, unspecified (principal); E11.42 Type 2 diabetes mellitus with diabetic polyneuropathy; T81.31XD Disruption of external operation (surgical) wound, not elsewhere classified, subsequent encounter; E11.621 Type 2 diabetes mellitus with foot ulcer; L97.414 Non-pressure chronic ulcer of right heel and midfoot with necrosis of bone; M86.171 Other acute osteomyelitis, right ankle and foot
CPT/HCPCS: 15275; 99183; G0277; Q4196

== ENCOUNTER → 2023-07-31 09:21 | Outpatient (CLI) | payer MEDICARE, SELFPAY ==
[2023-01-01 22:45] VITALS: BMI 22.3
== END ==
PROVIDERS: PCP Family Medicine; Referring Provider Podiatrist; Visit Provider Surgery
DX: I73.9 Peripheral vascular disease, unspecified (principal); E11.42 Type 2 diabetes mellitus with diabetic polyneuropathy; T81.31XD Disruption of external operation (surgical) wound, not elsewhere classified, subsequent encounter; E11.621 Type 2 diabetes mellitus with foot ulcer; L97.414 Non-pressure chronic ulcer of right heel and midfoot with necrosis of bone; M86.171 Other acute osteomyelitis, right ankle and foot
CPT/HCPCS: 99183; G0277

== ENCOUNTER → 2023-08-05 08:58 | Outpatient (CLI) | payer MEDICARE, SELFPAY ==
[2023-01-01 22:45] VITALS: BMI 22.3
== END ==
PROVIDERS: PCP Family Medicine; Referring Provider Podiatrist; Visit Provider Physician Assistant
DX: I73.9 Peripheral vascular disease, unspecified (principal); E11.42 Type 2 diabetes mellitus with diabetic polyneuropathy; T81.31XD Disruption of external operation (surgical) wound, not elsewhere classified, subsequent encounter; E11.621 Type 2 diabetes mellitus with foot ulcer; L97.414 Non-pressure chronic ulcer of right heel and midfoot with necrosis of bone; M86.171 Other acute osteomyelitis, right ankle and foot
CPT/HCPCS: 99183; G0277

== ENCOUNTER → 2023-08-06 08:44 | Outpatient (CLI) | payer MEDICARE, SELFPAY ==
[2023-01-01 22:45] VITALS: BMI 22.3
== END ==
PROVIDERS: PCP Family Medicine; Referring Provider Podiatrist; Visit Provider Surgery
DX: E11.621 Type 2 diabetes mellitus with foot ulcer (principal); I73.9 Peripheral vascular disease, unspecified; E11.42 Type 2 diabetes mellitus with diabetic polyneuropathy; M86.171 Other acute osteomyelitis, right ankle and foot; L97.412 Non-pressure chronic ulcer of right heel and midfoot with fat layer exposed; R60.0 Localized edema; L53.9 Erythematous condition, unspecified; T81.31XD Disruption of external operation (surgical) wound, not elsewhere classified, subsequent encounter
CPT/HCPCS: 15275; 99183; 99213; G0277; Q4160

== ENCOUNTER → 2023-08-07 10:28 | Outpatient (CLI) | payer MEDICARE, SELFPAY ==
[2023-01-01 22:45] VITALS: BMI 22.3
== END ==
PROVIDERS: PCP Family Medicine; Referring Provider Podiatrist; Visit Provider Surgery
DX: I73.9 Peripheral vascular disease, unspecified (principal); E11.42 Type 2 diabetes mellitus with diabetic polyneuropathy; T81.31XD Disruption of external operation (surgical) wound, not elsewhere classified, subsequent encounter; E11.621 Type 2 diabetes mellitus with foot ulcer; L97.414 Non-pressure chronic ulcer of right heel and midfoot with necrosis of bone; M86.171 Other acute osteomyelitis, right ankle and foot
CPT/HCPCS: 99183; G0277

== ENCOUNTER → 2023-08-08 08:49 | Outpatient (CLI) | payer MEDICARE, SELFPAY ==
[2023-01-01 22:45] VITALS: BMI 22.3
== END ==
PROVIDERS: PCP Family Medicine; Referring Provider Podiatrist; Visit Provider Surgery
DX: I73.9 Peripheral vascular disease, unspecified (principal); E11.42 Type 2 diabetes mellitus with diabetic polyneuropathy; T81.31XD Disruption of external operation (surgical) wound, not elsewhere classified, subsequent encounter; E11.621 Type 2 diabetes mellitus with foot ulcer; L97.414 Non-pressure chronic ulcer of right heel and midfoot with necrosis of bone; M86.171 Other acute osteomyelitis, right ankle and foot
CPT/HCPCS: 99183; G0277

== ENCOUNTER → 2023-08-09 09:06 | Outpatient (CLI) | payer MEDICARE, SELFPAY ==
[2023-01-01 22:45] VITALS: BMI 22.3
--- NOTE | 2023-08-09 | OV.WND_ITS ---
Progress Note Details Patient Name: Jessica Harmon Patient Number: [id number] Patient Date of : 1935 Patient Subjective Allergies sulfamethoxazole (Severity: Severe, Reacti Severe, Reaction: Hives, Shortness of janeth Date: 08/09/2023 Clinician: Rj Ramos Physician / Birthing Nurse: Josephine Loaiza PA-C on: Hives, shortness of breath), trimethoprim (Severity: th) ASSESSMENT Active Problems ICD-10 T81.31XA - Disruption of external operation (surgical) wound, not elsewhere classified, initial encounter (Encounter Diagnosis) I73.9 - Peripheral vascular disease, unspecified (Encounter Diagnosis) E11.42 - Type 2 diabetes mellitus with diabetic polyneuropathy (Encounter Diagnosis) T81.31XD - Disruption of external operation (surgical) wound, not elsewhere classified, subsequent encounter (Encounter Diagnosis) E11.621 - Type 2 diabetes mellitus with foot ulcer (Encounter Diagnosis) 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 Pre- Treatment Vital Signs were: Time Vitals Taken: 08:25, Blood Pressure: 143/71 mmHg, Pulse: 74 bpm, Respiratory Rate: 14 breaths/min, Temperature: 98.4 ?F, Capillary Blood Glucose: 159 mg/dl, Pulse Oximetry: 100 %. The treatment protocol provided was 2.4 ECHO x 90 minutes w/ 100% oxygen and 2- 10 minute air breaks. The dive rate down was 1.5 psi / minute. The dive rate up was 1.5 psi / minute. The total treatment length was 140 minutes. Post-Treatment Vital Signs were: Time Vitals Taken: 10:55, Blood Pressure: 152/83 mmHg, Pulse: 60 bpm, Respiratory Rate: 14 breaths/min, Temperature: 98.5 ?F, Capillary Blood Glucose: 190 mg/dl, Pulse Oximetry: 100 %. No adverse events were encountered. Physician/Birthing Nurse Notes: The patient tolerated treatment without difficulty. I was present and immediately available throughout the treatment. Plan to continue hyperbaric oxygen therapy. General Notes PT arrived in stable condition; pre-treatment checklist completed without issue. Pt completed treatment without complications, pt left in stable condition. Additional Information Physician was readily available during the entire treatment.: Yes Jessica Harmon [id number] 1935 Electronic Signature(s) Signed By: Date: Josephine Loaiza PA-C 09/13/2023 10:15:52 (PT) 08/09/2023 1:30:51 PM Version Electronically Date: Signed By: Josephine Loaiza PA-C 08/09/2023 13:31:01 (PT) Entered By: Rj Ramos on 09/12/2023 13:02:59 (PT) Jessica Harmon [id number] 1935
== END ==
PROVIDERS: PCP Family Medicine; Referring Provider Podiatrist; Visit Provider Physician Assistant
DX: I73.9 Peripheral vascular disease, unspecified (principal); E11.42 Type 2 diabetes mellitus with diabetic polyneuropathy; T81.31XD Disruption of external operation (surgical) wound, not elsewhere classified, subsequent encounter; E11.621 Type 2 diabetes mellitus with foot ulcer; L97.414 Non-pressure chronic ulcer of right heel and midfoot with necrosis of bone; M86.171 Other acute osteomyelitis, right ankle and foot
CPT/HCPCS: 99183; G0277

== ENCOUNTER → 2023-08-12 08:30 | Outpatient (CLI) | payer MEDICARE, SELFPAY ==
[2023-01-01 22:45] VITALS: BMI 22.3
== END ==
PROVIDERS: PCP Family Medicine; Referring Provider Podiatrist; Visit Provider Surgery
DX: E11.621 Type 2 diabetes mellitus with foot ulcer (principal); L97.414 Non-pressure chronic ulcer of right heel and midfoot with necrosis of bone; E11.42 Type 2 diabetes mellitus with diabetic polyneuropathy; I73.9 Peripheral vascular disease, unspecified; T81.31XD Disruption of external operation (surgical) wound, not elsewhere classified, subsequent encounter; M86.171 Other acute osteomyelitis, right ankle and foot
CPT/HCPCS: 15275; 99183; G0277; Q4160

== ENCOUNTER → 2023-08-13 08:34 | Outpatient (CLI) | payer MEDICARE, SELFPAY ==
[2023-01-01 22:45] VITALS: BMI 22.3
== END ==
PROVIDERS: PCP Family Medicine; Referring Provider Podiatrist; Visit Provider Surgery
DX: I73.9 Peripheral vascular disease, unspecified (principal); E11.42 Type 2 diabetes mellitus with diabetic polyneuropathy; T81.31XD Disruption of external operation (surgical) wound, not elsewhere classified, subsequent encounter; E11.621 Type 2 diabetes mellitus with foot ulcer; L97.414 Non-pressure chronic ulcer of right heel and midfoot with necrosis of bone; M86.171 Other acute osteomyelitis, right ankle and foot
CPT/HCPCS: 99183; G0277

== ENCOUNTER → 2023-08-14 08:52 | Outpatient (CLI) | payer MEDICARE, SELFPAY ==
[2023-01-01 22:45] VITALS: BMI 22.3
== END ==
PROVIDERS: PCP Family Medicine; Referring Provider Podiatrist; Visit Provider Surgery
DX: I73.9 Peripheral vascular disease, unspecified (principal); E11.42 Type 2 diabetes mellitus with diabetic polyneuropathy; T81.31XD Disruption of external operation (surgical) wound, not elsewhere classified, subsequent encounter; E11.621 Type 2 diabetes mellitus with foot ulcer; L97.414 Non-pressure chronic ulcer of right heel and midfoot with necrosis of bone; M86.171 Other acute osteomyelitis, right ankle and foot
CPT/HCPCS: 99183; G0277

== ENCOUNTER → 2023-08-16 08:45 | Outpatient (CLI) | payer MEDICARE, SELFPAY ==
[2023-01-01 22:45] VITALS: BMI 22.3
== END ==
PROVIDERS: PCP Family Medicine; Referring Provider Podiatrist; Visit Provider Surgery
DX: I73.9 Peripheral vascular disease, unspecified (principal); E11.42 Type 2 diabetes mellitus with diabetic polyneuropathy; T81.31XD Disruption of external operation (surgical) wound, not elsewhere classified, subsequent encounter; E11.621 Type 2 diabetes mellitus with foot ulcer; L97.414 Non-pressure chronic ulcer of right heel and midfoot with necrosis of bone; M86.171 Other acute osteomyelitis, right ankle and foot
CPT/HCPCS: 99183; G0277

== ENCOUNTER → 2023-08-19 08:39 | Outpatient (CLI) | payer MEDICARE, SELFPAY ==
[2023-01-01 22:45] VITALS: BMI 22.3
== END ==
PROVIDERS: PCP Family Medicine; Referring Provider Podiatrist; Visit Provider Surgery
DX: E11.621 Type 2 diabetes mellitus with foot ulcer (principal); L97.512 Non-pressure chronic ulcer of other part of right foot with fat layer exposed; R60.0 Localized edema
CPT/HCPCS: 15275; 99183; G0277; Q4160

== ENCOUNTER → 2023-08-20 08:46 | Outpatient (CLI) | payer MEDICARE, SELFPAY ==
[2023-01-01 22:45] VITALS: BMI 22.3
== END ==
PROVIDERS: PCP Family Medicine; Referring Provider Podiatrist; Visit Provider Surgery
DX: I73.9 Peripheral vascular disease, unspecified (principal); E11.42 Type 2 diabetes mellitus with diabetic polyneuropathy; T81.31XD Disruption of external operation (surgical) wound, not elsewhere classified, subsequent encounter; E11.621 Type 2 diabetes mellitus with foot ulcer; L97.414 Non-pressure chronic ulcer of right heel and midfoot with necrosis of bone; M86.171 Other acute osteomyelitis, right ankle and foot
CPT/HCPCS: 99183; G0277

== ENCOUNTER → 2023-08-21 08:59 | Outpatient (CLI) | payer MEDICARE, SELFPAY ==
[2023-01-01 22:45] VITALS: BMI 22.3
== END ==
PROVIDERS: PCP Family Medicine; Referring Provider Podiatrist; Visit Provider Surgery
DX: I73.9 Peripheral vascular disease, unspecified (principal); E11.42 Type 2 diabetes mellitus with diabetic polyneuropathy; T81.31XD Disruption of external operation (surgical) wound, not elsewhere classified, subsequent encounter; L97.414 Non-pressure chronic ulcer of right heel and midfoot with necrosis of bone; M86.171 Other acute osteomyelitis, right ankle and foot; E11.621 Type 2 diabetes mellitus with foot ulcer
CPT/HCPCS: 99183; G0277

== ENCOUNTER → 2023-08-22 09:18 | Outpatient (CLI) | payer MEDICARE, SELFPAY ==
[2023-01-01 22:45] VITALS: BMI 22.3
== END ==
PROVIDERS: PCP Family Medicine; Referring Provider Podiatrist; Visit Provider Surgery
DX: I73.9 Peripheral vascular disease, unspecified (principal); E11.42 Type 2 diabetes mellitus with diabetic polyneuropathy; T81.31XD Disruption of external operation (surgical) wound, not elsewhere classified, subsequent encounter; E11.621 Type 2 diabetes mellitus with foot ulcer; L97.414 Non-pressure chronic ulcer of right heel and midfoot with necrosis of bone; M86.171 Other acute osteomyelitis, right ankle and foot
CPT/HCPCS: 99183; G0277

== ENCOUNTER → 2023-08-23 09:32 | Outpatient (CLI) | payer MEDICARE, SELFPAY ==
[2023-01-01 22:45] VITALS: BMI 22.3
== END ==
PROVIDERS: PCP Family Medicine; Referring Provider Podiatrist; Visit Provider Physician Assistant
DX: I73.9 Peripheral vascular disease, unspecified (principal); E11.42 Type 2 diabetes mellitus with diabetic polyneuropathy; T81.31XD Disruption of external operation (surgical) wound, not elsewhere classified, subsequent encounter; E11.621 Type 2 diabetes mellitus with foot ulcer; L97.414 Non-pressure chronic ulcer of right heel and midfoot with necrosis of bone; M86.171 Other acute osteomyelitis, right ankle and foot
CPT/HCPCS: 99183; G0277

== ENCOUNTER → 2023-08-26 08:18 | Outpatient (CLI) | payer MEDICARE, SELFPAY ==
[2023-01-01 22:45] VITALS: BMI 22.3
== END ==
PROVIDERS: PCP Family Medicine; Referring Provider Podiatrist; Visit Provider Surgery
DX: I73.9 Peripheral vascular disease, unspecified (principal); E11.42 Type 2 diabetes mellitus with diabetic polyneuropathy; T81.31XD Disruption of external operation (surgical) wound, not elsewhere classified, subsequent encounter; E11.621 Type 2 diabetes mellitus with foot ulcer; L97.414 Non-pressure chronic ulcer of right heel and midfoot with necrosis of bone; M86.171 Other acute osteomyelitis, right ankle and foot
CPT/HCPCS: 15275; 99183; 99213; G0277; Q4160

== ENCOUNTER → 2023-08-27 08:39 | Outpatient (CLI) | payer MEDICARE, SELFPAY ==
[2023-01-01 22:45] VITALS: BMI 22.3
== END ==
PROVIDERS: PCP Family Medicine; Referring Provider Podiatrist; Visit Provider Surgery
DX: I73.9 Peripheral vascular disease, unspecified (principal); E11.42 Type 2 diabetes mellitus with diabetic polyneuropathy; T81.31XD Disruption of external operation (surgical) wound, not elsewhere classified, subsequent encounter; E11.621 Type 2 diabetes mellitus with foot ulcer; L97.414 Non-pressure chronic ulcer of right heel and midfoot with necrosis of bone; M86.171 Other acute osteomyelitis, right ankle and foot
CPT/HCPCS: 99183; G0277

== ENCOUNTER → 2023-08-28 08:31 | Outpatient (CLI) | payer MEDICARE, SELFPAY ==
[2023-01-01 22:45] VITALS: BMI 22.3
== END ==
PROVIDERS: PCP Family Medicine; Referring Provider Podiatrist; Visit Provider Surgery
DX: I73.9 Peripheral vascular disease, unspecified (principal); E11.42 Type 2 diabetes mellitus with diabetic polyneuropathy; T81.31XD Disruption of external operation (surgical) wound, not elsewhere classified, subsequent encounter; E11.621 Type 2 diabetes mellitus with foot ulcer; L97.414 Non-pressure chronic ulcer of right heel and midfoot with necrosis of bone; M86.171 Other acute osteomyelitis, right ankle and foot
CPT/HCPCS: 99183; G0277

== ENCOUNTER → 2023-08-29 08:36 | Outpatient (CLI) | payer MEDICARE, SELFPAY ==
[2023-01-01 22:45] VITALS: BMI 22.3
== END ==
PROVIDERS: PCP Family Medicine; Referring Provider Podiatrist; Visit Provider Physician Assistant
DX: I73.9 Peripheral vascular disease, unspecified (principal); E11.42 Type 2 diabetes mellitus with diabetic polyneuropathy; T81.31XD Disruption of external operation (surgical) wound, not elsewhere classified, subsequent encounter; E11.621 Type 2 diabetes mellitus with foot ulcer; L97.414 Non-pressure chronic ulcer of right heel and midfoot with necrosis of bone; M86.171 Other acute osteomyelitis, right ankle and foot
CPT/HCPCS: 99183; G0277

== ENCOUNTER → 2023-09-04 11:11 | Outpatient (CLI) | payer MEDICARE, SELFPAY ==
[2023-01-01 22:45] VITALS: BMI 22.3
== END ==
LOC: WC 11:12
PROVIDERS: PCP Family Medicine; Referring Provider Family Medicine; Visit Provider Surgery
DX: E11.621 Type 2 diabetes mellitus with foot ulcer (principal); L97.512 Non-pressure chronic ulcer of other part of right foot with fat layer exposed; L84 Corns and callosities; I73.9 Peripheral vascular disease, unspecified; E11.42 Type 2 diabetes mellitus with diabetic polyneuropathy; T81.31XD Disruption of external operation (surgical) wound, not elsewhere classified, subsequent encounter; L97.414 Non-pressure chronic ulcer of right heel and midfoot with necrosis of bone; M86.171 Other acute osteomyelitis, right ankle and foot
CPT/HCPCS: 99183; 99212; G0277

== ENCOUNTER → 2023-09-05 08:16 | Outpatient (CLI) | payer MEDICARE, SELFPAY ==
[2023-01-01 22:45] VITALS: BMI 22.3
== END ==
LOC: WC 08:18
PROVIDERS: PCP Family Medicine; Referring Provider Podiatrist; Visit Provider Surgery
DX: I73.9 Peripheral vascular disease, unspecified (principal); E11.42 Type 2 diabetes mellitus with diabetic polyneuropathy; T81.31XD Disruption of external operation (surgical) wound, not elsewhere classified, subsequent encounter; E11.621 Type 2 diabetes mellitus with foot ulcer; L97.414 Non-pressure chronic ulcer of right heel and midfoot with necrosis of bone; M86.171 Other acute osteomyelitis, right ankle and foot
CPT/HCPCS: 99183; G0277

== ENCOUNTER → 2023-09-06 09:01 | Outpatient (CLI) | payer MEDICARE, SELFPAY ==
[2023-01-01 22:45] VITALS: BMI 22.3
== END ==
LOC: WC 09:02
PROVIDERS: PCP Family Medicine; Referring Provider Podiatrist; Visit Provider Physician Assistant
DX: I73.9 Peripheral vascular disease, unspecified (principal); E11.42 Type 2 diabetes mellitus with diabetic polyneuropathy; E11.621 Type 2 diabetes mellitus with foot ulcer; L97.414 Non-pressure chronic ulcer of right heel and midfoot with necrosis of bone; M86.171 Other acute osteomyelitis, right ankle and foot
CPT/HCPCS: 99183; G0277

== ENCOUNTER → 2023-09-10 08:35 | Outpatient (CLI) | payer MEDICARE, SELFPAY ==
[2023-01-01 22:45] VITALS: BMI 22.3
== END ==
LOC: WC 08:44
PROVIDERS: PCP Family Medicine; Referring Provider Podiatrist; Visit Provider Surgery
DX: I73.9 Peripheral vascular disease, unspecified (principal); E11.42 Type 2 diabetes mellitus with diabetic polyneuropathy; E11.621 Type 2 diabetes mellitus with foot ulcer; L97.414 Non-pressure chronic ulcer of right heel and midfoot with necrosis of bone; M86.171 Other acute osteomyelitis, right ankle and foot
CPT/HCPCS: 99183; G0277

== ENCOUNTER → 2023-09-11 08:45 | Outpatient (CLI) | payer MEDICARE, SELFPAY ==
[2023-01-01 22:45] VITALS: BMI 22.3
== END ==
LOC: WC 08:47
PROVIDERS: PCP Family Medicine; Referring Provider Podiatrist; Visit Provider Surgery
DX: E11.621 Type 2 diabetes mellitus with foot ulcer (principal); L97.512 Non-pressure chronic ulcer of other part of right foot with fat layer exposed; R60.0 Localized edema; R23.4 Changes in skin texture; J44.9 Chronic obstructive pulmonary disease, unspecified; I73.9 Peripheral vascular disease, unspecified; M86.171 Other acute osteomyelitis, right ankle and foot
CPT/HCPCS: 11042; 99183; 99213; G0277

== ENCOUNTER → 2023-09-12 09:08 | Outpatient (CLI) | payer MEDICARE, SELFPAY ==
[2023-01-01 22:45] VITALS: BMI 22.3
== END ==
LOC: WC 09:09
PROVIDERS: PCP Family Medicine; Referring Provider Podiatrist; Visit Provider Surgery
DX: I73.9 Peripheral vascular disease, unspecified (principal); E11.42 Type 2 diabetes mellitus with diabetic polyneuropathy; E11.621 Type 2 diabetes mellitus with foot ulcer; L97.414 Non-pressure chronic ulcer of right heel and midfoot with necrosis of bone
CPT/HCPCS: 99183; G0277

== ENCOUNTER → 2023-09-13 08:31 | Outpatient (CLI) | payer MEDICARE, SELFPAY ==
[2023-01-01 22:45] VITALS: BMI 22.3
== END ==
PROVIDERS: PCP Family Medicine; Referring Provider Podiatrist; Visit Provider Physician Assistant
DX: E11.621 Type 2 diabetes mellitus with foot ulcer (principal); L97.512 Non-pressure chronic ulcer of other part of right foot with fat layer exposed; R60.0 Localized edema; R23.4 Changes in skin texture
CPT/HCPCS: 99183; 99213; G0277

== ENCOUNTER → 2023-09-16 08:39 | Outpatient (CLI) | payer MEDICARE, SELFPAY ==
[2023-01-01 22:45] VITALS: BMI 22.3
== END ==
LOC: WC 08:40
PROVIDERS: PCP Family Medicine; Referring Provider Podiatrist; Visit Provider Surgery
DX: I73.9 Peripheral vascular disease, unspecified (principal); E11.42 Type 2 diabetes mellitus with diabetic polyneuropathy; E11.621 Type 2 diabetes mellitus with foot ulcer; L97.414 Non-pressure chronic ulcer of right heel and midfoot with necrosis of bone; M86.171 Other acute osteomyelitis, right ankle and foot
CPT/HCPCS: 99183; G0277

== ENCOUNTER → 2023-09-17 08:39 | Outpatient (CLI) | payer MEDICARE, SELFPAY ==
[2023-01-01 22:45] VITALS: BMI 22.3
== END ==
LOC: WC 08:40
PROVIDERS: PCP Family Medicine; Referring Provider Podiatrist; Visit Provider Surgery
DX: E11.621 Type 2 diabetes mellitus with foot ulcer (principal); L97.512 Non-pressure chronic ulcer of other part of right foot with fat layer exposed; R60.0 Localized edema; E11.69 Type 2 diabetes mellitus with other specified complication; M86.171 Other acute osteomyelitis, right ankle and foot; E11.40 Type 2 diabetes mellitus with diabetic neuropathy, unspecified; E11.51 Type 2 diabetes mellitus with diabetic peripheral angiopathy without gangrene; J44.9 Chronic obstructive pulmonary disease, unspecified; Z89.421 Acquired absence of other right toe(s); I73.9 Peripheral vascular disease, unspecified; E11.42 Type 2 diabetes mellitus with diabetic polyneuropathy; T81.31XD Disruption of external operation (surgical) wound, not elsewhere classified, subsequent encounter; L97.414 Non-pressure chronic ulcer of right heel and midfoot with necrosis of bone
CPT/HCPCS: 11042; 99183; 99213; G0277

== ENCOUNTER → 2023-09-18 09:14 | Outpatient (CLI) | payer MEDICARE, SELFPAY ==
[2023-01-01 22:45] VITALS: BMI 22.3
== END ==
LOC: WC 09:15
PROVIDERS: PCP Family Medicine; Referring Provider Podiatrist; Visit Provider Surgery
DX: I73.9 Peripheral vascular disease, unspecified (principal); E11.42 Type 2 diabetes mellitus with diabetic polyneuropathy; T81.31XD Disruption of external operation (surgical) wound, not elsewhere classified, subsequent encounter; E11.621 Type 2 diabetes mellitus with foot ulcer; L97.414 Non-pressure chronic ulcer of right heel and midfoot with necrosis of bone; M86.171 Other acute osteomyelitis, right ankle and foot
CPT/HCPCS: 99183; G0277

== ENCOUNTER → 2023-09-20 09:20 | Outpatient (CLI) | payer MEDICARE, SELFPAY ==
[2023-01-01 22:45] VITALS: BMI 22.3
== END ==
PROVIDERS: PCP Family Medicine; Referring Provider Podiatrist; Visit Provider Physician Assistant
DX: E11.621 Type 2 diabetes mellitus with foot ulcer (principal); L97.512 Non-pressure chronic ulcer of other part of right foot with fat layer exposed; R60.0 Localized edema; R23.4 Changes in skin texture; I73.9 Peripheral vascular disease, unspecified; E11.42 Type 2 diabetes mellitus with diabetic polyneuropathy; L97.414 Non-pressure chronic ulcer of right heel and midfoot with necrosis of bone; M86.171 Other acute osteomyelitis, right ankle and foot
CPT/HCPCS: 99183; 99213; G0277

== ENCOUNTER → 2023-09-23 08:35 | Outpatient (CLI) | payer MEDICARE, SELFPAY ==
[2023-01-01 22:45] VITALS: BMI 22.3
== END ==
PROVIDERS: PCP Family Medicine; Referring Provider Podiatrist; Visit Provider Physician Assistant
DX: E11.621 Type 2 diabetes mellitus with foot ulcer (principal); L97.512 Non-pressure chronic ulcer of other part of right foot with fat layer exposed; R23.4 Changes in skin texture; I73.9 Peripheral vascular disease, unspecified; E11.42 Type 2 diabetes mellitus with diabetic polyneuropathy; T81.31XD Disruption of external operation (surgical) wound, not elsewhere classified, subsequent encounter; L97.414 Non-pressure chronic ulcer of right heel and midfoot with necrosis of bone; M86.171 Other acute osteomyelitis, right ankle and foot
CPT/HCPCS: 99183; 99212; G0277

== ENCOUNTER → 2023-09-24 09:32 | Outpatient (CLI) | payer MEDICARE, SELFPAY ==
[2023-01-01 22:45] VITALS: BMI 22.3
== END ==
LOC: WC 09:35
PROVIDERS: PCP Family Medicine; Referring Provider Podiatrist; Visit Provider Surgery
DX: I73.9 Peripheral vascular disease, unspecified (principal); E11.42 Type 2 diabetes mellitus with diabetic polyneuropathy; E11.621 Type 2 diabetes mellitus with foot ulcer; L97.414 Non-pressure chronic ulcer of right heel and midfoot with necrosis of bone; M86.171 Other acute osteomyelitis, right ankle and foot
CPT/HCPCS: 99183; G0277

== ENCOUNTER → 2023-09-25 09:57 | Outpatient (CLI) | payer MEDICARE, SELFPAY ==
[2023-01-01 22:45] VITALS: BMI 22.3
== END ==
LOC: WC 09:58
PROVIDERS: PCP Family Medicine; Referring Provider Podiatrist; Visit Provider Physician Assistant
DX: E11.621 Type 2 diabetes mellitus with foot ulcer (principal); L97.512 Non-pressure chronic ulcer of other part of right foot with fat layer exposed; L53.9 Erythematous condition, unspecified; R23.4 Changes in skin texture
CPT/HCPCS: 99183; 99212; G0277

== ENCOUNTER → 2023-09-30 08:40 | Outpatient (CLI) | payer MEDICARE, SELFPAY ==
[2023-01-01 22:45] VITALS: BMI 22.3
== END ==
LOC: WC 08:41
PROVIDERS: PCP Family Medicine; Referring Provider Podiatrist; Visit Provider Surgery
DX: E11.621 Type 2 diabetes mellitus with foot ulcer (principal); L97.512 Non-pressure chronic ulcer of other part of right foot with fat layer exposed; I10 Essential (primary) hypertension; I73.9 Peripheral vascular disease, unspecified
CPT/HCPCS: 97597; 99183; 99213; G0277

== ENCOUNTER → 2023-10-01 08:54 | Outpatient (CLI) | payer MEDICARE, SELFPAY ==
[2023-01-01 22:45] VITALS: BMI 22.3
== END ==
PROVIDERS: PCP Family Medicine; Referring Provider Podiatrist; Visit Provider Surgery
DX: I73.9 Peripheral vascular disease, unspecified (principal); E11.42 Type 2 diabetes mellitus with diabetic polyneuropathy; T81.31XD Disruption of external operation (surgical) wound, not elsewhere classified, subsequent encounter; E11.621 Type 2 diabetes mellitus with foot ulcer; L97.414 Non-pressure chronic ulcer of right heel and midfoot with necrosis of bone; M86.171 Other acute osteomyelitis, right ankle and foot
CPT/HCPCS: 99183; G0277

== ENCOUNTER → 2023-10-01 11:15 | Outpatient (CLI) | payer MEDICARE, SELFPAY ==
[2023-01-01 22:45] VITALS: BMI 22.3
--- NOTE | 2023-10-01 11:17 | DI.MG.S_ITS ---
UNILATERAL LEFT DIGITAL SCREENING MAMMOGRAM 3D/2D WITH CAD POST MASTECTOMY: 10/01/2023 CLINICAL: Routine screening. Personal history of right breast cancer. Family history of breast cancer. Comparison is made to exams dated: 09/13/2022 mammogram, 08/30/2021 mammogram, and 07/26/2020 mammogram - [facility]. There are scattered areas of fibroglandular density in the left breast (category b / 25%-50% glandular tissue). Current study was also evaluated with a Computer Aided Detection (CAD) system. There are benign post operative findings in the left breast. No significant masses, calcifications, or other findings are seen in the breast. There has been no significant interval change. IMPRESSION: BENIGN There is no mammographic evidence of malignancy. A 1 year screening mammogram is recommended. This exam was interpreted at Station ID: [id number]. NOTE: For mammograms, a report in lay terms will be sent to the patient. Approximately 15% of breast malignancies will not be visualized mammographically. In the management of a palpable breast mass, a negative mammogram must not discourage biopsy of a clinically suspicious lesion. Electronically Signed By: Oxana Mars M.D., PH.D mack/denisa:10/02/2023 00:15:10 copy to: WALLY ACHARYA letter sent: Normal Exam ACR BI-RADS Category 2: Benign Finding(s) [id number]
== END ==
PROVIDERS: PCP Family Medicine; Referring Provider Family Medicine; Visit Provider Family Medicine
DX: Z12.31 Encounter for screening mammogram for malignant neoplasm of breast (principal); Z85.3 Personal history of malignant neoplasm of breast; Z80.3 Family history of malignant neoplasm of breast; R92.322 Mammographic fibroglandular density, left breast; E11.42 Type 2 diabetes mellitus with diabetic polyneuropathy; I73.9 Peripheral vascular disease, unspecified; E11.621 Type 2 diabetes mellitus with foot ulcer; L97.414 Non-pressure chronic ulcer of right heel and midfoot with necrosis of bone; E11.69 Type 2 diabetes mellitus with other specified complication; M86.171 Other acute osteomyelitis, right ankle and foot; T81.31XD Disruption of external operation (surgical) wound, not elsewhere classified, subsequent encounter
CPT/HCPCS: 77063; 77067; G0277

== ENCOUNTER → 2023-10-02 09:46 | Outpatient (CLI) | payer MEDICARE, SELFPAY ==
[2023-01-01 22:45] VITALS: BMI 22.3
== END ==
LOC: WC 09:47
PROVIDERS: PCP Family Medicine; Referring Provider Podiatrist; Visit Provider Surgery
DX: E11.621 Type 2 diabetes mellitus with foot ulcer (principal); L97.512 Non-pressure chronic ulcer of other part of right foot with fat layer exposed
CPT/HCPCS: 99183; 99212; G0277

== ENCOUNTER → 2023-10-03 08:33 | Outpatient (CLI) | payer MEDICARE, SELFPAY ==
[2023-01-01 22:45] VITALS: BMI 22.3
== END ==
LOC: WC 08:34
PROVIDERS: PCP Family Medicine; Referring Provider Podiatrist; Visit Provider Surgery
DX: I73.9 Peripheral vascular disease, unspecified (principal); E11.42 Type 2 diabetes mellitus with diabetic polyneuropathy; E11.621 Type 2 diabetes mellitus with foot ulcer; L97.414 Non-pressure chronic ulcer of right heel and midfoot with necrosis of bone; M86.171 Other acute osteomyelitis, right ankle and foot
CPT/HCPCS: 99183; G0277

== ENCOUNTER → 2023-10-04 09:24 | Outpatient (CLI) | payer MEDICARE, SELFPAY ==
[2023-01-01 22:45] VITALS: BMI 22.3
== END ==
LOC: WC 09:27
PROVIDERS: PCP Family Medicine; Referring Provider Podiatrist; Visit Provider Physician Assistant
DX: E11.621 Type 2 diabetes mellitus with foot ulcer (principal); L97.512 Non-pressure chronic ulcer of other part of right foot with fat layer exposed
CPT/HCPCS: 99183; 99212; G0277

== ENCOUNTER → 2023-10-07 08:45 | Outpatient (CLI) | payer MEDICARE, SELFPAY ==
[2023-01-01 22:45] VITALS: BMI 22.3
== END ==
LOC: WC 08:46
PROVIDERS: PCP Family Medicine; Referring Provider Podiatrist; Visit Provider Surgery
DX: E11.42 Type 2 diabetes mellitus with diabetic polyneuropathy (principal); E11.621 Type 2 diabetes mellitus with foot ulcer; L97.512 Non-pressure chronic ulcer of other part of right foot with fat layer exposed; L97.521 Non-pressure chronic ulcer of other part of left foot limited to breakdown of skin; M86.171 Other acute osteomyelitis, right ankle and foot; I73.9 Peripheral vascular disease, unspecified; L53.9 Erythematous condition, unspecified; R60.0 Localized edema; J44.9 Chronic obstructive pulmonary disease, unspecified; L97.414 Non-pressure chronic ulcer of right heel and midfoot with necrosis of bone
CPT/HCPCS: 97597; 99183; 99213; G0277

== ENCOUNTER → 2023-10-10 11:18 | Outpatient (CLI) | payer MEDICARE, SELFPAY ==
[2023-01-01 22:45] VITALS: BMI 22.3
== END ==
LOC: WC 11:19
PROVIDERS: PCP Family Medicine; Referring Provider Podiatrist; Visit Provider Surgery
DX: E11.621 Type 2 diabetes mellitus with foot ulcer (principal); L97.512 Non-pressure chronic ulcer of other part of right foot with fat layer exposed; L97.522 Non-pressure chronic ulcer of other part of left foot with fat layer exposed; R23.4 Changes in skin texture
CPT/HCPCS: 99214

== ENCOUNTER → 2023-10-14 11:16 | Outpatient (CLI) | payer MEDICARE, SELFPAY ==
[2023-01-01 22:45] VITALS: BMI 22.3
== END ==
LOC: WC 11:17
PROVIDERS: PCP Family Medicine; Referring Provider Podiatrist; Visit Provider Surgery
DX: E11.621 Type 2 diabetes mellitus with foot ulcer (principal); L97.512 Non-pressure chronic ulcer of other part of right foot with fat layer exposed; L97.522 Non-pressure chronic ulcer of other part of left foot with fat layer exposed
CPT/HCPCS: 97597; 99213

== ENCOUNTER → 2023-10-17 12:05 | Outpatient (CLI) | payer MEDICARE, SELFPAY ==
[2023-01-01 22:45] VITALS: BMI 22.3
--- NOTE | 2023-10-17 12:07 | DI.US.S_ITS ---
PROCEDURE: US ARTERIAL DUPLEX LE LT INDICATIONS: Left foot ulcer TECHNIQUE: Color and pulse Doppler interrogation was performed of the left lower extremity arterial system, with image documentation. COMPARISON: [facility], US, US ARTERIAL DUPLEX LE RT, 05/31/2023, 17:24. FINDINGS: Common femoral artery: 55 cm/sec, with TRIPHASIC, SPECTRAL BROADENING flow. Deep femoral artery: 105 cm/sec, with BIPHASIC WITH SPECTRAL BROADENING flow. Proximal superficial femoral artery: 58 cm/sec, with BIPHASIC-TRIPHASIC WITH SPECTRAL BROADENING flow. Mid superficial femoral artery: 207 cm/sec, with PARVUS TARDUS MONOPHASIC flow. Distal superficial femoral artery: 76 cm/sec, with PARVUS TARDUS MONOPHASIC flow. Popliteal artery: 75 cm/sec, with PARVUS TARDUS MONOPHASIC flow. Posterior tibial artery: 38 cm/sec, with PARVUS TARDUS MONOPHASIC flow. Anterior tibial artery/dorsalis pedis: 42 cm/sec, with PARVUS TARDUS MONOPHASIC flow. Person-scale imaging description: SEVERE CALCIFIED PLAQUE IMPRESSION: Evidence of inflow disease at the common femoral artery and hemodynamically significance near obstruction at the level of the mid SFA with severely calcified plaque throughout the visualized arteries with postobstructive waveforms in the below the knee arteries. Refer to revascularization if clinically indicated; Interventional Radiology is an option.4 Dictated by: Pancho Olivo M.D. on 10/17/2023 at 16:42 Approved by: Pancho Olivo M.D. on 10/17/2023 at 16:53
--- NOTE | 2023-10-17 12:07 | DI.RAD.S_ITS ---
PROCEDURE: XR FOOT LT MIN 3V INDICATIONS: Eval for osteo TECHNIQUE: 3 views of the foot were acquired. COMPARISON: [facility], CR, XR FOOT RT MIN 3V, 05/23/2023, 13:51. FINDINGS: Bones: No fractures or dislocations. No suspicious bony lesions. Instrumented 1st metatarsal osteotomy is well healed with 2 threaded screws. Second PIP arthrodesis without instrumentation. Second metatarsophalangeal joint arthritic changes noted Soft tissues: No tibiotalar joint effusion. Achilles tendon appears normal. IMPRESSION: Arthrodesis and well-healed instrumented osteotomy. No evidence of lytic lesion Approved by: Emmanuel Monge M.D. on 10/17/2023 at 19:41
== END ==
PROVIDERS: PCP Family Medicine; Referring Provider Surgery; Visit Provider Surgery
DX: E11.621 Type 2 diabetes mellitus with foot ulcer (principal); L97.529 Non-pressure chronic ulcer of other part of left foot with unspecified severity
CPT/HCPCS: 73630; 93926

== ENCOUNTER → 2023-10-21 15:05 | Outpatient (CLI) | payer MEDICARE, SELFPAY ==
[2023-01-01 22:45] VITALS: BMI 22.3
== END ==
PROVIDERS: PCP Family Medicine; Referring Provider Podiatrist; Visit Provider Surgery
DX: E11.621 Type 2 diabetes mellitus with foot ulcer (principal); L97.511 Non-pressure chronic ulcer of other part of right foot limited to breakdown of skin; E11.69 Type 2 diabetes mellitus with other specified complication; M86.171 Other acute osteomyelitis, right ankle and foot; E11.40 Type 2 diabetes mellitus with diabetic neuropathy, unspecified; E11.51 Type 2 diabetes mellitus with diabetic peripheral angiopathy without gangrene; I11.9 Hypertensive heart disease without heart failure; I51.9 Heart disease, unspecified; J44.9 Chronic obstructive pulmonary disease, unspecified; Z89.421 Acquired absence of other right toe(s)
CPT/HCPCS: 99213

== ENCOUNTER → 2023-10-28 14:55 | Outpatient (CLI) | payer MEDICARE, SELFPAY ==
[2023-01-01 22:45] VITALS: BMI 22.3
== END ==
LOC: WC 14:56
PROVIDERS: PCP Family Medicine; Referring Provider Family Medicine; Visit Provider Surgery
DX: E11.621 Type 2 diabetes mellitus with foot ulcer (principal); E11.42 Type 2 diabetes mellitus with diabetic polyneuropathy; L97.511 Non-pressure chronic ulcer of other part of right foot limited to breakdown of skin; I73.9 Peripheral vascular disease, unspecified; R23.4 Changes in skin texture; J44.9 Chronic obstructive pulmonary disease, unspecified; M86.671 Other chronic osteomyelitis, right ankle and foot
CPT/HCPCS: 99213

== ENCOUNTER → 2023-11-04 14:59 | Outpatient (CLI) | payer MEDICARE, SELFPAY ==
[2023-01-01 22:45] VITALS: BMI 22.3
== END ==
LOC: WC 15:01
PROVIDERS: PCP Family Medicine; Referring Provider Podiatrist; Visit Provider Surgery
DX: E11.42 Type 2 diabetes mellitus with diabetic polyneuropathy (principal); I73.9 Peripheral vascular disease, unspecified
CPT/HCPCS: 99213

== ENCOUNTER → 2023-11-11 15:43 | Outpatient (CLI) | payer MEDICARE, SELFPAY ==
[2023-01-01 22:45] VITALS: BMI 22.3
== END ==
PROVIDERS: PCP Family Medicine; Visit Provider Physician Assistant
DX: R35.0 Frequency of micturition (principal)
CPT/HCPCS: 87086

== ENCOUNTER 2023-11-11 16:19 | Observation (INO) | payer MEDICARE, SELFPAY ==
[2023-01-01 22:45] VITALS: BMI 22.3
[2023-11-11] VITALS (11 sets, daily range): BP systolic 134–187; BP diastolic 62–134; PULSE 64–91; RESP 16–29; TEMP 36.6; O2SAT 88–98; BMI 21.9
[2023-11-11 17:36] LABS: Add Manual Diff / Slide Review NO; Basophils Absolute Auto 100 /uL (0-100); Basophils Percent Auto 0.5 % (0-2); Eosinophils Absolute Auto 200 /uL (0-450); Eosinophils Percent Auto 1.4 % (2-4); Hematocrit 34.7 % (36-46); Hemoglobin 11.4 g/dL (12.0-16.0); Lymphocytes Absolute Auto 2600 /uL (1100-4500); Mean Corpuscular HGB Conc 32.9 % (30-36); Mean Corpuscular Hemoglobin 29.4 PG (26-34); Mean Corpuscular Volume 89.4 fL (80-100); Monocytes Absolute Auto 1100 /uL (0-900); Monocytes Percent Auto 9.8 % (3-14); Neutrophils Absolute Auto 7400 /uL (1500-7000); Neutrophils Percent Auto 65.3 % (50-75); Platelet Count 291 X10^3/uL (150-400); Red Blood Cell Count 3.88 X10^6/uL (4.0-5.2); Red Cell Distribution Width 14.5 % (11.6-14.8); White Blood Cell Count 11.4 X10^3/uL (4.5-11.0)
[2023-11-11 17:49] LABS: INR 1.1 (0.9-1.3); Prothrombin Time 12.2 SECONDS (9.4-12.5)
[2023-11-11 17:54] LABS: Alanine Aminotransferase 13 IU/L (<35); Albumin Globulin Ratio 1.2 (1.0-2.8); Alkaline Phosphatase 59 U/L (38-126); Aspartate Aminotransferase 17 IU/L (14-36); BUN Creatinine Ratio 27.5 (6-22); Bilirubin Total 0.6 mg/dL (0.2-1.3); Blood Urea Nitrogen 30 mg/dL (7-17); Calcium 10.9 mg/dL (8.4-10.2); Carbon Dioxide 30 mmol/L (22-32); Chloride 103 mmol/L (98-107); Estimated Glomerular Filt Rate 49 mL/min (>60); Globulin 3.3 g/dL (1.7-4.1); Glucose 110 mg/dL (80-110); HEMOLYSIS < 15 (0-50); Lipase 120 U/L (23-300); Sodium 138 mmol/L (137-145); Total Protein 7.3 g/dL (6.3-8.2)
--- NOTE | 2023-11-11 18:06 | ED_ITS ---
HPI - General Adult General Chief complaint: Abdominal Pain Stated complaint: sent by wi/abd pain Time Seen by Provider: 11/11/23 17:59 Source: patient Mode of arrival: Ambulatory History of Present Illness HPI narrative: 88-year-old woman with a history of hypertension, reflux, diabetes, albuterol, prior urinary tract infections who presents with 2-3 days of abdominal pain that she describes as mostly in the right lower quadrant but involving the entire lower abdomen. She wanted to make sure that this was not a bladder infection. She went to the walk-in clinic urinalysis there was unremarkable and she sent to the ER for further evaluation. She does not complain of fever, cough, chills, dysuria, flank pain. There has been no chest pain, palpitations or headache. She states that she had a normal bowel movement this morning. She does have history of a hysterectomy 40 years ago and thinks they may have taken her appendix out at that time but is unsure. Related Data Home Medications Medication Instructions Recorded Confirmed multivitamin with [id number] See Rx Instructions .Route .COMPLEX 06/21/21 11/11/23 400 mcg-120 mg tablet (One Daily Women 50 Plus) Previous Rx's Medication Instructions Recorded Mastectomy Bra #1 ea 02/05/23 Disabled Parking Permit #1 ea 03/07/23 meclizine 25 mg tablet 25 mg PO BID-TID PRN dizziness #30 04/11/23 tabs alprazolam 0.25 mg tablet 0.25 mg PO ONCE PRN anxiety #20 06/10/23 tabs lisinopril 20 See Rx Instructions .Route 07/04/23 mg-hydrochlorothiazide 25 mg tablet .COMPLEX #90 tabs omeprazole 20 mg capsule,delayed See Rx Instructions .Route 09/12/23 release .COMPLEX #90 caps metformin 500 mg tablet 500 mg PO .COMPLEX #270 tabs 10/17/23 propranolol 40 mg tablet 40 mg PO BID #180 tabs 10/28/23 albuterol sulfate 90 mcg/actuation 2 puff inhalation Q4-6H PRN 11/06/23 aerosol inhaler (Ventolin HFA) shortness of breath or wheezing #8 grams fluticasone furoate 100 1 inh inhalation DAILY #60 ea 11/06/23 mcg-vilanterol 25 mcg/dose inhalation powder (Breo Ellipta) Allergies Allergy/AdvReac Type Severity Reaction Status Date / Time sulfamethoxazole Allergy Severe Hives, Verified 11/11/23 15:37 [From Bactrim] shortness of breath trimethoprim [From Bactrim] Allergy Severe Hives, Verified 11/11/23 15:37 shortness of breath Review of Systems Review of Systems Narrative: Pertinent positive and negative findings as per HPI Patient History Medical History COPD exacerbation Thyroid nodule Renal insufficiency High blood triglycerides Hyperglyceridemia Neuropathy Edema Diastolic dysfunction GERD (gastroesophageal reflux disease) Diverticular disease Hypertension Hyperlipidemia COPD (chronic obstructive pulmonary disease) Hay fever Lumbar back pain Chronic back pain Mumps Measles Chicken pox Cataract Hyperglycemia Diabetes Skin cancer (~2011) Breast cancer (~1981) Surgical History Anesthesia History of mastectomy (~09/1981) Status post hysterectomy Family History Mother Brain aneurysm Sister Age: 84 Cancer of breast Lung cancer Daughter Cancer of breast Father No problems noted. Social History household members: none Smoking Status: Former smoker alcohol intake: former Smoking Status: Former smoker alcohol intake frequency: other Substance Use Type: does not use Exam Initial Vital Signs Initial Vital Signs: Vital Signs Temperature 97.8 F 11/11/23 16:57 Pulse Rate 78 11/11/23 16:57 Respiratory Rate 16 11/11/23 16:57 Blood Pressure 166/73 H 11/11/23 16:57 Pulse Oximetry 96 11/11/23 16:57 Oxygen Delivery Method Room Air 11/11/23 16:57 General: Older appearing, in no acute distress. Able to give a complete and coherent history. HEENT: Moist mucous membranes, normal sclera with reactive pupils, Respiratory: Lungs are clear to auscultation, no wheezing no rales no rhonchi. Full and symmetrical air movement Cardiac: Regular rate and rhythm no murmurs no bruits Abdomen: Soft, she is tenderness with mild guarding in the right lower quadrant and right midportion of her abdomen. She is tender without any guarding or rebound in the lower portion of her abdomen and not tender in the upper portions. She does not have flank pain Skin: Warm and dry, no rashes Neurologic: Grossly neurologically intact with no obvious asymmetries or abnormalities Extremities: No trauma, well perfused Psych: Cooperative, appropriate insight and affect Course Orders Ordered: ED Orders 11/11/23 17:02 EKG-12 Lead Stat 11/11/23 17:28 Complete Blood Count AUTO DIFF Stat Comprehensive Metabolic Panel Stat Lipase Stat Prothrombin Time INR Stat 11/11/23 20:50 CT abdomen pelvis w con Stat Ondansetron HCl (Ondansetron 4 Mg/2 Ml Inj) 4 mg IV NOW PRN PRN Reason: Nausea And Vomiting Ondansetron HCl (Ondansetron 4 Mg Odt) 4 mg PO NOW PRN PRN Reason: Nausea And Vomiting Discontinued Medications Sodium Chloride (Normal Saline 0.9%) 1,000 mls @ 1,000 mls/hr IV BOLUS ONE Stop: 11/11/23 21:15 Last Infusion: 11/11/23 21:35 Dose: Infused Documented By: Admin: 11/11/23 20:23 Dose: 1,000 mls/hr Documented By: Ceftriaxone Sodium 2,000 mg/ (Sodium Chloride) 100 mls @ 200 mls/hr IV NOW ONE Stop: 11/11/23 22:17 Last Admin: 11/11/23 22:24 Dose: 200 mls/hr Documented By: Vital Signs Vital signs: Vital Signs - 8 hr 11/11/23 16:57 11/11/23 19:02 11/11/23 19:30 Temperature 97.8 F Pulse Rate 78 69 Respiratory Rate 16 Blood Pressure 166/73 H 162/68 H Pulse Oximetry 96 98 Oxygen Delivery Method Room Air Room Air 11/11/23 19:30 11/11/23 20:00 11/11/23 20:00 Temperature Pulse Rate 68 64 Respiratory Rate 21 17 Blood Pressure 153/67 H Pulse Oximetry 96 97 Oxygen Delivery Method Room Air 11/11/23 20:30 11/11/23 20:30 11/11/23 21:23 Temperature Pulse Rate 66 91 H Respiratory Rate 17 29 H Blood Pressure 180/74 H Pulse Oximetry 98 Oxygen Delivery Method Room Air 11/11/23 21:25 11/11/23 21:25 11/11/23 21:30 Temperature Pulse Rate 83 Respiratory Rate 21 Blood Pressure 175/80 H 182/77 H Pulse Oximetry 96 Oxygen Delivery Method Room Air 11/11/23 21:30 11/11/23 22:00 11/11/23 22:00 Temperature Pulse Rate 76 66 Respiratory Rate 17 16 Blood Pressure 134/62 Pulse Oximetry 97 94 Oxygen Delivery Method Room Air Room Air Medical Decision Making Lab Data 11/11/23 17:28 11/11/23 17:28 Labs: Lab Results 11/11/23 Range/Units 17:28 WBC 11.4 H (4.5-11.0) X10^3/uL RBC 3.88 L (4.0-5.2) X10^6/uL Hgb 11.4 L (12.0-16.0) g/dL Hct 34.7 L (36-46) % MCV 89.4 (80-100) fL MCH 29.4 (26-34) PG MCHC 32.9 (30-36) % RDW 14.5 (11.6-14.8) % Plt Count 291 (150-400) X10^3/uL Neut % (Auto) 65.3 (50-75) % Lymph % (Auto) 23.0 L (25-40) % [place] % (Auto) 9.8 (3-14) % Eos % (Auto) 1.4 L (2-4) % Baso % (Auto) 0.5 (0-2) % Neut # (Auto) 7400 H (6798-4914) /uL Lymph # (Auto) 2600 (2080-7302) /uL [place] # (Auto) 1100 H (0-900) /uL Eos # (Auto) 200 (0-450) /uL Baso # (Auto) 100 (0-100) /uL PT 12.2 (9.4-12.5) SECONDS INR 1.1 (0.9-1.3) Sodium 138 (137-145) mmol/L Potassium 4.0 (3.4-5.1) mmol/L Chloride 103 (98-107) mmol/L Carbon Dioxide 30 (22-32) mmol/L BUN 30 H (7-17) mg/dL Creatinine 1.09 H (0.52-1.04) mg/dL Estimated GFR 49 L (>60) mL/min BUN/Creatinine Ratio 27.5 H (6-22) Glucose 110 (80-110) mg/dL Calcium 10.9 H (8.4-10.2) mg/dL Total Bilirubin 0.6 (0.2-1.3) mg/dL AST 17 (14-36) IU/L ALT 13 (<35) IU/L Alkaline Phosphatase 59 (38-126) U/L Total Protein 7.3 (6.3-8.2) g/dL Albumin 4.0 (3.5-5.0) g/dL Globulin 3.3 (1.7-4.1) g/dL Albumin/Globulin Ratio 1.2 (1.0-2.8) Lipase 120 (23-300) U/L MDM Narrative Medical decision making narrative: CC: 88-year-old woman with 2-3 days of abdominal pain Complicating co-morbidities: Age, no dysuria, hypertension, hyperlipidemia, diabetes Data collected from: patient Medical records reviewed: Walk-in clinic notes reviewed from this morning. Primary care notes are also reviewed Differential considered: Appendicitis, partial bowel obstruction, intra-abdominal mass Exam documented above, pertinent findings include: Exam is relatively benign with the exception of tenderness in the right lower quadrant with developing guarding, no rebound. Palpation along the lower abdomen tends to radiate to the right lower quadrant Lab Test results independently reviewed as above. Pertinent findings: Urinalysis done at urgent care earlier today shows 1+ leukocytes and no other findings, CBC shows mild leukocytosis at 11.4 without significant left shift. Compared to March of last year her hemoglobin has fallen from 13.7-11.4 Chemistries are unremarkable. GFR is diminished at 49. Calcium is elevated at 10.9 Imaging studies independently reviewed: CT scan is interpreted by Radiology indicates There is wall thickening involving ascending colon with suggestion of enlarged appendix and extensive periappendiceal fat stranding concerning for acute appendicitis. No definite abscess collection. No extra luminal air to suggest perforation. Consultations: Dr. Olson, surgery. We will anticipate taking the patient to the operating room and will be the primary admitting physician. Dr. Schmid, admitting hospitalist. We will be consulting given her age and additional medical problems Treatments: Fluids, Zofran Re-evaluations:1040pm patient is informed of the diagnosis and plan for hospitalization. Her main request at this point is to be able to brush her teeth and have some pudding. We will help facilitate both of these and will make her NPO after midnight. She has not complaining of significant pain at this time. Discussion: 88-year-old woman with 2-3 days of increasing abdominal pain localizing to the right lower quadrant with CT scan suggesting acute appendicitis. She has a mild leukocytosis but no evidence of sepsis at this point. She will be admitted to the surgical service with hospitalist consultation. Ceftriaxone was started in the emergency department, findings reviewed with the patient, questions were answered she is safe for transfer to the floor Discharge Plan Departure Patient Disposition: Admitted As Inpatient Clinical Impression: Hypercalcemia, Diverticulosis Acute appendicitis Qualifiers: Acute appendicitis type: with localized peritonitis Appendicitis gangrene presence: without gangrene Appendicitis perforation presence: without perforation Appendicitis abscess presence: without abscess Qualified Code(s): K 35.30 - Acute appendicitis with localized peritonitis, without perforation or gangrene Constipation Qualifiers: Constipation type: unspecified constipation type Qualified Code(s): K59.00 - Constipation, unspecified Admit Date/Time: 11/11/23 22:38
[2023-11-11] MEDS: SODIUM CHLORIDE 0.9% 1,000 ML 1000 ML IV (20:23)
--- NOTE | 2023-11-11 20:50 | DI.CT.S_ITS ---
PROCEDURE: CT ABDOMEN PELVIS W CON INDICATIONS: right sided abdominal pain TECHNIQUE: After the administration of intravenous contrast, axial sections acquired from the lung bases to the pubic symphysis. Coronal and sagittal reformats were performed. For radiation dose reduction, the following was used: automated exposure control, adjustment of mA and/or kV according to patient size. COMPARISON: None. FINDINGS: Image quality: Diagnostic. Lower Chest: Bibasilar scarring/atelectasis is seen. Heart size is mildly enlarged. Moderate size hiatal hernia is noted. Peripheral calcification in visualized portion of right breast prosthesis is noted. ABDOMEN: Liver: Numerous well-circumscribed hypodensities are seen scattered throughout liver parenchyma and measures up to 6-7 Hounsfield unit in density likely represent hepatic cysts. No definite solid appearing hepatic lesion. Gallbladder: No radiopaque gallstones or gallbladder wall thickening. Biliary ducts: No biliary dilation. Pancreas: No ductal dilation. Spleen: Size is within normal limits. Adrenal Glands: No adrenal nodules. Kidneys and Ureters: No hydronephrosis. No solid mass. Bilateral peripelvic renal cysts are seen. No complex renal cystic lesion which requires follow up. Stomach and Bowel: There is no bowel obstruction. No gross gastric or small bowel wall thickening. Fecal stasis in the colon is seen. There is wall thickening involving ascending colon with suggestion of enlarged appendix and extensive periappendiceal fat stranding concerning for acute appendicitis. No definite abscess collection. No extra luminal air to suggest perforation. Extensive colonic diverticulosis is seen without CT evidence of acute diverticulitis. Peritoneum: No abnormal intraperitoneal fluid. No free air. Ventral Wall: Small umbilical hernia is seen containing fat only. Abdominal Nodes: No retroperitoneal or mesenteric adenopathy by size criteria. Vessels: Aorta and inferior vena cava are normal in size. PELVIS: Pelvic Organs: Unremarkable. Bladder: No bladder wall thickening, accounting for underdistention. Pelvic Nodes: No enlarged lymph nodes. Miscellaneous: left inguinal hernia is noted containing fat only. Bones: No aggressive osseous abnormality. Extensive postsurgical changes throughout lower lumbar spine are seen. No acute vertebral body compression fracture. IMPRESSION: 1. Finding is suggestive of acute appendicitis. No signs of perforation. No discrete drainable abscess collection. 2. Moderate constipation. No bowel obstruction. Sigmoid diverticulosis without CT evidence of acute diverticulitis. Moderate sized hiatal hernia. 3. Suggestion of numerous hepatic cysts as above. Bilateral peripelvic renal cysts. No hydronephrosis or hydroureter. Dictated by: Harjit Lombardi M.D. on 11/11/2023 at 21:24 Approved by: Harjit Lombardi M.D. on 11/11/2023 at 21:33
[2023-11-11] MEDS: cefTRIAXone 2,000 MG in SODIUM CHLORIDE 0.9% 100 ML 200 MG IV (22:24)
--- NOTE | 2023-11-11 23:57 | PM.CN ---
History of Present Illness Consult details Date Patient Seen: 11/11/23 Time Patient Seen: 23:58 Chief complaint: sent by wi/abd pain Reason for consult: medical management Narrative: The pt is a 88 yo who developed severe RLQ abdominal pain about 2 days ago that was initially intermittent but has become constant. The pt is non-radiating, worse with movement, it is not associated with nausea or vomiting, no change in bowel habits, she has never had something like this before. THe pt will be admitted to the surgical team with Dr. Olson. Meds Home Medications and Allergies Home Medications Medication Instructions Recorded Confirmed Type multivitamin with [id number] See Rx Instructions .Route .COMPLEX 06/21/21 11/11/23 History 400 mcg-120 mg tablet (One Daily Women 50 Plus) Mastectomy Bra #1 ea 02/05/23 11/11/23 Rx Disabled Parking Permit #1 ea 03/07/23 11/11/23 Rx lisinopril 20 See Rx Instructions .Route 07/04/23 11/11/23 Rx mg-hydrochlorothiazide 25 mg tablet .COMPLEX #90 tabs metformin 500 mg tablet 500 mg PO .COMPLEX #270 tabs 10/17/23 11/11/23 Rx propranolol 40 mg tablet 40 mg PO BID #180 tabs 10/28/23 11/11/23 Rx fluticasone furoate 100 1 inh inhalation DAILY #60 ea 11/06/23 11/11/23 Rx mcg-vilanterol 25 mcg/dose inhalation powder (Breo Ellipta) Allergies Allergy/AdvReac Type Severity Reaction Status Date / Time sulfamethoxazole Allergy Severe Hives, Verified 11/11/23 15:37 [From Bactrim] shortness of breath trimethoprim [From Bactrim] Allergy Severe Hives, Verified 11/11/23 15:37 shortness of breath Exam Vital Signs (past 8 hours): - 11/11/23 16:57 11/11/23 19:02 11/11/23 19:30 Temperature 97.8 F Pulse Rate 78 69 Respiratory Rate 16 Blood Pressure 166/73 H 162/68 H Pulse Oximetry 96 98 Oxygen Delivery Method Room Air Room Air 11/11/23 19:30 11/11/23 20:00 11/11/23 20:00 Temperature Pulse Rate 68 64 Respiratory Rate 21 17 Blood Pressure 153/67 H Pulse Oximetry 96 97 Oxygen Delivery Method Room Air 11/11/23 20:30 11/11/23 20:30 11/11/23 21:23 Temperature Pulse Rate 66 91 H Respiratory Rate 17 29 H Blood Pressure 180/74 H Pulse Oximetry 98 Oxygen Delivery Method Room Air 11/11/23 21:25 11/11/23 21:25 11/11/23 21:30 Temperature Pulse Rate 83 Respiratory Rate 21 Blood Pressure 175/80 H 182/77 H Pulse Oximetry 96 Oxygen Delivery Method Room Air 11/11/23 21:30 11/11/23 22:00 11/11/23 22:00 Temperature Pulse Rate 76 66 Respiratory Rate 17 16 Blood Pressure 134/62 Pulse Oximetry 97 94 Oxygen Delivery Method Room Air Room Air 11/11/23 22:24 11/11/23 22:24 11/11/23 22:30 Temperature Pulse Rate 81 Respiratory Rate 27 H Blood Pressure 187/134 H 180/90 H Pulse Oximetry 88 L Oxygen Delivery Method 11/11/23 22:30 Temperature Pulse Rate 74 Respiratory Rate 25 H Blood Pressure Pulse Oximetry 98 Oxygen Delivery Method Oxygen Delivery Method Room Air Const General: healthy appearing and comfortable Resp Auscultation: clear to auscultation bilaterally Cardio Rate: regular rate Rhythm: regular rhythm GI Palpation: tender Auscultation: normal bowel sounds Extrem General: no clubbing, cyanosis or edema Objective Labs 11/11/23 17:28 11/11/23 17:28 Labs: Laboratory Results - last 24 hr 11/11/23 17:28 WBC 11.4 H RBC 3.88 L Hgb 11.4 L Hct 34.7 L MCV 89.4 MCH 29.4 MCHC 32.9 RDW 14.5 Plt Count 291 Neut % (Auto) 65.3 Lymph % (Auto) 23.0 L [place] % (Auto) 9.8 Eos % (Auto) 1.4 L Baso % (Auto) 0.5 Neut # (Auto) 7400 H Lymph # (Auto) 2600 [place] # (Auto) 1100 H Eos # (Auto) 200 Baso # (Auto) 100 PT 12.2 INR 1.1 Sodium 138 Potassium 4.0 Chloride 103 Carbon Dioxide 30 BUN 30 H Creatinine 1.09 H Estimated GFR 49 L BUN/Creatinine Ratio 27.5 H Glucose 110 Calcium 10.9 H Total Bilirubin 0.6 AST 17 ALT 13 Alkaline Phosphatase 59 Total Protein 7.3 Albumin 4.0 Globulin 3.3 Albumin/Globulin Ratio 1.2 Lipase 120 PFSH Medical History COPD exacerbation Thyroid nodule Renal insufficiency High blood triglycerides Hyperglyceridemia Neuropathy Edema Diastolic dysfunction GERD (gastroesophageal reflux disease) Diverticular disease Hypertension Hyperlipidemia COPD (chronic obstructive pulmonary disease) Hay fever Lumbar back pain Chronic back pain Mumps Measles Chicken pox Cataract Hyperglycemia Diabetes Skin cancer (~2011) Breast cancer (~1981) Surgical History Anesthesia History of mastectomy (~09/1981) Status post hysterectomy Family History Mother Brain aneurysm Sister Age: 84 Cancer of breast Lung cancer Daughter Cancer of breast Father No problems noted. Social History household members: none Tobacco & Substance Use Smoking Status: Former smoker alcohol intake: former Assessment & Plan Assessment & Plan narrative: 1. Acute appendicitis- The pt will be admitted under Dr. Olson, will be NPO, IVF ordered, last meals was around 1999 on 11/10. pain meds ordered prn, The pt should do very well 2. HTN- uncontrolled at this time. hold her lisinopril in light of NPO status, ordered hydralazine 10 mg IV Q6 prn 3. COPD mild- restarted her Breo inhaler, on ra, monitor.
[2023-11-12 00:44] VITALS: BP 166/72; PULSE 77; RESP 15; TEMP 36.2; O2SAT 97
[2023-11-12] MEDS: LACTATED RINGERS 1,000 ML 84 ML IV ×2 (00:59→12:32)
[2023-11-12 01:07] VITALS: BP 130/53; PULSE 64; RESP 20
[2023-11-12 08:00] VITALS: BP 163/67; PULSE 68; RESP 16; TEMP 36.2; O2SAT 98
--- NOTE | 2023-11-12 08:07 | P.PN_ITS ---
Subjective Subjective Interval history: Patient still having some RLQ abd pain. Gen surg to wait on surg and do IV abx alone for now. Exam Vital Signs (past 8 hours): - 11/12/23 00:44 11/12/23 01:07 Temperature 97.1 F L Pulse Rate 77 64 Respiratory Rate 15 20 Blood Pressure 166/72 H 130/53 L Pulse Oximetry 97 Oxygen Flow Rate 0 Oxygen Delivery Method Room Air Oxygen Flow Rate 0 Narrative Exam Narrative: GEN: no acute distress HEENT: moist mucous membranes, PERRL NECK: trachea midline, no JVD CV: regular rate and rhythm, no murmurs PULM: clear bilaterally ABD: soft, tenderness in RLQ, nondistended, no organomegaly EXT: warm and well perfused with no edema NEURO: awake, alert, oriented, no focal deficits Objective Labs 11/11/23 17:28 11/11/23 17:28 Labs: Laboratory Results - last 24 hr 11/11/23 17:28 WBC 11.4 H RBC 3.88 L Hgb 11.4 L Hct 34.7 L MCV 89.4 MCH 29.4 MCHC 32.9 RDW 14.5 Plt Count 291 Neut % (Auto) 65.3 Lymph % (Auto) 23.0 L [place] % (Auto) 9.8 Eos % (Auto) 1.4 L Baso % (Auto) 0.5 Neut # (Auto) 7400 H Lymph # (Auto) 2600 [place] # (Auto) 1100 H Eos # (Auto) 200 Baso # (Auto) 100 PT 12.2 INR 1.1 Sodium 138 Potassium 4.0 Chloride 103 Carbon Dioxide 30 BUN 30 H Creatinine 1.09 H Estimated GFR 49 L BUN/Creatinine Ratio 27.5 H Glucose 110 Calcium 10.9 H Total Bilirubin 0.6 AST 17 ALT 13 Alkaline Phosphatase 59 Total Protein 7.3 Albumin 4.0 Globulin 3.3 Albumin/Globulin Ratio 1.2 Lipase 120 PFSH Medical History COPD exacerbation Thyroid nodule Renal insufficiency High blood triglycerides Hyperglyceridemia Neuropathy Edema Diastolic dysfunction GERD (gastroesophageal reflux disease) Diverticular disease Hypertension Hyperlipidemia COPD (chronic obstructive pulmonary disease) Hay fever Lumbar back pain Chronic back pain Mumps Measles Chicken pox Cataract Hyperglycemia Diabetes Skin cancer (~2011) Breast cancer (~1981) Surgical History Anesthesia History of mastectomy (~09/1981) Status post hysterectomy Family History Mother Brain aneurysm Sister Age: 84 Cancer of breast Lung cancer Daughter Cancer of breast Father No problems noted. Social History household members: none Smoking Status: Former smoker alcohol intake: former Assessment & Plan Assessment & Plan narrative: 1. Acute appendicitis -per CT abd -plan for IV abx per gen surg for now, and if not improving to OR -NPO at midnight 11/12 2. HTN -continue propranolol, lisinopril-HCTZ 3. COPD mild -restarted her Breo inhaler, on ra, monitor. 4. DM2 -continue metformin -[facility] Medicine will continue to follow. Thank you for allowing us to participate in the care of this patient. Should you have any questions, do not hesitate to speak with us directly or call us. Quality VTE Deep Vein Thrombosis/Pulmonary Embolism Present on Admission: No
[2023-11-12] MEDS: BUDESONIDE 0.5 MG/2 ML NEB INH ×2 (08:27→19:32)
[2023-11-12] MEDS: ALBUTEROL 2.5 MG/3 ML NEB (ADULT) INH ×2 (08:27→19:32)
[2023-11-12 08:29] VITALS: PULSE 67; RESP 16; O2SAT 97
--- NOTE | 2023-11-12 09:07 | CM.DANOTE ---
Addendum entered by GYPSY Guerrero 11/12/23 10:34: ADD: Per Surgeon, plan is conservative tx with IV-Abx today and if pt does not improve then possible surgery tomorrow Wed. BF Original Note: Patient is an 88 yo female who was admitted on 11/11/23 OBS Status for Abd Pain. Pt has [facility] and [employer] for insurance and her PCP is Dr. Spencer Orantes. EMR was reviewed. Per MD, consulting for COPD and comorbidities and awaiting Surgeon Consult for likely acute appendicitis and to r/o IV-Abx vs surgical intervention. Pt currently NPO. SW met bedside with pt and explained role and she confirms she lives in an apartment at [facility] in [place] that has an elevator as pt uses a FWW for ambulation and states I haven't taken stairs in years now. Pt lives alone but has two supportive local Dtrs, Mago and Daiana, who provide assist as needed and transportation outside of [place] and both are her DPOAs and pt also has two other adult Dtrs that live [facility] that are quite involved. Pt is mostly independent with ADLs. Pt does not have any recent hx of admissions to [facility] but states she has a long hx of multiple surgeries in the past (back surgery, hernia, ovarian, etc..). Pt states she has been established with [facility] for months due to a non-healing wound and utilized hyperbaric chamber and had a walking boot for 7 months and had an appointment today with Wound Care at 1300 to finally get her boot off and graduate from wound clinic and pt was really looking forward to it and to celebrate and ended up getting admitted to the hospital. SW and pt left [facility] for [facility] to determine if they might be able to see pt today while admitted or to reschedule her appointment. Pt confirms she has utilized HH for wound care and after a back surgery a few years ago but denies any recent SNF rehab stays. Pt preference is to be able to d/c home when medically stable with local Dtrs to assist as needed and pt hopeful to have Surgeon Consult soon to determine POC. Plan: SW to follow closely for Surgeon recommendations to determine if surgical intervention needed and any further identified discharge planning needs. GYPSY Guerrero Discharge Planning/Care Management CM Discharge Assessment Start: 11/12/23 09:03 Freq: Status: Active Protocol: Document 11/12/23 09:03 BF (Rec: 11/12/23 09:07 [id number]) Discharge Planning Assessment Assigned Airport Location Manager GYPSY Syed DPOA/Assigned Designee Name Dtr Mago and Dtr Daiana Contact Information [phone] Advance Directives? Yes: POLST Advance Directives on File No History Provided By Patient,Family Member,Medical Record Has Patient been admitted in last 30 No days? Prior Living Arrangements Apartment/Condo Comment Lives at [facility], has elevator Household Members none Type of transporation used prior to Relies on Others admit Comment 2 local Dtrs transport Independent with ADL's Yes Is patient alert and oriented? Yes Caregiver for Another No Community Services used prior to Wound Care admission: Comment Established at [facility] DME Already Rented / Owned FWW / Walker Comment Pending possible Lap Appe, r/o HH Barriers to Discharge No Discharge Plan Home Transportation Arrangement Family Additional Comment r/o HH Whiteboard Updated in Patient Room with Yes name and ext. # of Airport Location Manager Review Status In Process Please Provide Date Initial DC 11/12/23 Assessment Was Performed Next Review Type Continued Stay Review
--- NOTE | 2023-11-12 09:49 | PM.HP.1 ---
History of Present Illness History of Present Illness Date Patient Seen: 11/12/23 Time Patient Seen: 09:49 Chief complaint: sent by [facility]/abd pain Narrative: reported 3 days of feeling unwell, she thought it was UTI. CT scan shows appendicitis, normal WBC, no fever. Pain is to palpation RLQ. Other symptom is fatigue [facility] Medical History COPD exacerbation Thyroid nodule Renal insufficiency High blood triglycerides Hyperglyceridemia Neuropathy Edema Diastolic dysfunction GERD (gastroesophageal reflux disease) Diverticular disease Hypertension Hyperlipidemia COPD (chronic obstructive pulmonary disease) Hay fever Lumbar back pain Chronic back pain Mumps Measles Chicken pox Cataract Hyperglycemia Diabetes Skin cancer (~2011) Breast cancer (~1981) Surgical History Anesthesia History of mastectomy (~09/1981) Status post hysterectomy Family History Mother Brain aneurysm Sister Age: 84 Cancer of breast Lung cancer Daughter Cancer of breast Father No problems noted. Social History household members: none Smoking Status: Former smoker alcohol intake: former Meds Home Medications and Allergies Home Medications Medication Instructions Recorded Confirmed Type multivitamin with [id number] See Rx Instructions .Route .COMPLEX 06/21/21 11/11/23 History 400 mcg-120 mg tablet (One Daily Women 50 Plus) Mastectomy Bra #1 ea 02/05/23 11/12/23 Rx Disabled Parking Permit #1 ea 03/07/23 11/12/23 Rx lisinopril 20 See Rx Instructions .Route 07/04/23 11/11/23 Rx mg-hydrochlorothiazide 25 mg tablet .COMPLEX #90 tabs metformin 500 mg tablet 500 mg PO .COMPLEX #270 tabs 10/17/23 11/11/23 Rx propranolol 40 mg tablet 40 mg PO BID #180 tabs 10/28/23 11/11/23 Rx fluticasone furoate 100 1 inh inhalation DAILY #60 ea 11/06/23 11/11/23 Rx mcg-vilanterol 25 mcg/dose inhalation powder (Breo Ellipta) albuterol sulfate 90 mcg/actuation 2 puff inhalation Q4-6H PRN 11/12/23 11/12/23 History aerosol inhaler wheezing Allergies Allergy/AdvReac Type Severity Reaction Status Date / Time sulfamethoxazole Allergy Severe Hives, Verified 11/11/23 15:37 [From Bactrim] shortness of breath trimethoprim [From Bactrim] Allergy Severe Hives, Verified 11/11/23 15:37 shortness of breath Review of Systems Review of Systems ROS: Yes All systems reviewed with the patient and are negative except as otherwise documented Exam Vital Signs (past 8 hours): - 11/12/23 08:00 11/12/23 08:29 Temperature 97.1 F L Pulse Rate 68 67 Respiratory Rate 16 16 Blood Pressure 163/37 H Pulse Oximetry 98 97 Oxygen Delivery Method Room Air Oxygen Flow Rate 0 Oxygen Delivery Method Room Air Oxygen Flow Rate 0 Narrative Exam Narrative: She has been receiving treatments for a wound on her foot with an appointment today which will have to be moved. Const General: cooperative, healthy appearing and comfortable Nutritional Appearance: average body habitus HENCA Head: normocephalic and atraumatic Ears: hearing grossly normal bilaterally Eyes Periorbital: periorbital findings normal Sclera: sclerae normal Neck Neck: trachea midline and No JVD Resp Effort & Inspection: normal respiratory effort and able to speak in complete sentences Cardio Rate: regular rate Rhythm: regular rhythm GI Inspection: non-distended Palpation: soft and tender (focal tenderness RLQ) Skin General: atrophy and lichenification Neuro General: patient alert, patient awake and patient oriented x3 Cognition: normal cognition Psych Appearance: grossly normal Mental Status: mental status grossly normal Affect: normal affect Judgment: judgment good Objective Labs 11/11/23 17:28 11/11/23 17:28 Labs: Laboratory Results - last 24 hr 11/11/23 17:28 WBC 11.4 H RBC 3.88 L Hgb 11.4 L Hct 34.7 L MCV 89.4 MCH 29.4 MCHC 32.9 RDW 14.5 Plt Count 291 Neut % (Auto) 65.3 Lymph % (Auto) 23.0 L [place] % (Auto) 9.8 Eos % (Auto) 1.4 L Baso % (Auto) 0.5 Neut # (Auto) 7400 H Lymph # (Auto) 2600 [place] # (Auto) 1100 H Eos # (Auto) 200 Baso # (Auto) 100 PT 12.2 INR 1.1 Sodium 138 Potassium 4.0 Chloride 103 Carbon Dioxide 30 BUN 30 H Creatinine 1.09 H Estimated GFR 49 L BUN/Creatinine Ratio 27.5 H Glucose 110 Calcium 10.9 H Total Bilirubin 0.6 AST 17 ALT 13 Alkaline Phosphatase 59 Total Protein 7.3 Albumin 4.0 Globulin 3.3 Albumin/Globulin Ratio 1.2 Lipase 120 Assessment & Plan Assessment & Plan narrative: Acute appendicitis Plan: Management with antibiotics with surgery only if it fails. Time Spent With Patient Time with patient: 30 to 49 minutes with 50% spent counseling/coordinating care Quality VTE Deep Vein Thrombosis/Pulmonary Embolism Present on Admission: No
[2023-11-12] MEDS: PROPRANOLOL 10 MG TABLET 40 MG PO ×2 (10:13→21:18)
[2023-11-12] MEDS: levoFLOXacin 500 MG/100 ML PIGGYBACK 100 MG IV (10:25)
--- NOTE | 2023-11-12 14:10 | PC.NURSE ---
Patients ulcer to r.foot healed per wound clinic, Ami phoned and states to just change dressing to an allevyn . Patient had a bowel movement today, she refused her miralax. Tolerating her iv antibiotics.
[2023-11-12] MEDS: METFORMIN HCL 500 MG TABLET 1000 MG PO (17:09)
[2023-11-12] MEDS: lisinopriL 20 MG TABLET PO (17:10)
[2023-11-12] MEDS: METFORMIN HCL 500 MG TABLET PO (17:10)
[2023-11-12] MEDS: hydroCHLOROthiazide 25 MG TABLET PO (17:11)
--- NOTE | 2023-11-12 23:04 | PC.NURSE ---
Addendum entered by Reilly Rivas R.N. 11/12/23 23:52: DENTAL MANAGER was able to get Left Upper Arm U.S. guided Peripheral IV line placed, patient tolerated well. Original Note: manager DIRT BIKE MECHANIC notified RN that patient accidently removed IV while adjusting in bed while sleeping. RN attempted IV insertion unable to place. RN notified ER requsting U.S. guided IV if possible with work load. access spec notified.
[2023-11-12 23:41] VITALS: BP 139/67; PULSE 72; RESP 20; TEMP 36.3; O2SAT 97
[2023-11-13 05:23] LABS: Add Manual Diff / Slide Review NO; Basophils Absolute Auto 0 /uL (0-100); Basophils Percent Auto 0.7 % (0-2); Eosinophils Absolute Auto 100 /uL (0-450); Hematocrit 30.8 % (36-46); Hemoglobin 10.4 g/dL (12.0-16.0); Lymphocytes Absolute Auto 1900 /uL (1100-4500); Lymphocytes Percent Auto 27.7 % (25-40); Mean Corpuscular HGB Conc 33.7 % (30-36); Mean Corpuscular Hemoglobin 30.2 PG (26-34); Mean Corpuscular Volume 89.6 fL (80-100); Monocytes Absolute Auto 700 /uL (0-900); Monocytes Percent Auto 10.1 % (3-14); Neutrophils Absolute Auto 4000 /uL (1500-7000); Neutrophils Percent Auto 59.5 % (50-75); Platelet Count 249 X10^3/uL (150-400); Red Blood Cell Count 3.44 X10^6/uL (4.0-5.2); Red Cell Distribution Width 14.2 % (11.6-14.8); White Blood Cell Count 6.8 X10^3/uL (4.5-11.0)
[2023-11-13 08:40] VITALS: BP 166/75; PULSE 68
[2023-11-13] MEDS: lisinopriL 20 MG TABLET PO (08:40)
[2023-11-13] MEDS: PROPRANOLOL 10 MG TABLET 40 MG PO (08:40)
[2023-11-13] MEDS: hydroCHLOROthiazide 25 MG TABLET PO (08:40)
[2023-11-13] MEDS: LACTATED RINGERS 1,000 ML 84 ML IV (08:41)
[2023-11-13] MEDS: ALBUTEROL 2.5 MG/3 ML NEB (ADULT) INH ×2 (08:53→11:13)
[2023-11-13] MEDS: BUDESONIDE 0.5 MG/2 ML NEB INH (08:53)
[2023-11-13] MEDS: levoFLOXacin 250 MG/50 ML PIGGYBACK 100 MG IV (10:08)
--- NOTE | 2023-11-13 10:49 | PM.PN.1 ---
Subjective Subjective Date Patient Seen: 11/13/23 Time Patient Seen: 10:49 Interval history: Jessica is feeling well. She tolerated her dinner last night and has had bowel function. Exam Vital Signs (past 8 hours): - 11/13/23 08:40 Pulse Rate 68 Blood Pressure 166/75 H Oxygen Delivery Method Room Air Oxygen Flow Rate 0 GI Palpation: soft Other: Tender in the right lower quadrant Objective Labs 11/13/23 05:08 11/11/23 17:28 Labs: Laboratory Results - last 24 hr 11/13/23 05:08 WBC 6.8 RBC 3.44 L Hgb 10.4 L Hct 30.8 L MCV 89.6 MCH 30.2 MCHC 33.7 RDW 14.2 Plt Count 249 Neut % (Auto) 59.5 Lymph % (Auto) 27.7 [place] % (Auto) 10.1 Eos % (Auto) 2.0 Baso % (Auto) 0.7 Neut # (Auto) 4000 Lymph # (Auto) 1900 [place] # (Auto) 700 Eos # (Auto) 100 Baso # (Auto) 0 PFSH Medical History COPD exacerbation Thyroid nodule Renal insufficiency High blood triglycerides Hyperglyceridemia Neuropathy Edema Diastolic dysfunction GERD (gastroesophageal reflux disease) Diverticular disease Hypertension Hyperlipidemia COPD (chronic obstructive pulmonary disease) Hay fever Lumbar back pain Chronic back pain Mumps Measles Chicken pox Cataract Hyperglycemia Diabetes Skin cancer (~2011) Breast cancer (~1981) Surgical History Anesthesia History of mastectomy (~09/1981) Status post hysterectomy Family History Mother Brain aneurysm Sister Age: 84 Cancer of breast Lung cancer Daughter Cancer of breast Father No problems noted. Social History household members: none Smoking Status: Former smoker alcohol intake: former Assessment & Plan Assessment and plan (1) Acute appendicitis: Qualifiers: Acute appendicitis type: with localized peritonitis Appendicitis abscess presence: without abscess Appendicitis gangrene presence: without gangrene Appendicitis perforation presence: without perforation Qualified Code(s): K35.30 - Acute appendicitis with localized peritonitis, without perforation or gangrene Status: Acute Plan Doing well with antibiotic therapy for acute appendicitis. Home today with oral antibiotics Quality VTE Deep Vein Thrombosis/Pulmonary Embolism Present on Admission: No
[2023-11-13 11:24] VITALS: PULSE 64; O2SAT 97
--- NOTE | 2023-11-13 12:08 | P.PN_ITS ---
Subjective Subjective Interval history: Patient doing well and abd pain has resolved. WBC normalized overnight. Gen surg to discharge home on po abx. Exam Vital Signs (past 8 hours): - 11/13/23 08:40 11/13/23 11:24 Pulse Rate 68 64 Blood Pressure 166/75 H Pulse Oximetry 97 Oxygen Delivery Method Room Air Oxygen Flow Rate 0 Oxygen Delivery Method Room Air Oxygen Flow Rate 0 Narrative Exam Narrative: GEN: no acute distress HEENT: moist mucous membranes, PERRL NECK: trachea midline, no JVD CV: regular rate and rhythm, no murmurs PULM: clear bilaterally ABD: soft, tenderness in RLQ has resolved, nondistended, no organomegaly EXT: warm and well perfused with no edema NEURO: awake, alert, oriented, no focal deficits Objective Labs 11/13/23 05:08 11/11/23 17:28 Labs: Laboratory Results - last 24 hr 11/13/23 05:08 WBC 6.8 RBC 3.44 L Hgb 10.4 L Hct 30.8 L MCV 89.6 MCH 30.2 MCHC 33.7 RDW 14.2 Plt Count 249 Neut % (Auto) 59.5 Lymph % (Auto) 27.7 [place] % (Auto) 10.1 Eos % (Auto) 2.0 Baso % (Auto) 0.7 Neut # (Auto) 4000 Lymph # (Auto) 1900 [place] # (Auto) 700 Eos # (Auto) 100 Baso # (Auto) 0 PFSH Medical History COPD exacerbation Thyroid nodule Renal insufficiency High blood triglycerides Hyperglyceridemia Neuropathy Edema Diastolic dysfunction GERD (gastroesophageal reflux disease) Diverticular disease Hypertension Hyperlipidemia COPD (chronic obstructive pulmonary disease) Hay fever Lumbar back pain Chronic back pain Mumps Measles Chicken pox Cataract Hyperglycemia Diabetes Skin cancer (~2011) Breast cancer (~1981) Surgical History Anesthesia History of mastectomy (~09/1981) Status post hysterectomy Family History Mother Brain aneurysm Sister Age: 84 Cancer of breast Lung cancer Daughter Cancer of breast Father No problems noted. Social History household members: none Smoking Status: Former smoker alcohol intake: former Assessment & Plan Assessment & Plan narrative: 1. Acute appendicitis -per CT abd -improved on IV abx, discharging on po abx by gen surg 2. HTN -continue propranolol, lisinopril-HCTZ 3. COPD mild -restarted her Breo inhaler, on ra, monitor. 4. DM2 -continue metformin -[facility] Medicine will sign off today. Thank you for allowing us to participate in the care of this patient. Should you have any further questions, do not hesitate to speak with us directly or call us. Quality VTE Deep Vein Thrombosis/Pulmonary Embolism Present on Admission: No
--- NOTE | 2023-11-13 12:39 | P.DS_ITS ---
History of Present Illness History of Present Illness Chief complaint: sent by [facility] pain Discharge Providers Provider Date of admission: 11/11/23 22:38 Discharge Date: 11/13/23 Primary care physician: Spencer Orantes DO Consults: 11/11/23 23:30 Consult to Hospitalist Service Routine Comment: Consulting Provider: Sonia Olson Reason for consultation: complex medical history, acute appendicitis Has provider been notified: Yes Discharge provider: Yoan Barry MD Summary Hospital Course Discharge Diagnosis: Acute appendicitis Hospital Course: The patient was admitted with a diagnosis of acute appendicitis. Antibiotic therapy was chosen due to age and comorbidities. Her symptoms improved after 24 hours or IV levofloxacin. She was discharged on oral levofloxacin. Exam Vital Signs (past 8 hours): - 11/13/23 08:40 11/13/23 11:24 Pulse Rate 68 64 Blood Pressure 166/75 H Pulse Oximetry 97 Oxygen Delivery Method Room Air Oxygen Flow Rate 0 Oxygen Delivery Method Room Air Oxygen Flow Rate 0 Objective Labs 11/13/23 05:08 11/11/23 17:28 Labs: Laboratory Results - last 24 hr 11/13/23 05:08 WBC 6.8 RBC 3.44 L Hgb 10.4 L Hct 30.8 L MCV 89.6 MCH 30.2 MCHC 33.7 RDW 14.2 Plt Count 249 Neut % (Auto) 59.5 Lymph % (Auto) 27.7 Riley % (Auto) 10.1 Eos % (Auto) 2.0 Baso % (Auto) 0.7 Neut # (Auto) 4000 Lymph # (Auto) 1900 Riley # (Auto) 700 Eos # (Auto) 100 Baso # (Auto) 0 PFSH Medical History COPD exacerbation Thyroid nodule Renal insufficiency High blood triglycerides Hyperglyceridemia Neuropathy Edema Diastolic dysfunction GERD (gastroesophageal reflux disease) Diverticular disease Hypertension Hyperlipidemia COPD (chronic obstructive pulmonary disease) Hay fever Lumbar back pain Chronic back pain Mumps Measles Chicken pox Cataract Hyperglycemia Diabetes Skin cancer (~2011) Breast cancer (~1981) Surgical History Anesthesia History of mastectomy (~09/1981) Status post hysterectomy Family History Mother Brain aneurysm Sister Age: 84 Cancer of breast Lung cancer Daughter Cancer of breast Father No problems noted. Social History household members: none Smoking Status: Former smoker alcohol intake: former Discharge Plan Discharge Plan Patient Disposition: Home Provider Discharge Comment: If abdominal pain worsens contact [facility]. A follow up outpatient CT scan will be ordered for you for next week. Discharge orders & Medications Prescriptions: New levofloxacin 500 mg tablet 500 mg PO DAILY Qty: 10 0RF Continued (DME) Mastectomy Bra See Rx Instructions .Route .MEDSUPPLY Qty: 1 12RF Rx Instructions: As directed (DME) Disabled Parking Permit See Rx Instructions .Route .MEDSUPPLY Qty: 1 0RF Rx Instructions: I find this patient to be medically disabled and qualify for disabled parking as indicated and signed on the accompanying disabled parking application for individuals. lisinopril-hydrochlorothiazide 20-25 mg tablet See Rx Instructions .ROUTE .COMPLEX Qty: 90 3RF Dose Instruction: TAKE ONE TABLET BY MOUTH ONE TIME DAILY Patient Comments: takes in AM Rx Instructions: TAKE ONE TABLET BY MOUTH ONE TIME DAILY propranolol 40 mg tablet 40 mg PO BID Qty: 180 3RF fluticasone furoate-vilanterol [Breo Ellipta] 100-25 mcg/dose blister with device 1 inh inhalation DAILY Qty: 60 2RF Patient Comments: uses at night metformin 500 mg tablet 500 mg PO .COMPLEX Qty: 270 1RF Rx Instructions: 500 mg orally Take 2 PO QAM and 1 PO QPM; take with food One Daily Women 50 Plus 400-120 mcg-mg tablet See Rx Instructions .ROUTE .COMPLEX Rx Instructions: One daily albuterol sulfate 90 mcg/actuation HFA aerosol inhaler 2 puff INHALATION Q4-6H PRN (Reason: wheezing) Follow up/Referrals: Spencer Orantes, DO [Primary Care Provider] - Visit Report/Discharge Packet Stand Alone Forms: Patient Portal/API, Stroke Signs & Symptoms Discharge Data Primary Care Provider: Spencer Orantes Attending Provider: Sonia Olson Admit Date/Time: 11/11/23 22:38 Quality VTE Deep Vein Thrombosis/Pulmonary Embolism Present on Admission: No
== END 2023-11-13 14:15 | disposition home or self-care (01) ==
LOC: ED 22:16 → AC 23:12
PROVIDERS: Emergency Medicine; Admitting Provider Surgery; Emergency Provider Emergency Medicine; PCP Family Medicine; Referring Provider Emergency Medicine; Visit Provider Surgery
DX: K35.80 Unspecified acute appendicitis (principal); I10 Essential (primary) hypertension; J44.9 Chronic obstructive pulmonary disease, unspecified; E11.9 Type 2 diabetes mellitus without complications; Z79.84 Long term (current) use of oral hypoglycemic drugs; R35.0 Frequency of micturition
CPT/HCPCS: 36415; 74177; 80053; 82962; 83690; 85025; 85610; 87086; 93005; 93010; 94640; 96361; 96365; 96366; 96367; 99232; 99238; 99284; G0378; J0696; J1956; J7613; Q9967

== ENCOUNTER → 2023-11-19 10:44 | Outpatient (CLI) | payer MEDICARE, SELFPAY ==
[2023-11-11 22:58] VITALS: BMI 21.9
--- NOTE | 2023-11-19 11:26 | DI.CT.S_ITS ---
PROCEDURE: CT ABDOMEN PELVIS W CON INDICATIONS: acute appendicitis. Mid abdominal pain. TECHNIQUE: After the administration of intravenous contrast, axial sections acquired from the lung bases to the pubic symphysis. Coronal and sagittal reformats were performed. For radiation dose reduction, the following was used: automated exposure control, adjustment of mA and/or kV according to patient size. COMPARISON: [facility], CT, CT ABDOMEN PELVIS W CON, 11/11/2023, 20:59. FINDINGS: Image quality: Diagnostic. Lower Chest: Right mastectomy with breast implant. Large hiatal hernia. Pleural parenchymal bands in the lower lobes. ABDOMEN: Liver: No solid mass. Polycystic liver disease. Gallbladder: No radiopaque gallstones or wall thickening. Biliary ducts: No biliary dilation. Pancreas: No ductal dilation. Spleen: Size is within normal limits. 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 No solid mass. No complex renal cystic lesion which requires follow up. Punctate nonobstructing nephrolithiasis versus vascular calcifications. Stomach and Bowel: Normal colonic caliber, without significant wall thickening. Colonic diverticulosis without evidence of diverticulitis. Peritoneum: No abnormal intraperitoneal fluid. No free air. Ventral Wall: Wide-mouth ventral hernia containing fat. Abdominal Nodes: No retroperitoneal or mesenteric adenopathy by size criteria. Vessels: Aorta and inferior vena cava are normal in size. PELVIS: Pelvic Organs: Unremarkable. Bladder: No bladder wall thickening, accounting for underdistention. Pelvic Nodes: No enlarged lymph nodes. Miscellaneous: Small left inguinal hernia containing fat. Bones: No aggressive osseous abnormality. Degenerative changes. Surgical fusion of the lower lumbar spine. IMPRESSION: No acute abnormality. Colonic diverticulosis without evidence of diverticulitis. Large hiatal hernia. Other chronic findings as above. Dictated by: Anirudh Aquino M.D. on 11/19/2023 at 14:55 Approved by: Anirudh Aquino M.D. on 11/19/2023 at 15:02
== END ==
PROVIDERS: PCP Family Medicine; Referring Provider Surgery; Visit Provider Surgery
DX: K35.30 Acute appendicitis with localized peritonitis, without perforation or gangrene (principal); K57.90 Diverticulosis of intestine, part unspecified, without perforation or abscess without bleeding; K44.9 Diaphragmatic hernia without obstruction or gangrene; K40.90 Unilateral inguinal hernia, without obstruction or gangrene, not specified as recurrent; K43.9 Ventral hernia without obstruction or gangrene; Z98.1 Arthrodesis status; Z09 Encounter for follow-up examination after completed treatment for conditions other than malignant neoplasm; Z86.31 Personal history of diabetic foot ulcer
CPT/HCPCS: 74177; 99212; Q9967

== ENCOUNTER → 2023-11-19 10:52 | Outpatient (CLI) | payer MEDICARE, SELFPAY ==
[2023-11-11 22:58] VITALS: BMI 21.9
== END ==
PROVIDERS: PCP Family Medicine; Referring Provider Podiatrist; Visit Provider Surgery
DX: Z09 Encounter for follow-up examination after completed treatment for conditions other than malignant neoplasm (principal); Z86.31 Personal history of diabetic foot ulcer
CPT/HCPCS: 99212; 99213

== ENCOUNTER → 2023-11-20 12:44 | Outpatient (CLI) | payer MEDICARE, SELFPAY ==
[2023-11-11 22:58] VITALS: BMI 21.9
== END ==
PROVIDERS: PCP Family Medicine; Visit Provider Nurse Practitioner Family
DX: N94.9 Unspecified condition associated with female genital organs and menstrual cycle (principal)
CPT/HCPCS: 87210

== ENCOUNTER → 2023-12-11 14:24 | Outpatient (CLI) | payer MEDICARE, SELFPAY ==
[2023-11-11 22:58] VITALS: BMI 21.9
== END ==
PROVIDERS: PCP Family Medicine; Referring Provider Podiatrist; Visit Provider Surgery
DX: E11.621 Type 2 diabetes mellitus with foot ulcer (principal); L97.512 Non-pressure chronic ulcer of other part of right foot with fat layer exposed; E11.42 Type 2 diabetes mellitus with diabetic polyneuropathy; L53.9 Erythematous condition, unspecified; J44.9 Chronic obstructive pulmonary disease, unspecified
CPT/HCPCS: 97597; 99213; 99214

== ENCOUNTER → 2023-12-11 15:54 | Outpatient (CLI) | payer MEDICARE, SELFPAY ==
[2023-11-11 22:58] VITALS: BMI 21.9
--- NOTE | 2023-12-11 15:58 | DI.RAD.S_ITS ---
PROCEDURE: XR TOE RT MIN 2V INDICATIONS: diabetic ulcer on right 3rd toe TECHNIQUE: 4 views of the right 3rd toe(s) acquired. COMPARISON: [facility], , TOE MINIMUM 2 VIEWS RIGHT, 11/07/2017, 12:44. FINDINGS: Bones: No fractures or dislocations. 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 Increased lateral subluxation of the 3rd proximal phalanx at the level of the MTP joint. New osseous erosion of the 5th metatarsal head, neck and distal shaft. No radiographic evidence of osseous erosion or osteolysis at the level of the 3rd toe. First TMT joint surgical plate and screw fixation is intact with no perihardware lucency to suggest hardware loosening. Soft tissues: No suspicious soft tissue densities. No radiopaque foreign body. IMPRESSION: 1. No acute bony abnormality. No radiopaque foreign body. 2. No radiographic evidence of osteomyelitis at the level of the 3rd toe. If there is high clinical suspicion, consider MRI for further evaluation. 3. New osseous erosion of the 5th metatarsal head, neck and distal shaft. Findings could represent sequela of surgical intervention versus osteomyelitis. Correlate with physical exam. 4. Interval 4th toe amputation at the level of the MTP joint. Increased lateral subluxation of the 3rd proximal phalanx. Dictated by: Tamara Cruz M.D. on 12/11/2023 at 18:05 Approved by: Tamara Cruz M.D. on 12/11/2023 at 18:10
== END ==
PROVIDERS: PCP Family Medicine; Referring Provider Surgery; Visit Provider Surgery
DX: E11.621 Type 2 diabetes mellitus with foot ulcer (principal); L97.519 Non-pressure chronic ulcer of other part of right foot with unspecified severity; M85.871 Other specified disorders of bone density and structure, right ankle and foot; Z89.421 Acquired absence of other right toe(s); L97.512 Non-pressure chronic ulcer of other part of right foot with fat layer exposed; E11.42 Type 2 diabetes mellitus with diabetic polyneuropathy; L53.9 Erythematous condition, unspecified; J44.9 Chronic obstructive pulmonary disease, unspecified
CPT/HCPCS: 73660; 97597; 99214

== ENCOUNTER → 2023-12-13 09:09 | Outpatient (CLI) | payer MEDICARE, SELFPAY ==
[2023-11-11 22:58] VITALS: BMI 21.9
== END ==
LOC: WC 09:10
PROVIDERS: PCP Family Medicine; Referring Provider Family Medicine; Visit Provider Physician Assistant
DX: E11.621 Type 2 diabetes mellitus with foot ulcer (principal); L97.512 Non-pressure chronic ulcer of other part of right foot with fat layer exposed; L53.9 Erythematous condition, unspecified
CPT/HCPCS: 99213

== ENCOUNTER → 2023-12-18 14:59 | Outpatient (CLI) | payer MEDICARE, SELFPAY ==
[2023-11-11 22:58] VITALS: BMI 21.9
== END ==
LOC: WC 15:00
PROVIDERS: PCP Family Medicine; Referring Provider Podiatrist; Visit Provider Surgery
DX: E11.621 Type 2 diabetes mellitus with foot ulcer (principal); L97.511 Non-pressure chronic ulcer of other part of right foot limited to breakdown of skin; E11.42 Type 2 diabetes mellitus with diabetic polyneuropathy
CPT/HCPCS: 99212; 99213

== ENCOUNTER → 2023-12-25 13:34 | Outpatient (CLI) | payer MEDICARE, SELFPAY ==
[2023-11-11 22:58] VITALS: BMI 21.9
== END ==
LOC: WC 13:35
PROVIDERS: PCP Family Medicine; Referring Provider Podiatrist; Visit Provider Surgery
DX: Z09 Encounter for follow-up examination after completed treatment for conditions other than malignant neoplasm (principal); Z86.31 Personal history of diabetic foot ulcer
CPT/HCPCS: 99211; 99213

== ENCOUNTER → 2024-01-07 08:11 | Outpatient (CLI) | payer MEDICARE, SELFPAY ==
[2023-11-11 22:58] VITALS: BMI 21.9
[2024-01-07 09:08] LABS: Add Manual Diff / Slide Review NO; Basophils Absolute Auto 100 /uL (0-100); Basophils Percent Auto 0.8 % (0-2); Eosinophils Absolute Auto 200 /uL (0-450); Eosinophils Percent Auto 1.6 % (2-4); Hematocrit 35.8 % (36-46); Hemoglobin 11.9 g/dL (12.0-16.0); Lymphocytes Absolute Auto 2300 /uL (1100-4500); Lymphocytes Percent Auto 24.3 % (25-40); Mean Corpuscular HGB Conc 33.1 % (30-36); Mean Corpuscular Hemoglobin 29.5 PG (26-34); Monocytes Absolute Auto 800 /uL (0-900); Monocytes Percent Auto 7.9 % (3-14); Neutrophils Absolute Auto 6200 /uL (1500-7000); Neutrophils Percent Auto 65.4 % (50-75); Platelet Count 324 X10^3/uL (150-400); Red Blood Cell Count 4.03 X10^6/uL (4.0-5.2); Red Cell Distribution Width 15.1 % (11.6-14.8); White Blood Cell Count 9.5 X10^3/uL (4.5-11.0)
[2024-01-07 09:22] LABS: Hemoglobin A1C% w Est Avg Glu 6.3 % (4.0-6.0)
[2024-01-07 09:35] LABS: Alanine Aminotransferase 14 IU/L (<35); Albumin 4.3 g/dL (3.5-5.0); Albumin Globulin Ratio 1.7 (1.0-2.8); Alkaline Phosphatase 60 U/L (38-126); Aspartate Aminotransferase 24 IU/L (14-36); BUN Creatinine Ratio 32.3 (6-22); Bilirubin Total 0.5 mg/dL (0.2-1.3); Blood Urea Nitrogen 32 mg/dL (7-17); Calcium 10.5 mg/dL (8.4-10.2); Carbon Dioxide 30 mmol/L (22-32); Chloride 105 mmol/L (98-107); Cholesterol 197 mg/dL (140-199); Estimated Glomerular Filt Rate 56 mL/min (>60); Globulin 2.6 g/dL (1.7-4.1); Glucose 115 mg/dL (80-110); HDL Cholesterol 52 mg/dL (40-60); HEMOLYSIS < 15 (0-50); LDL Cholesterol Calculated 94 mg/dL (<100); Sodium 141 mmol/L (137-145); Total Protein 6.9 g/dL (6.3-8.2); Triglycerides 254 mg/dL (35-150)
[2024-01-07 10:00] LABS: TSH w/ Reflex to FT4 2.23 uIU/mL (0.47-4.68)
== END ==
PROVIDERS: PCP Family Medicine; Referring Provider Family Medicine; Visit Provider Family Medicine
DX: E78.1 Pure hyperglyceridemia (principal); E11.9 Type 2 diabetes mellitus without complications; I10 Essential (primary) hypertension; J44.9 Chronic obstructive pulmonary disease, unspecified
CPT/HCPCS: 36415; 80053; 80061; 83036; 84443; 85025

== ENCOUNTER → 2024-01-13 12:12 | Outpatient (CLI) | payer MEDICARE, SELFPAY ==
[2023-11-11 22:58] VITALS: BMI 21.9
--- NOTE | 2024-01-13 12:15 | DI.US.S_ITS ---
PROCEDURE: US ARTERIAL DUPLEX LE BI INDICATIONS: PVD TECHNIQUE: Color and pulse Doppler interrogation was performed of both lower extremity arterial systems, with image documentation. COMPARISON: [facility], CT, CT ABDOMEN PELVIS W CON, 11/19/2023, 11:00. [facility], US, US ARTERIAL DUPLEX LE LT, 10/17/2023, 14:05. FINDINGS: Right lower extremity: Common femoral artery: 63 cm/sec, with triphasic flow. Deep femoral artery: 55 cm/sec, with biphasic flow. Proximal superficial femoral artery: 47 cm/sec, with biphasic flow. Mid superficial femoral artery: 67 cm/sec, with biphasic flow. Distal superficial femoral artery: 54 cm/sec, with triphasic flow. Popliteal artery: 26 cm/sec, with biphasic flow. Posterior tibial artery: Likely occluded Anterior tibial artery/dorsalis pedis: 20 cm/sec, with monophasic low resistance flow. Person-scale imaging description: Diffuse plaque. Suspect severe distal popliteal stenosis. Occluded posterior tibial and low resistance monophasic anterior tibial are consistent with upstream occlusion or high-grade stenosis. Left lower extremity: Common femoral artery: 41 cm/sec, with biphasic flow. Deep femoral artery: 53 cm/sec, with biphasic flow. Proximal superficial femoral artery: 44 cm/sec, with biphasic flow. Mid superficial femoral artery: 72 cm/sec, with biphasic flow. Distal superficial femoral artery: 64 cm/sec, with biphasic flow. Popliteal artery: 89 cm/sec, with monophasic flow. Posterior tibial artery: Likely occluded Anterior tibial artery/dorsalis pedis: 23 cm/sec, with monophasic low resistance flow. Person-scale imaging description: Diffuse plaque. Findings consistent with severe popliteal stenosis or occlusion. Occluded posterior tibial. Low resistance monophasic anterior tibial. IMPRESSION: 1. Extensive bilateral plaque. 2. No findings of inflow stenosis. 3. On the right, there is likely severe distal popliteal stenotic disease, posterior tibial occlusion, and low resistance monophasic anterior tibial artery waveform. 4. On the left, there is either a likely popliteal severe stenosis or occlusion, posterior tibial occlusion, and a low resistance monophasic anterior tibial waveform. Comment: Consider MR angiography or CT angiography for confirmation. [facility] Dictated by: Yvon Deleon M.D. on 01/13/2024 at 20:18 Approved by: Yvon Deleon M.D. on 01/13/2024 at 20:27
== END ==
LOC: US 12:14
PROVIDERS: PCP Family Medicine; Referring Provider Podiatrist; Visit Provider Podiatrist
DX: I73.9 Peripheral vascular disease, unspecified (principal)
CPT/HCPCS: 93925

== ENCOUNTER → 2024-05-12 07:24 | Outpatient (CLI) | payer MEDICARE, SELFPAY ==
[2023-11-11 22:58] VITALS: BMI 21.9
[2024-05-12 08:10] LABS: Add Manual Diff / Slide Review NO; Basophils Absolute Auto 100 /uL (0-100); Eosinophils Absolute Auto 200 /uL (0-450); Eosinophils Percent Auto 3.3 % (2-4); Hematocrit 35.5 % (36-46); Hemoglobin 11.7 g/dL (12.0-16.0); Lymphocytes Absolute Auto 2000 /uL (1100-4500); Lymphocytes Percent Auto 28.5 % (25-40); Mean Corpuscular HGB Conc 32.9 % (30-36); Mean Corpuscular Hemoglobin 28.8 PG (26-34); Mean Corpuscular Volume 87.3 fL (80-100); Monocytes Absolute Auto 600 /uL (0-900); Monocytes Percent Auto 8.8 % (3-14); Neutrophils Absolute Auto 4200 /uL (1500-7000); Neutrophils Percent Auto 58.4 % (50-75); Platelet Count 313 X10^3/uL (150-400); Red Blood Cell Count 4.07 X10^6/uL (4.0-5.2); Red Cell Distribution Width 15.5 % (11.6-14.8); White Blood Cell Count 7.2 X10^3/uL (4.5-11.0)
[2024-05-12 08:45] LABS: Alanine Aminotransferase 14 IU/L (<35); Albumin Globulin Ratio 1.7 (1.0-2.8); Alkaline Phosphatase 40 U/L (38-126); Aspartate Aminotransferase 22 IU/L (14-36); BUN Creatinine Ratio 32.7 (6-22); Bilirubin Total 0.6 mg/dL (0.2-1.3); Blood Urea Nitrogen 34 mg/dL (7-17); Calcium 10.5 mg/dL (8.4-10.2); Carbon Dioxide 25 mmol/L (22-32); Chloride 106 mmol/L (98-107); Estimated Glomerular Filt Rate 52 mL/min (>60); Globulin 2.4 g/dL (1.7-4.1); Glucose 113 mg/dL (80-110); HEMOLYSIS 40 (0-50); Potassium 4.4 mmol/L (3.4-5.1); Sodium 139 mmol/L (137-145); Total Protein 6.4 g/dL (6.3-8.2)
[2024-05-12 13:41] LABS: HEMOLYSIS < 15 (0-50); Iron 74 ug/dL (37-170)
[2024-05-12 13:53] LABS: Percent Iron Saturation 22 % (15-50); Total Iron Binding Capacity 330 ug/dL (265-497); Transferrin 265 mg/dL (206-381)
[2024-05-12 14:29] LABS: Vitamin B12 258 pg/mL (239-931)
== END ==
PROVIDERS: PCP Family Medicine; Referring Provider Family Medicine; Visit Provider Family Medicine
DX: E11.9 Type 2 diabetes mellitus without complications (principal); D64.9 Anemia, unspecified; K21.9 Gastro-esophageal reflux disease without esophagitis; F41.9 Anxiety disorder, unspecified; J44.9 Chronic obstructive pulmonary disease, unspecified
CPT/HCPCS: 36415; 80053; 82607; 83036; 83540; 83550; 85025

== ENCOUNTER → 2024-08-26 08:55 | Outpatient (CLI) | payer MEDICARE, SELFPAY ==
[2023-11-11 22:58] VITALS: BMI 21.9
[2024-08-26 09:49] LABS: Add Manual Diff / Slide Review NO; Basophils Absolute Auto 0 /uL (0-100); Basophils Percent Auto 0.3 % (0-2); Eosinophils Absolute Auto 100 /uL (0-450); Eosinophils Percent Auto 0.3 % (2-4); Hematocrit 37.7 % (36-46); Hemoglobin 12.1 g/dL (12.0-16.0); Lymphocytes Absolute Auto 1500 /uL (1100-4500); Mean Corpuscular Hemoglobin 28.9 PG (26-34); Mean Corpuscular Volume 90.2 fL (80-100); Monocytes Absolute Auto 1600 /uL (0-900); Monocytes Percent Auto 10.9 % (3-14); Neutrophils Absolute Auto 11600 /uL (1500-7000); Neutrophils Percent Auto 78.5 % (50-75); Platelet Count 399 X10^3/uL (150-400); Red Blood Cell Count 4.18 X10^6/uL (4.0-5.2); Red Cell Distribution Width 15.1 % (11.6-14.8); White Blood Cell Count 14.8 X10^3/uL (4.5-11.0)
[2024-08-26 09:55] LABS: Hemoglobin A1C% w Est Avg Glu 5.8 % (4.0-6.0)
[2024-08-26 11:13] LABS: Alanine Aminotransferase 16 IU/L (<35); Albumin 4.1 g/dL (3.5-5.0); Albumin Globulin Ratio 1.6 (1.0-2.8); Alkaline Phosphatase 63 U/L (38-126); Aspartate Aminotransferase 20 IU/L (14-36); BUN Creatinine Ratio 22.8 (6-22); Bilirubin Total 0.9 mg/dL (0.2-1.3); Blood Urea Nitrogen 26 mg/dL (7-17); Calcium 10.7 mg/dL (8.4-10.2); Carbon Dioxide 28 mmol/L (22-32); Chloride 100 mmol/L (98-107); Estimated Glomerular Filt Rate 47 mL/min (>60); Globulin 2.5 g/dL (1.7-4.1); Glucose 170 mg/dL (80-110); HEMOLYSIS < 15 (0-50); Potassium 4.2 mmol/L (3.4-5.1); Sodium 138 mmol/L (137-145); Total Protein 6.6 g/dL (6.3-8.2)
== END ==
PROVIDERS: PCP Family Medicine; Referring Provider Family Medicine; Visit Provider Family Medicine
DX: E11.9 Type 2 diabetes mellitus without complications (principal); I10 Essential (primary) hypertension; E83.52 Hypercalcemia
CPT/HCPCS: 36415; 80053; 83036; 85025

== ENCOUNTER → 2024-08-28 09:14 | Outpatient (CLI) | payer MEDICARE, SELFPAY ==
[2023-11-11 22:58] VITALS: BMI 21.9
== END ==
PROVIDERS: PCP Family Medicine; Visit Provider Family Medicine
DX: R30.0 Dysuria (principal)
CPT/HCPCS: 87077; 87086

== ENCOUNTER → 2024-10-03 12:41 | Outpatient (CLI) | payer MEDICARE, SELFPAY ==
[2023-11-11 22:58] VITALS: BMI 21.9
--- NOTE | 2024-10-03 | DI.MG.S_ITS ---
UNILATERAL LEFT DIGITAL SCREENING MAMMOGRAM 3D/2D WITH CAD: 10/03/2024 CLINICAL: Routine screening. Personal history of right breast cancer. Comparison is made to exams dated: 10/01/2023 mammogram, 09/13/2022 mammogram, and 08/30/2021 mammogram - [facility]. There are scattered areas of fibroglandular density (category b / 25%-50% glandular tissue). Current study was also evaluated with a Computer Aided Detection (CAD) system. There are benign post operative findings in the left breast. No significant masses, calcifications, or other findings are seen in the breast. There has been no significant interval change. IMPRESSION: BENIGN There is no mammographic evidence of malignancy. A 1 year screening mammogram is recommended. This exam was interpreted at Station ID: [id number]. NOTE: For mammograms, a report in lay terms will be sent to the patient. Approximately 15% of breast malignancies will not be visualized mammographically. In the management of a palpable breast mass, a negative mammogram must not discourage biopsy of a clinically suspicious lesion. Electronically Signed By: Aryan blackman/denisa:10/05/2024 16:26:28 copy to: WALLY ACHARYA letter sent: Normal Exam ACR BI-RADS Category 2: Benign
== END ==
PROVIDERS: PCP Family Medicine; Referring Provider Family Medicine; Visit Provider Family Medicine
DX: Z12.31 Encounter for screening mammogram for malignant neoplasm of breast (principal); Z85.3 Personal history of malignant neoplasm of breast
CPT/HCPCS: 77063; 77067

== ENCOUNTER → 2024-11-03 09:00 | Outpatient (CLI) | payer MEDICARE, SELFPAY ==
[2023-11-11 22:58] VITALS: BMI 21.9
--- NOTE | 2024-11-03 09:02 | EKG_ITS ---
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
== END ==
PROVIDERS: PCP Family Medicine; Referring Provider Podiatrist; Visit Provider Podiatrist
DX: Z01.818 Encounter for other preprocedural examination (principal)
CPT/HCPCS: 93005

== ENCOUNTER 2024-11-27 07:56 | Day surgery (SDC) | payer MEDICARE, SELFPAY ==
[2023-11-11 22:58] VITALS: BMI 21.9
[2024-11-17 13:14] VITALS: BMI 22.1
[2024-11-27] VITALS (8 sets, daily range): BP systolic 118–158; BP diastolic 48–80; PULSE 63–74; RESP 14–21; TEMP 36.3–36.8; O2SAT 94–100; BMI 22.1
--- NOTE | 2024-11-27 | PATH_ITS ---
[facility] Accession Number: [id number] No. of containers..01 Tissue . 01 Material submitted: . toe - RIGHT THIRD TOE . 01 Diagnosis: RIGHT THIRD TOE, AMPUTATION: Skin and underlying fibroconnective tissue with chronic inflammation, fibrosis and entrapped bone shard with osteonecrosis. Bone underlying the lesion with reactive changes, marrow fibrosis and focal mild chronic inflammation. No diagnostic features of osteomyelitis. Skin and soft tissue resection margins are viable. Articular bone margin viable and negative for inflammation. MRV 12/03/2024 1500 Local . 01 Electronically signed: . Henny Alfaro MD, Pathologist NPI- [id number] . 01 Gross description: . Received in formalin, labeled with two identifiers and right third toe, is a disarticulated digit measuring 5.0 cm in length by 1.7 cm in diameter with a ambrosio thickened nail bed and ambrosio wrinkled skin with a crusted lesion on the lateral aspect of the distal tip measuring 0.4 x 0.4 cm and widely free from the margins. The margins are inked blue while the articular surface is inked orange. Sectioning reveals pink-ambrosio soft tissue and ambrosio osseous tissue that is relatively easy to section with a scalpel. . Poultry Vaccinator sections are submitted as follows: A1: Soft tissue margin en face. A2: Articular surface en face. A3: Longitudinal section with lesion and underlying bone. Note: Due to the peripheral nature of the lesion, true relationship of bone to lesion is difficult. Specimen decalcified. ([id number]) /FRR 11/28/2024 1402 Local . 01 Pathologist provided ICD-10: E11.621, E11.42, I73.9, M20.41 . 01 CPT . 574326, 000277 Specimen Comment: A courtesy copy of this report has been sent to [phone] Performed at: [address] [address], [place], [place] [id number] MD Polo Joe MD Phone: [phone]
[2024-11-27] MEDS: ACETAMINOPHEN 325 MG TABLET 650 MG PO (08:48)
[2024-11-27] MEDS: LACTATED RINGERS 1,000 ML 42 ML IV (08:49)
--- NOTE | 2024-11-27 09:02 | PM.PREOP ---
Pre-operative Note Interval Note History & Physical reviewed/Exam performed by Physician: Yes Changes to H&P: No
--- NOTE | 2024-11-27 09:02 | PM.OP.1 ---
Operative Date/Time/Diagnoses Date of procedure: 11/27/24 Time of procedure: 09:07 Pre-op diagnosis: Right third hammertoe with persistent wound. Post-op diagnosis: same Procedure & Clinicians Procedure: Right third toe amputation at metatarsophalangeal joint. Same procedure as scheduled: Yes Indications: 89 yo female presents for removal of right third toe. She has had consistent pain as well as a wound on the toe and it's been difficult to walk with it's contracture. Numerous attempts at conservative care have failed to alleviate her condition and she wished to have surgical intervention at this time. She was recently revascularized on the right lower extremity which appears to have been very successful and has been cleared for the surgery. We spoke with the risks and potential complications as well as expected outcomes and alternatives. Consent was reviewed once again and there were no contraindications to the procedure at this time. Surgeon: Angie Covarrubias Click Yes if Unassisted: Yes Anesthesia Type: MAC +/- Operative Notes Closure Type: primary Specimen(s): other (Right third toe sent to Pathology for identification.) Estimated Blood Loss (mL): 10 Blood products transfused: none Tourniquet time (min): 0 Procedure in detail: The patient was brought to the operating room and placed on the operating table in the supine position. Well-padded, appropriately aligned. A time out was performed. After induction iv sedation, local anesthesia was delivered to the right foot third toe area. The right foot and ankle were prepped and draped in the usual aseptic manner. After check of anesthesia a full-thickness circumferential incision was made around the right third toe, a portion of the incision following the prior scar. This was then continued into the metatarsophalangeal joint linearly. The toe was carefully disarticulated. The toe was passed from the field and sent to pathology for identification. The area was irrigated with copious amounts of normal sterile saline. The tourniquet was not inflated during the process of the procedure. No necrotic tissue or abscesses were noted. Skin and tissue was revised to allow for appropriate closure. Vessels were cauterized and ligated as necessary. 4-0 Vicryl was used subcutaneously for closure and 3-0 nylon for the skin. The area was dressed with a sterile lightly compressive dressing. She was placed in a postsurgical shoe and transferred to the postoperative holding area with vascular status intact to the right foot. Complications: none Post-operative Condition: stable Disposition: PACU Plan for aftercare: Following a period of postoperative monitoring, the patient will be discharged to home on written and oral postoperative instructions including keeping the dressing dry and intact, ok for limited weight to the surgical foot with the use of a walker, and elevating the foot when seated home. DVT prevention techniques have been reviewed. For the 1st postoperative visit the dressing will be changed and close to the 3rd postoperative week we will likely remove the sutures.
[2024-11-27] MEDS: CEFAZOLIN 2 GM/100 ML PREMIX 100 ML IV (09:08)
[2024-11-27] MEDS: LIDOCAINE 2% INJ MDV 20ML 20 ML INJ (09:25)
[2024-11-27] MEDS: BUPIVACAINE 0.5% (PF) 30 ML VIAL INJ (09:25)
--- NOTE | 2024-11-27 09:26 | SUR.OPER ---
Supine on padded OR bed, head on pillow, arms secured on padded arm boards at <90 degrees abduction, legs uncrossed, safety belt at thigh, tape over blanket over non operative leg.
== END 2024-11-27 10:50 | disposition home or self-care (01) ==
PROVIDERS: PCP Family Medicine; Referring Provider Podiatrist; Visit Provider Podiatrist
PROC: (CPT 28820; principal; 2024-11-27 09:30)
DX: E11.621 Type 2 diabetes mellitus with foot ulcer (principal); E11.42 Type 2 diabetes mellitus with diabetic polyneuropathy; I73.9 Peripheral vascular disease, unspecified; M20.41 Other hammer toe(s) (acquired), right foot; Z87.891 Personal history of nicotine dependence; Z79.84 Long term (current) use of oral hypoglycemic drugs; M87.9 Osteonecrosis, unspecified
CPT/HCPCS: 28820; J0690; J2405

== ENCOUNTER → 2024-12-18 08:39 | Outpatient (CLI) | payer MEDICARE, SELFPAY ==
[2023-11-11 22:58] VITALS: BMI 21.9
[2024-12-18 10:06] LABS: Hemoglobin A1C% w Est Avg Glu 5.8 % (4.0-6.0)
[2024-12-18 10:17] LABS: Alanine Aminotransferase 16 IU/L (<35); Albumin 4.3 g/dL (3.5-5.0); Albumin Globulin Ratio 1.8 (1.0-2.8); Alkaline Phosphatase 60 U/L (38-126); Aspartate Aminotransferase 22 IU/L (14-36); BUN Creatinine Ratio 29.5 (6-22); Bilirubin Total 0.5 mg/dL (0.2-1.3); Blood Urea Nitrogen 33 mg/dL (7-17); Carbon Dioxide 29 mmol/L (22-32); Chloride 101 mmol/L (98-107); Estimated Glomerular Filt Rate 48 mL/min (>60); Globulin 2.4 g/dL (1.7-4.1); Glucose 112 mg/dL (80-110); HEMOLYSIS < 15 (0-50); Potassium 4.1 mmol/L (3.4-5.1); Sodium 140 mmol/L (137-145); Total Protein 6.7 g/dL (6.3-8.2)
== END ==
PROVIDERS: PCP Family Medicine; Referring Provider Family Medicine; Visit Provider Family Medicine
DX: E11.9 Type 2 diabetes mellitus without complications (principal); I10 Essential (primary) hypertension
CPT/HCPCS: 36415; 80053; 83036

== ENCOUNTER → 2024-12-19 08:48 | Outpatient (CLI) | payer MEDICARE, SELFPAY ==
[2023-11-11 22:58] VITALS: BMI 21.9
[2024-12-20 08:40] LABS: Parathyroid Hormone Int 42 pg/mL (15-65)
== END ==
LOC: LAB 08:50
PROVIDERS: PCP Family Medicine; Referring Provider Family Medicine; Visit Provider Family Medicine
DX: E83.52 Hypercalcemia (principal)
CPT/HCPCS: 36415; 83970

== ENCOUNTER 2024-12-25 12:12 | Emergency (ER) | payer MEDICARE, SELFPAY ==
[2024-12-21 14:16] VITALS: BMI 21.9
[2024-12-25] VITALS (9 sets, daily range): BP systolic 107–146; BP diastolic 57–63; PULSE 68–75; RESP 14–20; TEMP 36.9; O2SAT 96–99; BMI 22.3
--- NOTE | 2024-12-25 13:53 | EKG_ITS ---
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
--- NOTE | 2024-12-25 13:53 | ED_ITS ---
HPI - Dizziness General Chief Complaint: Dizziness Stated Complaint: Took pill and is having a reaction Time Seen by Provider: 12/25/24 13:13 Source: patient Mode of arrival: Wheelchair History of Present Illness HPI Narrative: Patient here with daughter, complains of dizziness and feeling very tired. Patient was seen by primary care this past Saturday and patient requested to have her blood pressure medications reduced. However, primary care had decreased her propanolol 40 mg twice a day to 40 mg in the morning and 20 mg at night, in addition he added nifedipine 30 mg nightly/long-acting, she awoke this morning feeling very tired and weak. And dizzy. Her blood pressure is usually 130 systolic to 150 systolic. It is a lot lower today. Denies any chest pain shortness of breath. No altered mental status no slurred speech facial droop or numbness tingling or weakness. Fast exam is negative. Related Data Home Medications Medication Instructions Recorded Confirmed multivitamin with [id number] See Rx Instructions .Route .COMPLEX 06/21/21 12/21/24 400 mcg-120 mg tablet (One Daily Women 50 Plus) albuterol sulfate 90 mcg/actuation 2 puff inhalation Q4-6H PRN 11/12/23 12/21/24 aerosol inhaler wheezing lisinopril 20 1 tab PO DAILY 11/27/24 12/21/24 mg-hydrochlorothiazide 25 mg tablet clopidogrel 75 mg tablet 75 mg PO DAILY 12/21/24 12/21/24 Previous Rx's Medication Instructions Recorded Disabled Parking Permit #1 ea 03/07/23 Mastectomy Bra #1 ea 03/04/24 fluticasone furoate 100 1 inh inhalation DAILY #60 ea 11/04/24 mcg-vilanterol 25 mcg/dose inhalation powder (Breo Ellipta) metformin 500 mg tablet 500 mg PO BID #180 tabs 12/21/24 nifedipine 30 mg tablet,extended 30 mg PO DAILY #90 tabs 12/21/24 release omeprazole 20 mg capsule,delayed 20 mg PO DAILY #90 caps 12/21/24 release propranolol 20 mg tablet 20 mg PO BID #180 tabs 12/21/24 Allergies Allergy/AdvReac Type Severity Reaction Status Date / Time sulfamethoxazole Allergy Severe Hives, Verified 12/21/24 13:27 [From Bactrim] shortness of breath trimethoprim [From Bactrim] Allergy Severe Hives, Verified 12/21/24 13:27 shortness of breath Review of Systems Review of Systems Narrative: GENERAL: Negative chills, positive fatigue, malaise, negative fever, sweats. HEENT: Negative sinus pain, ear pain, sore throat RESPIRATORY: Negative dyspnea, cough CARDIOVASCULAR: Negative chest pain, palpitations GASTROINTESTINAL: Negative vomiting, nausea, abdominal pain : Negative dysuria, frequency, hematuria MUSCULOSKELETAL: Negative muscle or bony pain SKIN: Negative rash, skin lesions NEUROLOGIC: Negative weakness, numbness, positive dizzy ROS Unobtainable: All systems reviewed & are unremarkable except as noted in HPI and below Patient History Medical History (Updated 12/25/24 @ 16:14 by Mohan Kumar MD) Peripheral neuropathy Anemia Thyroid nodule Renal insufficiency COPD exacerbation High blood triglycerides Hyperglyceridemia Neuropathy Edema Diastolic dysfunction GERD (gastroesophageal reflux disease) Diverticular disease Hypertension Hyperlipidemia COPD (chronic obstructive pulmonary disease) Hay fever Lumbar back pain Chronic back pain Mumps Measles Chicken pox Cataract Hyperglycemia Diabetes Skin cancer (~2011) Breast cancer (~1981) Surgical History (Updated 11/25/24 @ 08:24 by Loren Baker RN) History of surgery Hx of hernia repair History of surgery History of esophageal surgery History of hysterectomy History of bunionectomy of both great toes History of lumbar fusion (06/17/19) Anesthesia History of mastectomy (~09/1981) Family History Mother Brain aneurysm Sister Age: 86 Cancer of breast Lung cancer Daughter Cancer of breast Father No problems noted. Social History household members: none Smoking Status: Never smoker alcohol intake: former Smoking Status: Never smoker alcohol intake frequency: other Exam Narrative Exam Narrative: GENERAL: in no distress, not toxic not dyspneic HEAD: Normocephalic. EYES: Pupils equal round ENT: Mucous membranes moist. NECK: Trachea midline. CARDIOVASCULAR: Regular rate and rhythm RESPIRATORY: Clear to auscultation. Breath sounds equal bilaterally. No wheezes, rales, or rhonchi. GASTROINTESTINAL: Abdomen soft, non-tender EXTREMITIES: No gross deformities. BACK: No flank tenderness. NEURO: AOx4. Clear speech, no facial droop light touch intact to face hands and legs. Negative pronator drift. Fast exam is negative. Elevate each leg without difficulty, no drift. SKIN: Warm and dry PSYCH: Not anxious, is cooperative Initial Vital Signs Initial Vital Signs: Vital Signs Temperature 98.4 F 12/25/24 12:18 Pulse Rate 74 12/25/24 12:18 Respiratory Rate 18 12/25/24 12:18 Blood Pressure 115/58 L 12/25/24 12:18 Pulse Oximetry 98 12/25/24 12:18 Oxygen Delivery Method Room Air 12/25/24 12:18 Course Orders Ordered: Discontinued Medications Sodium Chloride (Normal Saline 0.9%) 1,000 mls @ 1,000 mls/hr IV BOLUS ONE Stop: 12/25/24 14:51 Last Infusion: 12/25/24 14:52 Dose: Infused Documented By: Admin: 12/25/24 14:02 Dose: 1,000 mls/hr Documented By: SEAMUS Vital Signs Vital signs: Vital Signs - 8 hr 12/25/24 12:18 12/25/24 13:05 12/25/24 13:06 Temperature 98.4 F Pulse Rate 74 72 Respiratory Rate 18 Blood Pressure 115/58 L 107/58 L Pulse Oximetry 98 96 Oxygen Delivery Method Room Air 12/25/24 13:06 12/25/24 13:30 12/25/24 13:30 Temperature Pulse Rate 71 71 Respiratory Rate Blood Pressure 114/58 L Pulse Oximetry 96 97 Oxygen Delivery Method 12/25/24 13:42 12/25/24 13:42 12/25/24 14:00 Temperature Pulse Rate 71 Respiratory Rate Blood Pressure 112/58 L 118/57 L Pulse Oximetry 98 Oxygen Delivery Method 12/25/24 14:00 12/25/24 14:30 12/25/24 14:30 Temperature Pulse Rate 68 75 Respiratory Rate 14 16 Blood Pressure 138/63 Pulse Oximetry 97 97 Oxygen Delivery Method 12/25/24 15:00 12/25/24 15:00 12/25/24 15:30 Temperature Pulse Rate 71 Respiratory Rate 17 Blood Pressure 129/62 146/63 H Pulse Oximetry 99 Oxygen Delivery Method 12/25/24 15:30 Temperature Pulse Rate 71 Respiratory Rate 20 Blood Pressure Pulse Oximetry 97 Oxygen Delivery Method MDM - Dizziness Lab Data 12/25/24 13:41 12/25/24 13:41 Labs: Lab Results 12/25/24 12/25/24 Range/Units 13:41 14:39 WBC 10.8 (4.5-11.0) X10^3/uL RBC 3.82 L (4.0-5.2) X10^6/uL Hgb 11.3 L (12.0-16.0) g/dL Hct 33.7 L (36-46) % MCV 88.1 (80-100) fL MCH 29.5 (26-34) PG MCHC 33.5 (30-36) % RDW 15.3 H (11.6-14.8) % Plt Count 296 (150-400) X10^3/uL Neut % (Auto) 68.3 (50-75) % Lymph % (Auto) 22.6 L (25-40) % [place] % (Auto) 8.0 (3-14) % Eos % (Auto) 0.6 L (2-4) % Baso % (Auto) 0.5 (0-2) % Neut # (Auto) 7300 H (6094-9899) /uL Lymph # (Auto) 2400 (6745-8211) /uL [place] # (Auto) 900 (0-900) /uL Eos # (Auto) 100 (0-450) /uL Baso # (Auto) 0 (0-100) /uL Sodium 139 (137-145) mmol/L Potassium 4.1 (3.4-5.1) mmol/L Chloride 102 (98-107) mmol/L Carbon Dioxide 26 (22-32) mmol/L BUN 34 H (7-17) mg/dL Creatinine 1.22 H (0.52-1.04) mg/dL Estimated GFR 43 L (>60) mL/min BUN/Creatinine Ratio 27.9 H (6-22) Glucose 89 (80-110) mg/dL Calcium 10.5 H (8.4-10.2) mg/dL Total Bilirubin 0.9 (0.2-1.3) mg/dL AST 38 H (14-36) IU/L ALT 17 (<35) IU/L Alkaline Phosphatase 60 (38-126) U/L Troponin I 0.017 (0.01-0.034) ng/mL Total Protein 7.3 (6.3-8.2) g/dL Albumin 4.3 (3.5-5.0) g/dL Globulin 3.0 (1.7-4.1) g/dL Albumin/Globulin Ratio 1.4 (1.0-2.8) Urine Color Yellow Urine Appearance Clear Urine pH 6.0 (4.5-8.0) Ur Specific [place] 1.015 (1.000-1.035) Urine Protein Negative (Negative) Urine Glucose (UA) Negative (Negative) g/dL Urine Ketones Negative (NEGATIVE) Urine Occult Blood Negative (Negative) Urine Nitrate Negative (Negative) Urine Bilirubin Negative (NEGATIVE) Urine Urobilinogen 0.2 (0.2) E.U./dL Ur Leukocyte Esterase 2+ H (NEGATIVE) Urine RBC None seen (0-5/HPF) Urine WBC 10-30/hpf H (0-5/HPF) Ur Squamous Epith Cells 10-30 /hpf H D (0-5/HPF) Urine Bacteria Moderate (10-30) H (None) Ur Culture Indicated? Specimen cultured Vol Urine Centrifuged 10ml (spun) [facility] Narrative Medical decision making narrative: Patient here with daughter, complains of dizziness and feeling very tired. Patient was seen by primary care this past Saturday and patient requested to have her blood pressure medications reduced. However, primary care had decreased her propanolol 40 mg twice a day to 40 mg in the morning and 20 mg at night, in addition he added nifedipine 30 mg nightly/long-acting, she awoke this morning feeling very tired and weak. And dizzy. Her blood pressure is usually 130 systolic to 150 systolic. It is a lot lower today. Denies any chest pain shortness of breath. No altered mental status no slurred speech facial droop or numbness tingling or weakness. Fast exam is negative. After history and exam, [facility] Medical records reviewed: Differential considered: Includes but not limited to Lab Test results independently reviewed as above. Pertinent findings: WBC 10.8 hemoglobin to 11.3 sodium 139 potassium 4.1 BUN 34 creatinine 1.22 GFR 43 troponin 0.017 urinalysis negative nitrate 2+ leukocyte esterase WBC 10 -30, however patient has no urinary complaints Independently reviewed EKG normal sinus rhythm normal EKG rate 71 Imaging studies independently reviewed: Not indicated at this time Consultations: None indicated at this time Re-evaluations: 4:00 p.m.. Patient feeling much better. Blood pressure 146/63 after IV fluids. Patient not dizzy anymore feeling stronger. Up and using walker at baseline. Return precautions reviewed with patient and family. She will discontinue her nifedipine. She will continue her regimen of blood pressure medication tomorrow as she did before seeing her doctor this past Saturday. They desire discharge home. Discussion: Appropriate for discharge home. Nifedipine medication yesterday likely affected patient's symptoms. Patient feeling much better now. Return precautions reviewed. IV fluids has improved patient's blood pressure and she is feeling much better. No CT imaging or radiographs indicated at this time. Diagnosis: Medication reaction Discharge Plan Departure Patient Disposition: Home Clinical Impression: Medication adverse effect Qualifiers: Encounter type: initial encounter Qualified Code(s): T50.905A - Adverse effect of unspecified drugs, medicaments and biological substances, initial encounter Instructions: DI for High Blood Pressure, How to Monitor Your Blood Pressure at Home Activity Restrictions/Additional Instructions: You have likely had reaction from the nifedipine medication given to you yesterday. Please do not continuing this medication. Please do not continue any blood pressure medication tonight. However pleased resume your previous dosing of blood pressure medication before you saw your doctor this past Saturday when he may changes. Please resume the original scheduled. Please inform your doctor that you have stopped nifedipine. Return if worse if any questions or concerns. I am glad you are feeling better. Prescriptions: No Action (DME) Disabled Parking Permit See Rx Instructions .Route .MEDSUPPLY Qty: 1 0RF Rx Instructions: I find this patient to be medically disabled and qualify for disabled parking as indicated and signed on the accompanying disabled parking application for individuals. fluticasone furoate-vilanterol [Breo Ellipta] 100-25 mcg/dose blister with device 1 inh inhalation DAILY Qty: 60 2RF Patient Comments: uses at night omeprazole 20 mg capsule,delayed release(DR/EC) 20 mg PO DAILY Qty: 90 3RF One Daily Women 50 Plus 400-120 mcg-mg tablet See Rx Instructions .ROUTE .COMPLEX Rx Instructions: One daily (DME) Mastectomy Bra See Rx Instructions .Route .MEDSUPPLY Qty: 1 12RF Rx Instructions: As directed clopidogrel 75 mg tablet 75 mg PO DAILY metformin 500 mg tablet 500 mg PO BID Qty: 180 3RF nifedipine 30 mg tablet extended release 30 mg PO DAILY Qty: 90 3RF propranolol 20 mg tablet 20 mg PO BID Qty: 180 3RF lisinopril-hydrochlorothiazide 20-25 mg tablet 1 tab PO DAILY albuterol sulfate 90 mcg/actuation HFA aerosol inhaler 2 puff INHALATION Q4-6H PRN (Reason: wheezing) Referrals: Spencer Orantes DO [Primary Care Provider] - Stand Alone Forms: Patient Portal/API/Survey
[2024-12-25] MEDS: SODIUM CHLORIDE 0.9% 1,000 ML 1000 ML IV (14:02)
[2024-12-25 14:04] LABS: Add Manual Diff / Slide Review NO; Basophils Absolute Auto 0 /uL (0-100); Basophils Percent Auto 0.5 % (0-2); Eosinophils Absolute Auto 100 /uL (0-450); Eosinophils Percent Auto 0.6 % (2-4); Hematocrit 33.7 % (36-46); Hemoglobin 11.3 g/dL (12.0-16.0); Lymphocytes Absolute Auto 2400 /uL (1100-4500); Lymphocytes Percent Auto 22.6 % (25-40); Mean Corpuscular HGB Conc 33.5 % (30-36); Mean Corpuscular Hemoglobin 29.5 PG (26-34); Mean Corpuscular Volume 88.1 fL (80-100); Monocytes Absolute Auto 900 /uL (0-900); Neutrophils Absolute Auto 7300 /uL (1500-7000); Neutrophils Percent Auto 68.3 % (50-75); Platelet Count 296 X10^3/uL (150-400); Red Blood Cell Count 3.82 X10^6/uL (4.0-5.2); Red Cell Distribution Width 15.3 % (11.6-14.8); White Blood Cell Count 10.8 X10^3/uL (4.5-11.0)
[2024-12-25 14:09] LABS: Alanine Aminotransferase 17 IU/L (<35); Albumin 4.3 g/dL (3.5-5.0); Albumin Globulin Ratio 1.4 (1.0-2.8); Alkaline Phosphatase 60 U/L (38-126); Aspartate Aminotransferase 38 IU/L (14-36); BUN Creatinine Ratio 27.9 (6-22); Bilirubin Total 0.9 mg/dL (0.2-1.3); Blood Urea Nitrogen 34 mg/dL (7-17); Calcium 10.5 mg/dL (8.4-10.2); Carbon Dioxide 26 mmol/L (22-32); Chloride 102 mmol/L (98-107); Estimated Glomerular Filt Rate 43 mL/min (>60); Glucose 89 mg/dL (80-110); HEMOLYSIS 18 (0-50); Potassium 4.1 mmol/L (3.4-5.1); Sodium 139 mmol/L (137-145); Total Protein 7.3 g/dL (6.3-8.2)
[2024-12-25 14:20] LABS: Troponin I 0.017 ng/mL (0.01-0.034)
[2024-12-25 14:49] LABS: Appearance Urine UA CLEAR; Bilirubin Urine UA NEGATIVE (NEGATIVE); Color Urine UA YELLOW; Glucose Urine UA NEGATIVE (Negative); Ketones Urine UA NEGATIVE (NEGATIVE); Leukocyte Esterase Urine UA 2+ (NEGATIVE); Nitrite Urine UA NEGATIVE (Negative); Occult Blood Urine UA NEGATIVE (Negative); Protein Urine UA NEGATIVE (Negative); Specific Gravity Urine UA 1.015 (1.000-1.035); Urobilinogen Urine UA 0.2 E.U./dL (0.2)
[2024-12-25 14:58] LABS: Bacteria Urine Moderate (10-30); RBC Urine None Seen (0-5/HPF); Urine Volume 10mL (spun); WBC Urine 10-30/HPF (0-5/HPF)
[2024-12-25 14:59] LABS: Culture Indicated Urine Specimen Cultured; Squamous Epithelial Cell Urine 10-30 /HPF (0-5/HPF)
--- NOTE | 2024-12-25 15:58 | PC.NURSE ---
pt stated that she feels better. her bp was 146/63. she was able to ambulate with a walker as per her baseline. She denies dizzyness and had a steady gait. provider notified
== END 2024-12-25 16:29 | disposition home or self-care (01) ==
PROVIDERS: Emergency Provider Emergency Medicine; PCP Family Medicine
DX: R42 Dizziness and giddiness (principal); T46.1X5A Adverse effect of calcium-channel blockers, initial encounter
CPT/HCPCS: 36415; 80053; 81001; 84484; 85025; 87086; 93005; 93010; 96360; 99284

== ENCOUNTER → 2025-01-14 15:08 | Outpatient (CLI) | payer MEDICARE, SELFPAY ==
[2025-01-07 14:08] VITALS: BMI 21.9
[2025-01-14 16:13] LABS: Add Manual Diff / Slide Review NO; Basophils Absolute Auto 0 /uL (0-100); Basophils Percent Auto 0.3 % (0-2); Eosinophils Absolute Auto 100 /uL (0-450); Eosinophils Percent Auto 0.7 % (2-4); Hematocrit 33.5 % (36-46); Hemoglobin 11.3 g/dL (12.0-16.0); Lymphocytes Absolute Auto 1800 /uL (1100-4500); Lymphocytes Percent Auto 21.8 % (25-40); Mean Corpuscular HGB Conc 33.7 % (30-36); Mean Corpuscular Hemoglobin 29.6 PG (26-34); Mean Corpuscular Volume 87.7 fL (80-100); Monocytes Absolute Auto 600 /uL (0-900); Neutrophils Absolute Auto 5600 /uL (1500-7000); Neutrophils Percent Auto 69.2 % (50-75); Platelet Count 368 X10^3/uL (150-400); Red Blood Cell Count 3.82 X10^6/uL (4.0-5.2); Red Cell Distribution Width 14.7 % (11.6-14.8); White Blood Cell Count 8.1 X10^3/uL (4.5-11.0)
[2025-01-14 16:26] LABS: HEMOLYSIS < 15 (0-50); Iron 45 ug/dL (37-170)
[2025-01-14 16:29] LABS: Alanine Aminotransferase 16 IU/L (<35); Albumin 3.9 g/dL (3.5-5.0); Albumin Globulin Ratio 1.6 (1.0-2.8); Alkaline Phosphatase 67 U/L (38-126); Aspartate Aminotransferase 19 IU/L (14-36); Bilirubin Total 0.6 mg/dL (0.2-1.3); Blood Urea Nitrogen 29 mg/dL (7-17); Calcium 10.6 mg/dL (8.4-10.2); Carbon Dioxide 27 mmol/L (22-32); Chloride 101 mmol/L (98-107); Estimated Glomerular Filt Rate 55 mL/min (>60); Globulin 2.5 g/dL (1.7-4.1); Glucose 178 mg/dL (70-99); HEMOLYSIS < 15 (0-50); Potassium 3.9 mmol/L (3.4-5.1); Sodium 137 mmol/L (137-145); Total Protein 6.4 g/dL (6.3-8.2)
[2025-01-14 16:37] LABS: Percent Iron Saturation 14 % (15-50); Total Iron Binding Capacity 315 ug/dL (265-497); Transferrin 265 mg/dL (206-381)
[2025-01-14 16:59] LABS: TSH w/ Reflex to FT4 1.85 uIU/mL (0.47-4.68)
[2025-01-14 17:19] LABS: Vitamin B12 319 pg/mL (239-931)
== END ==
PROVIDERS: PCP Nurse Practitioner Family; Referring Provider Nurse Practitioner Family; Visit Provider Nurse Practitioner Family
DX: R42 Dizziness and giddiness (principal); R53.83 Other fatigue
CPT/HCPCS: 36415; 80053; 82607; 83540; 83550; 84443; 85025

== ENCOUNTER 2025-01-15 12:40 | Emergency (ER) | payer MEDICARE, SELFPAY ==
[2025-01-07 14:08] VITALS: BMI 21.9
[2025-01-15] VITALS (20 sets, daily range): BP systolic 149–189; BP diastolic 69–96; PULSE 71–83; RESP 14–23; TEMP 36.8; O2SAT 94–100; BMI 22.8
--- NOTE | 2025-01-15 12:51 | DI.RAD.S_ITS ---
PROCEDURE: XR CHEST 1V INDICATIONS: Chest Pain TECHNIQUE: One view of the chest was acquired. COMPARISON: [facility], CR, XR CHEST 2V, 04/08/2023, 13:38. FINDINGS: Surgical changes and devices: GE junction clip. Lungs and pleura: Patchy left basilar atelectasis. No pleural effusions or pneumothorax. Mediastinum: Mediastinal contours appear normal. Heart size is enlarged. Bones and chest wall: No suspicious bony lesions. Overlying soft tissues appear unremarkable. IMPRESSION: Cardiomegaly, patchy left basilar atelectasis. Dictated by: Yvon Deleon M.D. on 01/15/2025 at 13:22 Approved by: Yvon Deleon M.D. on 01/15/2025 at 13:29
--- NOTE | 2025-01-15 13:00 | EKG_ITS ---
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
[2025-01-15 13:15] LABS: Add Manual Diff / Slide Review NO; Basophils Absolute Auto 0 /uL (0-100); Basophils Percent Auto 0.5 % (0-2); Eosinophils Absolute Auto 0 /uL (0-450); Eosinophils Percent Auto 0.5 % (2-4); Hematocrit 36.7 % (36-46); Hemoglobin 11.8 g/dL (12.0-16.0); Lymphocytes Absolute Auto 2000 /uL (1100-4500); Lymphocytes Percent Auto 22.2 % (25-40); Mean Corpuscular HGB Conc 32.1 % (30-36); Mean Corpuscular Hemoglobin 28.3 PG (26-34); Mean Corpuscular Volume 88.4 fL (80-100); Monocytes Absolute Auto 800 /uL (0-900); Monocytes Percent Auto 8.3 % (3-14); Neutrophils Absolute Auto 6200 /uL (1500-7000); Neutrophils Percent Auto 68.5 % (50-75); Platelet Count 400 X10^3/uL (150-400); Red Blood Cell Count 4.16 X10^6/uL (4.0-5.2); Red Cell Distribution Width 14.8 % (11.6-14.8); White Blood Cell Count 9.1 X10^3/uL (4.5-11.0)
[2025-01-15 13:27] LABS: Prothrombin Time 11.1 SECONDS (9.4-12.5)
[2025-01-15 13:30] LABS: PTT Partial Thromboplastin Tim 33 SECONDS (25.1-36.5)
[2025-01-15 13:35] LABS: Lactate (Lactic Acid) 2.4 mmol/L (0.7-2.1)
[2025-01-15 13:37] LABS: Alanine Aminotransferase 19 IU/L (<35); Albumin 4.3 g/dL (3.5-5.0); Albumin Globulin Ratio 1.5 (1.0-2.8); Alkaline Phosphatase 71 U/L (38-126); Aspartate Aminotransferase 25 IU/L (14-36); BUN Creatinine Ratio 26.6 (6-22); Bilirubin Total 0.6 mg/dL (0.2-1.3); Blood Urea Nitrogen 29 mg/dL (7-17); Calcium 10.6 mg/dL (8.4-10.2); Carbon Dioxide 28 mmol/L (22-32); Chloride 102 mmol/L (98-107); Creatine Kinase 32 U/L (30-135); Estimated Glomerular Filt Rate 49 mL/min (>60); Globulin 2.9 g/dL (1.7-4.1); Glucose 133 mg/dL (70-99); HEMOLYSIS < 15 (0-50); Lipase 134 U/L (23-300); Magnesium 1.4 mg/dL (1.6-2.3); Sodium 139 mmol/L (137-145); Total Protein 7.2 g/dL (6.3-8.2)
[2025-01-15 13:47] LABS: NT-proBNP (BNP-Adult 18+) 2540 pg/mL (<450); Troponin I 0.026 ng/mL (0.01-0.034)
--- NOTE | 2025-01-15 13:57 | ED.NEUROSD ---
HPI - Neuro Symptoms/Deficit General Chief Complaint: Neuro Symptoms/Deficit Stated Complaint: Dizzy and lightheaded, difficulty walking Time Seen by Provider: 01/15/25 13:56 Source: patient and family Mode of arrival: Ambulatory History of Present Illness HPI Narrative: Patient is an 89-year-old female history of hypertension type 2 diabetes presenting today with ongoing dizziness. She was seen evaluated by her primary care doctor yesterday, outpatient carotid Doppler ordered along with blood work. Patient reports that she has been dizzy off and on for least a few weeks or months. She typically walks with a walker. She did fall about 2 weeks ago in his complaining of some sacral pain. But she has no numbness or tingling down her legs. She has no significant chest pain or shortness of breath. She just generally feels kind of unstable and is tired of being dizzy. On Anticoagulants: No (off plavix now) Related Data Home Medications Medication Instructions Recorded Confirmed multivitamin with [id number] See Rx Instructions .Route .COMPLEX 06/21/21 01/14/25 400 mcg-120 mg tablet (One Daily Women 50 Plus) albuterol sulfate 90 mcg/actuation 2 puff inhalation Q4-6H PRN 11/12/23 01/14/25 aerosol inhaler wheezing lisinopril 20 1 tab PO DAILY 11/27/24 01/14/25 mg-hydrochlorothiazide 25 mg tablet Previous Rx's Medication Instructions Recorded Disabled Parking Permit #1 ea 03/07/23 Mastectomy Bra #1 ea 03/04/24 fluticasone furoate 100 1 inh inhalation DAILY #60 ea 11/04/24 mcg-vilanterol 25 mcg/dose inhalation powder (Breo Ellipta) metformin 500 mg tablet 500 mg PO BID #180 tabs 12/21/24 omeprazole 20 mg capsule,delayed 20 mg PO DAILY #90 caps 12/21/24 release propranolol 20 mg tablet 40 mg (2 x 20 mg) PO BID #240 tabs 12/28/24 alprazolam 0.25 mg tablet 0.25 mg PO BID PRN anxiety #60 tabs 12/29/24 Allergies Allergy/AdvReac Type Severity Reaction Status Date / Time sulfamethoxazole Allergy Severe Hives, Verified 01/14/25 14:20 [From Bactrim] shortness of breath trimethoprim [From Bactrim] Allergy Severe Hives, Verified 01/14/25 14:20 shortness of breath nifedipine AdvReac Intermediate Dizziness Verified 01/14/25 14:20 Review of Systems Hematologic/Lymphatic On Anticoagulants: No (off plavix now) Patient History Medical History Peripheral neuropathy Anemia Thyroid nodule Renal insufficiency COPD exacerbation High blood triglycerides Hyperglyceridemia Neuropathy Edema Diastolic dysfunction GERD (gastroesophageal reflux disease) Diverticular disease Hypertension Hyperlipidemia COPD (chronic obstructive pulmonary disease) Hay fever Lumbar back pain Chronic back pain Mumps Measles Chicken pox Cataract Hyperglycemia Diabetes Skin cancer (~2011) Breast cancer (~1981) Surgical History History of surgery Hx of hernia repair History of surgery History of esophageal surgery History of hysterectomy History of bunionectomy of both great toes History of lumbar fusion (06/17/19) Anesthesia History of mastectomy (~09/1981) Family History Mother Brain aneurysm Sister Age: 86 Cancer of breast Lung cancer Daughter Cancer of breast Father No problems noted. Social History household members: none Smoking Status: Never smoker alcohol intake: former Smoking Status: Never smoker alcohol intake frequency: other Exam Initial Vital Signs Initial Vital Signs: Vital Signs Pulse Oximetry 94 01/15/25 12:49 GENERAL: Alert 89-year-old female and in [no acute] distress. HEENT: Head atraumatic,EOMI, pupils reactive, face symmetric, [moist] mucous membranes CARDIOVASCULAR: Regular rate and rhythm without murmurs, rubs or gallops. RESPIRATORY: Breath sounds equal bilaterally, no wheezes rales or rhonchi. ABDOMEN: Soft, nontender. Normoactive bowel sounds all 4 quadrants. No guarding or rebound. EXTREMITIES: Normal range of motion, no clubbing. Left leg +repeating edema right leg +2 pitting edema. Neurovascularly intact NEUROLOGICAL: Alert and oriented x4.Normal gait and speech. Cranial nerves II through XII grossly intact. Machine [place] Butter strength equal bilaterally left leg is weaker than the right leg but she still is able to flex and extend sensation intact in lower extremity SKIN: Warm, dry, no laceration, no petechiae, no rashes or lesions. Course Orders Ordered: Discontinued Medications Aspirin (Aspirin 81 Mg Chew Tab) 324 mg PO NOW ONE Stop: 01/15/25 12:52 Last Admin: 01/15/25 13:00 Dose: Not Given Documented By: ENRIQUE Sodium Chloride (Normal Saline 0.9%) 500 mls @ 1,000 mls/hr IV BOLUS ONE Stop: 01/15/25 14:41 Last Infusion: 01/15/25 15:51 Dose: Infused Documented By: Admin: 01/15/25 14:27 Dose: 1,000 mls/hr Documented By: ENRIQUE(2) Acetaminophen (Ofirmev) 1,000 mg in 100 mls @ 400 mls/hr IV NOW ONE Stop: 01/15/25 16:08 Last Infusion: 01/15/25 16:39 Dose: Infused Documented By: Admin: 01/15/25 16:08 Dose: 400 mls/hr Documented By: JULIÁN Vital Signs Vital signs: Vital Signs - 8 hr 01/15/25 12:49 01/15/25 12:51 01/15/25 12:51 Temperature Pulse Rate 83 Respiratory Rate 18 Blood Pressure 182/84 H Pulse Oximetry 94 98 Oxygen Delivery Method 01/15/25 12:52 01/15/25 13:00 01/15/25 13:03 Temperature 98.2 F Pulse Rate 76 77 76 Respiratory Rate 18 Blood Pressure 182/84 H Pulse Oximetry 99 98 99 Oxygen Delivery Method Room Air 01/15/25 13:04 01/15/25 13:04 01/15/25 13:30 Temperature Pulse Rate 74 Respiratory Rate 18 17 Blood Pressure 172/81 H 149/71 H Pulse Oximetry 99 Oxygen Delivery Method 01/15/25 13:30 01/15/25 14:00 01/15/25 14:00 Temperature Pulse Rate 72 73 Respiratory Rate 17 18 Blood Pressure 149/69 H Pulse Oximetry 98 97 Oxygen Delivery Method Room Air 01/15/25 14:33 01/15/25 14:34 01/15/25 14:34 Temperature Pulse Rate 83 82 Respiratory Rate 18 Blood Pressure 186/96 H Pulse Oximetry Oxygen Delivery Method 01/15/25 14:37 01/15/25 14:37 01/15/25 15:00 Temperature Pulse Rate 78 72 Respiratory Rate 15 20 Blood Pressure 182/81 H Pulse Oximetry 99 99 Oxygen Delivery Method Room Air 01/15/25 15:00 Temperature Pulse Rate Respiratory Rate Blood Pressure 184/85 H Pulse Oximetry Oxygen Delivery Method MDM - Neuro Symptoms/Deficit Lab Data 01/15/25 12:58 01/15/25 12:58 Labs: Lab Results 01/15/25 01/15/25 Range/Units 12:58 15:00 WBC 9.1 (4.5-11.0) X10^3/uL RBC 4.16 (4.0-5.2) X10^6/uL Hgb 11.8 L (12.0-16.0) g/dL Hct 36.7 (36-46) % MCV 88.4 (80-100) fL MCH 28.3 (26-34) PG MCHC 32.1 (30-36) % RDW 14.8 (11.6-14.8) % Plt Count 400 (150-400) X10^3/uL Neut % (Auto) 68.5 (50-75) % Lymph % (Auto) 22.2 L (25-40) % [place] % (Auto) 8.3 (3-14) % Eos % (Auto) 0.5 L (2-4) % Baso % (Auto) 0.5 (0-2) % Neut # (Auto) 6200 (6128-6590) /uL Lymph # (Auto) 2000 (3957-7437) /uL [place] # (Auto) 800 (0-900) /uL Eos # (Auto) 0 (0-450) /uL Baso # (Auto) 0 (0-100) /uL PT 11.1 (9.4-12.5) SECONDS INR 1.0 (0.9-1.3) APTT 33 (25.1-36.5) SECONDS Sodium 139 (137-145) mmol/L Potassium 4.0 (3.4-5.1) mmol/L Chloride 102 (98-107) mmol/L Carbon Dioxide 28 (22-32) mmol/L BUN 29 H (7-17) mg/dL Creatinine 1.09 H (0.52-1.04) mg/dL Estimated GFR 49 L (>60) mL/min BUN/Creatinine Ratio 26.6 H (6-22) Glucose 133 H (70-99) mg/dL Lactate 2.4 H 2.1 (0.7-2.1) mmol/L Calcium 10.6 H (8.4-10.2) mg/dL Magnesium 1.4 L (1.6-2.3) mg/dL Total Bilirubin 0.6 (0.2-1.3) mg/dL AST 25 (14-36) IU/L ALT 19 (<35) IU/L Alkaline Phosphatase 71 (38-126) U/L Total Creatine Kinase 32 (30-135) U/L Troponin I 0.026 (0.01-0.034) ng/mL NT-Pro-B Natriuret Pep 2540 H (<450) pg/mL Total Protein 7.2 (6.3-8.2) g/dL Albumin 4.3 (3.5-5.0) g/dL Globulin 2.9 (1.7-4.1) g/dL Albumin/Globulin Ratio 1.5 (1.0-2.8) Lipase 134 (23-300) U/L Imaging Data Chest x-ray: Radiologist's Impression: PROCEDURE: XR CHEST 1V INDICATIONS: Chest Pain TECHNIQUE: One view of the chest was acquired. COMPARISON: [facility], , XR CHEST 2V, 04/08/2023, 13:38. FINDINGS: Surgical changes and devices: GE junction clip. Lungs and pleura: Patchy left basilar atelectasis. No pleural effusions or pneumothorax. Mediastinum: Mediastinal contours appear normal. Heart size is enlarged. Bones and chest wall: No suspicious bony lesions. Overlying soft tissues appear unremarkable. IMPRESSION: Cardiomegaly, patchy left basilar atelectasis. Dictated by: Yvon Deleon M.D. on 01/15/2025 at 13:22 Approved by: Yvon Deleon M.D. on 01/15/2025 at 13:29 CTA - brain/neck: Radiologist's Impression: PROCEDURE: CT ANGIO HEAD AND NECK INDICATIONS: dizzy fall TECHNIQUE: After the administration of intravenous contrast, 1 mm thick sections acquired from the aortic arch through the [place]. 3-dimensional anltger-zobecdwpf-pmxhfchykd (MIP) and/or volume rendering reformats were acquired of the central intracranial vasculature and neck separately. For radiation dose reduction, the following was used: automated exposure control, adjustment of mA and/or kV according to patient size. COMPARISON: CT, CT CHEST WO CON, 06/18/2023, 10:01. [facility], CT, CT ANGIO HEAD AND NECK, 04/08/2023, 13:55. FINDINGS: Image quality: Diagnostic. BRAIN: The ventricular system and cortical sulci demonstrate atrophy, consistent for the patient's stated age. There are areas of hypodensity within the periventricular and subcortical white matter. There is no acute intra-or extra axial fluid collection. No acute hemorrhage, mass lesion or midline shift. Brainstem is unremarkable. Globes are symmetrical. Sinuses are aerated. Osseous structures are intact. . HEAD CT ANGIOGRAPHY: Anterior circulation: Intracranial internal carotid arteries are normal in size and flow. 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 The flow within the middle cerebral arteries is normal and symmetric. The anterior communicating artery is seen. No aneurysms are seen. Posterior circulation: Visualized portions of the vertebral arteries demonstrate normal caliber, and join to form a normal appearing basilar artery. Flow within the posterior cerebral arteries is normal and symmetric. No aneurysms are seen. NECK CT ANGIOGRAPHY: Carotid system: The great vessels demonstrate a conventional anatomy as they arise from the aortic arch. The origins of the common carotid arteries appear patent. The common carotid arteries demonstrate normal caliber and courses. The bifurcation regions are both widely patent. The internal carotid arteries demonstrate normal calibers and courses. Posterior circulation: The origins of the vertebral arteries both appear widely patent. The more superior extracranial portions of both vertebral arteries also demonstrate normal courses and calibers. They join to form a normal appearing basilar artery. Soft tissues: Low-attenuation thyroid foci are present. Bones: No suspicious bony lesions. Visualized cervical spine appears normally aligned. 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 No significant abnormality is seen within the arteries of the neck. Low-attenuation thyroid foci, unchanged. Any quantitative measurements of stenosis were performed using NASCET criteria. Dictated by: Mihaela Mckinnon M.D. on 01/15/2025 at 15:01 Approved by: Mihaela Mckinnon M.D. on 01/15/2025 at 15:04 ct pelvis: Radiologist's Impression: PROCEDURE: CT PEL WO CON INDICATIONS: fall sacral pain TECHNIQUE: Noncontrast 3 mm axial sections acquired through the bony pelvis, with coronal and sagittal reformatting. COMPARISON: [facility], CT, CT ABDOMEN PELVIS W CON, 11/19/2023, 11:00. FINDINGS: Image quality: Excellent. Bones: Degenerative and postsurgical changes are present within the lower lumbar spine. Degenerative changes are present within the sacrum and coccyx. No visualized fracture or dislocation. Slight irregularity at the coccyx although unchanged. Soft tissues: Diverticula without inflammatory change. No obstruction. IMPRESSION: No visualized fracture. Insufficient rib fracture cannot be excluded if concern persists, MRI may be obtained. Diverticulosis. Dictated by: Mihaela Mckinnon M.D. on 01/15/2025 at 14:58 Approved by: Mihaela Mckinnon M.D. on 01/15/2025 at 15:01 CT - cervical spine: Radiologist's Impression: PROCEDURE: CT CERVICAL SPINE WO CON INDICATIONS: fall TECHNIQUE: Noncontrast 3 mm thick sections acquired from the skull base to the T4 level. Sagittal and coronal reformats were then constructed. For radiation dose reduction, the following was used: automated exposure control, adjustment of mA and/or kV according to patient size. COMPARISON: None. FINDINGS: Image quality: Excellent. Bones: No fractures or dislocations. Visualized superior ribs are intact. Multilevel degenerative changes. Soft tissues: Prevertebral soft tissues are normal in thickness. No paravertebral hematomas. No apical pneumothoraces. Low-attenuation foci within the thyroid. Multiple pulmonary nodules. IMPRESSION: No displaced fracture or traumatic subluxation. Multiple pulmonary nodules of uncertain etiology. No priors. CT chest is recommended for further evaluation which can be on a nonemergent basis. Multiple low-attenuation thyroid foci. Nonemergent thyroid ultrasound may be obtained as indicated for further evaluation. Dictated by: Mihaela Mckinnon M.D. on 01/15/2025 at 17:05 ECG Data Attestation: I personally reviewed and interpreted this ECG as follows: Interpretation: Sinus rhythm rate 76 SC interval 184 QRS [address] changes no T-wave inversions PVCs noted MDM Narrative Medical decision making narrative: Patient was an 89-year-old female who has had dizziness ongoing for awhile. No neurovascular deficits although her left leg is slightly weak. She typically walks with a walker she says this has been ongoing. Blood work has been reviewed no leukocytosis no anemia Electrolytes within normal limits creatinine 1.0 Lactate 2.4-->2.1 Troponin negative BNP 2540 Bilirubin liver enzymes within normal limits lipase 134 EKGs reviewed no acute ischemia with PVC Imaging reviewed Chest x-ray cardiomegaly patchy left basilar atelectasis Head and neck angio no large vessel occlusion. Unchanged 2.2 mm anterior connecting aneurysm CT pelvis no fracture CT Head no acute intracranial process. Moderate atrophy and chronic microvascular ischemic changes CT cervical spine no fracture multiple pulmonary nodules uncertain etiology multiple low-attenuation thyroid fossae nonemergent thyroid ultrasound maybe obtained At this time patient has had dizziness off and on for awhile. She was no large vessel occlusion. She was found to have some PVCs on her EKGs, no evidence of infection. At this time recommend Holter monitoring with her primary. Blood work is overall reassuring mild elevated lactate which resolved. She ambulated in the ED with a walker. Slight elevation of BNP but no evidence of fluid overload. Discharge Plan Departure Patient Disposition: Home Clinical Impression: Dizziness, Aneurysm, cerebral, Premature ventricular contractions (PVCs) (VPCs) Instructions: DI for Dizziness-Nonvertigo Activity Restrictions/Additional Instructions: *You have been diagnosed with dizziness *What to do: At this time blood work and CT scans are overall reassuring. You do have a small aneurysm which is stable. I do recommend you get a Holter monitor with your primary care to assess further dizziness *Continue to take medications as directed *Follow up with your primary care provider in 2-3 days or call [phone] You may require vascular surgery evaluation for your aneurysm but not emergently at this time. *Return to ER if you should have increasing falls weakness or any new, worsening or concerning symptoms Prescriptions: No Action (DME) Disabled Parking Permit See Rx Instructions .Route .MEDSULY Qty: 1 0RF Rx Instructions: I find this patient to be medically disabled and qualify for disabled parking as indicated and signed on the accompanying disabled parking application for individuals. fluticasone furoate-vilanterol [Breo Ellipta] 100-25 mcg/dose blister with device 1 inh inhalation DAILY Qty: 60 2RF Patient Comments: uses at night omeprazole 20 mg capsule,delayed release(DR/EC) 20 mg PO DAILY Qty: 90 3RF propranolol 20 mg tablet 40 mg PO BID Qty: 240 3RF alprazolam 0.25 mg tablet 0.25 mg PO BID PRN (Reason: anxiety) Qty: 60 1RF One Daily Women 50 Plus 400-120 mcg-mg tablet See Rx Instructions .ROUTE .COMPLEX Rx Instructions: One daily (DME) Mastectomy Bra See Rx Instructions .Route .MEDSUPPLY Qty: 1 12RF Rx Instructions: As directed metformin 500 mg tablet 500 mg PO BID Qty: 180 3RF lisinopril-hydrochlorothiazide 20-25 mg tablet 1 tab PO DAILY albuterol sulfate 90 mcg/actuation HFA aerosol inhaler 2 puff INHALATION Q4-6H PRN (Reason: wheezing) Referrals: Sharona Hensley FNP- [Primary Care Provider] - Stand Alone Forms: Patient Portal/API/Survey
--- NOTE | 2025-01-15 14:08 | DI.CT.S_ITS ---
PROCEDURE: CT PEL WO CON INDICATIONS: fall sacral pain TECHNIQUE: Noncontrast 3 mm axial sections acquired through the bony pelvis, with coronal and sagittal reformatting. COMPARISON: [facility], CT, CT ABDOMEN PELVIS W CON, 11/19/2023, 11:00. FINDINGS: Image quality: Excellent. Bones: Degenerative and postsurgical changes are present within the lower lumbar spine. Degenerative changes are present within the sacrum and coccyx. No visualized fracture or dislocation. Slight irregularity at the coccyx although unchanged. Soft tissues: Diverticula without inflammatory change. No obstruction. IMPRESSION: No visualized fracture. Insufficient rib fracture cannot be excluded if concern persists, MRI may be obtained. Diverticulosis. Dictated by: Mihaela Mckninon M.D. on 01/15/2025 at 14:58 Approved by: Mihaela Mckinnon M.D. on 01/15/2025 at 15:01
--- NOTE | 2025-01-15 14:08 | DI.CT.S_ITS ---
PROCEDURE: CT ANGIO HEAD AND NECK INDICATIONS: dizzy fall TECHNIQUE: After the administration of intravenous contrast, 1 mm thick sections acquired from the aortic arch through the [place]. 3-dimensional tornyls-dxbhyfhrw-awbaoopqqq (MIP) and/or volume rendering reformats were acquired of the central intracranial vasculature and neck separately. For radiation dose reduction, the following was used: automated exposure control, adjustment of mA and/or kV according to patient size. COMPARISON: CT, CT CHEST WO CON, 06/18/2023, 10:01. [facility], CT, CT ANGIO HEAD AND NECK, 04/08/2023, 13:55. FINDINGS: Image quality: Diagnostic. BRAIN: The ventricular system and cortical sulci demonstrate atrophy, consistent for the patient's stated age. There are areas of hypodensity within the periventricular and subcortical white matter. There is no acute intra-or extra axial fluid collection. No acute hemorrhage, mass lesion or midline shift. Brainstem is unremarkable. Globes are symmetrical. Sinuses are aerated. Osseous structures are intact. . HEAD CT ANGIOGRAPHY: Anterior circulation: Intracranial internal carotid arteries are normal in size and flow. 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 The flow within the middle cerebral arteries is normal and symmetric. The anterior communicating artery is seen. No aneurysms are seen. Posterior circulation: Visualized portions of the vertebral arteries demonstrate normal caliber, and join to form a normal appearing basilar artery. Flow within the posterior cerebral arteries is normal and symmetric. No aneurysms are seen. NECK CT ANGIOGRAPHY: Carotid system: The great vessels demonstrate a conventional anatomy as they arise from the aortic arch. The origins of the common carotid arteries appear patent. The common carotid arteries demonstrate normal caliber and courses. The bifurcation regions are both widely patent. The internal carotid arteries demonstrate normal calibers and courses. Posterior circulation: The origins of the vertebral arteries both appear widely patent. The more superior extracranial portions of both vertebral arteries also demonstrate normal courses and calibers. They join to form a normal appearing basilar artery. Soft tissues: Low-attenuation thyroid foci are present. Bones: No suspicious bony lesions. Visualized cervical spine appears normally aligned. 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 No significant abnormality is seen within the arteries of the neck. Low-attenuation thyroid foci, unchanged. Any quantitative measurements of stenosis were performed using NASCET criteria. Dictated by: Mihaela Mckinnon M.D. on 01/15/2025 at 15:01 Approved by: Mihaela Mckinnon M.D. on 01/15/2025 at 15:04
[2025-01-15] MEDS: SODIUM CHLORIDE 0.9% 500 ML 1000 ML IV (14:27)
[2025-01-15 14:45] LABS: Reflexed Lactate in 2 Hours Y
[2025-01-15 15:18] LABS: Lactate 2HR (Lactic Acid Rflx) 2.1 mmol/L (0.7-2.1)
--- NOTE | 2025-01-15 15:54 | DI.CT.S_ITS ---
PROCEDURE: CT CERVICAL SPINE WO CON INDICATIONS: fall TECHNIQUE: Noncontrast 3 mm thick sections acquired from the skull base to the T4 level. Sagittal and coronal reformats were then constructed. For radiation dose reduction, the following was used: automated exposure control, adjustment of mA and/or kV according to patient size. COMPARISON: None. FINDINGS: Image quality: Excellent. Bones: No fractures or dislocations. Visualized superior ribs are intact. Multilevel degenerative changes. Soft tissues: Prevertebral soft tissues are normal in thickness. No paravertebral hematomas. No apical pneumothoraces. Low-attenuation foci within the thyroid. Multiple pulmonary nodules. IMPRESSION: No displaced fracture or traumatic subluxation. Multiple pulmonary nodules of uncertain etiology. No priors. CT chest is recommended for further evaluation which can be on a nonemergent basis. Multiple low-attenuation thyroid foci. Nonemergent thyroid ultrasound may be obtained as indicated for further evaluation. Dictated by: Mihaela Mckinnon M.D. on 01/15/2025 at 17:05 Approved by: Mihaela Mckinnon M.D. on 01/15/2025 at 17:07
--- NOTE | 2025-01-15 15:54 | DI.CT.S_ITS ---
PROCEDURE: CT HEAD/BRAIN WO CON INDICATIONS: fall off balance TECHNIQUE: Noncontrast 4.5 mm thick angled axial sections acquired from the foramen magnum to the vertex, with coronal and sagittal reformats. For radiation dose reduction, the following was used: automated exposure control, adjustment of mA and/or kV according to patient size. COMPARISON: [facility], CT, CT HEAD/BRAIN WO CON, 02/11/2020, 16:07. [facility], CT, CT ANGIO HEAD AND NECK, 01/15/2025, 14:19. FINDINGS: Image quality: Diagnostic. CSF spaces: Basal cisterns are patent. No extra-axial fluid collections. The ventricles are symmetric in size and shape. Brain: No intracranial bleeds or mass effect. There is cerebral volume loss, with resultant ventricular and sulcal prominence. There are periventricular and deep white matter chronic small vessel ischemic changes. There is intracranial internal carotid artery atherosclerosis. Skull and face: Calvarium and visualized facial bones appear intact, without suspicious lesions. Sinuses: Complete opacification of the left maxillary sinus. IMPRESSION: 1. No acute intracranial process. 2. Moderate atrophy and chronic microvascular ischemic changes. Dictated by: Mihaela Mckinnon M.D. on 01/15/2025 at 17:04 Approved by: Mihaela Mckinnon M.D. on 01/15/2025 at 17:05
[2025-01-15] MEDS: ACETAMINOPHEN IV 1,000 MG/100 ML VIAL 400 MG IV (16:08)
== END 2025-01-15 18:40 | disposition home or self-care (01) ==
PROVIDERS: Emergency Provider Emergency Medicine; PCP Nurse Practitioner Family
DX: I67.1 Cerebral aneurysm, nonruptured (principal); R42 Dizziness and giddiness; M53.3 Sacrococcygeal disorders, not elsewhere classified; I49.3 Ventricular premature depolarization; I10 Essential (primary) hypertension
CPT/HCPCS: 36415; 70450; 70496; 70498; 71045; 72125; 72192; 80053; 82550; 83605; 83690; 83735; 83880; 84484; 85025; 85610; 85730; 93005; 93010; 96361; 96365; 99284; J0131; Q9967

== ENCOUNTER → 2025-01-26 13:46 | Outpatient (CLI) | payer MEDICARE, SELFPAY ==
[2025-01-07 14:08] VITALS: BMI 21.9
== END ==
PROVIDERS: PCP Nurse Practitioner Family; Referring Provider Podiatrist; Visit Provider Surgery
DX: T81.31XA Disruption of external operation (surgical) wound, not elsewhere classified, initial encounter (principal); Z89.421 Acquired absence of other right toe(s); E11.42 Type 2 diabetes mellitus with diabetic polyneuropathy; I73.9 Peripheral vascular disease, unspecified; R60.0 Localized edema; Z87.891 Personal history of nicotine dependence; E11.622 Type 2 diabetes mellitus with other skin ulcer
CPT/HCPCS: 11042; 87070; 87075; 87077; 87186; 87205; 99213; 99214

== ENCOUNTER → 2025-01-28 16:09 | Outpatient (CLI) | payer MEDICARE, SELFPAY ==
[2025-01-07 14:08] VITALS: BMI 21.9
== END ==
PROVIDERS: PCP Nurse Practitioner Family; Referring Provider Nurse Practitioner Family; Visit Provider Surgery
DX: T87.89 Other complications of amputation stump (principal); Z89.421 Acquired absence of other right toe(s); L53.9 Erythematous condition, unspecified
CPT/HCPCS: 99212

== ENCOUNTER → 2025-02-02 15:19 | Outpatient (CLI) | payer MEDICARE, SELFPAY ==
[2025-01-07 14:08] VITALS: BMI 21.9
== END ==
PROVIDERS: PCP Nurse Practitioner Family; Referring Provider Nurse Practitioner Family; Visit Provider Surgery
DX: T87.81 Dehiscence of amputation stump (principal); E11.628 Type 2 diabetes mellitus with other skin complications; E11.42 Type 2 diabetes mellitus with diabetic polyneuropathy; L98.8 Other specified disorders of the skin and subcutaneous tissue; Z89.421 Acquired absence of other right toe(s); R60.0 Localized edema; I73.9 Peripheral vascular disease, unspecified
CPT/HCPCS: 11042

== ENCOUNTER → 2025-02-05 13:19 | Outpatient (CLI) | payer MEDICARE, SELFPAY ==
[2025-01-07 14:08] VITALS: BMI 21.9
--- NOTE | 2025-02-05 13:22 | DI.CT.S_ITS ---
PROCEDURE: CT CHEST WO CON INDICATIONS: lung nodules found in ER TECHNIQUE: Noncontrast 5 mm thick sections acquired from the pulmonary apices to the posterior costophrenic angles. 1 mm lung window, 5 mm thick coronal and sagittal and 7 mm axial MIP reformats were then acquired. For radiation dose reduction, the following was used: automated exposure control, adjustment of mA and/or kV according to patient size. COMPARISON: [facility], CT, CT CHEST WO CON, 06/18/2023, 10:01. FINDINGS: Image quality: Diagnostic. Lower Neck: No enlarged lymph nodes. Thyroid: 1.6 cm left thyroid nodule, increased in size compared with prior. Axillae: No enlarged lymph nodes. Chest Wall: Prior right mastectomy. Bones: Unremarkable. Lungs and Pleura: No pneumothorax or pleural effusions. Interval increase in solid component of the right lower lobe nodule, measuring 1.8 x 1.6 cm, previously part solid measuring 1.5 x 1.3 cm (series 3, image 162). Increased solid just pleural nodularity in the right middle lobe with irregular margins measuring 1.6 x 1.5 cm, previously 1.7 x 0.9 cm. Increased part solid nodule in the left upper lobe measuring 1.3 x 1.5 cm, previously 1.2 x 1.2 cm (series 3, image 101). Heart: Heart size is enlarged, with three-vessel coronary calcifications. No pericardial effusion. Thoracic Vessels: The aorta and pulmonary arteries demonstrate normal size. Mediastinum and Sole: No enlarged lymph nodes. Esophagus: No wall thickening. Large hiatal hernia. Upper Abdomen: Stable liver lesions with indeterminate attenuation. IMPRESSION: Increased solid component of the right lower lobe nodule, with growth. Interval increase in size of the solid juxtapleural nodule with irregular margins in the right middle lobe. Increased solid component and size of the left upper lobe nodule. Overall, findings could represent a combination of scar complexes, low-grade pulmonary adenocarcinoma, less likely metastatic disease given indolent growth pattern. Recommend PET-CT. No evidence of seble disease. Growing 1.6 cm left thyroid nodule. Recommend dedicated thyroid ultrasound if not performed in the past. Other ancillary findings as above. Dictated by: Anirudh Aquino M.D. on 02/05/2025 at 22:07 Approved by: Anirudh Aquino M.D. on 02/05/2025 at 22:12
--- NOTE | 2025-02-05 13:22 | DI.US.S_ITS ---
PROCEDURE: US CAROTID DOPPLER BI INDICATIONS: dizzy TECHNIQUE: Color and pulse Doppler interrogation was performed of both carotid systems, with image documentation and velocity measurements. COMPARISON: None. FINDINGS: Stenosis calculations are based on SRU (Society of Radiologists in Ultrasound) criteria. Right side: Brachial blood pressure: Not obtained due to radical mastectomy. Common carotid artery peak systolic velocity: 57 cm/sec. Internal carotid artery peak systolic velocity: 77 cm/sec. Internal carotid artery end diastolic velocity: 17 cm/sec. External carotid artery peak systolic velocity: 85 cm/sec. ICA/CCA peak systolic ratio: 1.4 . Person scale imaging description: Mild atherosclerotic plaque throughout. Percent internal carotid artery stenosis: Less than 50% . Vertebral artery: Flow direction is antegrade. Left side: Brachial blood pressure: 126/69 mm Hg. Common carotid artery peak systolic velocity: 85 cm/sec. Internal carotid artery peak systolic velocity: 85 cm/sec. Internal carotid artery end diastolic velocity: 23 cm/sec. External carotid artery peak systolic velocity: 63 cm/sec. ICA/CCA peak systolic ratio: 1.0 . Person scale imaging description: Moderate atherosclerotic plaque throughout. Percent internal carotid artery stenosis: Less than 50% . Vertebral artery: Flow direction is antegrade. Elevated velocity at 92 centimeter/second. IMPRESSION: 1. In the right carotid artery, there is less than 50% stenosis based on peak systolic velocity criteria. 2. In the left carotid artery, there is less than 50% stenosis based on peak systolic velocity criteria. 3. Antegrade vertebral arteries. Dictated by: Anirudh Aquino M.D. on 02/05/2025 at 21:33 Approved by: Anirudh Aquino M.D. on 02/05/2025 at 21:34
--- NOTE | 2025-02-05 13:22 | DI.ECHO.S_ITS ---
[place] [facility] : : [id number] : [address] : : [id number] : : Phone: [phone] Echocardiogram Report + + :Name: INDER ASH Study Date: 02/05/2025 Height: 64 in : :[facility] ReadingLocation: Weight: 130 lb : : Gender: Female BSA: 1.6 m2 : :: 1935 Age: 89 yrs BP: 123/74 mmHg: :Reason For Study: LUNG NODULE, DIZZINESS : :Ordering Physician: GLENNY, : :THAI Performed By: Jarret Antunez : :Referring: THAI MURRIETA : + + Interpretation Summary Left ventricular ejection fraction is estimated to be 40 +/- 5%. The right ventricle is normal in size and function. The atrial septum is aneurysmal. The interatrial septum bows toward right atrium consistent with elevated left atrial pressure. The right ventricular systolic pressure is estimated to be at least 36 mmHg based on an estimated right atrial pressure of 3 mm Hg. Procedure: A two-dimensional transthoracic echocardiogram with color flow and Doppler was performed. The study quality was technically good. Comparison is made with the echocardiogram of 08/15/2018. The patient was in normal sinus rhythm during the exam. Left Ventricle: The left ventricle is normal in size. There is normal left ventricular wall thickness. There is no ventricular septal defect visualized. Left ventricular ejection fraction is estimated to be 40 +/- 5%. There are no focal wall motion abnormalities. Diastolic parameters suggest a relaxation abnormality of the left ventricle, consistent with probable normal filling pressures. Right Ventricle: The right ventricle is normal in size and function. Atria: The left atrium is moderately dilated. Right atrial size is normal. The interatrial septum bows toward right atrium consistent with elevated left atrial pressure. The atrial septum is aneurysmal. Mitral Valve: The mitral valve leaflets appear normal. There is no evidence of stenosis, fluttering, or prolapse. There is trace mitral regurgitation. Aortic Valve: The aortic valve is trileaflet. The aortic valve opens well. No aortic regurgitation is present. Tricuspid Valve: The tricuspid valve leaflets are thin and pliable. There is trace tricuspid regurgitation. The right ventricular systolic pressure is estimated to be at least 36 mmHg based on an estimated right atrial pressure of 3 mm Hg. Pulmonic Valve: The pulmonic valve is not well visualized. There is a trace or physiologic amount of pulmonic regurgitation. Great Vessels: The aortic root is normal size. The dimensions of the ascending aorta are normal. The pulmonary artery is normal size. The IVC is of normal diameter and collapses greater than 50% with a sniff. This suggests a low right atrial pressure of 3 mm Hg. Pericardium/ Pleura There is no pericardial effusion. There is no pleural effusion. MMode/2D Measurements & Calculations LVIDd: 5.0 cm LVOT diam: 2.1 cm LVIDs: 4.0 cm Ao root diam: 3.2 cm FS: 20.2 % asc Aorta Diam: 3.2 cm EPSS: 1.8 cm IVSd: 0.98 cm LVPWd: 1.0 cm LV gordillo. diameter/BSA (cm/m^2): 3.1 LV sys. diameter/BSA (cm/m^2): 2.4 LA A2 area: 17.8 cm2 RA long axis: 5.3 cm LA A4 area: 26.8 cm2 RA area: 15.0 cm2 LA length (vol): 6.0 cm RA vol: 35.8 ml LA vol: 67.5 ml RA : 22.0 ml/m2 LA vol index: 41.4 ml/m2 IVC diam: 0.91 cm RVD1 (basal): 3.8 cm RVD2 (mid): 2.9 cm TAPSE: 2.7 cm Doppler Measurements & Calculations Ao V2 max: 114.5 cm/sec LVOT Max Job: 70.2 cm/sec Ao V2 mean: 86.8 cm/sec LV V1 max P.0 mmHg Ao max P.2 mmHg LV V1 VTI: 14.2 cm Ao mean P.2 mmHg ALLEN(I,D): 2.2 cm2 Ao V2 VTI: 23.1 cm ALLEN(V,D): 2.2 cm2 sev ratio: 0.61 ALLEN indexed to BSA (cm^2/m^2): 1.3 MV E max job: 43.3 cm/sec TR max job: 289.5 cm/sec MV A max job: 72.1 cm/sec TR max P.5 mmHg MV E/A: 0.60 PA V2 max: 94.3 cm/sec Med Peak E' Job: 3.4 cm/sec PA V2 mean: 60.0 cm/sec E/E' med: 12.9 PA mean P.7 mmHg Lat Peak E' Job: 4.6 cm/sec PA pr(Accel): 34.5 mmHg E/E' lat: 9.4 E/e' average: 11.1 MV dec time: 0.15 sec SV(LVOT): 50.2 ml Reading Physician:05:07 PM
== END ==
PROVIDERS: PCP Nurse Practitioner Family; Referring Provider Nurse Practitioner Family; Visit Provider Nurse Practitioner Family
DX: R42 Dizziness and giddiness (principal); I10 Essential (primary) hypertension; I25.3 Aneurysm of heart; R91.8 Other nonspecific abnormal finding of lung field; E04.1 Nontoxic single thyroid nodule; I65.23 Occlusion and stenosis of bilateral carotid arteries
CPT/HCPCS: 71250; 93306; 93880

== ENCOUNTER → 2025-02-05 13:23 | Outpatient (CLI) | payer MEDICARE, SELFPAY ==
[2025-01-07 14:08] VITALS: BMI 21.9
--- NOTE | 2025-02-05 13:25 | DI.US.S_ITS ---
PROCEDURE: US ARTERIAL DUPLEX LE RT INDICATIONS: Non-healed wound at R 3rd amp site, eval for osteo TECHNIQUE: Color and pulse Doppler interrogation was performed of the right lower extremity arterial system, with image documentation. COMPARISON: [facility], , US ARTERIAL DUPLEX LE , 01/13/2024, 12:39. FINDINGS: Common femoral artery: 70 cm/sec, with biphasic flow. Deep femoral artery: 63 cm/sec, with biphasic flow. Proximal superficial femoral artery: 78 cm/sec, with biphasic flow. Mid superficial femoral artery: 85 cm/sec, with biphasic flow. Distal superficial femoral artery: 74 cm/sec, with biphasic flow. Popliteal artery: 57 cm/sec, with triphasic flow. Posterior tibial artery: 39 cm/sec, with monophasic flow. Dorsalis pedis: 40 cm/sec, with monophasic flow. Person-scale imaging description: Extensive atherosclerotic plaque throughout the lower extremity. IMPRESSION: Extensive atherosclerotic plaque throughout the lower extremity, without hemodynamically significant stenosis based on peak systolic velocity criteria. Dictated by: Anirudh Aquino M.D. on 02/05/2025 at 21:30 Approved by: Anirudh Aquino M.D. on 02/05/2025 at 21:31
--- NOTE | 2025-02-05 13:25 | DI.RAD.S_ITS ---
PROCEDURE: XR FOOT RT MIN 3V INDICATIONS: Non-healed wound at R 3rd amp site, eval for osteo TECHNIQUE: 3 views of the foot were acquired. COMPARISON: [facility], CR, XR FOOT LT MIN 3V, 10/17/2023, 12:07. [facility], CR, XR FOOT RT MIN 3V, 05/23/2023, 13:51. FINDINGS: Diffuse osseous demineralization. Interval 3rd digit partial amputation to the level of the MTP joint, with mild patchy sclerosis at the metatarsal head. Pre-existing 4th digit partial amputation to the level of the MTP joint. Pre-existing 1st TMT plate and screw arthrodesis with mature fusion, and without hardware complication. Pre-existing 5th digit MTP dislocation with erosions and pseudoarthrosis development at the modified MTP joint. Focal osteopenia and sclerosis along the 5th metatarsal distal shaft. No radiographic evidence of subcutaneous emphysema. Mild hallux valgus without clear visualization of the lateral sesamoid. Mild 1st MTP osteoarthritis. Vascular calcifications. Plantar calcaneal enthesopathy. IMPRESSION: Possible sites of osteomyelitis at the 3rd metatarsal head, 5th MTP joint, 5th metatarsal shaft, and hallux lateral sesamoid. An MRI of the forefoot without contrast would be recommended for clarification. No radiographic evidence of subcutaneous emphysema. Dictated by: Adán Forde M.D. on 02/05/2025 at 15:56 Approved by: Adán Forde M.D. on 02/05/2025 at 16:02
== END ==
PROVIDERS: PCP Nurse Practitioner Family; Referring Provider Surgery; Visit Provider Surgery
DX: S91.301A Unspecified open wound, right foot, initial encounter (principal); R42 Dizziness and giddiness; I10 Essential (primary) hypertension; R91.1 Solitary pulmonary nodule; I25.3 Aneurysm of heart; R91.8 Other nonspecific abnormal finding of lung field; E04.1 Nontoxic single thyroid nodule; I65.23 Occlusion and stenosis of bilateral carotid arteries
CPT/HCPCS: 71250; 73630; 93306; 93880; 93926

== ENCOUNTER → 2025-02-09 14:10 | Outpatient (CLI) | payer MEDICARE, SELFPAY ==
[2025-01-07 14:08] VITALS: BMI 21.9
== END ==
LOC: WC 14:12
PROVIDERS: PCP Nurse Practitioner Family; Referring Provider Nurse Practitioner Family; Visit Provider Surgery
DX: T87.89 Other complications of amputation stump (principal); Z89.421 Acquired absence of other right toe(s); E11.628 Type 2 diabetes mellitus with other skin complications; E11.42 Type 2 diabetes mellitus with diabetic polyneuropathy; I73.9 Peripheral vascular disease, unspecified; R60.0 Localized edema
CPT/HCPCS: 11042; 99213

== ENCOUNTER → 2025-02-11 09:51 | Outpatient (CLI) | payer MEDICARE, SELFPAY ==
[2025-01-07 14:08] VITALS: BMI 21.9
== END ==
LOC: CAR 09:52
PROVIDERS: PCP Nurse Practitioner Family; Referring Provider Nurse Practitioner Family; Visit Provider Nurse Practitioner Family
DX: R42 Dizziness and giddiness (principal); I49.3 Ventricular premature depolarization
CPT/HCPCS: 93242

== ENCOUNTER → 2025-02-11 13:49 | Outpatient (CLI) | payer MEDICARE, SELFPAY ==
[2025-01-07 14:08] VITALS: BMI 21.9
--- NOTE | 2025-02-11 13:50 | DI.MRI.S_ITS ---
PROCEDURE: MR FOOT RT WO/W CON INDICATIONS: Non-healing wound of R 3rd toe amp site, eval osto TECHNIQUE: Noncontrast coronal T1 spin echo and STIR, sagittal T1 spin echo with fat saturation and STIR, axial T1 spin echo and T2 fast spin echo with fat saturation. After the administration of contrast, axial/sagittal/coronal T1 spin echo with fat saturation through the right foot. COMPARISON: [facility], CR, XR FOOT RT MIN 3V, 02/05/2025, 13:22. [facility], MR, MR FOOT RT WO/W CON, 05/31/2023, 16:52. FINDINGS: Image quality: Excellent. Bones: There is prior amputation of the 3rd and 4th toes at the level of 3rd and 4th MTP joints . Postsurgical changes also noted involving 5th metatarsal head and neck region. No marrow edema is seen. No acute fracture or dislocation. No bony erosive changes or area of abnormal intraosseous enhancement. Osteoarthritic changes are noted throughout midfoot and forefoot joints with postfusion changes noted at 1st TMT joint and significant susceptibility artifacts. Near complete bony union is noted at 1st TMT joint. Soft tissues: Mild diffuse subcutaneous soft tissue edema and swelling over dorsal and medial aspect of midfoot and forefoot is seen. No discrete drainable peripherally enhancing fluid collection. No signal abnormality is noted in included portion of plantar foot muscles. Extensor and flexor tendons are intact. No enhancing soft tissue mass or drainable fluid collection. Moderate amount of 1st MTP joint fluid with thickened synovial lining and enhancement concerning for synovitis. IMPRESSION: 1. Postsurgical changes in 3rd to 5th toes as described above. No evidence of osteomyelitis is seen on the current study. Osteoarthritic changes throughout midfoot and forefoot joints. No fracture or dislocation. No area of abnormal intraosseous enhancement. 2. Mild soft tissue edema over dorsal and medial aspect of midfoot and forefoot. No discrete drainable abscess collection. No enhancing soft tissue mass. No area of abnormal intramuscular enhancement. Dictated by: Harjit Lombardi M.D. on 02/12/2025 at 9:02 Approved by: Harjit Lombardi M.D. on 02/12/2025 at 9:11
== END ==
PROVIDERS: PCP Nurse Practitioner Family; Referring Provider Surgery; Visit Provider Surgery
DX: S91.301D Unspecified open wound, right foot, subsequent encounter (principal); M79.89 Other specified soft tissue disorders; Z89.421 Acquired absence of other right toe(s); X58.XXXD Exposure to other specified factors, subsequent encounter; R42 Dizziness and giddiness; I49.3 Ventricular premature depolarization
CPT/HCPCS: 73720; 93242; A9579

== ENCOUNTER → 2025-02-17 14:25 | Outpatient (CLI) | payer MEDICARE, SELFPAY ==
[2025-01-07 14:08] VITALS: BMI 21.9
== END ==
PROVIDERS: PCP Nurse Practitioner Family; Referring Provider Nurse Practitioner Family; Visit Provider Surgery
DX: T87.81 Dehiscence of amputation stump (principal); Z89.421 Acquired absence of other right toe(s); E11.628 Type 2 diabetes mellitus with other skin complications; E11.42 Type 2 diabetes mellitus with diabetic polyneuropathy; I73.9 Peripheral vascular disease, unspecified; L53.9 Erythematous condition, unspecified; R60.0 Localized edema
CPT/HCPCS: 11042

== ENCOUNTER → 2025-02-24 13:16 | Outpatient (CLI) | payer MEDICARE, SELFPAY ==
[2025-01-07 14:08] VITALS: BMI 21.9
== END ==
LOC: WC 13:24
PROVIDERS: PCP Nurse Practitioner Family; Referring Provider Nurse Practitioner Family; Visit Provider Surgery
DX: T87.89 Other complications of amputation stump (principal); Z89.421 Acquired absence of other right toe(s); I73.9 Peripheral vascular disease, unspecified; R60.0 Localized edema; E11.628 Type 2 diabetes mellitus with other skin complications; E11.42 Type 2 diabetes mellitus with diabetic polyneuropathy
CPT/HCPCS: 11042; 99213

== ENCOUNTER → 2025-02-25 12:43 | Outpatient (CLI) | payer MEDICARE, SELFPAY ==
[2025-01-07 14:08] VITALS: BMI 21.9
--- NOTE | 2025-02-25 12:44 | DI.US.S_ITS ---
PROCEDURE: US THYROID INDICATIONS: Nodule follow up from CT TECHNIQUE: Real-time scanning was performed of the thyroid gland, with image documentation. COMPARISON: [facility], CT, CT CERVICAL SPINE WO CON, 01/15/2025, 16:29. FINDINGS: Thyroid: Right lobe measures 3.4 x 1.7 x 1.3 cm. Left lobe measures 4.1 x 2.1 x 1.9 cm. Isthmus is 0.4 cm thick. Echotexture is fairly homogeneous. There are several cystic foci in both lobes.. Nodule number: 1 Location: Left inferior pole Size: 1.6 x 1.4 x 1.2 cm. Composition: Cystic Echogenicity: Anechoic Shape: wider than tall. Margins: Smooth Echogenic foci: No Total points: 0 ACR TI-RADS category: One, benign IMPRESSION: Scattered thyroid cysts. No suspicious solid nodule. ACR TI-RADS definitions and recommendations: TI-RADS 1 (benign): 0 points. FNA not needed. TI-RADS 2 (not suspicious): 2 points. FNA not needed. TI-RADS 3: 3 points. * FNA if 2.5 cm or larger, follow up if 1.5 cm or larger (at 1, 3, and 5 years). TI-RADS 4: 4-6 points. * FNA if 1.5 cm or larger, follow up if 1 cm or larger (at 1, 2, 3, and 5 years). TI-RADS 5: 7 points or more. * FNA if 1 cm or larger, follow up if 0.5 cm or larger (every year for 5 years). Dictated by: Lila Nobles M.D. on 02/26/2025 at 13:51 Approved by: Lila Nobles M.D. on 02/26/2025 at 13:54
== END ==
PROVIDERS: PCP Nurse Practitioner Family; Referring Provider Nurse Practitioner Family; Visit Provider Nurse Practitioner Family
DX: E04.2 Nontoxic multinodular goiter (principal)
CPT/HCPCS: 76536

== ENCOUNTER → 2025-03-03 13:56 | Outpatient (CLI) | payer MEDICARE, SELFPAY ==
[2025-01-07 14:08] VITALS: BMI 21.9
== END ==
PROVIDERS: PCP Nurse Practitioner Family; Referring Provider Nurse Practitioner Family; Visit Provider Surgery
DX: T87.81 Dehiscence of amputation stump (principal); Z89.421 Acquired absence of other right toe(s); E11.42 Type 2 diabetes mellitus with diabetic polyneuropathy; E11.628 Type 2 diabetes mellitus with other skin complications; R60.0 Localized edema; I73.9 Peripheral vascular disease, unspecified; L53.9 Erythematous condition, unspecified
CPT/HCPCS: 11042

== ENCOUNTER → 2025-03-10 16:20 | Outpatient (CLI) | payer MEDICARE, SELFPAY ==
[2025-01-07 14:08] VITALS: BMI 21.9
== END ==
LOC: WC 16:24
PROVIDERS: PCP Nurse Practitioner Family; Referring Provider Nurse Practitioner Family; Visit Provider Surgery
DX: T87.89 Other complications of amputation stump (principal); Z89.421 Acquired absence of other right toe(s); E11.628 Type 2 diabetes mellitus with other skin complications; E11.42 Type 2 diabetes mellitus with diabetic polyneuropathy; I73.9 Peripheral vascular disease, unspecified
CPT/HCPCS: 11042

== ENCOUNTER → 2025-03-17 16:04 | Outpatient (CLI) | payer MEDICARE, SELFPAY ==
[2025-01-07 14:08] VITALS: BMI 21.9
== END ==
PROVIDERS: PCP Nurse Practitioner Family; Referring Provider Nurse Practitioner Family; Visit Provider Surgery
DX: T87.89 Other complications of amputation stump (principal); Z89.421 Acquired absence of other right toe(s); Z89.411 Acquired absence of right great toe; S91.114A Laceration without foreign body of right lesser toe(s) without damage to nail, initial encounter; E11.42 Type 2 diabetes mellitus with diabetic polyneuropathy; I73.9 Peripheral vascular disease, unspecified; E11.622 Type 2 diabetes mellitus with other skin ulcer; R60.0 Localized edema
CPT/HCPCS: 11042; 99213

== ENCOUNTER → 2025-03-31 13:44 | Outpatient (CLI) | payer MEDICARE, SELFPAY ==
[2025-01-07 14:08] VITALS: BMI 21.9
== END ==
LOC: WC 13:48
PROVIDERS: PCP Nurse Practitioner Family; Referring Provider Nurse Practitioner Family; Visit Provider Surgery
DX: S91.114D Laceration without foreign body of right lesser toe(s) without damage to nail, subsequent encounter (principal); E11.42 Type 2 diabetes mellitus with diabetic polyneuropathy; Z89.421 Acquired absence of other right toe(s)
CPT/HCPCS: 99213

== ENCOUNTER → 2025-08-12 08:05 | Outpatient (CLI) | payer MEDICARE, SELFPAY ==
[2025-01-07 14:08] VITALS: BMI 21.9
--- NOTE | 2025-08-12 08:07 | DI.CT.S_ITS ---
PROCEDURE: CT CHEST W CON INDICATIONS: pulmonary nodules TECHNIQUE: After the administration of intravenous contrast, 5 mm thick sections acquired from the pulmonary apices to the posterior costophrenic angles. 1 mm axial lung, 5 mm thick coronal and sagittal reformats and 7 mm axial MIP were acquired. For radiation dose reduction, the following was used: automated exposure control, adjustment of mA and/or kV according to patient size. COMPARISON: [facility], CT, CT CHEST WO [facility], 02/05/2025, 13:41. FINDINGS: Image quality: Diagnostic. Lungs and Pleura: Stable, small part solid and ground-glass pleural-based opacity in the left upper lobe laterally. Several peribronchial patchy ground-glass opacities in the anterior right upper lobe are new. There is slightly increased size of of rounded opacity medially in the right middle lobe with tethering of the overlying pleura and mild traction of bronchovascular structures.. Right lateral lower lobe irregular patchy opacity and septal thickening inferiorly is similar. Septal thickening is slightly increased at the right lung base compared to prior. Bibasilar atelectatic changes. Mild passive atelectasis along the inferior left fissure. No other new or enlarging nodules. Central and peripheral airways are normal without bronchial wall thickening or bronchiectasis.. No pleural effusions or pleural calcifications. Lower Neck: No enlarged lymph nodes. Thyroid: Nodular thyroid gland, stable. Axillae: No enlarged lymph nodes. Chest Wall: Peripherally calcified right breast implant. No suspicious chest wall masses. Bones: No suspicious bone lesion. Mild degenerative changes in the spine. Scoliosis. Thoracic Vessels: Mildly enlarged main pulmonary artery. Normal caliber aorta. Mediastinum and Sole: No enlarged lymph nodes. Heart: Enlarged heart with heavy coronary artery calcification. No pericardial effusion. Esophagus: Normal esophagus. Moderate-sized hiatal hernia. Upper Abdomen: Several hepatic hypodensities. Fat containing right adrenal gland mass. Visible portions of upper abdominal organs are otherwise normal. IMPRESSION: Development of anterior right upper lobe peribronchial patchy opacities most consistent with an infectious process. Mild enlargement in the anteromedial right middle lobe rounded opacity with a features suggestive of round atelectasis, though continued follow-up is recommended, particularly if this lesion has not been sampled. Moderate size hiatal hernia. This could predispose the patient to recurrent aspiration pneumonias. Stable upper abdominal findings. Dictated by: Lila Nobles M.D. on 08/12/2025 at 16:54 Approved by: Lila Nobles M.D. on 08/12/2025 at 17:04
[2025-08-12 08:39] LABS: Estimated Glomerular Filt Rate 55 mL/min (>60)
== END ==
LOC: CT 08:07
PROVIDERS: PCP Nurse Practitioner Family; Referring Provider Internal Medicine Hematology & Oncology; Visit Provider Internal Medicine Hematology & Oncology
DX: D02.20 Carcinoma in situ of unspecified bronchus and lung (principal); K44.9 Diaphragmatic hernia without obstruction or gangrene; I25.10 Atherosclerotic heart disease of native coronary artery without angina pectoris; R91.8 Other nonspecific abnormal finding of lung field; E27.9 Disorder of adrenal gland, unspecified; I51.7 Cardiomegaly
CPT/HCPCS: 71260; 82565; Q9967

== ENCOUNTER 2025-08-16 09:43 | Emergency (ER) | payer MEDICARE, SELFPAY ==
[2025-01-07 14:08] VITALS: BMI 21.9
[2025-08-16 10:01] VITALS: BP 178/81; PULSE 84; RESP 16; TEMP 36.1; O2SAT 97; BMI 22.3
--- NOTE | 2025-08-16 10:08 | ED_ITS ---
HPI - Back Pain/Injury General Chief Complaint: Back Pain/Injury Stated Complaint: back px since sat Time Seen by Provider: 08/16/25 10:06 Source: patient History of Present Illness HPI Narrative: Patient here with daughter complains of bilateral lower back pain that does not radiate. History of skin cancer and breast cancer. Patient did have CT chest recently 4 days ago. Infectious process peribronchial opacities. Patient had PET scan in February of this year suspicious for multifocal malignancies. Patient complains 5 days of bilateral lower back pain. History of back surgery 10 years ago. Has been doing well but uses a walker on a daily basis which is her baseline. No bowel or bladder incontinence. No saddle paresthesia. No numbness weakness to the legs or feet. Is not on narcotic medication at home. No fever chills no known injury. No urinary complaints Related Data Home Medications ?Medication ?Instructions ?Recorded ?Confirmed multivitamin with [id number] See Rx Instructions .R oute .COMPLEX 06/21/21 03/17/25 400 mcg-120 mg tablet (One Daily Women 50 Plus) albuterol sulfate 90 mcg/actuation 2 puff inhalation Q 4-6H PRN 11/12/23 03/17/25 aerosol inhaler wheezing Previous Rx's ?Medication ?Instructions ?Recorded Disabled Parking Permit #1 ea 03/07/23 Mastectomy Bra #1 ea 03/04/24 omeprazole 20 mg capsule,delayed 20 mg PO DAILY #90 ca ps 12/21/24 release alprazolam 0.25 mg tablet 0.25 mg PO BID PRN anxiety # 60 tabs 12/29/24 metformin 500 mg tablet 500 mg PO BID #180 tabs 0706/03 Ensure Nutritional Shake 1 ea PO DAILY #90 ea 04/08/ 5 lisinopril 20 1 tab PO DAILY #90 tabs 06/0925 mg-hydrochlorothiazide 25 mg tablet fluticasone furoate 100 1 inh inhalation DAILY #60 e a 07/05/25 mcg-vilanterol 25 mcg/dose inhalation powder (Breo Ellipta) hydrocodone 5 mg-acetaminophen 325 1 tab PO Q8HR PRN p ain #15 tabs 08/16/25 mg tablet naloxone 4 mg/actuation nasal 4 mg intranasal Q2M PRN opioid 08/16/25 spray (Narcan) overdose #2 ea ondansetron 4 mg disintegrating 4 mg PO Q6H PRN nausea and 08/16/25 tablet vomiting #20 tabs Allergies Allergy/AdvReac Type Severity Reaction Status Date / Time sulfamethoxazole (From Allergy Severe Hives, Verified 08/16/25 10:01 Bactrim) shortness of breath trimethoprim (From Bactrim) Allergy Severe Hives, Verified 08/16/25 10:01 shortness of breath nifedipine AdvReac Intermediate Dizziness Verified 08/16/25 10:01 levofloxacin AdvReac Mild Dizziness, Verified 08/16/25 10:01 lightheaded, weak Review of Systems Review of Systems Narrative: GENERAL: Negative chills, fatigue, malaise, fever, sweats. HEENT: Negative sinus pain, ear pain, sore throat RESPIRATORY: Negative dyspnea, cough CARDIOVASCULAR: Negative chest pain, palpitations GASTROINTESTINAL: Negative vomiting, nausea, abdominal pain : Negative dysuria, frequency, hematuria MUSCULOSKELETAL: Positive back, muscle or bony pain SKIN: Negative rash, skin lesions NEUROLOGIC: Negative weakness, numbness ROS Unobtainable: All systems reviewed & are unremarkable except as noted in HPI and below Patient History Medical History (Updated 08/16/25 @ 12:24 by Mohan Kumar MD) Multiple lung nodules Peripheral neuropathy Anemia Thyroid nodule Renal insufficiency COPD exacerbation High blood triglycerides Hyperglyceridemia Neuropathy Edema Diastolic dysfunction GERD (gastroesophageal reflux disease) Diverticular disease Hypertension Hyperlipidemia COPD (chronic obstructive pulmonary disease) Hay fever Lumbar back pain Chronic back pain Mumps Measles Chicken pox Cataract Hyperglycemia Diabetes Skin cancer (~2011) Breast cancer (~1981) Surgical History History of surgery Hx of hernia repair History of surgery History of esophageal surgery History of hysterectomy History of bunionectomy of both great toes History of lumbar fusion (06/17/19) Anesthesia History of mastectomy (~09/1981) Family History Mother Brain aneurysm Sister Age: 86 Cancer of breast Lung cancer Daughter Cancer of breast Father No problems noted. Social History household members: none alcohol intake: former alcohol intake frequency: other Exam Narrative Exam Narrative: GENERAL: in no distress, not toxic not dyspneic HEAD: Normocephalic. EYES: Pupils equal round ENT: Mucous membranes moist. NECK: Trachea midline. CARDIOVASCULAR: Regular rate and rhythm RESPIRATORY: Clear to auscultation. Breath sounds equal bilaterally. No wheezes, rales, or rhonchi. GASTROINTESTINAL: Abdomen soft, BACK: No flank tenderness. Reproduces bilateral paralumbar muscle tenderness and spasm. Or painful tender at L2-L3 L4 area. Decreased ability to lean forward back and do side bending due to pain. No pain with straight leg raises in a seated position. Strong bilateral patellar reflexes and ankle flexion and extension. Intact bilateral legs EXTREMITIES: No gross deformities. NEURO: AOx4. Clear speech SKIN: Warm and dry PSYCH: Not anxious, is cooperative Initial Vital Signs Initial Vital Signs: Vital Signs Temperature 97 F L 08/16/25 10:01 Pulse Rate 84 08/16/25 10:01 Respiratory Rate 16 08/16/25 10:01 Blood Pressure 178/81 H 08/16/25 10:01 Pulse Oximetry 97 08/16/25 10:01 Oxygen Delivery Method Room Air 08/16/25 10:01 Course Orders Ordered: ED Orders 08/16/25 10:12 CT lumbar spine wo con Stat Discontinued Medications Hydrocodone Bitart/Acetaminophen (Hydrocodone/Acet 5/325 Tablet) 1 tab PO NOW ONE Stop: 08/16/25 10:13 Last Admin: 08/16/25 11:10 Dose: 1 tab Ondansetron HCl (Ondansetron 4 Mg Odt) 4 mg SL NOW ONE Stop: 08/16/25 10:13 Last Admin: 08/16/25 11:10 Dose: 4 mg Vital Signs Vital signs: Vital Signs - 8 hr 08/16/25 10:01 Temperature 97 F L Pulse Rate 84 Respiratory Rate 16 Blood Pressure 178/81 H Pulse Oximetry 97 Oxygen Delivery Method Room Air MDM - Back Pain/Injury Imaging Data CT lumbar spine: Radiologist's Impression: [address] [address] [address] Scan Report Signed Patient: Jessica Harmon MR#: [id number] : 1935 Acct:[id number] Age/Sex: 89 / F Date of Service: 08/16/25 Loc: ED Accession Number: [id number] Procedure: CT lumbar spine wo con Ordering Provider: Mohan Kumar MD PROCEDURE: CT LUMBAR SPINE WO CON INDICATIONS: Lower back pain TECHNIQUE: Noncontrast 3 mm thick sections acquired from the T12 level to the sacrum. Sagittal and coronal reformats were constructed. For radiation dose reduction, the following was used: automated exposure control. COMPARISON: [facility], CT, CT LUMBAR SPINE WO CON, 10/07/2019, 12:45., CT abdomen pelvis 11/19/2023 FINDINGS: Image quality: Diagnostic Bones: Bones are demineralized. Status post L3-L5 posterior spinal fusion with intervertebral disc spacers at L3-L4 and L4-L5. No evidence of hardware complication. Grade 1 anterolisthesis of L3 on L4 and L4 on L5. No significant central canal stenosis. There is chronic appearing wedge deformity of T10 vertebral body with approximately 40 percent central height loss, progressed since prior CT abdomen pelvis in November 2023. No suspicious lytic or blastic bony lesions. No pars defects. Soft tissues: No retroperitoneal masses or hematomas. Visualized aorta is normal in caliber. Aorto bi iliac atherosclerotic calcifications. IMPRESSION: Chronic appearing compression deformity of T10 vertebral body with approximately 40 percent central height loss. Recommend correlation with point tenderness. No acute fracture or traumatic subluxation of the lumbar spine. Stable postoperative appearance and multilevel spondylolisthesis of the lumbar spine. Approved by: Oxana Mars M.D.,Ph.D. on 08/16/2025 at 11:18 MDM Narrative Medical decision making narrative: Patient here with daughter complains of bilateral lower back pain that does not radiate. History of skin cancer and breast cancer. Patient did have CT chest recently 4 days ago. Infectious process peribronchial opacities. Patient had PET scan in February of this year suspicious for multifocal malignancies. Patient complains 5 days of bilateral lower back pain. History of back surgery 10 years ago. Has been doing well but uses a walker on a daily basis which is her baseline. No bowel or bladder incontinence. No saddle paresthesia. No numbness weakness to the legs or feet. Is not on narcotic medication at home. No fever chills no known injury. No urinary complaints MDM After history and exam, CT lumbar spine Byron Zofran, exam is reassuring. Your blood work indicated at this time. No recent illness. No fever. Differential considered: Includes but not limited to pathologic for durable fracture compression fracture Medical records reviewed: PET scan February 24, 2025 CT chest August 12, 2025 Imaging studies independently reviewed: CT lumbar spine no acute finding. T10 progression compression fracture however patient is not tender at T10 Re-evaluations: 12:23 p.m.. Updated patient and daughter results. T10 reviewed with them on CT however her pain on exam is L2-L3 area. Discussion: Appropriate for discharge home. Exam is reassuring. Neurologically intact. No MR indicated at this time. No neuro deficits. No consult indicated this time. Diagnosis: Low back pain Discharge Plan Departure Patient Disposition: Home Clinical Impression: Low back pain Qualifiers: Chronicity: acute Back pain laterality: unspecified Sciatica presence: without sciatica Qualified Code(s): M54.50 - Low back pain, unspecified Instructions: DI for Low Back Pain Activity Restrictions/Additional Instructions: Please see your family doctor to make appointment for MRI of your lower back as well as physical therapy and referral to spine specialty services. Short course of pain medication has been provided for you. Return if worse if any questions or concerns. Prescriptions: New hydrocodone-acetaminophen 5-325 mg tablet 1 tab PO Q8HR PRN (Reason: pain) Qty: 15 0RF ondansetron 4 mg tablet,disintegrating 4 mg PO Q6H PRN (Reason: nausea and vomiting) Qty: 20 0RF naloxone [Narcan] 4 mg/actuation spray,non-aerosol 4 mg intranasal Q2M PRN (Reason: opioid overdose) Qty: 2 0RF Rx Instructions: spray 1 dose into ONE nostril; alternate nostrils w each dose until help arrives No Action (DME) Disabled Parking Permit See Rx Instructions .Route .MEDSUPPLY Qty: 1 0RF Rx Instructions: I find this patient to be medically disabled and qualify for disabled parking as indicated and signed on the accompanying disabled parking application for individuals. omeprazole 20 mg capsule,delayed release(DR/EC) 20 mg PO DAILY Qty: 90 3RF alprazolam 0.25 mg tablet 0.25 mg PO BID PRN (Reason: anxiety) Qty: 60 1RF Ensure Nutritional Shake 1 ea PO DAILY Qty: 90 3RF lisinopril-hydrochlorothiazide 20-25 mg tablet 1 tab PO DAILY Qty: 90 3RF fluticasone furoate-vilanterol [Breo Ellipta] 100-25 mcg/dose blister with device 1 inh inhalation DAILY Qty: 60 2RF Patient Comments: uses at night One Daily Women 50 Plus 400-120 mcg-mg tablet See Rx Instructions .ROUTE .COMPLEX Rx Instructions: One daily (DME) Mastectomy Bra See Rx Instructions .Route .MEDSUPPLY Qty: 1 12RF Rx Instructions: As directed metformin 500 mg tablet 500 mg PO BID Qty: 180 3RF albuterol sulfate 90 mcg/actuation HFA aerosol inhaler 2 puff INHALATION Q4-6H PRN (Reason: wheezing) Referrals: Sharona Hensley, [facility] [Primary Care Provider, Family Practice] Stand Alone Forms: Patient Portal/API
--- NOTE | 2025-08-16 10:12 | DI.CT.S_ITS ---
PROCEDURE: CT LUMBAR SPINE WO CON INDICATIONS: Lower back pain TECHNIQUE: Noncontrast 3 mm thick sections acquired from the T12 level to the sacrum. Sagittal and coronal reformats were constructed. For radiation dose reduction, the following was used: automated exposure control. COMPARISON: [facility], CT, CT LUMBAR SPINE WO CON, 10/07/2019, 12:45., CT abdomen pelvis 11/19/2023 FINDINGS: Image quality: Diagnostic Bones: Bones are demineralized. Status post L3-L5 posterior spinal fusion with intervertebral disc spacers at L3-L4 and L4-L5. No evidence of hardware complication. Grade 1 anterolisthesis of L3 on L4 and L4 on L5. No significant central canal stenosis. There is chronic appearing wedge deformity of T10 vertebral body with approximately 40 percent central height loss, progressed since prior CT abdomen pelvis in November 2023. No suspicious lytic or blastic bony lesions. No pars defects. Soft tissues: No retroperitoneal masses or hematomas. Visualized aorta is normal in caliber. Aorto bi iliac atherosclerotic calcifications. IMPRESSION: Chronic appearing compression deformity of T10 vertebral body with approximately 40 percent central height loss. Recommend correlation with point tenderness. No acute fracture or traumatic subluxation of the lumbar spine. Stable postoperative appearance and multilevel spondylolisthesis of the lumbar spine. Approved by: Oxana Mars M.D.,Ph.D. on 08/16/2025 at 11:18
[2025-08-16] MEDS: ONDANSETRON 4 MG ODT SL (11:10)
== END 2025-08-16 12:31 | disposition home or self-care (01) ==
PROVIDERS: Emergency Provider Emergency Medicine; PCP Nurse Practitioner Family
DX: M54.50 Low back pain, unspecified (principal); Z85.3 Personal history of malignant neoplasm of breast; Z85.828 Personal history of other malignant neoplasm of skin
CPT/HCPCS: 72131; 99283; 99284

== ENCOUNTER → 2025-08-21 14:47 | Outpatient (CLI) | payer MEDICARE, SELFPAY ==
[2025-01-07 14:08] VITALS: BMI 21.9
--- NOTE | 2025-08-21 14:49 | DI.MRI.S_ITS ---
PROCEDURE: MR LUMBAR SPINE WO CON INDICATIONS: lower back pain TECHNIQUE: Noncontrast sagittal T1 spin echo and T2 fast echo, sagittal STIR, and T2 fast spin echo through the lumbar spine. In cases with scoliosis, additional coronal T2 fast spin echo may be performed. COMPARISON: [facility], CT, CT LUMBAR SPINE WO CON, 08/16/2025, 10:31. [facility], MR, MR LUMBAR SPINE WO CON, 03/27/2019, 18:24. FINDINGS: Image quality: Excellent. Alignment and Curvature: There is trace anterolisthesis of L3 on L4, L4 on L5 and trace retrolisthesis of L5 on S1. Bone Marrow: Marrow is of normal overall signal. No acute vertebral body compression fractures. Spinal Cord: Conus medullaris terminates at the L1 level. Visualized cord demonstrates normal signal and size. Paraspinous Soft Tissues: No paravertebral masses. Multiple hepatic T2 hyperintensities are present suggestive of simple cysts. Discs: Demm-bc-cyhkncrn multilevel disc desiccation. T12-L1: Minimal disc bulge without spinal stenosis. Minimal left foraminal narrowing with facet and ligamentum flavum hypertrophy. No significant interval change since prior MRI. L1-L2: Minimal disc bulge without spinal stenosis. Mild bilateral foraminal narrowing with facet and ligamentum flavum hypertrophy, minimally progressive L2-L3: Mild disc bulge with moderate spinal stenosis, progressive. Moderate left, mild right foraminal narrowing with facet and ligamentum flavum hypertrophy, progressive particularly on the right. L3-L4: Postsurgical changes. Improved appearance of spinal stenosis with minimal residual. Moderate right and [id number] left foraminal narrowing without significant interval progression. L4-L5: Postsurgical changes are present. Aktt-am-ehiixrbp spinal stenosis improved compared to prior exam. Moderate right and mild left foraminal narrowing unchanged. L5-S1: Mild disc bulge with minimal spinal stenosis. Moderate bilateral foraminal narrowing, minimally progressive bilaterally. Facet and ligamentum flavum hypertrophy are present. IMPRESSION: Improved appearance of spinal stenosis since posterior fusion at L3-4, L4-5. Multilevel foraminal narrowing with multiple levels demonstrate minimal progression as described above. Dictated by: Mihaela Mckinnon M.D. on 08/23/2025 at 14:25 Approved by: Mihaela Mckinnon M.D. on 08/23/2025 at 15:02
== END ==
LOC: MRI 14:48
PROVIDERS: PCP Nurse Practitioner Family; Referring Provider Nurse Practitioner Family; Visit Provider Nurse Practitioner Family
DX: M48.061 Spinal stenosis, lumbar region without neurogenic claudication (principal); M48.07 Spinal stenosis, lumbosacral region; M54.50 Low back pain, unspecified; Z98.1 Arthrodesis status
CPT/HCPCS: 72148